=== PATIENT | male | born 1940 | race Caucasian/White ===

== ENCOUNTER 2022-05-24 16:47 | Inpatient (IN) | payer MEDICARE, SELFPAY ==
--- NOTE | ~2022-05-24 | CT_ITS ---
EXAMINATION: CT ABDOMEN AND PELVIS WITHOUT CONTRAST CLINICAL INFORMATION: Acute renal failure COMPARISON: None TECHNIQUE: Multidetector volumetric imaging was performed from the superior aspect of the liver through the pubic symphysis. Sagittal and coronal reformatted images were obtained on the technologist's workstation. This CT examination was performed using dose optimization techniques as appropriate, variously including the following: *Automated exposure control *Adjustment of mA and/or kV according to patient size (this includes techniques or standardized protocols for targeted exams where dose is matched to indication/reason for exam; i.e. extremities or head) *Use of iterative reconstruction technique DLP: 506 mGy-cm FINDINGS: LUNG BASES: Fibrotic changes are seen at the lung bases. No suspicious lung masses or pleural effusions are seen. Coronary artery calcifications are present. LIVER, GALLBLADDER, AND BILIARY TREE: The liver is normal in size, shape, and attenuation. No focal hepatic lesion or biliary ductal dilatation is present. The gallbladder is unremarkable with no evidence of radiopaque gallstones, gallbladder wall thickening, or obvious pericholecystic inflammatory changes. PANCREAS: Unremarkable. SPLEEN: Unremarkable. ADRENAL GLANDS: Unremarkable. KIDNEYS, URETERS, BLADDER AND PROSTATE: There is bilateral hydronephrosis with dilatation of the ureters seen down to the level of the bladder. No obstructing stones are seen. No renal masses and no nephrolithiasis. Lateral demonstrates a mildly symmetric thickened wall. The prostate is enlarged measuring 5.6 x 4.8 x 4.9 cm for a volume of about 70 mL. The urethra at the level of the prostate is dilated. This could be secondary to a TURP defect although I am told that there is no history of this. Please correlate with the surgical history. A single calcification is present in the prostate. No calcifications are seen in the bladder or urethra. GASTROINTESTINAL TRACT: The small and large bowel are unremarkable. The appendix is unremarkable. ABDOMINAL WALL: No significant hernia is appreciated. LYMPH NODES: Normal. VASCULAR: Calcifications are present in the aorta without aneurysm. PELVIC VISCERA: An abnormal pelvic mass or free pelvic fluid is not seen. 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 CT/CT abdomen pelvis wo IV con IMPRESSION: 1. There is bilateral hydronephrosis with dilatation of the ureters down to the level of the bladder. No obstructing stones are seen. The prostate is enlarged and the urethra at the level of the prostate is dilated. Findings most consistent with bladder outlet obstruction and urgency placement of a Esquivel catheter is recommended given the acute renal failure. 2. 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 Fleischner guidelines were followed.
--- NOTE | ~2022-05-24 | CT_ITS ---
EXAMINATION: CT HEAD WITHOUT CONTRAST CLINICAL INFORMATION: Head pain status post fall. COMPARISON: None TECHNIQUE: Contiguous axial imaging was performed from the skull base to vertex without intravenous administration of contrast. Coronal and sagittal reformatted images were obtained. This CT examination was performed using dose optimization techniques as appropriate, variously including the following: *Automated exposure control *Adjustment of mA and/or kV according to patient size (this includes techniques or standardized protocols for targeted exams where dose is matched to indication/reason for exam; i.e. extremities or head) *Use of iterative reconstruction technique DLP: 646 mGy-cm FINDINGS: There is mild widening of the cortical sulci and associated ventriculomegaly. Minimal Vascular changes are seen. The lateral ventricles are symmetrical. The third and fourth ventricles are in their normal midline position. The basilar and prepontine cisterns are unremarkable. There is no acute intra or extracerebral abnormality. There is no mass effect or midline shift. Sections through the bony calvarium are unremarkable. The orbits are intact. The paranasal sinuses show mild mucosal thickening in the ethmoid sinuses bilaterally as well as inferiorly in the visualized maxillary sinuses. Partial visualization of retention cyst versus inflammatory polyps as well. The mastoid air cells are clear. An anterior nasal septal deviation, apex the left is seen. CT/CT head/brain wo IV con IMPRESSION: No acute intracranial pathology.
--- NOTE | ~2022-05-24 | XR_ITS ---
EXAMINATION: XR CHEST CLINICAL INFORMATION: Bibasilar crackles COMPARISON: None TECHNIQUE: Frontal view of the chest was obtained. FINDINGS: No airspace consolidation, pleural effusion, or pneumothorax. There are scattered mildly increased reticular markings within both lungs suggesting mild interstitial fibrotic change. Minimal subsegmental atelectasis suspected at the lung bases as well. Cardiomediastinal silhouette and pulmonary vascularity are within normal limits. No evidence of bone edema. No acute osseous injury identified. XR/XR chest 1V IMPRESSION: 1. No acute pulmonary process. 2. Mild bibasilar subsegmental atelectasis and probable mild scattered interstitial fibrotic change.
[2022-05-24 17:10] VITALS: BP 131/89; PULSE 78; RESP 20; TEMP 36.1; O2SAT 96; BMI 21.7
[2022-05-24 18:03] LABS: MANUAL DIFF FLAG NO
[2022-05-24 18:10] LABS: Basophils Absolute Auto 0.1 X10*3/uL (0.0-0.2); Basophils Percent Auto 0.5 % (0-2); Eosinophils Absolute Auto 0.1 X10*3/uL (0.0-0.4); Eosinophils Percent Auto 0.4 % (0-4); Hematocrit 34.3 % (42.0-52.0); Hemoglobin 11.6 g/dl (14.0-18.0); Imm Gran Abs Auto 0.05 X10*3/uL (0.00-0.03); Imm Gran Pct Auto 0.4 % (0.0-0.4); Lymphocytes Absolute Auto 1.2 X10*3/uL (1.2-4.9); Lymphocytes Percent Auto 8.6 % (20-40); Mean Corpuscular HGB Conc 33.8 g/dl (31.0-36.0); Mean Corpuscular Hemoglobin 30.4 pg (27.0-33.0); Mean Platelet Volume 9.9 fL (9.4-12.4); Monocytes Absolute Auto 1.1 X10*3/uL (0.1-1.2); Monocytes Percent Auto 8.1 % (2-11); Neutrophils Absolute Auto 11.1 x10*3/uL (2.0-8.3); Platelet Count 248 X10*3/uL (160-400); Red Blood Count 3.81 X10*6/uL (4.60-5.80); Red Cell Distribution Width 13.6 % (11.0-16.0); White Blood Count 13.6 X10*3/uL (4.8-10.8)
[2022-05-24 18:37] LABS: Anion Gap 18 (12-20); Blood Urea Nitrogen 77 mg/dL (9-16); Calcium 8.3 mg/dL (8.4-10.2); Carbon Dioxide 12 mmol/L (22-29); Chloride 110 mmol/L (96-108); Creatinine Clr Calc Pharmacy 12.2; Estimated Glomerular Filt Rate 13; Glucose Random 153 mg/dL (60-115); Potassium 5.2 mmol/L (3.3-5.1); Sodium 135 mmol/L (135-145)
--- NOTE | 2022-05-24 19:00 | ED.RECABL ---
HPI - Recheck/Abnormal Lab/Rx General Chief Complaint: Recheck/Abnormal Lab/Rx Stated Complaint: Abnormal labs Time Seen by Provider: 05/24/22 19:00 Source: patient Mode of arrival: ambulatory Limitations: no limitations History of Present Illness HPI narrative: 81-year-old male presents emergency department with and new onset kidney failure. Patient had some outpatient labs done yesterday at another facility he was called by his primary care doctor and told to come to the hospital for kidney failure. Patient denies fevers chills cough nausea vomiting or diarrhea he states he has been eating and drinking normally. Patient denies any history of renal failure. complaint: abnormal lab Review of Systems Review of Systems: Review of systems: General: Patient denies any fever chills recent illness or falls Musculoskeletal: Denies back pain or body aches or other injuries HEENT: denies headache, runny nose, ear pain Respiratory: denies shortness of breath, cough Cardiovascular: no chest pain or palpitations : denies dysuria, frequency Abdomen: no nausea vomiting denies abdominal pain Extremities: no swelling, no pain Skin: no diaphoresis Yes all other systems are reviewed and are negative PMFSH Social History Social History Advance Directives: No Advance Directives Information Provided: No Physical Exam Vital Signs: Vital Signs: Last Vital Signs Temp 97.0 F 05/24/22 17:10 Pulse 78 05/24/22 17:10 Resp 20 05/24/22 17:10 BP 131/89 05/24/22 17:10 Pulse Ox 96 05/24/22 17:10 O2 Del Method 05/24/22 17:10 BMI result Body Mass Index 21.7 General: Well-appearing well-nourished in no signs of distress HEENT: Normocephalic atraumatic Neck: No signs of JVD, no masses no tenderness or lymphadenopathy Cardiovascular: Regular rate and rhythm Respiratory: Clear to auscultation bilaterally Abdomen: Soft nontender no masses Extremities: Normal pedal pulses no signs of edema Skin: Dry warm no rashes Back: No tenderness full ROM Medical Decision Making Medical Decision Making MDM Narrative: Alter the patient fluids patient has new onset renal failure creatinine is normal to give patient fluids admit to Medicine. Differential Diagnosis Differential Diagnoses: The differential diagnosis associated with the presentation includes Acute renal failure dehydration I will give the patient fluids I will have the patient evaluated and likely admitted. Admission/Observation Consideration of admission/observation: Escalation of care including admission/observation considered Consult Healthcare Provider Management of the patient was discussed with: Hospitalist Dr. Mustafa Lab Data MDM Lab Attestation statement: I reviewed the patient's lab results. 05/24/22 17:59 05/24/22 17:59 Labs: Lab Results 05/24/22 05/24/22 Range/Units 17:59 17:59 WBC 13.6 H (4.8-10.8) X10*3/uL RBC 3.81 L (4.60-5.80) X10*6/uL Hgb 11.6 L (14.0-18.0) g/dl Hct 34.3 L (42.0-52.0) % MCV 90.0 (80.0-98.0) fL MCH 30.4 (27.0-33.0) pg MCHC 33.8 (31.0-36.0) g/dl RDW 13.6 (11.0-16.0) % Plt Count 248 (160-400) X10*3/uL MPV 9.9 (9.4-12.4) fL Immature Gran % (Auto) 0.4 (0.0-0.4) % Neut % (Auto) 82.0 H (45-73) % Lymph % (Auto) 8.6 L (20-40) % [place] % (Auto) 8.1 (2-11) % Eos % (Auto) 0.4 (0-4) % Baso % (Auto) 0.5 (0-2) % Lymph # (Auto) 1.2 (1.2-4.9) X10*3/uL [place] # (Auto) 1.1 (0.1-1.2) X10*3/uL Eos # (Auto) 0.1 (0.0-0.4) X10*3/uL Baso # (Auto) 0.1 (0.0-0.2) X10*3/uL Abs Immat Gran (auto) 0.05 H (0.00-0.03) X10*3/uL Absolute Neuts (auto) 11.1 H (2.0-8.3) x10*3/uL Absolute Nucleated RBC 0.000 (0.0-0.012) X10*3/uL Nucleated RBC % (auto) 0.0 (0.0-0.2) /100WBC Sodium 135 (135-145) mmol/L Potassium 5.2 H (3.3-5.1) mmol/L Chloride 110 H (96-108) mmol/L Carbon Dioxide 12 L (22-29) mmol/L Anion Gap 18 (12-20) BUN 77 H (9-16) mg/dL Creatinine 4.29 H* (0.5-1.4) mg/dL Estim Creat Clear Calc 12.2 Estimated GFR 13 Random Glucose 153 H (60-115) mg/dL Calcium 8.3 L (8.4-10.2) mg/dL Independent Historian Clinical information obtained from an independent historian. History obtained from or confirmed by: Other External Record Review External record reviewed: Prior outpatient labs and Primary care record Social Determinants Patient?s care significantly limited by Social Determinants of Health including: Other Social Determinant of Health Discharge Plan Discharge Clinical Impression: Acute renal failure, Acute dehydration Patient Disposition: Admitted As Inpatient
[2022-05-24 19:22] VITALS: BP 132/80; PULSE 74; RESP 16; TEMP 36.8; O2SAT 97
[2022-05-24] MEDS: 0.9 % Sodium Chloride 1,000 ML 999 ML IV (19:37)
--- NOTE | 2022-05-24 19:47 | P.HPHOSP_ITS ---
History of Present Illness Date of Service: 05/24/22 Attending physician on admission: Adriana Sales Chief Complaint: danyelle 81-year-old male with history of hypertension and unspecified dementia presents to the ED with his daughter at the recommendation of PCP for evaluation of DANYELLE. Patient had a routine appointment with PCP yesterday and was called today with abnormal lab results advised to present to the ED for further evaluation. His daughter, with whom he lives, states he has no known history of chronic kidney disease. He has been feeling well overall, eating and drinking normally. He denies any fevers, chills, nausea, vomiting, abdominal pain, diarrhea, dysuria, hematuria, increased urinary frequency, decreased urinary output, palpitations, lightheadedness, shortness of breath, or chest pain. In the ED, vital signs stable. Leukocytosis of 13.6. Mild normocytic anemia with H/H 11.6/34.3%. Creatinine 4.29 (baseline unknown), BUN 77. Sodium 135, potassium 5.2, chloride 110, CO2 12, glucose 153. VBG unremarkble except bicarb 13. CXR with bibasilar atelectasis and interstial fibrotic changes. Ct abd/pelvis showing bladder outlet obstruction. Patient treated with 1 L IV fluid bolus in the ED. To be admitted for DANYELLE. Review of Systems Review of Systems: General: No fevers, malaise, unintentional weight loss HEENT: No blurred vision, diplopia. No sore throat, nasal congestion, rhinorrhea, sinus pain, ear pain Cardiovascular: No chest pain, palpitations, or leg edema Respiratory: No shortness of breath, wheezing, cough GI: No abdominal pain, nausea, vomiting, diarrhea, constipation, melena, hematochezia : No dysuria, hematuria, increased urinary frequency, decreased urinary output MSK: No myalgia, back pain Neuro: No headaches, weakness, paresthesias Skin: No rashes or lesions [facility] Medical History (Updated 05/24/22 @ 21:32 by RONAK Barlow) Hypertension Social History Alcohol intake: never Patient Tobacco Use Status: Never used Tobacco Smoked in Last 30 Days: No Use of substances other than those prescribed or required for medical reasons: No Advance Directives: No Advance Directives Information Provided: No Nutrition Risks: No Nutritional Risk Meds Allergies Allergy/AdvReac Type Severity Reaction Status Date / Time No Known Allergies Allergy Verified 05/24/22 19:23 Active Medications: Current Medications Sodium Chloride (Ns) 1,000 mls @ 999 mls/hr IV .Q1H1M LEXX Stop: 05/24/22 20:30 Last Admin: 05/24/22 19:37 Dose: 999 mls/hr Home Medications Medication Instructions Recorded Confirmed Last Taken Type multivitamin 1 tab PO DAILY 05/24/22 05/24/22 05/24/22 History ramipril 2.5 mg capsule 2.5 mg PO DAILY 05/24/22 05/24/22 05/23/22 History Physical Exam Vital Signs and Narrative: Vital Signs: Last Vital Signs Temp 98.3 F 05/24/22 19:22 Pulse 74 05/24/22 19:22 Resp 16 05/24/22 19:22 BP 132/80 05/24/22 19:22 Pulse Ox 97 05/24/22 19:22 O2 Del Method 05/24/22 19:22 BMI result Body Mass Index 21.7 Constitutional - Awake and Alert, No apparent distress Eyes - PERRLA, EOMI Cardiovascular - S1S2, RRR, No edema Respiratory - Normal lung expansion, Normal respiratory effort, No respiratory distress, bibasilar crackles Gastrointestinal - NT / ND; +BS; No rebound or guarding Extremities - no calf tenderness bilaterally, no swelling Skin - Warm/Dry Neurological - Alert & oriented x2 disoriented to time, 5/5 strength BUE and BLE Psychological - Appropriate affect Results Labs 05/24/22 17:59 05/24/22 17:59 Labs: Laboratory Results - last 24 hr 05/24/22 05/24/22 17:59 17:59 MCV 90.0 MCH 30.4 MCHC 33.8 RDW 13.6 Plt Count 248 MPV 9.9 Immature Gran % (Auto) 0.4 Neut % (Auto) 82.0 H Lymph % (Auto) 8.6 L [place] % (Auto) 8.1 Eos % (Auto) 0.4 Baso % (Auto) 0.5 Lymph # (Auto) 1.2 [place] # (Auto) 1.1 Eos # (Auto) 0.1 Baso # (Auto) 0.1 Abs Immat Gran (auto) 0.05 H Absolute Neuts (auto) 11.1 H Absolute Nucleated RBC 0.000 Nucleated RBC % (auto) 0.0 Anion Gap 18 Estim Creat Clear Calc 12.2 Estimated GFR 13 Random Glucose 153 H Calcium 8.3 L Total Creatine Kinase 47 Assessment and Plan (1) Bladder outlet obstruction: Status: Acute (2) Acute renal failure: Status: Acute (3) UTI (urinary tract infection): Status: Acute Plan 81-year-old male with history of hypertension and unspecified dementia admitted for DANYELLE of unclear etiology. #Acute kidney injury- due to bladder outlet obstruction -Creat 4.29, baseline unknown but daughter denies known history of CKD. BUN 77 -CT showing bilateral hydronephrosis and enlarged prostate with bladder outlet obstruction -Given 1L IVF in ED. Continue IVF -Esquivel placed -Urine creat and sodium pending -Avoid nephrotoxins -Urology consult placed -Follow BMP #Acute UTI -UA with 3+ leuks, 2+ blood, >50 WBC, 4+ bacteria, negative nitrites -IV ceftriaxone -Follow cultures # mild hyperkalemia-likely secondary to DANYELLE -potassium 5.2 -hold ramipril -Correct DANYELLE as above #Metabolic acidosis- compensating -Likely due to uremia -bicarb 13, co2 23 -Treat DANYELLE as above -Repeat VBG am #Leukocytosis -VSS- no sepsis -CXR and UA/UC pending -Follow CBC #Hypertension- reasonably controlled -Hold ramipril in the setting of DANYELLE -Monitor BP #Unspecified dementia without behavioral disturbance -baseline mentation -keep sleep-wake cycle #Normocytic anemia- chronicity unknown -H/H above transfusion threshold -No acute bleeding -Follow CBC DVT prophylaxis-heparin Full code Patient requires inpatient stay of at least 2 midnights for management of acute kidney injury related to bladder outlet obstuction with metabolic acidosis requiring IVF, close monitoring of fluids, renal function/lytes, and expert consultation Time Spent With Patient Time: Total time managing care of this patient today ____ minutes. Quality Stroke Does the patient have a stroke diagnosis?: No VTE Prior VTE?: No VTE Risk Level:: Medical - moderate - high VTE Device Contraindication: Treatment Not Indicated VTE Drug Contraindication: N/A - Med Ordered
[2022-05-24 19:54] LABS: COVID-19 Test Negative (Negative); IDNOW Serial# 16C4AD1C
--- NOTE | 2022-05-24 20:12 | PHA.MEDREC ---
med rec complete, no issues Pharmacy Consult ? Medication Reconciliation Pharmacy has completed the medication reconciliation.
[2022-05-24 20:13] LABS: Alanine Aminotransferase 9 U/L (0-40); Albumin Level 3.3 g/dL (3.5-5.0); Alkaline Phosphatase 91 U/L (39-117); Aspartate Amino Transferase 14 U/L (5-37); Bilirubin Direct < 0.2 mg/dL (0.0-0.5); Bilirubin Total 0.4 mg/dL (0.0-1.0)
--- NOTE | 2022-05-24 20:22 | PC.NURSE ---
18F galindo placed, draining cloudy white sediment urine. PT tolerated well.
--- NOTE | 2022-05-24 20:32 | PC.NURSE ---
Addendum entered by Magalis Mena 05/24/22 23:49: small pink clots noted. Original Note: PT A&O to self, on stretcher resting quietly. PT denies any pain. Denies any N/V/D. Denies any CP. Daughter at bedside. IV placed, lab work collected and sent to lab.
[2022-05-24] MEDS: 0.9 % Sodium Chloride 1,000 ML 100 ML IVCONT (20:44)
[2022-05-24] MEDS: Heparin Sodium,Porcine 5,000 UNIT/ML VIAL 5000 UNIT SUBCUT (20:44)
[2022-05-24 20:45] LABS: VBG Base Excess -9.9 mmol/L; VBG HCO3 13 mmol/L (22-26); VBG pCO2 23 mmHg; VBG pH 7.36 (7.32-7.43); VBG pO2 140 mmHg
[2022-05-24 20:48] LABS: Appearance Urine Turbid; Color Urine Yellow; Glucose Urine UA Negative (Negative); Leukocyte Esterase Urine Large (3+) (Negative); Nitrite Urine Negative (Negative); PH 5.5 (5.0-9.0); UMIC TRIGGER UACC YES; Urine Blood Moderate (2+) (Negative); Urine Ketones Negative (Negative); Urine Protein 30 (1+) mg/dL (Neg-Trace)
[2022-05-24 20:49] LABS: Lactic Acid 1.2 mmol/L (0.5-2.0); Salicylate < 5.0 mg/dL (15-30)
[2022-05-24 20:52] LABS: Venous Blood Gas Refer to POC result
[2022-05-24 20:58] LABS: B Type Natriuretic Peptide 56 pg/mL (<100)
[2022-05-24 20:59] LABS: Bacteria Urine 4+ (None Seen); Hyaline Casts Urine 0-2 /LPF (0-2); RBC Urine 0-2 /HPF (0-2); Squamous Epithelial Cell Urine 0-2 /HPF (0-2); UACC Culture Trigger YES; WBC Urine >50 /HPF (0-5)
[2022-05-24 21:01] LABS: Creatinine Urine 63.47 mg/dL
[2022-05-24 21:58] VITALS: BP 107/55; PULSE 76; RESP 16; TEMP 36.6; O2SAT 97
[2022-05-24 22:38] LABS: Anion Gap 16 (12-20); Blood Urea Nitrogen 77 mg/dL (9-16); Carbon Dioxide 13 mmol/L (22-29); Chloride 113 mmol/L (96-108); Creatinine Clr Calc Pharmacy 12.8; Estimated Glomerular Filt Rate 14; Glucose Random 99 mg/dL (60-115); Potassium 5.1 mmol/L (3.3-5.1); Sodium 137 mmol/L (135-145)
[2022-05-24] MEDS: cefTRIAXone sodium 1 GM in 0.9 % Sodium Chloride 50 ML IV (22:56)
[2022-05-25] MEDS: 0.9 % Sodium Chloride 1,000 ML 100 ML IVCONT (05:27)
[2022-05-25 05:28] VITALS: BP 156/77; PULSE 69; RESP 20; TEMP 36.6; O2SAT 98
--- NOTE | 2022-05-25 05:30 | PC.NURSE ---
report received from PRESTON Blancas pt is alert and oriented x2 resting in bed breathing equally unlabored josie c/d/i
[2022-05-25 06:33] LABS: VBG Base Excess -11.8 mmol/L; VBG HCO3 12 mmol/L (22-26); VBG pCO2 23 mmHg; VBG pH 7.32 (7.32-7.43); VBG pO2 76 mmHg
[2022-05-25 06:34] LABS: MANUAL DIFF FLAG NO; Venous Blood Gas Refer to POC result
[2022-05-25 06:46] LABS: Basophils Absolute Auto 0.1 X10*3/uL (0.0-0.2); Basophils Percent Auto 0.5 % (0-2); Eosinophils Absolute Auto 0.1 X10*3/uL (0.0-0.4); Eosinophils Percent Auto 0.4 % (0-4); Hematocrit 34.2 % (42.0-52.0); Hemoglobin 11.5 g/dl (14.0-18.0); Imm Gran Abs Auto 0.05 X10*3/uL (0.00-0.03); Imm Gran Pct Auto 0.4 % (0.0-0.4); Lymphocytes Absolute Auto 1.1 X10*3/uL (1.2-4.9); Lymphocytes Percent Auto 9.2 % (20-40); Mean Corpuscular HGB Conc 33.6 g/dl (31.0-36.0); Mean Corpuscular Hemoglobin 30.5 pg (27.0-33.0); Mean Corpuscular Volume 90.7 fL (80.0-98.0); Monocytes Absolute Auto 1.1 X10*3/uL (0.1-1.2); Monocytes Percent Auto 8.5 % (2-11); Platelet Count 227 X10*3/uL (160-400); Red Blood Count 3.77 X10*6/uL (4.60-5.80); Red Cell Distribution Width 13.3 % (11.0-16.0); White Blood Count 12.3 X10*3/uL (4.8-10.8)
--- NOTE | 2022-05-25 06:46 | PM.EVENT ---
Event Note Date of Service: 05/25/22 Event Note: patient seen and evaluated along with Ms Gar. do agree with the findings as below with the following addition. On exam patient seemed comfortable, he had no acute complaints. It appears the patient had routine labs done which showed DANYELLE. Patient was sent to the hospital for further evaluation. His labs showed acute kidney injury although no baseline for comparison. Patient appears comfortable, no abdominal pain, although he has dementia but answers questions appropriately. Given the acute kidney injury, requested CT of the abdomen which showed evidence of outlet obstruction, a Esquivel catheter was placed, and urology was consulted. Patient also has evidence of metabolic acidosis likely secondary to uremia with respiratory compensation. Normal pH. At this time will continue IV fluids, and follow BMP closely for full H&P please see below Time Spent With Patient Time: Total time managing care of this patient today ____ minutes.
[2022-05-25 07:07] LABS: Anion Gap 15 (12-20); Blood Urea Nitrogen 72 mg/dL (9-16); Calcium 8.1 mg/dL (8.4-10.2); Carbon Dioxide 11 mmol/L (22-29); Chloride 118 mmol/L (96-108); Estimated Glomerular Filt Rate 16; Glucose Random 112 mg/dL (60-115); Potassium 5.1 mmol/L (3.3-5.1); Sodium 139 mmol/L (135-145)
[2022-05-25] MEDS: Multivitamin TABLET 1 TAB PO (08:12)
[2022-05-25] MEDS: Heparin Sodium,Porcine 5,000 UNIT/ML VIAL 5000 UNIT SUBCUT ×2 (08:12→19:31)
--- NOTE | 2022-05-25 08:14 | PC.NURSE ---
Patient confused at baseline no agitation noted continues on IVF with no ill effect. Indwelling galindo draining blood tinged urine. No distress noted will CTM
--- NOTE | 2022-05-25 09:01 | PC.NURSE ---
1400 of blood tinged urine
[2022-05-25 10:02] VITALS: BP 156/80; PULSE 66; RESP 18; TEMP 36.9; O2SAT 98
--- NOTE | 2022-05-25 12:12 | PC.NURSE ---
Inpatient MD Jaret Prieto notified daughter at bedside
--- NOTE | 2022-05-25 12:29 | PM.UROCN ---
History of Present Illness Consult details Consult date: 05/25/22 Narrative: 81-year-old male with history of hypertension and unspecified dementia presented to the ED at the recommendation of PCP for evaluation of DANYELLE.? His daughter was at bedside and provided history, denies any fevers, chills, nausea, vomiting, abdominal pain, diarrhea, dysuria, hematuria, increased urinary frequency, lightheadedness, shortness of breath, or chest pain.? Labs:? Leukocytosis of 13.6.? Creatinine 4.29, Urine c/s gram negative rods. Ct abd/pelvis showing bladder outlet obstruction. galindo catheter has been inserted, 1400 mL return, blood tinged. Review of Systems Review of Systems: 10 point ROS negative other than stated in HPI [facility] Past Medical History Medical History Hypertension Social History Social History Alcohol intake: never Patient Tobacco Use Status: Never used Tobacco Smoked in Last 30 Days: No Use of substances other than those prescribed or required for medical reasons: No Advance Directives: No Advance Directives Information Provided: No Nutrition Risks: No Nutritional Risk Meds Allergies Allergy/AdvReac Type Severity Reaction Status Date / Time No Known Allergies Allergy Verified 05/24/22 19:23 Active Medications: Current Medications Acetaminophen (Acetaminophen 325 Mg Tablet) 650 mg PO Q6H PRN PRN Reason: Pain, Mild (Pain Scale 1-3) Heparin Sodium (Porcine) (Heparin Sodium,Porcine 5,000 Unit/Ml Vial) 5,000 unit SUBCUT Q12H [facility] Last Admin: 05/25/22 08:12 Dose: 5,000 unit Sodium Chloride (Ns) 1,000 mls @ 100 mls/hr IVCONT .Q10H [facility] Last Admin: 05/25/22 05:27 Dose: 100 mls/hr Ceftriaxone Sodium 1 gm/ (Sodium Chloride) 50 mls @ 100 mls/hr IV Q24H [facility] Last Infusion: 05/24/22 23:43 Dose: Infused Multivitamins/Vitamin C (Multivitamin Tablet) 1 tab PO DAILY [facility] Last Admin: 05/25/22 08:12 Dose: 1 tab Ondansetron HCl (Ondansetron Hcl 4 Mg/2 Ml Vial) 4 mg IVPUSH Q8H PRN PRN Reason: Nausea and Vomiting Pharmacy Consult (Consult Rx Perform Med Rec) 1 each MISCELLANE ONCE PRN PRN Reason: Consult order Senna (Sennosides 8.6 Mg Tablet) 17.2 mg PO BEDTIME PRN PRN Reason: Constipation Sodium Chloride (0.9 % Sodium Chloride Flush 3 Ml Syringe) 3 ml IVFLUSH QSHIFT [facility] Last Admin: 05/25/22 08:12 Dose: Not Given Home Medications Medication Instructions Recorded Confirmed Last Taken Type multivitamin 1 tab PO DAILY 05/24/22 05/24/22 05/24/22 History ramipril 2.5 mg capsule 2.5 mg PO DAILY 05/24/22 05/24/22 05/23/22 History Physical Exam Vital Signs: Vital Signs: Last Vital Signs Temp 98.4 F 05/25/22 10:02 Pulse 66 05/25/22 10:02 Resp 18 05/25/22 10:02 BP 156/80 H 05/25/22 10:02 Pulse Ox 98 05/25/22 10:02 O2 Del Method 05/25/22 10:02 BMI result Body Mass Index 21.7 Const: General: no acute distress HEENT: Head: Yes normocephalic and Yes atraumatic Eyes: Conjunctivae: conjunctivae normal Neck: Neck: Yes normal visual inspection Chest: Chest palpation & inspection: normal inspection of the chest Resp: Effort & Inspection: normal respiratory effort Cardio: Rate: regular rate GI: Inspection: Yes normal to inspection Palpation (GI): Soft to palpation : Other: galindo in place- urine tea colored Penis: normal penis Scrotum: scrotum normal Skin: General skin exam: no rashes or lesions noted Extrem: General: No pedal edema Psych: Appearance: grossly normal Affect: normal affect Results Labs 05/25/22 06:26 05/25/22 06:26 Labs: Abnormal lab results 05/24/22 05/24/22 05/24/22 Range/Units 17:59 17:59 20:25 WBC 13.6 H (4.8-10.8) X10*3/uL RBC 3.81 L (4.60-5.80) X10*6/uL Hgb 11.6 L (14.0-18.0) g/dl Hct 34.3 L (42.0-52.0) % Neut % (Auto) 82.0 H (45-73) % Lymph % (Auto) 8.6 L (20-40) % Lymph # (Auto) (1.2-4.9) X10*3/uL Abs Immat Gran (auto) 0.05 H (0.00-0.03) X10*3/uL Absolute Neuts (auto) 11.1 H (2.0-8.3) x10*3/uL VBG HCO3 (22-26) mmol/L Potassium 5.2 H (3.3-5.1) mmol/L Chloride 110 H (96-108) mmol/L Carbon Dioxide 12 L (22-29) mmol/L BUN 77 H (9-16) mg/dL Creatinine 4.29 H* (0.5-1.4) mg/dL Random Glucose 153 H (60-115) mg/dL Calcium 8.3 L (8.4-10.2) mg/dL Total Protein 6.0 L (6.5-8.0) g/dL Albumin 3.3 L (3.5-5.0) g/dL Urine Protein (Neg-Trace) mg/dL Urine Blood (Negative) Ur Leukocyte Esterase (Negative) Urine WBC (0-5) /HPF Salicylates < 5.0 L (15-30) mg/dL 05/24/22 05/24/22 05/24/22 Range/Units 20:32 20:36 21:41 WBC (4.8-10.8) X10*3/uL RBC (4.60-5.80) X10*6/uL Hgb (14.0-18.0) g/dl Hct (42.0-52.0) % Neut % (Auto) (45-73) % Lymph % (Auto) (20-40) % Lymph # (Auto) (1.2-4.9) X10*3/uL Abs Immat Gran (auto) (0.00-0.03) X10*3/uL Absolute Neuts (auto) (2.0-8.3) x10*3/uL VBG HCO3 13 L (22-26) mmol/L Potassium (3.3-5.1) mmol/L Chloride 113 H (96-108) mmol/L Carbon Dioxide 13 L (22-29) mmol/L BUN 77 H (9-16) mg/dL Creatinine 4.10 H* (0.5-1.4) mg/dL Random Glucose (60-115) mg/dL Calcium 8.0 L (8.4-10.2) mg/dL Total Protein (6.5-8.0) g/dL Albumin (3.5-5.0) g/dL Urine Protein 30 (1+) H (Neg-Trace) mg/dL Urine Blood Moderate (2+) H (Negative) Ur Leukocyte Esterase Large (3+) H (Negative) Urine WBC >50 H (0-5) /HPF Salicylates (15-30) mg/dL 05/25/22 05/25/22 05/25/22 Range/Units 06:26 06:26 06:27 WBC 12.3 H (4.8-10.8) X10*3/uL RBC 3.77 L (4.60-5.80) X10*6/uL Hgb 11.5 L (14.0-18.0) g/dl Hct 34.2 L (42.0-52.0) % Neut % (Auto) 81.0 H (45-73) % Lymph % (Auto) 9.2 L (20-40) % Lymph # (Auto) 1.1 L (1.2-4.9) X10*3/uL Abs Immat Gran (auto) 0.05 H (0.00-0.03) X10*3/uL Absolute Neuts (auto) 10.0 H (2.0-8.3) x10*3/uL VBG HCO3 12 L (22-26) mmol/L Potassium (3.3-5.1) mmol/L Chloride 118 H (96-108) mmol/L Carbon Dioxide 11 L (22-29) mmol/L BUN 72 H (9-16) mg/dL Creatinine 3.75 H (0.5-1.4) mg/dL Random Glucose (60-115) mg/dL Calcium 8.1 L (8.4-10.2) mg/dL Total Protein (6.5-8.0) g/dL Albumin (3.5-5.0) g/dL Urine Protein (Neg-Trace) mg/dL Urine Blood (Negative) Ur Leukocyte Esterase (Negative) Urine WBC (0-5) /HPF Salicylates (15-30) mg/dL Short CBC 05/24/22 05/25/22 Range/Units 17:59 06:26 WBC 13.6 H 12.3 H (4.8-10.8) X10*3/uL Hgb 11.6 L 11.5 L (14.0-18.0) g/dl Hct 34.3 L 34.2 L (42.0-52.0) % Plt Count 248 227 (160-400) X10*3/uL BMP 05/24/22 05/24/22 05/25/22 17:59 21:41 06:26 Sodium 135 137 139 Potassium 5.2 H 5.1 5.1 Chloride 110 H 113 H 118 H Carbon Dioxide 12 L 13 L 11 L BUN 77 H 77 H 72 H Creatinine 4.29 H* 4.10 H* 3.75 H Calcium 8.3 L 8.0 L 8.1 L Cardiac Enzymes 05/24/22 Range/Units 17:59 Total Creatine Kinase 47 (38-174) U/L Liver Function 05/24/22 Range/Units 17:59 Total Bilirubin 0.4 (0.0-1.0) mg/dL Direct Bilirubin < 0.2 (0.0-0.5) mg/dL AST 14 (5-37) U/L ALT 9 (0-40) U/L Alkaline Phosphatase 91 (39-117) U/L Albumin 3.3 L (3.5-5.0) g/dL Urine 05/24/22 Range/Units 20:36 Urine Color Yellow Urine Appearance Turbid Urine pH 5.5 (5.0-9.0) Ur Specific [place] 1.010 (1.005-1.025) Urine Protein 30 (1+) H (Neg-Trace) mg/dL Urine Glucose (UA) Negative (Negative) mg/dL All other labs normal. Imaging Abdomen CT scan report/results: report reviewed and image reviewed CT scan - pelvis: report reviewed and image reviewed Additional studies: Date of Service: 05/24/22 EXAMINATION: CT ABDOMEN AND PELVIS WITHOUT CONTRAST? CLINICAL INFORMATION: Acute renal failure? COMPARISON: None? FINDINGS: LUNG BASES: Fibrotic changes are seen at the lung bases. No suspicious lung masses or pleural effusions are seen. Coronary artery calcifications are present. LIVER, GALLBLADDER, AND BILIARY TREE: The liver is normal in size, shape, and attenuation. No focal hepatic lesion or biliary ductal dilatation is present. The gallbladder is unremarkable with no evidence of radiopaque gallstones, gallbladder wall thickening, or obvious pericholecystic inflammatory changes.? PANCREAS: Unremarkable.? SPLEEN: Unremarkable.? ADRENAL GLANDS: Unremarkable.? KIDNEYS, URETERS, BLADDER AND PROSTATE: There is bilateral hydronephrosis with dilatation of the ureters seen down to the level of the bladder. No obstructing stones are seen. No renal masses and no nephrolithiasis. Lateral demonstrates a mildly symmetric thickened wall. The prostate is enlarged measuring 5.6 x 4.8 x 4.9 cm for a volume of about 70 mL. The urethra at the level of the prostate is dilated. This could be secondary to a TURP defect although I am told that there is no history of this. Please correlate with the surgical history. A single calcification is present in the prostate. No calcifications are seen in the bladder or urethra. GASTROINTESTINAL TRACT: The small and large bowel are unremarkable. The appendix is unremarkable.? ABDOMINAL WALL: No significant hernia is appreciated.? LYMPH NODES: Normal. VASCULAR: Calcifications are present in the aorta without aneurysm. PELVIC VISCERA: An abnormal pelvic mass or free pelvic fluid is not seen.? 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 IMPRESSION: 1.? There is bilateral hydronephrosis with dilatation of the ureters down to the level of the bladder. No obstructing stones are seen. The prostate is enlarged and the urethra at the level of the prostate is dilated. Findings most consistent with bladder outlet obstruction and urgency placement of a Galindo catheter is recommended given the acute renal failure. 2.? 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 Assessment and Plan (1) Bladder outlet obstruction: Status: Acute (2) Acute renal failure: Status: Acute (3) Obstructive uropathy: Status: Acute (4) UTI (urinary tract infection): Status: Acute (5) Hematuria: Status: Acute (6) Urinary retention: Status: Acute Plan Urinary retention. Continue galindo for at least 5 days prior to voiding trial Hematuria likely secondary to distended bladder and cystitis. Recommend outpatient cysto BPH. proscar 5 mg daily When BP stable start flomax 0.4 mg daily Time Spent With Patient Time: Total time managing care of this patient today ____ minutes. Procedures Date of Service Date of Service: 05/25/22
--- NOTE | 2022-05-25 12:37 | PC.NURSE ---
Daughter at bedside waiting for MD will CTM
[2022-05-25] MEDS: Sodium Bicarbonate 8.4% 150 MEQ in Dextrose 5 % 850 ML 100 MEQ IV ×2 (14:07→23:27)
--- NOTE | 2022-05-25 14:14 | PC.NURSE ---
Normal saline discontinued patietn receiving and tolerating D 5 with bicarb with no ill effect.
--- NOTE | 2022-05-25 14:56 | HO.PM.IMPN ---
Subjective Subjective Date of Service: 05/25/22 Interval History: No acute issues overnight. Esquivel draining yellow clear urine Review of Systems Confused at baseline unable to obtain Physical Exam Vital Signs: Vital Signs: Last Vital Signs Temp 98.4 F 05/25/22 10:02 Pulse 66 05/25/22 10:02 Resp 18 05/25/22 10:02 BP 156/80 H 05/25/22 10:02 Pulse Ox 98 05/25/22 10:02 O2 Del Method 05/25/22 10:02 BMI result Body Mass Index 21.7 Const: Other: Awake alert no acute distress Resp: Other: Clear to auscultation bilaterally no rales rhonchi or wheezes Cardio: Other: No S4; positive S1-S2; no S3 murmurs rubs or gallops GI: Other: Soft nontender nondistended normoactive bowel sounds Extrem: Other: No edema bilaterally Objective Data Active Medications Acetaminophen (Acetaminophen 325 Mg Tablet) 650 mg PO Q6H PRN PRN Reason: Pain, Mild (Pain Scale 1-3) Heparin Sodium (Porcine) (Heparin Sodium,Porcine 5,000 Unit/Ml Vial) 5,000 unit SUBCUT Q12H [facility] Last Admin: 05/25/22 08:12 Dose: 5,000 unit Documented By: ZAKIYA Ceftriaxone Sodium 1 gm/ (Sodium Chloride) 50 mls @ 100 mls/hr IV Q24H [facility] Last Infusion: 05/24/22 23:43 Dose: 0 mls/hr Documented By: SERRANX Sodium Bicarbonate 150 meq/ (Dextrose) 1,000 mls @ 100 mls/hr IV .Q10H [facility] Last Admin: 05/25/22 14:07 Dose: 100 mls/hr Documented By: ZAKIYA Multivitamins/Vitamin C (Multivitamin Tablet) 1 tab PO DAILY [facility] Last Admin: 05/25/22 08:12 Dose: 1 tab Documented By: ZAKIYA Ondansetron HCl (Ondansetron Hcl 4 Mg/2 Ml Vial) 4 mg IVPUSH Q8H PRN PRN Reason: Nausea and Vomiting Pharmacy Consult (Consult Rx Perform Med Rec) 1 each MISCELLANE ONCE PRN PRN Reason: Consult order Senna (Sennosides 8.6 Mg Tablet) 17.2 mg PO BEDTIME PRN PRN Reason: Constipation Sodium Chloride (0.9 % Sodium Chloride Flush 3 Ml Syringe) 3 ml IVFLUSH QSHIFT [facility] Last Admin: 05/25/22 14:53 Dose: Not Given Documented By: ZAKIYA Non-Admin Reason: fluids running Labs 05/25/22 06:26 05/25/22 06:26 Labs: Laboratory Results - last 24 hr 05/24/22 05/24/22 05/24/22 17:59 17:59 19:36 MCV 90.0 MCH 30.4 MCHC 33.8 RDW 13.6 Plt Count 248 MPV 9.9 Immature Gran % (Auto) 0.4 Neut % (Auto) 82.0 H Lymph % (Auto) 8.6 L [place] % (Auto) 8.1 Eos % (Auto) 0.4 Baso % (Auto) 0.5 Lymph # (Auto) 1.2 [place] # (Auto) 1.1 Eos # (Auto) 0.1 Baso # (Auto) 0.1 Abs Immat Gran (auto) 0.05 H Absolute Neuts (auto) 11.1 H Absolute Nucleated RBC 0.000 Nucleated RBC % (auto) 0.0 VBG pH VBG pCO2 VBG pO2 VBG HCO3 VBG O2 Saturation VBG Base Excess Anion Gap 18 Estim Creat Clear Calc 12.2 Estimated GFR 13 Random Glucose 153 H Lactic Acid Calcium 8.3 L Total Bilirubin 0.4 Direct Bilirubin < 0.2 AST 14 ALT 9 Alkaline Phosphatase 91 Total Creatine Kinase 47 B-Natriuretic Peptide Total Protein 6.0 L Albumin 3.3 L Urine Color Urine Appearance Urine pH Ur Specific [place] Urine Protein Urine Glucose (UA) Urine Ketones Urine Blood Urine Nitrite Ur Leukocyte Esterase Urine RBC Urine WBC Ur Squamous Epith Cells Urine Bacteria Hyaline Casts Ur Random Sodium Urine Creatinine Salicylates COVID-19 (JULIO C) Negative COVID-19 Clin Com See Note 05/24/22 05/24/22 05/24/22 20:25 20:25 20:25 MCV MCH MCHC RDW Plt Count MPV Immature Gran % (Auto) Neut % (Auto) Lymph % (Auto) [place] % (Auto) Eos % (Auto) Baso % (Auto) Lymph # (Auto) [place] # (Auto) Eos # (Auto) Baso # (Auto) Abs Immat Gran (auto) Absolute Neuts (auto) Absolute Nucleated RBC Nucleated RBC % (auto) VBG pH VBG pCO2 VBG pO2 VBG HCO3 VBG O2 Saturation VBG Base Excess Anion Gap Estim Creat Clear Calc Estimated GFR Random Glucose Lactic Acid 1.2 Calcium Total Bilirubin Direct Bilirubin AST ALT Alkaline Phosphatase Total Creatine Kinase B-Natriuretic Peptide 56 Total Protein Albumin Urine Color Urine Appearance Urine pH Ur Specific [place] Urine Protein Urine Glucose (UA) Urine Ketones Urine Blood Urine Nitrite Ur Leukocyte Esterase Urine RBC Urine WBC Ur Squamous Epith Cells Urine Bacteria Hyaline Casts Ur Random Sodium Urine Creatinine Salicylates < 5.0 L COVID-19 (JULIO C) COVID-19 [employer] 05/24/22 05/24/22 05/24/22 20:32 20:36 20:36 MCV MCH MCHC RDW Plt Count MPV Immature Gran % (Auto) Neut % (Auto) Lymph % (Auto) [place] % (Auto) Eos % (Auto) Baso % (Auto) Lymph # (Auto) [place] # (Auto) Eos # (Auto) Baso # (Auto) Abs Immat Gran (auto) Absolute Neuts (auto) Absolute Nucleated RBC Nucleated RBC % (auto) VBG pH 7.36 VBG pCO2 23 VBG pO2 140 VBG HCO3 13 L VBG O2 Saturation 99.0 VBG Base Excess -9.9 Anion Gap Estim Creat Clear Calc Estimated GFR Random Glucose Lactic Acid Calcium Total Bilirubin Direct Bilirubin AST ALT Alkaline Phosphatase Total Creatine Kinase B-Natriuretic Peptide Total Protein Albumin Urine Color Yellow Urine Appearance Turbid Urine pH 5.5 Ur Specific [place] 1.010 Urine Protein 30 (1+) H Urine Glucose (UA) Negative Urine Ketones Negative Urine Blood Moderate (2+) H Urine Nitrite Negative Ur Leukocyte Esterase Large (3+) H Urine RBC 0-2 Urine WBC >50 H Ur Squamous Epith Cells 0-2 Urine Bacteria 4+ Hyaline Casts 0-2 Ur Random Sodium 57.0 Urine Creatinine 63.47 Salicylates COVID-19 (JULIO C) COVID-19 [employer] 05/24/22 05/25/22 05/25/22 21:41 06:26 06:26 MCV 90.7 MCH 30.5 MCHC 33.6 RDW 13.3 Plt Count 227 MPV 10.0 Immature Gran % (Auto) 0.4 Neut % (Auto) 81.0 H Lymph % (Auto) 9.2 L [place] % (Auto) 8.5 Eos % (Auto) 0.4 Baso % (Auto) 0.5 Lymph # (Auto) 1.1 L [place] # (Auto) 1.1 Eos # (Auto) 0.1 Baso # (Auto) 0.1 Abs Immat Gran (auto) 0.05 H Absolute Neuts (auto) 10.0 H Absolute Nucleated RBC 0.000 Nucleated RBC % (auto) 0.0 VBG pH VBG pCO2 VBG pO2 VBG HCO3 VBG O2 Saturation VBG Base Excess Anion Gap 16 15 Estim Creat Clear Calc 12.8 14.0 Estimated GFR 14 16 Random Glucose 99 112 Lactic Acid Calcium 8.0 L 8.1 L Total Bilirubin Direct Bilirubin AST ALT Alkaline Phosphatase Total Creatine Kinase B-Natriuretic Peptide Total Protein Albumin Urine Color Urine Appearance Urine pH Ur Specific [place] Urine Protein Urine Glucose (UA) Urine Ketones Urine Blood Urine Nitrite Ur Leukocyte Esterase Urine RBC Urine WBC Ur Squamous Epith Cells Urine Bacteria Hyaline Casts Ur Random Sodium Urine Creatinine Salicylates COVID-19 (JULIO C) COVID-19 [employer] 05/25/22 06:27 MCV MCH MCHC RDW Plt Count MPV Immature Gran % (Auto) Neut % (Auto) Lymph % (Auto) [place] % (Auto) Eos % (Auto) Baso % (Auto) Lymph # (Auto) [place] # (Auto) Eos # (Auto) Baso # (Auto) Abs Immat Gran (auto) Absolute Neuts (auto) Absolute Nucleated RBC Nucleated RBC % (auto) VBG pH 7.32 VBG pCO2 23 VBG pO2 76 VBG HCO3 12 L VBG O2 Saturation 95.0 VBG Base Excess -11.8 Anion Gap Estim Creat Clear Calc Estimated GFR Random Glucose Lactic Acid Calcium Total Bilirubin Direct Bilirubin AST ALT Alkaline Phosphatase Total Creatine Kinase B-Natriuretic Peptide Total Protein Albumin Urine Color Urine Appearance Urine pH Ur Specific [place] Urine Protein Urine Glucose (UA) Urine Ketones Urine Blood Urine Nitrite Ur Leukocyte Esterase Urine RBC Urine WBC Ur Squamous Epith Cells Urine Bacteria Hyaline Casts Ur Random Sodium Urine Creatinine Salicylates COVID-19 (JULIO C) COVID-19 [employer] Microbiology Microbiology Results: Microbiology 05/24/22 21:00 Urine Culture - Preliminary Urine clean catch - Urine naidu top Gram negative christiano Assessment and Plan (1) Bladder outlet obstruction: Status: Acute (2) Acute renal failure: Status: Acute (3) UTI (urinary tract infection): Status: Acute Plan 81-year-old male with history of hypertension and unspecified dementia admitted for DANYELLE secondary to obstructive uropathy 1.Acute kidney injury secondary to bladder outlet obstruction -creatinine improving since Esquivel insertion -appreciate urology input; voiding trial after 5 days 2.Acute UTI -preliminary culture Gram-negative rods -IV ceftriaxone(3) -Follow cultures 3.Metabolic acidosis -bicarb drip -will also aid in hyperkalemia -follow renals/divalents 3.Hypertension- reasonably controlled -Hold ramipril in the setting of DANYELLE -Monitor BP 4. Anemia; likely chronic -clinically irrelevant -follow CBCs periodically Heparin Full code Patient requires ongoing hospitalization for bicarbonate drip IV to correct acidosis and hyperkalemia into renal function normalizes Time Spent With Patient Time: Total time managing care of this patient today ____ minutes. Quality Stroke Does the patient have a stroke diagnosis?: No VTE Prior VTE?: No VTE Risk Level:: Medical - moderate - high VTE Device Contraindication: Treatment Not Indicated VTE Drug Contraindication: N/A - Med Ordered
--- NOTE | 2022-05-25 16:54 | PC.NURSE ---
Report to Joaquim JONHSTON
[2022-05-25 17:09] VITALS: BP 166/77; PULSE 71; RESP 18; TEMP 37; O2SAT 95
[2022-05-25 19:14] VITALS: BP 119/57; PULSE 83; RESP 18; TEMP 36.7; O2SAT 93
[2022-05-25 19:31] LABS: Glucose, Whole Blood 165 mg/dL (60-115)
[2022-05-25] MEDS: cefTRIAXone sodium 1 GM in 0.9 % Sodium Chloride 50 ML IV (22:15)
[2022-05-26 03:35] VITALS: BP 120/61; PULSE 65; RESP 17; TEMP 36.1; O2SAT 97
[2022-05-26 06:40] LABS: MANUAL DIFF FLAG NO
[2022-05-26 06:55] LABS: Basophils Absolute Auto 0.1 X10*3/uL (0.0-0.2); Basophils Percent Auto 0.5 % (0-2); Eosinophils Absolute Auto 0.2 X10*3/uL (0.0-0.4); Eosinophils Percent Auto 1.7 % (0-4); Hematocrit 32.4 % (42.0-52.0); Imm Gran Abs Auto 0.05 X10*3/uL (0.00-0.03); Imm Gran Pct Auto 0.5 % (0.0-0.4); Lymphocytes Absolute Auto 1.6 X10*3/uL (1.2-4.9); Lymphocytes Percent Auto 15.2 % (20-40); Mean Corpuscular Hemoglobin 30.2 pg (27.0-33.0); Mean Platelet Volume 10.5 fL (9.4-12.4); Neutrophils Absolute Auto 7.8 x10*3/uL (2.0-8.3); Neutrophils Percent Auto 73.1 % (45-73); Platelet Count 231 X10*3/uL (160-400); Red Blood Count 3.64 X10*6/uL (4.60-5.80); Red Cell Distribution Width 13.2 % (11.0-16.0); White Blood Count 10.7 X10*3/uL (4.8-10.8)
[2022-05-26 07:38] VITALS: BP 157/80; PULSE 68; RESP 18; TEMP 36.7; O2SAT 98
[2022-05-26] MEDS: Heparin Sodium,Porcine 5,000 UNIT/ML VIAL 5000 UNIT SUBCUT (08:49)
[2022-05-26] MEDS: Multivitamin TABLET 1 TAB PO (08:50)
[2022-05-26 08:53] LABS: Alanine Aminotransferase 8 U/L (0-40); Albumin Level 2.9 g/dL (3.5-5.0); Alkaline Phosphatase 72 U/L (39-117); Aspartate Amino Transferase 11 U/L (5-37); Bilirubin Total 0.3 mg/dL (0.0-1.0); Blood Urea Nitrogen 61 mg/dL (9-16); Calcium 7.8 mg/dL (8.4-10.2); Creatinine Clr Calc Pharmacy 15.7; Estimated Glomerular Filt Rate 18; Glucose Fasting 110 mg/dL (60-99); Total Protein 5.3 g/dL (6.5-8.0)
[2022-05-26 09:17] LABS: Anion Gap 17 (12-20); Carbon Dioxide 18 mmol/L (22-29); Chloride 106 mmol/L (96-108); Potassium 4.4 mmol/L (3.3-5.1); Sodium 137 mmol/L (135-145)
--- NOTE | 2022-05-26 09:57 | P.CDIC_ITS ---
CDI Concurrent Query Documentation Clarification: PHYSICIAN'S DOCUMENTATION REQUEST Date of Query: 05/26/22 0957 Patient Name: Jamir Velasquez Admit Date: 05/24/22 Dear Doctor, A review of the medical record indicates additional documentation may be needed. Please review below and update the documentation accordingly. Clinical Indicators: Specifics to documented diagnosis: Acute/Chronic etc. Risk Factors/Clinical Indicators/Treatments PN 05/25 - Assessment/plan - Metabolic acidosis bicarb drip, follow renal likely due to uremia Based on the above, could you clarify in the Progress Notes the appropriate diagnosis, if significant, that supports the above abnormalities and additional evaluation, monitoring, and/or treatment rendered: Acute metabolic acidosis * Other (please specify) * Unable to determine Use of terms such as suspected, likely, concern for, or probable (associated with a specific diagnosis that is being evaluated, monitored, or treated as if it exists) are acceptable and can be coded in the inpatient setting, when documented at the time of discharge. Thank you, Indy Myers [facility], [facility] Extension: [phone] Please use your independent medical judgment in providing your response. THIS QUERY IS PART OF THE PERMANENT MEDICAL RECORD Provider Response: Other Other Diagnosis: Acute metabolic acidosis secondary to acute kidney injury
--- NOTE | 2022-05-26 11:01 | P.CONNP_ITS ---
History of Present Illness Reason for Consult Consult date: 05/26/22 Reason for consult: DANYELLE Chief Complaint Chief complaint: DANYELLE History of Present Illness Narrative: 81-year-old male with history of hypertension and unspecified dementia presents to the ED with his daughter at the recommendation of PCP for evaluation of DANYELLE.? Patient had a routine appointment with PCP yesterday and was called today with abnormal lab results advised to present to the ED for further evaluation.? His daughter, with whom he lives, states he has no known history of chronic kidney disease.? He has been feeling well overall, eating and drinking normally.? He denies any fevers, chills, nausea, vomiting, abdominal pain, diarrhea, dysuria, hematuria, increased urinary frequency, decreased urinary output, palpitations, lightheadedness, shortness of breath, or chest pain.? In the ED, vital signs stable.? Leukocytosis of 13.6.? Mild normocytic anemia with H/H 11.6/34.3%.? Creatinine 4.29 (baseline unknown), BUN 77.? Sodium 135, potassium 5.2, chloride 110, CO2 12, glucose 153. VBG unremarkble except bicarb 13. CXR with bibasilar atelectasis and interstial fibrotic changes. Ct abd/pelvis showing bladder outlet obstruction. Patient treated with 1 L IV fluid bolus in the ED.? To be admitted for DANYELLE. Review of Systems Review of Systems General: No fevers, malaise, unintentional weight loss HEENT: No blurred vision, diplopia. No sore throat, nasal congestion, rhinorrhea, sinus pain, ear pain Cardiovascular: No chest pain, palpitations, or leg edema Respiratory: No shortness of breath, wheezing, cough GI: No abdominal pain, nausea, vomiting, diarrhea, constipation, melena, hematochezia : No dysuria, hematuria, increased urinary frequency, decreased urinary output MSK: No myalgia, back pain Neuro: No headaches, weakness, paresthesias Skin: No rashes or lesions PMFSH Past Medical History Medical History Hypertension Social History Social History Household Members: Family Housing: Apartment Do you presently have visiting nurse or other home services: No Alcohol intake: never Patient Tobacco Use Status: Never used Tobacco Meds Allergies Allergy/AdvReac Type Severity Reaction Status Date / Time No Known Allergies Allergy Verified 05/24/22 19:23 Active Medications: Current Medications Acetaminophen (Acetaminophen 325 Mg Tablet) 650 mg PO Q6H PRN PRN Reason: Pain, Mild (Pain Scale 1-3) Heparin Sodium (Porcine) (Heparin Sodium,Porcine 5,000 Unit/Ml Vial) 5,000 unit SUBCUT Q12H [facility] Last Admin: 05/26/22 08:49 Dose: 5,000 unit Ceftriaxone Sodium 1 gm/ (Sodium Chloride) 50 mls @ 100 mls/hr IV Q24H [facility] Last Infusion: 05/25/22 22:48 Dose: Infused Sodium Bicarbonate 150 meq/ (Dextrose) 1,000 mls @ 100 mls/hr IV .Q10H [facility] Multivitamins/Vitamin C (Multivitamin Tablet) 1 tab PO DAILY [facility] Last Admin: 05/26/22 08:50 Dose: 1 tab Ondansetron HCl (Ondansetron Hcl 4 Mg/2 Ml Vial) 4 mg IVPUSH Q8H PRN PRN Reason: Nausea and Vomiting Pharmacy Consult (Consult Rx Perform Med Rec) 1 each MISCELLANE ONCE PRN PRN Reason: Consult order Senna (Sennosides 8.6 Mg Tablet) 17.2 mg PO BEDTIME PRN PRN Reason: Constipation Sodium Chloride (0.9 % Sodium Chloride Flush 3 Ml Syringe) 3 ml IVFLUSH QSHIFT [facility] Last Admin: 05/26/22 08:51 Dose: Not Given Home Medications Medication Instructions Recorded Confirmed Last Taken Type multivitamin 1 tab PO DAILY 05/24/22 05/24/22 05/24/22 History ramipril 2.5 mg capsule 2.5 mg PO DAILY 05/24/22 05/24/22 05/23/22 History Physical Exam Vital Signs: Last Vital Signs Temp 98.0 F 05/26/22 07:38 Pulse 68 05/26/22 07:38 Resp 18 05/26/22 07:38 BP 157/80 H 05/26/22 07:38 Pulse Ox 98 05/26/22 07:38 O2 Del Method 05/26/22 07:38 BMI result Body Mass Index 21.7 Constitutional - Awake and Alert, No apparent distress Eyes - PERRLA, EOMI Cardiovascular - S1S2, RRR, No edema Respiratory - Normal lung expansion, Normal respiratory effort, No respiratory distress, bibasilar crackles Gastrointestinal - NT / ND; +BS; No rebound or guarding Extremities - no calf tenderness bilaterally, no swelling Skin - Warm/Dry Neurological - Alert & oriented x3,? 5/5 strength BUE and BLE Psychological - Appropriate affect Galindo with bloody urine Results Lab Results 05/26/22 05:16 05/26/22 05:16 Lab results: Chemistry 05/24/22 05/24/22 05/25/22 17:59 21:41 06:26 Sodium 135 137 139 Potassium 5.2 H 5.1 5.1 Carbon Dioxide 12 L 13 L 11 L BUN 77 H 77 H 72 H Creatinine 4.29 H* 4.10 H* 3.75 H Calcium 8.3 L 8.0 L 8.1 L 05/26/22 05:16 Sodium 137 Potassium 4.4 Carbon Dioxide 18 L BUN 61 H Creatinine 3.33 H Calcium 7.8 L Hematology 05/24/22 05/25/22 05/26/22 17:59 06:26 05:16 WBC 13.6 H 12.3 H 10.7 Hgb 11.6 L 11.5 L 11.0 L Plt Count 248 227 231 Urinalysis 05/24/22 20:36 Urine Color Yellow Urine Appearance Turbid Urine pH 5.5 Ur Specific [place] 1.010 Urine Protein 30 (1+) H Urine Glucose (UA) Negative Urine Ketones Negative Urine Blood Moderate (2+) H Urine Nitrite Negative Ur Leukocyte Esterase Large (3+) H Urine RBC 0-2 Urine WBC >50 H Ur Squamous Epith Cells 0-2 Hyaline Casts 0-2 Urine Studies 05/24/22 20:36 Urine Creatinine 63.47 Assessment and Plan (1) Acute renal failure: Status: Acute Plan DANYELLE due to obstructive uropathy CT shows lennox [place] s/p galindo Non oliguric Cr improving Metabolic acidosis due to DANYELLE Keep on Bicarb drip today Mild hyperkalemia due to DANYELLE Improving Watch for hypokalemia due to post obstructive diuresis Time Spent With Patient Time: Total time managing care of this patient today ____ minutes. Procedures Date of Service Date of Service: 05/26/22
[2022-05-26] MEDS: Sodium Bicarbonate 8.4% 150 MEQ in Dextrose 5 % 850 ML 100 MEQ IV (11:57)
--- NOTE | 2022-05-26 12:10 | HO.PM.IMPN ---
Subjective Subjective Date of Service: 05/26/22 Interval History: No acute issues overnight. Esquivel draining yellow clear urine Review of Systems Confused at baseline unable to obtain Physical Exam Vital Signs: Vital Signs: Last Vital Signs Temp 98.0 F 05/26/22 07:38 Pulse 68 05/26/22 07:38 Resp 18 05/26/22 07:38 BP 157/80 H 05/26/22 07:38 Pulse Ox 98 05/26/22 07:38 O2 Del Method 05/26/22 07:38 BMI result Body Mass Index 21.7 Const: Other: Awake alert no acute distress Resp: Other: Clear to auscultation bilaterally no rales rhonchi or wheezes Cardio: Other: No S4; positive S1-S2; no S3 murmurs rubs or gallops GI: Other: Soft nontender nondistended normoactive bowel sounds Extrem: Other: No edema bilaterally Objective Data Active Medications Acetaminophen (Acetaminophen 325 Mg Tablet) 650 mg PO Q6H PRN PRN Reason: Pain, Mild (Pain Scale 1-3) Heparin Sodium (Porcine) (Heparin Sodium,Porcine 5,000 Unit/Ml Vial) 5,000 unit SUBCUT Q12H [facility] Last Admin: 05/26/22 08:49 Dose: 5,000 unit Documented By: MAURIZIO Ceftriaxone Sodium 1 gm/ (Sodium Chloride) 50 mls @ 100 mls/hr IV Q24H [facility] Last Infusion: 05/25/22 22:48 Dose: 0 mls/hr Documented By: MARK Sodium Bicarbonate 150 meq/ (Dextrose) 1,000 mls @ 100 mls/hr IV .Q10H [facility] Last Admin: 05/26/22 11:57 Dose: 100 mls/hr Documented By: MAURIZIO Multivitamins/Vitamin C (Multivitamin Tablet) 1 tab PO DAILY [facility] Last Admin: 05/26/22 08:50 Dose: 1 tab Documented By: MAURIZIO Ondansetron HCl (Ondansetron Hcl 4 Mg/2 Ml Vial) 4 mg IVPUSH Q8H PRN PRN Reason: Nausea and Vomiting Pharmacy Consult (Consult Rx Perform Med Rec) 1 each MISCELLANE ONCE PRN PRN Reason: Consult order Senna (Sennosides 8.6 Mg Tablet) 17.2 mg PO BEDTIME PRN PRN Reason: Constipation Sodium Chloride (0.9 % Sodium Chloride Flush 3 Ml Syringe) 3 ml IVFLUSH QSHIFT [facility] Last Admin: 05/26/22 08:51 Dose: Not Given Documented By: MAURIZIO Non-Admin Reason: IV Running Labs 05/26/22 05:16 05/26/22 05:16 Labs: Laboratory Results - last 24 hr 05/25/22 05/26/22 05/26/22 19:16 05:16 05:16 MCV 89.0 MCH 30.2 MCHC 34.0 RDW 13.2 Plt Count 231 MPV 10.5 Immature Gran % (Auto) 0.5 H Neut % (Auto) 73.1 H Lymph % (Auto) 15.2 L [place] % (Auto) 9.0 Eos % (Auto) 1.7 Baso % (Auto) 0.5 Lymph # (Auto) 1.6 [place] # (Auto) 1.0 Eos # (Auto) 0.2 Baso # (Auto) 0.1 Abs Immat Gran (auto) 0.05 H Absolute Neuts (auto) 7.8 Absolute Nucleated RBC 0.000 Nucleated RBC % (auto) 0.0 Anion Gap 17 Estim Creat Clear Calc 15.7 Estimated GFR 18 POC Glucose 165 H Fasting Glucose 110 H Calcium 7.8 L Total Bilirubin 0.3 AST 11 ALT 8 Alkaline Phosphatase 72 Total Protein 5.3 L Albumin 2.9 L Microbiology Microbiology Results: Microbiology 05/24/22 21:00 Urine Culture - Preliminary Urine clean catch - Urine naidu top Gram negative christiano 05/24/22 21:40 Blood Culture - Preliminary Blood - Venous No growth after 24 hours. 05/24/22 21:41 Blood Culture - Preliminary Blood - Venous No growth after 24 hours. Assessment and Plan (1) Acute renal failure: Status: Acute (2) UTI (urinary tract infection): Status: Acute Plan 81-year-old male with history of hypertension and unspecified dementia admitted for DANYELLE secondary to obstructive uropathy 1.Acute kidney injury secondary to bladder outlet obstruction -creatinine improving since Esquivel insertion -appreciate urology input; voiding trial after 5 days -will arrange is outpatient 2.Acute UTI -preliminary culture Gram-negative rods -IV ceftriaxone(4) -Follow cultures 3.Metabolic acidosis -bicarb improving -follow renals/divalents 3.Hypertension- reasonably controlled -Hold ramipril in the setting of DANYELLE -Monitor BP 4. Anemia; likely chronic -clinically irrelevant -follow CBCs periodically Heparin Full code Patient requires ongoing hospitalization for bicarbonate drip IV to correct acidosis and hyperkalemia into renal function normalizes Time Spent With Patient Time: Total time managing care of this patient today ____ minutes. Quality Stroke Does the patient have a stroke diagnosis?: No VTE Prior VTE?: No VTE Risk Level:: Medical - moderate - high VTE Device Contraindication: Treatment Not Indicated VTE Drug Contraindication: N/A - Med Ordered
--- NOTE | 2022-05-26 14:57 | PM.EVENT ---
Event Note Date of Service: 05/26/22 Event Note: reported that patient had unwittnessed fall (noticed by video news production assistant). found sitting on the floor next to his bed. denies head injury or any pain. was assisted back to the bed. neurological exam no focal weakness. To check CT head. Time Spent With Patient Time: Total time managing care of this patient today ____ minutes.
[2022-05-26 16:00] VITALS: BP 133/76; PULSE 103; RESP 16; TEMP 36.8; O2SAT 95
--- NOTE | 2022-05-26 16:18 | MHC.CM.PN ---
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
[2022-05-26 19:24] VITALS: BP 119/62; PULSE 108; RESP 17; TEMP 36.5; O2SAT 91
[2022-05-26] MEDS: cefTRIAXone sodium 1 GM in 0.9 % Sodium Chloride 50 ML IV (21:33)
[2022-05-26] MEDS: 0.9 % Sodium Chloride Flush 3 ML SYRINGE IVFLUSH (21:38)
[2022-05-27] MEDS: Sodium Bicarbonate 8.4% 150 MEQ in Dextrose 5 % 850 ML 100 MEQ IV ×2 (00:58→11:04)
[2022-05-27 03:45] VITALS: BP 150/82; PULSE 74; RESP 18; TEMP 36.4; O2SAT 96
[2022-05-27 07:05] LABS: MANUAL DIFF FLAG NO
[2022-05-27 07:14] LABS: Basophils Absolute Auto 0.1 X10*3/uL (0.0-0.2); Basophils Percent Auto 0.5 % (0-2); Eosinophils Absolute Auto 0.3 X10*3/uL (0.0-0.4); Eosinophils Percent Auto 2.5 % (0-4); Hematocrit 33.2 % (42.0-52.0); Hemoglobin 11.2 g/dl (14.0-18.0); Imm Gran Abs Auto 0.05 X10*3/uL (0.00-0.03); Imm Gran Pct Auto 0.5 % (0.0-0.4); Lymphocytes Absolute Auto 1.7 X10*3/uL (1.2-4.9); Lymphocytes Percent Auto 15.7 % (20-40); Mean Corpuscular HGB Conc 33.7 g/dl (31.0-36.0); Mean Corpuscular Hemoglobin 29.8 pg (27.0-33.0); Mean Corpuscular Volume 88.3 fL (80.0-98.0); Mean Platelet Volume 10.5 fL (9.4-12.4); Monocytes Absolute Auto 1.1 X10*3/uL (0.1-1.2); Monocytes Percent Auto 9.9 % (2-11); Neutrophils Absolute Auto 7.9 x10*3/uL (2.0-8.3); Neutrophils Percent Auto 70.9 % (45-73); Platelet Count 250 X10*3/uL (160-400); Red Blood Count 3.76 X10*6/uL (4.60-5.80); Red Cell Distribution Width 13.1 % (11.0-16.0); White Blood Count 11.1 X10*3/uL (4.8-10.8)
[2022-05-27 08:00] VITALS: BP 149/78; PULSE 93; RESP 18; TEMP 37; O2SAT 96
[2022-05-27] MEDS: Multivitamin TABLET 1 TAB PO (08:03)
[2022-05-27 08:05] LABS: Alanine Aminotransferase 8 U/L (0-40); Albumin Level 2.8 g/dL (3.5-5.0); Alkaline Phosphatase 70 U/L (39-117); Anion Gap 17 (12-20); Aspartate Amino Transferase 14 U/L (5-37); Bilirubin Total 0.3 mg/dL (0.0-1.0); Blood Urea Nitrogen 50 mg/dL (9-16); Calcium 7.7 mg/dL (8.4-10.2); Carbon Dioxide 25 mmol/L (22-29); Chloride 100 mmol/L (96-108); Creatinine Clr Calc Pharmacy 16.1; Estimated Glomerular Filt Rate 18; Glucose Fasting 126 mg/dL (60-99); Potassium 3.8 mmol/L (3.3-5.1); Sodium 138 mmol/L (135-145); Total Protein 5.2 g/dL (6.5-8.0)
--- NOTE | 2022-05-27 11:17 | HO.PM.IMPN ---
Subjective Subjective Date of Service: 05/27/22 Interval History: Patient awake alert sitting comfortably in bed offers no acute complaints of nausea, no vomiting, no abdominal pain, no diarrhea Esquivel bag with punch color urine, hematocrit stable tolerating diet no chest pain no lightheadedness no dizziness no urinary symptoms. Review of Systems Review of Systems: Yes all other systems are reviewed and are negative Physical Exam Vital Signs: Vital Signs: Last Vital Signs Temp 98.6 F 05/27/22 08:00 Pulse 93 05/27/22 08:00 Resp 18 05/27/22 08:00 BP 149/78 H 05/27/22 08:00 Pulse Ox 96 05/27/22 08:00 O2 Del Method 05/27/22 08:00 BMI result Body Mass Index 21.7 Const: Other: General resting comfortably in no acute distress. Neck supple no JVD. CVS regular rate rhythm, Respiratory lungs clear to auscultation, no respiratory distress, Gastrointestinal abdomen soft, nontender, bowel sounds audible, no guarding , no rigidity. Extremities no edema. Neuro nonfocal , speech clear. Skin no rash Psych appropriate affect Objective Data Active Medications Acetaminophen (Acetaminophen 325 Mg Tablet) 650 mg PO Q6H PRN PRN Reason: Pain, Mild (Pain Scale 1-3) Heparin Sodium (Porcine) (Heparin Sodium,Porcine 5,000 Unit/Ml Vial) 5,000 unit SUBCUT Q12H [facility] Last Admin: 05/26/22 08:49 Dose: 5,000 unit Documented By: MAURIZIO Ceftriaxone Sodium 1 gm/ (Sodium Chloride) 50 mls @ 100 mls/hr IV Q24H [facility] Last Infusion: 05/26/22 22:05 Dose: 0 mls/hr Documented By: ZOEY Sodium Bicarbonate 150 meq/ (Dextrose) 1,000 mls @ 100 mls/hr IV .Q10H [facility] Last Admin: 05/27/22 11:04 Dose: 100 mls/hr Documented By: KARMEN Multivitamins/Vitamin C (Multivitamin Tablet) 1 tab PO DAILY [facility] Last Admin: 05/27/22 08:03 Dose: 1 tab Documented By: EVA Ondansetron HCl (Ondansetron Hcl 4 Mg/2 Ml Vial) 4 mg IVPUSH Q8H PRN PRN Reason: Nausea and Vomiting Pharmacy Consult (Consult Rx Perform Med Rec) 1 each MISCELLANE ONCE PRN PRN Reason: Consult order Senna (Sennosides 8.6 Mg Tablet) 17.2 mg PO BEDTIME PRN PRN Reason: Constipation Sodium Chloride (0.9 % Sodium Chloride Flush 3 Ml Syringe) 3 ml IVFLUSH QSHIFT [facility] Last Admin: 05/27/22 08:01 Dose: Not Given Documented By: EVA Non-Admin Reason: IV Running Labs 05/27/22 05:54 05/27/22 05:54 Labs: Laboratory Results - last 24 hr 05/27/22 05/27/22 05:54 05:54 MCV 88.3 MCH 29.8 MCHC 33.7 RDW 13.1 Plt Count 250 MPV 10.5 Immature Gran % (Auto) 0.5 H Neut % (Auto) 70.9 Lymph % (Auto) 15.7 L [place] % (Auto) 9.9 Eos % (Auto) 2.5 Baso % (Auto) 0.5 Lymph # (Auto) 1.7 [place] # (Auto) 1.1 Eos # (Auto) 0.3 Baso # (Auto) 0.1 Abs Immat Gran (auto) 0.05 H Absolute Neuts (auto) 7.9 Absolute Nucleated RBC 0.000 Nucleated RBC % (auto) 0.0 Anion Gap 17 Estim Creat Clear Calc 16.1 Estimated GFR 18 Fasting Glucose 126 H Calcium 7.7 L Total Bilirubin 0.3 AST 14 ALT 8 Alkaline Phosphatase 70 Total Protein 5.2 L Albumin 2.8 L Microbiology Microbiology Results: Microbiology 05/24/22 21:00 Urine Culture - Final Urine clean catch - Urine naidu top Escherichia coli 05/24/22 21:40 Blood Culture - Preliminary Blood - Venous No growth after 48 hours. 05/24/22 21:41 Blood Culture - Preliminary Blood - Venous No growth after 48 hours. Assessment and Plan (1) Acute renal failure: Status: Acute (2) UTI (urinary tract infection): Status: Acute Plan 81-year-old male with history of hypertension and unspecified dementia admitted for DANYELLE secondary to obstructive uropathy 1.Acute kidney injury secondary to bladder outlet obstruction -creatinine improving slowly since Esquivel insertion -appreciate urology input; voiding trial after 5 days and outpatient cystoscopy Being followed by NephDIANA albarran IV bicarb drip will place on IV Ringer lactate follow BMP and renal input. 2.Acute UTI Urine culture grew E coli sensitive to ceftriaxone continue IV ceftriaxone day 08/24 3.Metabolic acidosis -resolved on bicarb drip will discontinue IV bicarb drip -follow renals/divalents 3.Hypertension- reasonably controlled -Hold ramipril in the setting of DANYELLE -Monitor BP 4. Likely Chronic normocytic anemia hematocrit stable 5. Hematuria likely due to bladder distension continue CBI follow H&H 6. Unwitnessed fall no acute injury CT head unremarkable. DVT prophylaxis Heparin Full code Patient requires ongoing hospitalization for persistent acute renal failure requiring IV fluids , hematuria on CBI, needs close monitoring of renal function Time Spent With Patient Time: Total time managing care of this patient today ____ minutes. Quality Stroke Does the patient have a stroke diagnosis?: No VTE Prior VTE?: No VTE Risk Level:: Medical - moderate - high VTE Device Contraindication: Treatment Not Indicated VTE Drug Contraindication: N/A - Med Ordered
--- NOTE | 2022-05-27 11:19 | MHC.CM.PN ---
Addendum entered by Adina Calixto 05/27/22 11:31: PCP DR. GRIGSBY AT [facility], ACT[facility]. Original Note: PER MD ROUNDS, PT NOT MEDICALLY CLEARED FOR DC (HEMATURIA) CM WILL CONTINUE TO FOLLOW FOR PLAN.
--- NOTE | 2022-05-27 12:58 | P.PNNP_ITS ---
Subjective Subjective Date of Service: 05/27/22 Interval history: Patient awake alert sitting comfortably in bed offers no acute complaints of nausea, no vomiting, no abdominal pain, no diarrhea Galindo bag with punch color urine, hematocrit stable tolerating diet no chest pain no lightheadedness no dizziness no urinary symptoms. Physical Exam Vital Signs: Vital Signs: Last Vital Signs Temp 98.6 F 05/27/22 08:00 Pulse 93 05/27/22 08:00 Resp 18 05/27/22 08:00 BP 149/78 H 05/27/22 08:00 Pulse Ox 96 05/27/22 08:00 O2 Del Method 05/27/22 08:00 BMI result Body Mass Index 21.7 Const: Other: General resting comfortably in no acute distress. Neck supple no JVD. CVS regular rate rhythm, Respiratory lungs clear to auscultation, no respiratory distress, Gastrointestinal abdomen soft, nontender, bowel sounds audible, no guarding , no rigidity. Extremities no edema. Neuro nonfocal , speech clear. Skin no rash Psych appropriate affect Objective Data Labs 05/27/22 05:54 05/27/22 05:54 Labs: Laboratory Results - last 24 hr 05/27/22 05/27/22 05:54 05:54 WBC 11.1 H RBC 3.76 L Hgb 11.2 L Hct 33.2 L MCV 88.3 MCH 29.8 MCHC 33.7 RDW 13.1 Plt Count 250 MPV 10.5 Immature Gran % (Auto) 0.5 H Neut % (Auto) 70.9 Lymph % (Auto) 15.7 L [place] % (Auto) 9.9 Eos % (Auto) 2.5 Baso % (Auto) 0.5 Lymph # (Auto) 1.7 [place] # (Auto) 1.1 Eos # (Auto) 0.3 Baso # (Auto) 0.1 Abs Immat Gran (auto) 0.05 H Absolute Neuts (auto) 7.9 Absolute Nucleated RBC 0.000 Nucleated RBC % (auto) 0.0 Sodium 138 Potassium 3.8 Chloride 100 Carbon Dioxide 25 Anion Gap 17 BUN 50 H Creatinine 3.26 H Estim Creat Clear Calc 16.1 Estimated GFR 18 Fasting Glucose 126 H Calcium 7.7 L Total Bilirubin 0.3 AST 14 ALT 8 Alkaline Phosphatase 70 Total Protein 5.2 L Albumin 2.8 L Microbiology Microbiology Results: Microbiology 05/24/22 21:00 Urine clean catch - Urine naidu top Urine Culture - Final Escherichia coli 05/24/22 21:40 Blood - Venous Blood Culture - Preliminary No growth after 48 hours. 05/24/22 21:41 Blood - Venous Blood Culture - Preliminary No growth after 48 hours. Procedures Date of Service Date of Service: 05/27/22 Assessment & Plan Assessment and plan (1) Acute renal failure: Status: Acute Plan DANYELLE due to obstructive uropathy CT shows lennox [place] s/p galindo Non oliguric Cr improving Metabolic acidosis due to DANYELLE Keep on Bicarb drip today Mild hyperkalemia due to DANYELLE Improving Watch for hypokalemia due to post obstructive diuresis Time Spent With Patient Time: Total time managing care of this patient today ____ minutes. Progress Note: Quality Stroke Does the patient have a stroke diagnosis?: No
[2022-05-27] MEDS: Lactated Ringers 1,000 ML 80 ML IVCONT (13:02)
[2022-05-27 15:39] VITALS: BP 163/85; PULSE 100; RESP 19; TEMP 36.9; O2SAT 94
[2022-05-27 20:00] VITALS: BP 130/75; PULSE 106; RESP 19; TEMP 37.2; O2SAT 94
[2022-05-27] MEDS: cefTRIAXone sodium 1 GM in 0.9 % Sodium Chloride 50 ML IV (21:56)
[2022-05-27] MEDS: 0.9 % Sodium Chloride Flush 3 ML SYRINGE IVFLUSH (21:58)
[2022-05-28] MEDS: Lactated Ringers 1,000 ML 80 ML IVCONT ×2 (00:53→12:47)
[2022-05-28 04:00] VITALS: BP 138/60; PULSE 72; RESP 16; TEMP 37.1; O2SAT 96
[2022-05-28 06:32] LABS: MANUAL DIFF FLAG NO
[2022-05-28 06:36] LABS: Basophils Absolute Auto 0.1 X10*3/uL (0.0-0.2); Basophils Percent Auto 0.6 % (0-2); Eosinophils Absolute Auto 0.4 X10*3/uL (0.0-0.4); Eosinophils Percent Auto 3.7 % (0-4); Hematocrit 32.1 % (42.0-52.0); Hemoglobin 10.8 g/dl (14.0-18.0); Imm Gran Abs Auto 0.06 X10*3/uL (0.00-0.03); Imm Gran Pct Auto 0.5 % (0.0-0.4); Lymphocytes Absolute Auto 1.6 X10*3/uL (1.2-4.9); Lymphocytes Percent Auto 12.9 % (20-40); Mean Corpuscular HGB Conc 33.6 g/dl (31.0-36.0); Mean Corpuscular Hemoglobin 30.4 pg (27.0-33.0); Mean Corpuscular Volume 90.4 fL (80.0-98.0); Mean Platelet Volume 10.2 fL (9.4-12.4); Monocytes Absolute Auto 1.2 X10*3/uL (0.1-1.2); Monocytes Percent Auto 9.6 % (2-11); Neutrophils Absolute Auto 8.7 x10*3/uL (2.0-8.3); Neutrophils Percent Auto 72.7 % (45-73); Platelet Count 229 X10*3/uL (160-400); Red Blood Count 3.55 X10*6/uL (4.60-5.80); Red Cell Distribution Width 13.1 % (11.0-16.0)
[2022-05-28 07:09] LABS: Alanine Aminotransferase 8 U/L (0-40); Albumin Level 2.7 g/dL (3.5-5.0); Alkaline Phosphatase 63 U/L (39-117); Anion Gap 15 (12-20); Aspartate Amino Transferase 13 U/L (5-37); Bilirubin Total 0.3 mg/dL (0.0-1.0); Blood Urea Nitrogen 45 mg/dL (9-16); Calcium 7.6 mg/dL (8.4-10.2); Carbon Dioxide 25 mmol/L (22-29); Chloride 104 mmol/L (96-108); Creatinine Clr Calc Pharmacy 16.5; Estimated Glomerular Filt Rate 19; Glucose Fasting 104 mg/dL (60-99); Glucose Random 104 mg/dL (60-115); Potassium 4.4 mmol/L (3.3-5.1); Sodium 140 mmol/L (135-145); Total Protein 5.1 g/dL (6.5-8.0)
[2022-05-28] MEDS: Multivitamin TABLET 1 TAB PO (07:50)
[2022-05-28] MEDS: 0.9 % Sodium Chloride Flush 3 ML SYRINGE IVFLUSH ×2 (07:50→21:44)
[2022-05-28 08:00] VITALS: BP 177/86; PULSE 73; RESP 16; TEMP 36.4; O2SAT 96
--- NOTE | 2022-05-28 08:55 | P.PNIM_ITS ---
Subjective Subjective Date of Service: 05/28/22 Interval History: Being followed for DANYELLE patient offers no acute complaints denies nausea, vomiting ,no abdominal pain, tolerating diet no urinary symptoms, no headache, no dizziness, Esquivel catheter with light pink Review of Systems Review of Systems: Yes all other systems are reviewed and are negative Physical Exam Vital Signs: Vital Signs: Last Vital Signs Temp 97.6 F 05/28/22 08:00 Pulse 73 05/28/22 08:00 Resp 16 05/28/22 08:00 BP 177/86 H 05/28/22 08:00 Pulse Ox 96 05/28/22 08:00 O2 Del Method 05/28/22 08:00 BMI result Body Mass Index 21.7 Const: Other: General resting comfortably in no acute distress.? Neck? supple no JVD. CVS? regular rate rhythm, Respiratory lungs clear to auscultation, no respiratory distress, Gastrointestinal abdomen soft, nontender, bowel sounds audible, no guarding , no rigidity. Extremities no edema. Neuro nonfocal , speech clear. Skin no rash Psych appropriate affect Objective Data Active Medications Acetaminophen (Acetaminophen 325 Mg Tablet) 650 mg PO Q6H PRN PRN Reason: Pain, Mild (Pain Scale 1-3) Heparin Sodium (Porcine) (Heparin Sodium,Porcine 5,000 Unit/Ml Vial) 5,000 unit SUBCUT Q12H [facility] Last Admin: 05/26/22 08:49 Dose: 5,000 unit Documented By: MAURIZIO Ceftriaxone Sodium 1 gm/ (Sodium Chloride) 50 mls @ 100 mls/hr IV Q24H [facility] Last Infusion: 05/27/22 22:31 Dose: 0 mls/hr Documented By: MALLORY Lactated Ringer's (Lr) 1,000 mls @ 80 mls/hr IVCONT .[id number] [facility] Last Admin: 05/28/22 00:53 Dose: 80 mls/hr Documented By: MALLORY Multivitamins/Vitamin C (Multivitamin Tablet) 1 tab PO DAILY [facility] Last Admin: 05/28/22 07:50 Dose: 1 tab Documented By: CHRISTI Ondansetron HCl (Ondansetron Hcl 4 Mg/2 Ml Vial) 4 mg IVPUSH Q8H PRN PRN Reason: Nausea and Vomiting Pharmacy Consult (Consult Rx Perform Med Rec) 1 each MISCELLANE ONCE PRN PRN Reason: Consult order Senna (Sennosides 8.6 Mg Tablet) 17.2 mg PO BEDTIME PRN PRN Reason: Constipation Sodium Chloride (0.9 % Sodium Chloride Flush 3 Ml Syringe) 3 ml IVFLUSH QSHIFT [facility] Last Admin: 05/28/22 07:50 Dose: 3 ml Documented By: CHRISTI Labs 05/28/22 05:40 05/28/22 05:40 Labs: Laboratory Results - last 24 hr 05/28/22 05/28/22 05:40 05:40 MCV 90.4 MCH 30.4 MCHC 33.6 RDW 13.1 Plt Count 229 MPV 10.2 Immature Gran % (Auto) 0.5 H Neut % (Auto) 72.7 Lymph % (Auto) 12.9 L [place] % (Auto) 9.6 Eos % (Auto) 3.7 Baso % (Auto) 0.6 Lymph # (Auto) 1.6 [place] # (Auto) 1.2 Eos # (Auto) 0.4 Baso # (Auto) 0.1 Abs Immat Gran (auto) 0.06 H Absolute Neuts (auto) 8.7 H Absolute Nucleated RBC 0.000 Nucleated RBC % (auto) 0.0 Anion Gap 15 Estim Creat Clear Calc 16.5 Estimated GFR 19 Random Glucose 104 Fasting Glucose 104 H Calcium 7.6 L Total Bilirubin 0.3 AST 13 ALT 8 Alkaline Phosphatase 63 Total Protein 5.1 L Albumin 2.7 L Microbiology Microbiology Results: Microbiology 05/24/22 21:00 Urine Culture - Final Urine clean catch - Urine naidu top Escherichia coli Assessment and Plan (1) Acute renal failure: Status: Acute (2) UTI (urinary tract infection): Status: Acute Plan 81-year-old male with history of hypertension and unspecified dementia admitted for DANYELLE secondary to obstructive uropathy 1.Acute kidney injury secondary to bladder outlet obstruction -creatinine improving slowly since Esquivel insertion -appreciate urology input; voiding trial after 5 days and outpatient cystoscopy Being followed by Nephro, on IV Ringer lactate follow BMP and renal input. 2.Acute UTI Urine culture grew E coli sensitive to ceftriaxone continue IV ceftriaxone day 6/10, no fevers no chills 3.Metabolic acidosis -resolved on bicarb drip bicarb remains 25 -follow renals/divalents 3.Hypertension- reasonably controlled -Hold ramipril in the setting of DANYELLE -Monitor BP 4. Likely Chronic normocytic anemia hematocrit stable 5. Hematuria likely due to bladder distension urine light colored today, continue CBI once clear will clamp CBI , mild drop in hematocrit but remains stable follow H&H 6. Unwitnessed fall no acute injury CT head unremarkable. DVT prophylaxis Heparin Full code Patient requires ongoing hospitalization for persistent acute renal failure requiring IV fluids , hematuria on CBI, needs close monitoring of renal function Time Spent With Patient Time: Total time managing care of this patient today ____ minutes. Quality Stroke Does the patient have a stroke diagnosis?: No VTE Prior VTE?: No VTE Risk Level:: Medical - moderate - high VTE Device Contraindication: Treatment Not Indicated VTE Drug Contraindication: N/A - Med Ordered
[2022-05-28] MEDS: amLODIPine Besylate 2.5 MG TABLET PO (10:08)
--- NOTE | 2022-05-28 11:19 | P.PNNP_ITS ---
Subjective Subjective Date of Service: 06/06/22 Interval history: Events noted Delayed recovery Physical Exam Vital Signs: Vital Signs: Last Vital Signs Temp 97.6 F 05/28/22 08:00 Pulse 73 05/28/22 08:00 Resp 16 05/28/22 08:00 BP 177/86 H 05/28/22 08:00 Pulse Ox 96 05/28/22 08:00 O2 Del Method 05/28/22 08:00 BMI result Body Mass Index 21.7 Const: Other: General resting comfortably in no acute distress. Neck supple no JVD. CVS regular rate rhythm, Respiratory lungs clear to auscultation, no respiratory distress, Gastrointestinal abdomen soft, nontender, bowel sounds audible, no guarding , no rigidity. Extremities no edema. Neuro nonfocal , speech clear. Skin no rash Psych appropriate affect Objective Data Labs 05/28/22 05:40 05/28/22 05:40 Labs: Laboratory Results - last 24 hr 05/28/22 05/28/22 05:40 05:40 WBC 12.0 H RBC 3.55 L Hgb 10.8 L Hct 32.1 L MCV 90.4 MCH 30.4 MCHC 33.6 RDW 13.1 Plt Count 229 MPV 10.2 Immature Gran % (Auto) 0.5 H Neut % (Auto) 72.7 Lymph % (Auto) 12.9 L Curry % (Auto) 9.6 Eos % (Auto) 3.7 Baso % (Auto) 0.6 Lymph # (Auto) 1.6 Curry # (Auto) 1.2 Eos # (Auto) 0.4 Baso # (Auto) 0.1 Abs Immat Gran (auto) 0.06 H Absolute Neuts (auto) 8.7 H Absolute Nucleated RBC 0.000 Nucleated RBC % (auto) 0.0 Sodium 140 Potassium 4.4 Chloride 104 Carbon Dioxide 25 Anion Gap 15 BUN 45 H Creatinine 3.18 H Estim Creat Clear Calc 16.5 Estimated GFR 19 Random Glucose 104 Fasting Glucose 104 H Calcium 7.6 L Total Bilirubin 0.3 AST 13 ALT 8 Alkaline Phosphatase 63 Total Protein 5.1 L Albumin 2.7 L Microbiology Microbiology Results: Microbiology 05/24/22 21:00 Urine clean catch - Urine naidu top Urine Culture - Final Escherichia coli 05/24/22 21:40 Blood - Venous Blood Culture - Preliminary No growth after 48 hours. 05/24/22 21:41 Blood - Venous Blood Culture - Preliminary No growth after 48 hours. Procedures Date of Service Date of Service: 05/28/22 Assessment & Plan Assessment and plan (1) Acute renal failure: Status: Acute Plan DANYELLE due to obstructive uropathy CT shows lennox [place] s/p galindo Non oliguric Cr improving Metabolic acidosis due to DANYELLE -resolving Can DC Bicarb drip Mild hyperkalemia due to DANYELLE Improving Watch for hypokalemia due to post obstructive diuresis Time Spent With Patient Time: Total time managing care of this patient today ____ minutes. Progress Note: Quality Stroke Does the patient have a stroke diagnosis?: No
[2022-05-28 15:08] VITALS: BP 152/80; PULSE 101; RESP 20; TEMP 36.1; O2SAT 96
[2022-05-28 19:53] VITALS: BP 151/89; PULSE 102; RESP 20; TEMP 37.1; O2SAT 96
[2022-05-28] MEDS: cefTRIAXone sodium 1 GM in 0.9 % Sodium Chloride 50 ML IV (21:44)
[2022-05-29] MEDS: Lactated Ringers 1,000 ML 80 ML IVCONT (01:09)
[2022-05-29 04:00] VITALS: BP 167/94; PULSE 75; RESP 20; TEMP 36.6; O2SAT 96
[2022-05-29 06:21] LABS: Hematocrit 31.4 % (42.0-52.0); Hemoglobin 10.4 g/dl (14.0-18.0); Mean Corpuscular HGB Conc 33.1 g/dl (31.0-36.0); Mean Corpuscular Hemoglobin 30.5 pg (27.0-33.0); Mean Corpuscular Volume 92.1 fL (80.0-98.0); Platelet Count 233 X10*3/uL (160-400); Red Blood Count 3.41 X10*6/uL (4.60-5.80); White Blood Count 13.8 X10*3/uL (4.8-10.8)
[2022-05-29 07:22] LABS: Anion Gap 15 (12-20); Blood Urea Nitrogen 40 mg/dL (9-16); Calcium 7.6 mg/dL (8.4-10.2); Carbon Dioxide 23 mmol/L (22-29); Chloride 103 mmol/L (96-108); Creatinine Clr Calc Pharmacy 18.3; Estimated Glomerular Filt Rate 21; Glucose Random 145 mg/dL (60-115); Potassium 4.1 mmol/L (3.3-5.1); Sodium 137 mmol/L (135-145)
[2022-05-29] MEDS: amLODIPine Besylate 2.5 MG TABLET PO ×2 (07:29→09:28)
[2022-05-29] MEDS: Multivitamin TABLET 1 TAB PO (07:29)
[2022-05-29] MEDS: 0.9 % Sodium Chloride Flush 3 ML SYRINGE IVFLUSH ×3 (07:30→21:27)
[2022-05-29 08:00] VITALS: BP 130/77; PULSE 99; RESP 18; TEMP 36.2; O2SAT 94
--- NOTE | 2022-05-29 12:03 | P.PNIM_ITS ---
Subjective Subjective Date of Service: 05/29/22 Interval History: Resting comfortably in bed eating breakfast offers no acute complaints, CBI running urine light pink tinged, patient denies urinary symptoms, no acute overnight events, no fevers, no chills, no nausea, no vomiting, no abdominal pain or diarrhea. Review of Systems Review of Systems: Yes all other systems are reviewed and are negative Physical Exam Vital Signs: Vital Signs: Last Vital Signs Temp 97.2 F 05/29/22 08:00 Pulse 99 05/29/22 08:00 Resp 18 05/29/22 08:00 BP 130/77 05/29/22 08:00 Pulse Ox 94 05/29/22 08:00 O2 Del Method 05/29/22 08:00 BMI result Body Mass Index 21.7 Const: Other: General resting comfortably in no acute distress.? Neck? supple no JVD. CVS? regular rate rhythm, Respiratory lungs clear to auscultation, no respiratory distress, Gastrointestinal abdomen soft, nontender, bowel sounds audible, no guarding , no rigidity. Extremities no edema. Neuro nonfocal , speech clear. Skin no rash Psych appropriate affect Esquivel catheter with light pink urine Objective Data Active Medications Acetaminophen (Acetaminophen 325 Mg Tablet) 650 mg PO Q6H PRN PRN Reason: Pain, Mild (Pain Scale 1-3) Amlodipine Besylate (Amlodipine Besylate 5 Mg Tablet) 5 mg PO DAILY [facility]; Protocol Heparin Sodium (Porcine) (Heparin Sodium,Porcine 5,000 Unit/Ml Vial) 5,000 unit SUBCUT Q12H [facility] Last Admin: 05/26/22 08:49 Dose: 5,000 unit Documented By: MAURIZIO Ceftriaxone Sodium 1 gm/ (Sodium Chloride) 50 mls @ 100 mls/hr IV Q24H [facility] Last Infusion: 05/28/22 22:33 Dose: 0 mls/hr Documented By: MALLORY Multivitamins/Vitamin C (Multivitamin Tablet) 1 tab PO DAILY [facility] Last Admin: 05/29/22 07:29 Dose: 1 tab Documented By: CHRISTI Ondansetron HCl (Ondansetron Hcl 4 Mg/2 Ml Vial) 4 mg IVPUSH Q8H PRN PRN Reason: Nausea and Vomiting Pharmacy Consult (Consult Rx Perform Med Rec) 1 each MISCELLANE ONCE PRN PRN Reason: Consult order Senna (Sennosides 8.6 Mg Tablet) 17.2 mg PO BEDTIME PRN PRN Reason: Constipation Sodium Chloride (0.9 % Sodium Chloride Flush 3 Ml Syringe) 3 ml IVFLUSH QSHIFT [facility] Last Admin: 05/29/22 07:30 Dose: 3 ml Documented By: CHRISTI Labs 05/29/22 05:28 05/29/22 05:28 Labs: Laboratory Results - last 24 hr 05/29/22 05/29/22 05:28 05:28 MCV 92.1 MCH 30.5 MCHC 33.1 RDW 13.0 Plt Count 233 MPV 10.0 Absolute Nucleated RBC 0.000 Nucleated RBC % (auto) 0.0 Anion Gap 15 Estim Creat Clear Calc 18.3 Estimated GFR 21 Random Glucose 145 H Calcium 7.6 L Assessment and Plan (1) Acute renal failure: Status: Acute (2) UTI (urinary tract infection): Status: Acute Plan 81-year-old male with history of hypertension and unspecified dementia admitted for DANYELLE secondary to obstructive uropathy 1.Acute kidney injury secondary to bladder outlet obstruction -creatinine improving slowly since Esquivel insertion -appreciate urology input; voiding trial after 5 days and outpatient cystoscopy Will DC IV fluids encourage by mouth intake, follow BMP and renal input. 2.Acute UTI Urine culture grew E coli sensitive to ceftriaxone continue IV ceftriaxone day 10/24, no fevers no chills, WBC trending up,likely reactive 3.Metabolic acidosis -resolved s/p bicarb drip, bicarb remains stable greater than 20, follow labs 3.Hypertension-noted to have elevated blood pressures since ramipril on hold will place on Norvasc 5 mg daily follow BP closely 4. Likely Chronic normocytic anemia hematocrit stable 5. Hematuria likely due to bladder distension urine light pink colored today, will clamp CBI today, if no recurrent hematuria will DC CBI and continue Esquivel catheter 6. Unwitnessed fall no acute injury CT head unremarkable. DVT prophylaxis Heparin Full code Patient requires ongoing hospitalization for persistent acute renal failure , hematuria on CBI, needs close monitoring of renal function Time Spent With Patient Time: Total time managing care of this patient today ____ minutes. Quality Stroke Does the patient have a stroke diagnosis?: No VTE Prior VTE?: No VTE Risk Level:: Medical - moderate - high VTE Device Contraindication: Treatment Not Indicated VTE Drug Contraindication: N/A - Med Ordered
[2022-05-29 16:00] VITALS: BP 161/88; PULSE 108; RESP 18; TEMP 36.9; O2SAT 97
[2022-05-29 19:06] VITALS: BP 133/77; PULSE 103; RESP 18; TEMP 36.9; O2SAT 94
[2022-05-29] MEDS: cefTRIAXone sodium 1 GM in 0.9 % Sodium Chloride 50 ML IV (21:26)
[2022-05-30 03:36] VITALS: BP 143/74; PULSE 75; RESP 17; TEMP 36.2; O2SAT 95
[2022-05-30 05:59] LABS: Hematocrit 33.2 % (42.0-52.0); Hemoglobin 11.1 g/dl (14.0-18.0); Mean Corpuscular HGB Conc 33.4 g/dl (31.0-36.0); Mean Corpuscular Hemoglobin 30.7 pg (27.0-33.0); Mean Platelet Volume 9.5 fL (9.4-12.4); Platelet Count 264 X10*3/uL (160-400); Red Blood Count 3.61 X10*6/uL (4.60-5.80); Red Cell Distribution Width 12.9 % (11.0-16.0); White Blood Count 12.6 X10*3/uL (4.8-10.8)
[2022-05-30 06:12] LABS: Anion Gap 15 (12-20); Blood Urea Nitrogen 42 mg/dL (9-16); Calcium 7.8 mg/dL (8.4-10.2); Carbon Dioxide 21 mmol/L (22-29); Chloride 106 mmol/L (96-108); Creatinine Clr Calc Pharmacy 18.5; Estimated Glomerular Filt Rate 22; Glucose Random 112 mg/dL (60-115); Potassium 4.3 mmol/L (3.3-5.1); Sodium 138 mmol/L (135-145)
[2022-05-30 07:53] VITALS: BP 137/76; PULSE 73; RESP 18; TEMP 37.1; O2SAT 95
[2022-05-30] MEDS: amLODIPine Besylate 5 MG TABLET PO (09:10)
[2022-05-30] MEDS: 0.9 % Sodium Chloride Flush 3 ML SYRINGE IVFLUSH ×3 (09:11→20:50)
[2022-05-30] MEDS: Multivitamin TABLET 1 TAB PO (09:12)
--- NOTE | 2022-05-30 11:24 | PM.PNNEP ---
Subjective Subjective Date of Service: 05/30/22 Interval history: seen and examined no complaints Physical Exam Vital Signs: Vital Signs: Last Vital Signs Temp 98.7 F 05/30/22 07:53 Pulse 73 05/30/22 07:53 Resp 18 05/30/22 07:53 BP 137/76 05/30/22 07:53 Pulse Ox 95 05/30/22 07:53 O2 Del Method 05/30/22 07:53 BMI result Body Mass Index 21.7 Const: General: no acute distress HEENT: Head: Yes normocephalic and Yes atraumatic Neck: Neck: Yes supple Resp: Auscultation: clear to auscultation bilaterally Cardio: Heart sounds: S1 normal heart sound present and S2 normal heart sound present GI: Palpation (GI): Soft to palpation and nontender Extrem: General: Yes no pedal edema Objective Data Labs 05/30/22 05:45 05/30/22 05:45 Labs: Laboratory Results - last 24 hr 05/30/22 05/30/22 05:45 05:45 WBC 12.6 H RBC 3.61 L Hgb 11.1 L Hct 33.2 L MCV 92.0 MCH 30.7 MCHC 33.4 RDW 12.9 Plt Count 264 MPV 9.5 Absolute Nucleated RBC 0.000 Nucleated RBC % (auto) 0.0 Sodium 138 Potassium 4.3 Chloride 106 Carbon Dioxide 21 L Anion Gap 15 BUN 42 H Creatinine 2.84 H Estim Creat Clear Calc 18.5 Estimated GFR 22 Random Glucose 112 Calcium 7.8 L Microbiology Microbiology Results: Microbiology 05/24/22 21:41 Blood - Venous Blood Culture - Final No growth after 5 days. 05/24/22 21:40 Blood - Venous Blood Culture - Final No growth after 5 days. 05/24/22 21:00 Urine clean catch - Urine naidu top Urine Culture - Final Escherichia coli Procedures Date of Service Date of Service: 05/30/22 Assessment & Plan Assessment and plan (1) DANYELLE (acute kidney injury): Status: Acute (2) Metabolic acidosis: Status: Acute Plan Scr better DANYELLE due to obstructive uropathy bladder outlet obstruction CT scan showed b/l hydronephrosis REC Esquivel allow post obstructive diuresis follow kidney function and electrolytes Time Spent With Patient Time: Total time managing care of this patient today ____ minutes. Progress Note: Quality Stroke Does the patient have a stroke diagnosis?: No
--- NOTE | 2022-05-30 12:04 | P.PNIM_ITS ---
Subjective Subjective Date of Service: 05/30/22 Interval History: resting comfortably offers no acute complaints tolerating diet with no nausea no vomiting no abdominal pain denies diarrhea no urinary symptoms CBI clamped for last 24 hours , urine light pink color. Review of Systems Review of Systems: Yes all other systems are reviewed and are negative Physical Exam Vital Signs: Vital Signs: Last Vital Signs Temp 98.7 F 05/30/22 07:53 Pulse 73 05/30/22 07:53 Resp 18 05/30/22 07:53 BP 137/76 05/30/22 07:53 Pulse Ox 95 05/30/22 07:53 O2 Del Method 05/30/22 07:53 BMI result Body Mass Index 21.7 Const: Other: General resting comfortably in no acute distress.? Neck? supple no JVD. CVS? regular rate rhythm, Respiratory lungs clear to auscultation, no respiratory distress, Gastrointestinal abdomen soft, non tender, bowel sounds audible, no guarding , no rigidity. Extremities no edema. Neuro non focal , speech clear. Skin no rash Psych appropriate affect Esquivel catheter with light pink urine Objective Data Active Medications Acetaminophen (Acetaminophen 325 Mg Tablet) 650 mg PO Q6H PRN PRN Reason: Pain, Mild (Pain Scale 1-3) Amlodipine Besylate (Amlodipine Besylate 5 Mg Tablet) 5 mg PO DAILY [facility]; Protocol Last Admin: 05/30/22 09:10 Dose: 5 mg Documented By: CHRISTI Heparin Sodium (Porcine) (Heparin Sodium,Porcine 5,000 Unit/Ml Vial) 5,000 unit SUBCUT Q12H [facility] Last Admin: 05/26/22 08:49 Dose: 5,000 unit Documented By: MAURIZIO Ceftriaxone Sodium 1 gm/ (Sodium Chloride) 50 mls @ 100 mls/hr IV Q24H [facility] Last Infusion: 05/29/22 22:07 Dose: 0 mls/hr Documented By: MALLORY Multivitamins/Vitamin C (Multivitamin Tablet) 1 tab PO DAILY [facility] Last Admin: 05/30/22 09:12 Dose: 1 tab Documented By: CHRISTI Ondansetron HCl (Ondansetron Hcl 4 Mg/2 Ml Vial) 4 mg IVPUSH Q8H PRN PRN Reason: Nausea and Vomiting Pharmacy Consult (Consult Rx Perform Med Rec) 1 each MISCELLANE ONCE PRN PRN Reason: Consult order Senna (Sennosides 8.6 Mg Tablet) 17.2 mg PO BEDTIME PRN PRN Reason: Constipation Sodium Chloride (0.9 % Sodium Chloride Flush 3 Ml Syringe) 3 ml IVFLUSH QSHIFT [facility] Last Admin: 05/30/22 09:11 Dose: 3 ml Documented By: CHRISTI Labs 05/30/22 05:45 05/30/22 05:45 Labs: Laboratory Results - last 24 hr 05/30/22 05/30/22 05:45 05:45 MCV 92.0 MCH 30.7 MCHC 33.4 RDW 12.9 Plt Count 264 MPV 9.5 Absolute Nucleated RBC 0.000 Nucleated RBC % (auto) 0.0 Anion Gap 15 Estim Creat Clear Calc 18.5 Estimated GFR 22 Random Glucose 112 Calcium 7.8 L Microbiology Microbiology Results: Microbiology 05/24/22 21:41 Blood Culture - Final Blood - Venous No growth after 5 days. 05/24/22 21:40 Blood Culture - Final Blood - Venous No growth after 5 days. Assessment and Plan (1) Acute renal failure: Status: Acute (2) UTI (urinary tract infection): Status: Acute Plan 81-year-old male with history of hypertension and unspecified dementia admitted for DANYELLE secondary to obstructive uropathy 1.Acute kidney injury secondary to bladder outlet obstruction -creatinine improving slowly since Esquivel insertion -appreciate urology input; voiding trial and cystoscopy outpatient encourage by mouth intake, follow BMP , Nephrology recommend to follow labs 2.Acute UTI Urine culture grew E coli sensitive to ceftriaxone continue IV ceftriaxone day 11/24, no fevers no chills, WBC remains elevated likely reactive 3.Metabolic acidosis - s/p bicarb drip, bicarb remains stable greater than 20, follow labs 3.Hypertension-blood pressure improved with addition of Norvasc 5 mg daily, ramipril on hold due to DANYELLE 4. Likely Chronic normocytic anemia hematocrit stable 5. Hematuria likely due to bladder distension urine light pink colored today, CBI clamped since yesterday will DC CBI continue Esquivel catheter, monitor for recurrent hematuria 6. Unwitnessed fall no acute injury CT head unremarkable. DVT prophylaxis Heparin Full code Patient requires ongoing hospitalization for persistent acute renal failure , and follow-up on hematuria. Time Spent With Patient Time: Total time managing care of this patient today ____ minutes. Quality Stroke Does the patient have a stroke diagnosis?: No VTE Prior VTE?: No VTE Risk Level:: Medical - moderate - high VTE Device Contraindication: Treatment Not Indicated VTE Drug Contraindication: N/A - Med Ordered
--- NOTE | 2022-05-30 13:45 | MHC.CM.PN ---
EMR REVIEWED PER MD ROUNDS, PATIENT IS NOT MEDICALLY CLEARED FOR DC (PERSISTENT DANYELLE, CONTINUED HEMATURIA) CM WILL CONTINUE TO FOLLOW FOR DC NEEDS
[2022-05-30 16:00] VITALS: BP 143/83; PULSE 110; RESP 20; TEMP 36.9; O2SAT 95
[2022-05-30 19:56] VITALS: BP 123/77; PULSE 84; RESP 17; TEMP 36.2; O2SAT 95
[2022-05-30] MEDS: cefTRIAXone sodium 1 GM in 0.9 % Sodium Chloride 50 ML IV (20:50)
[2022-05-31 03:47] VITALS: BP 150/77; PULSE 80; RESP 18; TEMP 36.6; O2SAT 96
[2022-05-31 06:46] LABS: Hematocrit 33.3 % (42.0-52.0); Hemoglobin 11.1 g/dl (14.0-18.0); Mean Corpuscular HGB Conc 33.3 g/dl (31.0-36.0); Mean Corpuscular Hemoglobin 30.6 pg (27.0-33.0); Mean Corpuscular Volume 91.7 fL (80.0-98.0); Mean Platelet Volume 9.7 fL (9.4-12.4); Platelet Count 297 X10*3/uL (160-400); Red Blood Count 3.63 X10*6/uL (4.60-5.80); Red Cell Distribution Width 12.8 % (11.0-16.0); White Blood Count 11.6 X10*3/uL (4.8-10.8)
[2022-05-31 06:55] LABS: Anion Gap 16 (12-20); Blood Urea Nitrogen 50 mg/dL (9-16); Calcium 8.2 mg/dL (8.4-10.2); Carbon Dioxide 20 mmol/L (22-29); Chloride 106 mmol/L (96-108); Creatinine Clr Calc Pharmacy 16.4; Estimated Glomerular Filt Rate 19; Glucose Random 106 mg/dL (60-115); Potassium 4.9 mmol/L (3.3-5.1); Sodium 137 mmol/L (135-145)
--- NOTE | 2022-05-31 07:59 | PM.PNNEP ---
Subjective Subjective Date of Service: 05/31/22 Interval history: seen and examined no complaints Physical Exam Vital Signs: Vital Signs: Last Vital Signs Temp 98 F 05/31/22 03:47 Pulse 80 05/31/22 03:47 Resp 18 05/31/22 03:47 BP 150/77 H 05/31/22 03:47 Pulse Ox 96 05/31/22 03:47 O2 Del Method 05/31/22 03:47 BMI result Body Mass Index 21.7 Const: General: no acute distress HEENT: Head: Yes normocephalic and Yes atraumatic Neck: Neck: Yes supple Resp: Auscultation: clear to auscultation bilaterally Cardio: Heart sounds: S1 normal heart sound present and S2 normal heart sound present GI: Palpation (GI): Soft to palpation and nontender Extrem: General: Yes no pedal edema Objective Data Labs 05/31/22 05:42 05/31/22 05:42 Labs: Laboratory Results - last 24 hr 05/31/22 05/31/22 05:42 05:42 WBC 11.6 H RBC 3.63 L Hgb 11.1 L Hct 33.3 L MCV 91.7 MCH 30.6 MCHC 33.3 RDW 12.8 Plt Count 297 MPV 9.7 Absolute Nucleated RBC 0.000 Nucleated RBC % (auto) 0.0 Sodium 137 Potassium 4.9 Chloride 106 Carbon Dioxide 20 L Anion Gap 16 BUN 50 H Creatinine 3.19 H Estim Creat Clear Calc 16.4 Estimated GFR 19 Random Glucose 106 Calcium 8.2 L Microbiology Microbiology Results: Microbiology 05/24/22 21:41 Blood - Venous Blood Culture - Final No growth after 5 days. 05/24/22 21:40 Blood - Venous Blood Culture - Final No growth after 5 days. 05/24/22 21:00 Urine clean catch - Urine naidu top Urine Culture - Final Escherichia coli Procedures Date of Service Date of Service: 05/31/22 Assessment & Plan Assessment and plan (1) DANYELLE (acute kidney injury): Status: Acute (2) Metabolic acidosis: Status: Acute Plan Scr marginally up DANYELLE due to obstructive uropathy bladder outlet obstruction CT scan showed b/l hydronephrosis REC Esquivel follow kidney function and electrolytes Time Spent With Patient Time: Total time managing care of this patient today ____ minutes. Progress Note: Quality Stroke Does the patient have a stroke diagnosis?: No
[2022-05-31 08:00] VITALS: BP 137/78; PULSE 70; RESP 18; TEMP 37.1; O2SAT 97
[2022-05-31] MEDS: 0.9 % Sodium Chloride Flush 3 ML SYRINGE IVFLUSH ×3 (09:28→20:45)
[2022-05-31] MEDS: amLODIPine Besylate 5 MG TABLET PO (09:28)
[2022-05-31] MEDS: Multivitamin TABLET 1 TAB PO (09:28)
[2022-05-31 15:17] VITALS: BP 125/72; PULSE 97; RESP 18; TEMP 36.2; O2SAT 94
--- NOTE | 2022-05-31 16:53 | HO.PM.IMPN ---
Subjective Subjective Date of Service: 05/31/22 Interval History: Offers no acute complaints urine almost clear with couple blood clots, no abdominal pain no urinary symptoms no acute issues overnight. Review of Systems Review of Systems: Yes all other systems are reviewed and are negative Physical Exam Vital Signs: Vital Signs: Last Vital Signs Temp 97.2 F 05/31/22 15:17 Pulse 97 05/31/22 15:17 Resp 18 05/31/22 15:17 BP 125/72 05/31/22 15:17 Pulse Ox 94 05/31/22 15:17 O2 Del Method 05/31/22 15:17 BMI result Body Mass Index 21.7 Const: Other: General resting co mfortably in no ac marshall distress.? Nec k? supple no JVD. CVS? regular rate rhythm, Respirator y lungs clear to a uscultation, no re spiratory distress , Gastrointestinal abdomen soft, non tender, bowel gilles nds audible, no gu arding , no rigidi ty. Extremities no edema. Neuro non focal , speech annie ar. Skin no rash P sych appropriate a ffect Esquivel cathet er with pink-tinge d urine Objective Data Active Medications Acetaminophen (Acetaminophen 325 Mg Tablet) 650 mg PO Q6H PRN PRN Reason: Pain, Mild (Pain Scale 1-3) Amlodipine Besylate (Amlodipine Besylate 5 Mg Tablet) 5 mg PO DAILY [facility]; Protocol Last Admin: 05/31/22 09:28 Dose: 5 mg Documented By: REN Heparin Sodium (Porcine) (Heparin Sodium,Porcine 5,000 Unit/Ml Vial) 5,000 unit SUBCUT Q12H [facility] Last Admin: 05/26/22 08:49 Dose: 5,000 unit Documented By: MAURIZIO Ceftriaxone Sodium 1 gm/ (Sodium Chloride) 50 mls @ 100 mls/hr IV Q24H [facility] Last Infusion: 05/30/22 21:24 Dose: 0 mls/hr Documented By: SHARON Multivitamins/Vitamin C (Multivitamin Tablet) 1 tab PO DAILY [facility] Last Admin: 05/31/22 09:28 Dose: 1 tab Documented By: REN Ondansetron HCl (Ondansetron Hcl 4 Mg/2 Ml Vial) 4 mg IVPUSH Q8H PRN PRN Reason: Nausea and Vomiting Pharmacy Consult (Consult Rx Perform Med Rec) 1 each MISCELLANE ONCE PRN PRN Reason: Consult order Senna (Sennosides 8.6 Mg Tablet) 17.2 mg PO BEDTIME PRN PRN Reason: Constipation Sodium Chloride (0.9 % Sodium Chloride Flush 3 Ml Syringe) 3 ml IVFLUSH QSHIFT [facility] Last Admin: 05/31/22 15:12 Dose: 3 ml Documented By: REN Labs 05/31/22 05:42 05/31/22 05:42 Labs: Laboratory Results - last 24 hr 05/31/22 05/31/22 05:42 05:42 MCV 91.7 MCH 30.6 MCHC 33.3 RDW 12.8 Plt Count 297 MPV 9.7 Absolute Nucleated RBC 0.000 Nucleated RBC % (auto) 0.0 Anion Gap 16 Estim Creat Clear Calc 16.4 Estimated GFR 19 Random Glucose 106 Calcium 8.2 L Assessment and Plan (1) Acute renal failure: Status: Acute (2) UTI (urinary tract infection): Status: Acute Plan 81-year-old male with history of hypertension and unspecified dementia admitted for DANYELLE secondary to obstructive uropathy 1.Acute kidney injury secondary to bladder outlet obstruction -creatinine improving slowly since Esquivel insertion -appreciate urology input; voiding trial and cystoscopy outpatient encourage by mouth intake, follow BMP , outpatient follow-up with Nephrology ,follow labs 2.Acute UTI Urine culture grew E coli sensitive to ceftriaxone day 9 will transition to by mouth Ceftin, no fevers, no chills, WBC remains elevated likely reactive 3.Metabolic acidosis - s/p bicarb drip, bicarb remains stable greater than 20, follow labs 3.Hypertension-blood pressure improved with addition of Norvasc 5 mg daily, ramipril on hold due to DANYELLE 4. Likely Chronic normocytic anemia hematocrit stable. 5. Hematuria likely due to bladder distension urine light pink colored today, dc CBI , irrigate Esquivel and continue Esquivel catheter 6. Unwitnessed fall no acute injury CT head unremarkable. DVT prophylaxis Heparin Full code Patient requires ongoing hospitalization for persistent acute renal failure , and follow-up on hematuria. Time Spent With Patient Time: Total time managing care of this patient today ____ minutes. Quality Stroke Does the patient have a stroke diagnosis?: No VTE Prior VTE?: No VTE Risk Level:: Medical - moderate - high VTE Device Contraindication: Treatment Not Indicated VTE Drug Contraindication: N/A - Med Ordered
[2022-05-31 19:23] VITALS: BP 123/71; PULSE 96; RESP 18; TEMP 36.4; O2SAT 96
[2022-05-31] MEDS: cefTRIAXone sodium 1 GM in 0.9 % Sodium Chloride 50 ML IV (20:45)
[2022-06-01 03:39] VITALS: BP 154/65; PULSE 92; RESP 17; TEMP 36.2; O2SAT 97
[2022-06-01 08:00] VITALS: BP 138/72; PULSE 82; RESP 16; TEMP 37; O2SAT 98
[2022-06-01] MEDS: Finasteride 5 MG TABLET PO (09:29)
[2022-06-01] MEDS: amLODIPine Besylate 5 MG TABLET PO (09:29)
[2022-06-01] MEDS: Multivitamin TABLET 1 TAB PO (09:29)
[2022-06-01] MEDS: Tamsulosin HCL 0.4 MG CAPSULE PO (09:29)
--- NOTE | 2022-06-01 10:59 | PM.PNNEP ---
Subjective Subjective Date of Service: 06/01/22 Interval history: seen and examined d/w medical attending no complaints Physical Exam Vital Signs: Vital Signs: Last Vital Signs Temp 98.6 F 06/01/22 08:00 Pulse 82 06/01/22 08:00 Resp 16 06/01/22 08:00 BP 138/72 06/01/22 08:00 Pulse Ox 98 06/01/22 08:00 O2 Del Method 06/01/22 08:00 BMI result Body Mass Index 21.7 Const: General: no acute distress HEENT: Head: Yes normocephalic and Yes atraumatic Neck: Neck: Yes supple Resp: Auscultation: clear to auscultation bilaterally Cardio: Heart sounds: S1 normal heart sound present and S2 normal heart sound present GI: Palpation (GI): Soft to palpation and nontender Extrem: General: Yes no pedal edema Objective Data Labs 05/31/22 05:42 05/31/22 05:42 Microbiology Microbiology Results: Microbiology 05/24/22 21:41 Blood - Venous Blood Culture - Final No growth after 5 days. 05/24/22 21:40 Blood - Venous Blood Culture - Final No growth after 5 days. 05/24/22 21:00 Urine clean catch - Urine naidu top Urine Culture - Final Escherichia coli Procedures Date of Service Date of Service: 06/01/22 Assessment & Plan Assessment and plan (1) DANYELLE (acute kidney injury): Status: Acute (2) Metabolic acidosis: Status: Acute Plan kidney function overall stable ? baseline kidney function DANYELLE due to obstructive uropathy bladder outlet obstruction CT scan showed b/l hydronephrosis REC voiding trial follow kidney function and electrolytes Time Spent With Patient Time: Total time managing care of this patient today ____ minutes. Progress Note: Quality Stroke Does the patient have a stroke diagnosis?: No
[2022-06-01 15:19] VITALS: BP 135/72; PULSE 96; RESP 18; TEMP 36.3; O2SAT 94
--- NOTE | 2022-06-01 15:43 | HO.PM.IMPN ---
Subjective Subjective Date of Service: 06/01/22 Interval History: Patient awake alert offers no acute complaints , tolerating diet with no nausea, no vomiting, no abdominal pain or diarrhea. Esquivel catheter with clear urine no further bout of hematuria. Review of Systems Review of Systems: Yes Unobtainable due to mental status Physical Exam Vital Signs: Vital Signs: Last Vital Signs Temp 97.4 F 06/01/22 15:19 Pulse 96 06/01/22 15:19 Resp 18 06/01/22 15:19 BP 135/72 06/01/22 15:19 Pulse Ox 94 06/01/22 15:19 O2 Del Method 06/01/22 15:19 BMI result Body Mass Index 21.7 Const: Other: General resting co mfortably in no ac [place] distress.? Nec k? supple no JVD. CVS? regular rate rhythm, Respirator y lungs clear to a uscultation, no re spiratory distress , Gastrointestinal abdomen soft, non tender, bowel gilles nds audible, no gu arding , no rigidi ty. Extremities no edema. Neuro non focal , speech annie ar. Skin no rash P sych appropriate a ffect Esquivel cathet er with clear urin e Objective Data Active Medications Acetaminophen (Acetaminophen 325 Mg Tablet) 650 mg PO Q6H PRN PRN Reason: Pain, Mild (Pain Scale 1-3) Amlodipine Besylate (Amlodipine Besylate 5 Mg Tablet) 5 mg PO DAILY [facility]; Protocol Last Admin: 06/01/22 09:29 Dose: 5 mg Documented By: ALYSSA Cefuroxime Axetil (Cefuroxime Axetil 250 Mg Tablet) 250 mg PO BID [facility] Last Admin: 06/01/22 09:29 Dose: 250 mg Documented By: ALYSSA Finasteride (Finasteride 5 Mg Tablet) 5 mg PO DAILY [facility] Last Admin: 06/01/22 09:29 Dose: 5 mg Documented By: ALYSSA Heparin Sodium (Porcine) (Heparin Sodium,Porcine 5,000 Unit/Ml Vial) 5,000 unit SUBCUT Q12H [facility] Last Admin: 05/26/22 08:49 Dose: 5,000 unit Documented By: MAURIZIO Multivitamins/Vitamin C (Multivitamin Tablet) 1 tab PO DAILY [facility] Last Admin: 06/01/22 09:29 Dose: 1 tab Documented By: ALYSSA Ondansetron HCl (Ondansetron Hcl 4 Mg/2 Ml Vial) 4 mg IVPUSH Q8H PRN PRN Reason: Nausea and Vomiting Pharmacy Consult (Consult Rx Perform Med Rec) 1 each MISCELLANE ONCE PRN PRN Reason: Consult order Senna (Sennosides 8.6 Mg Tablet) 17.2 mg PO BEDTIME PRN PRN Reason: Constipation Sodium Chloride (0.9 % Sodium Chloride Flush 3 Ml Syringe) 3 ml IVFLUSH QSHIFT [facility] Last Admin: 06/01/22 14:20 Dose: Not Given Documented By: ALYSSA Non-Admin Reason: See Note Tamsulosin HCl (Tamsulosin Hcl 0.4 Mg Capsule) 0.4 mg PO DAILY [facility] Last Admin: 06/01/22 09:29 Dose: 0.4 mg Documented By: ALYSSA Labs 05/31/22 05:42 05/31/22 05:42 Assessment and Plan (1) Acute renal failure: Status: Acute (2) UTI (urinary tract infection): Status: Acute Plan 81-year-old male with history of hypertension and unspecified dementia admitted for DANYELLE secondary to obstructive uropathy 1.Acute kidney injury secondary to bladder outlet obstruction -creatinine unchanged likely at his baseline . Acute kidney failure due to obstructive uropathy -appreciate urology input cystoscopy outpatient Continue Flomax and Proscar Will DC Esquivel catheter give voiding trial today, if postvoid residual greater than [address] Esquivel catheter back, outpatient follow-up with Nephrology ,follow labs 2.Acute UTI Urine culture grew E coli sensitive status post ceftriaxone time 9 days now on by mouth Ceftin, WBC improving , no fevers no chills 3.Metabolic acidosis - s/p bicarb drip, bicarb remains stable greater than 20, follow labs 3.Hypertension-blood pressure improved with addition of Norvasc 5 mg daily, ramipril on hold due to DANYELLE 4. Likely Chronic normocytic anemia hematocrit stable. 5. Hematuria likely due to bladder distension status post CBI urine clear this morning 6. Unwitnessed fall no acute injury CT head unremarkable. DVT prophylaxis Heparin Full code Patient requires ongoing hospitalization for persistent acute renal failure , and follow-up on hematuria. Time Spent With Patient Time: Total time managing care of this patient today ____ minutes. Quality Stroke Does the patient have a stroke diagnosis?: No VTE Prior VTE?: No VTE Risk Level:: Medical - moderate - high VTE Device Contraindication: Treatment Not Indicated VTE Drug Contraindication: N/A - Med Ordered
--- NOTE | 2022-06-01 17:55 | PC.NURSE ---
Esquivel pulled per MD verbal order. MD informed of bladder scan this evening around 1800 of 353ml. Pt was bladder scanned late d/t staff being unable to locate bladder scanner. per md str cath now and obtain bladder scan in 6 hours.
[2022-06-01 19:19] VITALS: BP 138/68; PULSE 102; RESP 18; TEMP 36.1; O2SAT 93
[2022-06-02] MEDS: 0.9 % Sodium Chloride Flush 3 ML SYRINGE IVFLUSH (01:30)
[2022-06-02 03:58] VITALS: BP 95/52; PULSE 86; RESP 18; TEMP 36.6; O2SAT 93
[2022-06-02 06:22] LABS: Anion Gap 15 (12-20); Blood Urea Nitrogen 63 mg/dL (9-16); Calcium 8.3 mg/dL (8.4-10.2); Carbon Dioxide 18 mmol/L (22-29); Chloride 110 mmol/L (96-108); Creatinine Clr Calc Pharmacy 15.1; Estimated Glomerular Filt Rate 17; Glucose Random 121 mg/dL (60-115); Potassium 5.1 mmol/L (3.3-5.1); Sodium 138 mmol/L (135-145)
[2022-06-02 07:32] VITALS: BP 113/67; PULSE 81; RESP 18; TEMP 36.6; O2SAT 94
[2022-06-02] MEDS: Tamsulosin HCL 0.4 MG CAPSULE PO (09:17)
[2022-06-02] MEDS: amLODIPine Besylate 5 MG TABLET PO (09:17)
[2022-06-02] MEDS: Multivitamin TABLET 1 TAB PO (09:17)
[2022-06-02] MEDS: Finasteride 5 MG TABLET PO (09:17)
--- NOTE | 2022-06-02 11:01 | PM.PNNEP ---
Subjective Subjective Date of Service: 06/02/22 Interval history: seen and examined sitting out of bed no complaints d/w medical attending Physical Exam Vital Signs: Vital Signs: Last Vital Signs Temp 97.9 F 06/02/22 07:32 Pulse 81 06/02/22 07:32 Resp 18 06/02/22 07:32 BP 113/67 06/02/22 07:32 Pulse Ox 94 06/02/22 07:32 O2 Del Method 06/02/22 07:32 BMI result Body Mass Index 21.7 Const: General: no acute distress HEENT: Head: Yes normocephalic and Yes atraumatic Neck: Neck: Yes supple Resp: Auscultation: clear to auscultation bilaterally Cardio: Heart sounds: S1 normal heart sound present and S2 normal heart sound present GI: Palpation (GI): Soft to palpation and nontender Extrem: General: Yes no pedal edema Objective Data Labs 05/31/22 05:42 06/02/22 05:50 Labs: Laboratory Results - last 24 hr 06/02/22 05:50 Sodium 138 Potassium 5.1 Chloride 110 H Carbon Dioxide 18 L Anion Gap 15 BUN 63 H Creatinine 3.46 H Estim Creat Clear Calc 15.1 Estimated GFR 17 Random Glucose 121 H Calcium 8.3 L Microbiology Microbiology Results: Microbiology 05/24/22 21:41 Blood - Venous Blood Culture - Final No growth after 5 days. 05/24/22 21:40 Blood - Venous Blood Culture - Final No growth after 5 days. 05/24/22 21:00 Urine clean catch - Urine naidu top Urine Culture - Final Escherichia coli Procedures Date of Service Date of Service: 06/02/22 Assessment & Plan Assessment and plan (1) DANYELLE (acute kidney injury): Status: Acute (2) Metabolic acidosis: Status: Acute Plan kidney function probably at baseline DANYELLE due to obstructive uropathy bladder outlet obstruction CT scan showed b/l hydronephrosis REC follow kidney function and electrolytes o/p renal f/u Time Spent With Patient Time: Total time managing care of this patient today ____ minutes. Progress Note: Quality Stroke Does the patient have a stroke diagnosis?: No
--- NOTE | 2022-06-02 15:14 | PM.DS ---
DS: Providers Provider Date of Service: 06/02/22 Date of admission: 05/24/22 19:43 Primary care physician: Debra Kirk MD Consults: 05/24/22 21:11 Consult to Urology Routine Consulting Provider: Jason Owens Reason for consultation: outlet obstruction causing DANYELLE Has provider been notified: No 05/25/22 16:52 Consult to Nephrology Routine Consulting Provider: Ray Clayton Reason for consultation: DANYELLE Has provider been notified: Yes DS: Diagnosis Discharge Diagnosis (1) DANYELLE (acute kidney injury): Status: Acute (2) Metabolic acidosis: Status: Acute DS: Summary Hospital Course Hospital Course: Date of Service: 05/24/22 Attending physician on admission: Adriana Sales Chief Complaint: danyelle 81-year-old male with history of hypertension and unspecified dementia presents to the ED with his daughter at the recommendation of PCP for evaluation of DANYELLE.? Patient had a routine appointment with PCP yesterday and was called today with abnormal lab results advised to present to the ED for further evaluation.? His daughter, with whom he lives, states he has no known history of chronic kidney disease.? He has been feeling well overall, eating and drinking normally.? He denies any fevers, chills, nausea, vomiting, abdominal pain, diarrhea, dysuria, hematuria, increased urinary frequency, decreased urinary output, palpitations, lightheadedness, shortness of breath, or chest pain.? In the ED, vital signs stable.? Leukocytosis of 13.6.? Mild normocytic anemia with H/H 11.6/34.3%.? Creatinine 4.29 (baseline unknown), BUN 77.? Sodium 135, potassium 5.2, chloride 110, CO2 12, glucose 153. VBG unremarkble except bicarb 13. CXR with bibasilar atelectasis and interstial fibrotic changes. Ct abd/pelvis showing bladder outlet obstruction. Patient treated with 1 L IV fluid bolus in the ED.? To be admitted for DANYELLE. Hospital course 81-year-old male with history of hypertension and unspecified dementia admitted for DANYELLE secondary to obstructive uropathy. Patient admitted with Acute kidney injury secondary to bladder outlet obstruction, CT abdomen and pelvis showed enlarged prostate, dilated bilateral ureters up to renal pelvis, patient evaluated by urologist outpatient cystoscopy recommended, patient was placed on Flomax and Proscar and Esquivel catheter , patient was followed closely by Nephrology, treated with IV bicarb drip for metabolic acidosis, renal function improved and plateaued Likely has baseline chronic kidney disease, patient was given voiding trial patient was unable to completely empty the bladder, with postvoid bladder scans greater than 300 therefore Esquivel catheter reinserted and patient is being discharged home for outpatient voiding trial and cystoscopy by Urology, patient's daughters aware of plan of care and will call Urology for appointment will follow BMP in 1 week . Acute UTI,? Urine culture grew E coli, status post ceftriaxone times 10 days, will send home on 4 more days of by mouth Ceftin, no WBC improved patient had no recurrent fever chills or urinary symptoms. Metabolic acidosis - s/p bicarb drip, bicarb improved but trending down recommend outpatient follow-up Hypertension-blood pressure improved with addition of Norvasc 5 mg daily, ramipril discontinued due to DANYELLE. Chronic normocytic anemia hematocrit stable. Hematuria resolved was likely due to bladder distension status post CBI Time Spent with Patient Time attestation: Total time managing care of this patient today ____ minutes. Discharge coordination time: Greater than 30 minutes Quality: Safe Use of Opioids Does Pt have an Active Cancer Diagnosis on the Problem List?: No Quality: Stroke Does the patient have a stroke diagnosis?: No Physical Exam Vital Signs: Vital Signs: Last Vital Signs Temp 97.9 F 06/02/22 07:32 Pulse 81 06/02/22 07:32 Resp 18 06/02/22 07:32 BP 113/67 06/02/22 07:32 Pulse Ox 94 06/02/22 07:32 O2 Del Method 06/02/22 07:32 BMI result Body Mass Index 21.7 Const: Other: General resting comfortably in no acute distress.? Neck? supple no JVD. CVS? regular rate rhythm, Respiratory lungs clear to auscultation, no respiratory distress, Gastrointestinal abdomen soft, non tender, bowel sounds audible, no guarding , no rigidity. Extremities no edema. Neuro non focal , speech clear. Skin no rash Psych appropriate affect DS: Data Data Completed and Pending Labs on day of discharge: Laboratory Results - last 24 hr 06/02/22 05:50 Sodium 138 Potassium 5.1 Chloride 110 H Carbon Dioxide 18 L Anion Gap 15 BUN 63 H Creatinine 3.46 H Estim Creat Clear Calc 15.1 Estimated GFR 17 Random Glucose 121 H Calcium 8.3 L Discharge Plan Discharge Anticipated Discharge Date/Time: 06/02/22 15:11 Patient Disposition: Home Health Service Discharge Diagnosis: Acute kidney injury Obstructive uropathy Acute UTI Referrals: Debra Kirk MD [Primary Care Provider] - 1 Week Discharge Medications: New amlodipine 5 mg Tablet 5 mg PO DAILY Qty: 30 0RF Protocol: Hold for SBP< HOLD for SBP < : 90 tamsulosin 0.4 mg Capsule 0.4 mg PO DAILY Qty: 30 0RF finasteride 5 mg Tablet 5 mg PO DAILY Qty: 30 0RF cefuroxime axetil 250 mg Tablet 250 mg PO BID Qty: 8 0RF Continued multivitamin Tablet 1 tab PO DAILY Discontinued ramipril 2.5 mg Capsule 2.5 mg PO DAILY Discharge Orders: Discharge Order (Routine); Ordered 06/02/22 Ordered By: Sophia Campos Diet: Advance to usual diet Activity on Discharge: As tolerated Stand Alone Forms: Patient Portal Discharge page Other Ambulatory Orders: Basic Metabolic Panel (Routine) Timeframe: 1 Week Facility: [facility] - Location: Laboratory Ordered By: Sophia Campos Care Plan Goals: Continue Esquivel catheter, empty leg bag, take new medication Proscar and Flomax for urine retention Stop ramipril for blood pressure take Norvasc 5 mg by mouth daily Hematuria resolved Health Concerns: Take all medications as prescribed. Plan of Treatment: Outpatient follow-up with Dr. Joselin Castro call for appointment for voiding trial and cystoscopy Outpatient follow-up with process environmental technician Dr. Rakesh Norris call to make appointment in 1-2 weeks Check BMP in 1 week Assessment: As above
--- NOTE | 2022-06-02 15:20 | P.PNIM_ITS ---
Subjective Subjective Date of Service: 06/02/22 Interval History: Being followed for her obstructive uropathy patient resting comfortably offers no acute complaints, no acute events overnight patient tolerating diet with no nausea, no vomiting, no abdominal pain, no diarrhea Esquivel catheter removed yesterday patient is able to void small amount bladder scan remains greater than 300 Review of Systems Review of Systems: Yes all other systems are reviewed and are negative Physical Exam Vital Signs: Vital Signs: Last Vital Signs Temp 97.9 F 06/02/22 07:32 Pulse 81 06/02/22 07:32 Resp 18 06/02/22 07:32 BP 113/67 06/02/22 07:32 Pulse Ox 94 06/02/22 07:32 O2 Del Method 06/02/22 07:32 BMI result Body Mass Index 21.7 Const: Other: General resting comfortably in no acute distress.? Neck? supple no JVD. CVS? regular rate rhythm, Respiratory lungs clear to auscultation, no respiratory distress, Gastrointestinal abdomen soft, non tender, bowel sounds audible, no guarding , no rigidity. Extremities no edema. Neuro non focal , speech clear. Skin no rash Psych appropriate affect Objective Data Active Medications Acetaminophen (Acetaminophen 325 Mg Tablet) 650 mg PO Q6H PRN PRN Reason: Pain, Mild (Pain Scale 1-3) Amlodipine Besylate (Amlodipine Besylate 5 Mg Tablet) 5 mg PO DAILY [facility]; Protocol Last Admin: 06/02/22 09:17 Dose: 5 mg Documented By: ALYSSA Cefuroxime Axetil (Cefuroxime Axetil 250 Mg Tablet) 250 mg PO BID [facility] Last Admin: 06/02/22 09:17 Dose: 250 mg Documented By: ALYSSA Finasteride (Finasteride 5 Mg Tablet) 5 mg PO DAILY [facility] Last Admin: 06/02/22 09:17 Dose: 5 mg Documented By: ALYSSA Heparin Sodium (Porcine) (Heparin Sodium,Porcine 5,000 Unit/Ml Vial) 5,000 unit SUBCUT Q12H [facility] Last Admin: 05/26/22 08:49 Dose: 5,000 unit Documented By: MAURIZIO Multivitamins/Vitamin C (Multivitamin Tablet) 1 tab PO DAILY [facility] Last Admin: 06/02/22 09:17 Dose: 1 tab Documented By: ALYSSA Ondansetron HCl (Ondansetron Hcl 4 Mg/2 Ml Vial) 4 mg IVPUSH Q8H PRN PRN Reason: Nausea and Vomiting Pharmacy Consult (Consult Rx Perform Med Rec) 1 each MISCELLANE ONCE PRN PRN Reason: Consult order Senna (Sennosides 8.6 Mg Tablet) 17.2 mg PO BEDTIME PRN PRN Reason: Constipation Sodium Chloride (0.9 % Sodium Chloride Flush 3 Ml Syringe) 3 ml IVFLUSH QSHIFT [facility] Last Admin: 06/02/22 15:05 Dose: Not Given Documented By: ALYSSA Non-Admin Reason: See Note Tamsulosin HCl (Tamsulosin Hcl 0.4 Mg Capsule) 0.4 mg PO DAILY [facility] Last Admin: 06/02/22 09:17 Dose: 0.4 mg Documented By: ALYSSA Labs 05/31/22 05:42 06/02/22 05:50 Labs: Laboratory Results - last 24 hr 06/02/22 05:50 Anion Gap 15 Estim Creat Clear Calc 15.1 Estimated GFR 17 Random Glucose 121 H Calcium 8.3 L Assessment and Plan (1) Acute renal failure: Status: Acute (2) UTI (urinary tract infection): Status: Acute Plan 81-year-old male with history of hypertension and unspecified dementia admitted for DANYELLE secondary to obstructive uropathy 1.Acute kidney injury secondary to bladder outlet obstruction -creatinine improved gradually and now plateaued likely has chronic kidney disease, Acute kidney injury likely due to obstructive uropathy with enlarged prostate Continue Flomax and Proscar Seen by Nephrology they recommend outpatient follow-up Seen by Urology they recommend outpatient cystoscopy Patient given voiding trial he was unable to empty bladder with bladder scan greater than 300 therefore Esquivel catheter reinserted and patient will be discharged home for outpatient voiding trial by Urology 2.Acute UTI Urine culture grew E coli patient finished 10 day course of antibiotics afebrile WBC improved, will give additional 4 more days of antibiotics since required straight catheterization none drains a chatterjee of Esquivel 3.Metabolic acidosis - s/p bicarb drip, bicarb dropped but stable follow BMP 3.Hypertension-blood pressure improved with Norvasc 5 mg daily, ramipril discontinued due to DANYELLE 4. Likely Chronic normocytic anemia hematocrit stable. 5. Hematuria resolved was likely due to bladder distension status post CBI 6. Unwitnessed fall no acute injury CT head unremarkable. DVT prophylaxis Heparin Full code Patient requires ongoing hospitalization for acute renal failure , and safe disposition Time Spent With Patient Time: Total time managing care of this patient today ____ minutes. Quality Stroke Does the patient have a stroke diagnosis?: No VTE Prior VTE?: No VTE Risk Level:: Medical - moderate - high VTE Device Contraindication: Treatment Not Indicated VTE Drug Contraindication: N/A - Med Ordered
--- NOTE | 2022-06-02 15:45 | MHC.CM.PN ---
PT MEDICALLY CLEARED FOR D/C HOME W/NEW VNA HOWEVER DTR DONI AT BEDSIDE AND DOESN'T FEEL SHE WILL NEED A VNA, PT'S RN PROVIDING CATHETER EDUCATION NOW AND PT WILL D/C W/DTR ONCE COMPLETE.
== END 2022-06-02 16:00 | disposition home health service (06) | DRG 690 ==
LOC: HO.ED 19:05 → HO.EDOVER 20:12 → HO.S3 05-25 17:13
PROVIDERS: Hospitalist; Internal Medicine; Admitting Provider Physician Assistant; Emergency Provider Student in an Organized Health Care Education/Training Program; PCP Family Medicine; Visit Provider Hospitalist
DX: N13.6 Pyonephrosis (principal); N13.8 Other obstructive and reflux uropathy; E87.21 Acute metabolic acidosis; N40.1 Benign prostatic hyperplasia with lower urinary tract symptoms; N17.9 Acute kidney failure, unspecified; E87.5 Hyperkalemia; D72.829 Elevated white blood cell count, unspecified; R31.0 Gross hematuria; D64.9 Anemia, unspecified; B96.20 Unspecified Escherichia coli [E. coli] as the cause of diseases classified elsewhere; F03.90 Unspecified dementia, unspecified severity, without behavioral disturbance, psychotic disturbance, mood disturbance, and anxiety; I10 Essential (primary) hypertension; E86.0 Dehydration; Z20.822 Contact with and (suspected) exposure to COVID-19; Z79.899 Other long term (current) drug therapy
CPT/HCPCS: 36415; 70450; 71045; 74176; 80048; 80053; 80076; 80179; 81001; 82550; 82803; 82947; 83605; 83880; 84300; 85025; 85027; 87040; 87086; 87088; 87186; 87635; 99285; C1758; J0696; J1643

== ENCOUNTER → 2022-06-17 14:49 | Outpatient (BNVA) | payer MEDICARE, SELFPAY | PROVIDERS: PCP Family Medicine; Visit Provider Urology | DX: N40.1 Benign prostatic hyperplasia with lower urinary tract symptoms (principal); N13.8 Other obstructive and reflux uropathy; N32.0 Bladder-neck obstruction; I10 Essential (primary) hypertension; Z79.899 Other long term (current) drug therapy | CPT/HCPCS: 51702; 52000; 99212 ==

== ENCOUNTER 2022-09-24 | Outpatient (REF) | payer MEDICARE, SELFPAY ==
[2022-09-25 13:21] LABS: Appearance Urine Turbid; Color Urine Yellow; Glucose Urine UA Negative (Negative); Leukocyte Esterase Urine Large (3+) (Negative); Nitrite Urine Negative (Negative); PH 8.5 (5.0-9.0); UMIC TRIGGER UACC YES; Urine Blood Moderate (2+) (Negative); Urine Ketones Negative (Negative); Urine Protein 100 (2+) mg/dL (Neg-Trace)
[2022-09-25 13:33] LABS: Bacteria Urine 4+ (None Seen); Squamous Epithelial Cell Urine 0-2 /HPF (0-2); UACC Culture Trigger YES; WBC Urine >50 /HPF (0-5)
== END 2022-09-24 00:01 | disposition home or self-care (01) ==
LOC: HO.LNP
PROVIDERS: Visit Provider Urology
DX: R82.90 Unspecified abnormal findings in urine (principal)
CPT/HCPCS: 81001; 87086; 87088; 87186

== ENCOUNTER 2022-09-24 23:30 | Outpatient (REF) | payer SELFPAY | END 2022-09-24 23:31 | disposition home or self-care (01) | LOC: HO.HVNA 23:30 | PROVIDERS: Visit Provider Urology | DX: Z13.89 Encounter for screening for other disorder (principal) | CPT/HCPCS: 81001; 87086; 87088; 87186 ==

== ENCOUNTER 2022-10-12 17:32 | Emergency (ER) | payer MEDICARE, SELFPAY ==
[2022-10-12 17:36] VITALS: BP 136/87; PULSE 89; RESP 18; TEMP 36.2; O2SAT 92; BMI 26.6
--- NOTE | 2022-10-12 17:36 | ED_ITS ---
HPI - General Adult General Chief complaint: General Medical Stated complaint: Sent by Doc. Kidney Prob? Time Seen by Provider: 10/12/22 18:18 Source: patient, family ([id number]), RN notes reviewed and old records reviewed Mode of arrival: ambulatory Limitations: no limitations History of Present Illness HPI narrative: 81-year-old male past medical history significant for BPH, obstructive uropathy, chronic kidney disease presents for evaluation of ?abnormal labs. ? The patient is a poor historian and does not know why he is here. Per the [id number] he had blood work done yesterday it is PCP and was called today to go to the hospital for ?IV fluids. ? Patient has a Galindo catheter bag due to a bladder outlet obstruction a few months ago. Denies any abdominal pain, flank pain, fevers, chills Related Data Home Medications Medication Instructions Recorded Confirmed multivitamin 1 tab PO DAILY 05/24/22 05/24/22 Previous Rx's Medication Instructions Recorded amlodipine 5 mg tablet 5 mg PO DAILY #30 tabs 05/31/22 cefuroxime axetil 250 mg tablet 250 mg PO BID #8 tabs 06/02/22 finasteride 5 mg tablet 5 mg PO DAILY #30 tabs 06/02/22 tamsulosin 0.4 mg capsule 0.4 mg PO DAILY #30 caps 06/02/22 cephalexin 500 mg capsule 500 mg PO .COMPLEX #30 caps 07/05/22 levofloxacin 250 mg tablet 250 mg PO DAILY #10 tabs 09/27/22 Allergies Allergy/AdvReac Type Severity Reaction Status Date / Time No Known Allergies Allergy Verified 10/12/22 17:40 Review of Systems Constitutional: Constitutional: Reports as per HPI, Denies chills, Denies fatigue, Denies fever(s) and Denies headache(s) ENT: Denies headache(s) Cardiovascular: Cardiovascular: Denies chest pain and Denies dyspnea Respiratory: Respiratory: Denies cough and Denies dyspnea Gastrointestinal: Gastrointestinal: Denies abdominal pain, Denies constipation and Denies vomiting Genitourinary: Genitourinary: Denies difficulty urinating and Denies dysuria Neurologic: Denies headache(s) and Denies focal weakness Endocrine: Endocrine: Denies fatigue PMF Past Medical History Medical History Hypertension Social History Social History Household Members: Family Housing: Apartment Do you presently have visiting nurse or other home services: No Alcohol intake: never Patient Tobacco Use Status: Never used Tobacco Smoked in Last 30 Days: No Use of substances other than those prescribed or required for medical reasons: No Advance Directives: Yes Advance Directives on File: Yes Advance Directives Date on File: 05/24/22 Current occupational status: retired Physical Exam ED Vital Signs: Vital Signs - 24 hr 10/12/22 17:36 10/12/22 18:00 Temperature 97.2 F Pulse Rate 89 Respiratory Rate 18 16 Blood Pressure 136/87 Pulse Oximetry 92 Oxygen Delivery Method Room Air BMI result Body Mass Index 26.6 Const General: healthy appearing, comfortable, no acute distress, alert and awake Nutritional Appearance: well nourished Orientation/consciousness: patient oriented x3 HENMT Head: Yes normocephalic and Yes atraumatic Eyes Eyelids: Yes eyelids normal Conjunctivae: conjunctivae normal Sclerae: sclerae normal Corneas: corneas normal Pupils: Equal, round and reactive pupils present EOM: EOMs intact bilaterally Neck Neck: Yes full ROM Resp Effort & Inspection: normal respiratory effort, able to speak in complete sent ences and not labored Cardio Rate: regular rate Rhythm: regular rhythm GI Inspection: No distended Palpation (GI): Soft to palpation, not firm, nontender, no guarding and not rigid Skin General skin exam: no rashes or lesions noted and elasticity normal Neuro General: patient oriented x3 Cranial nerves: Yes Equal, round and reactive pupils present and Yes Bilaterally intact EOM present Cognition (Neuro): normal cognition Extrem Other: Moving all extremities well without any obvious deformities Course Course Course Narrative: RME: 81-year-old male with a past medical history CKD, HTN, anemia, bladder outlet obstruction w/indwelling galindo catheter, dementia, presenting to the ED sent in by PCP for worsening kidney function on outpatient labs yesterday. Denies abdominal pain, N/V, hematuria, dysuria Labs, UA ordered Full HPI, ROS and PE to be performed by primary ED provider. Medications Administered Discontinued Medications Generic Name Dose Route Start Last Admin Trade Name Freq PRN Reason Stop Dose Admin Sodium Chloride 1,000 mls @ 999 mls/hr 06/28/23 18:45 10/12/22 19:42 Ns IV 10/12/22 19:45 999 mls/hr .Q1H1M LEXX Administration Medical Decision Making Medical Decision Making [facility] Narrative: 81-year-old male presents for evaluation of ?dehydration. ? Repeat labs show chronic kidney disease consistent with baseline. He has no history of co ngestive heart failure that I can see will treat with 1 L IV fluids and he will follow-up with PCP. Differential Diagnosis Chronic kidney disease DANYELLE Dehydration Obstructive uropathy UTI Admission/Observation Consideration of admission/observation: Escalation of care including admission /observation considered Patient has significant kidney disease, however when compared to baseline is chronic in nature and there is no acute kidney injury Lab Data [facility] Lab Attestation statement: I reviewed the patient's lab results. (No leukocytosis, mild anemia actually improved from the last few months with a hemoglobin 12.3 and hematocrit was 36.4. No left shift. Chemistries significant for had an elevated BUN and creatinine to 46 and 3 0.09 improved when compared to June 02, 2022. Glucose of 180 but no evidence of DKA) 10/12/22 18:05 10/12/22 18:05 Labs: Lab Results 10/12/22 10/12/22 10/12/22 Range/Units 18:05 18:05 18:05 WBC 10.3 (4.8-10.8) X10*3/uL RBC 3.97 L (4.60-5.80) X10*6/uL Hgb 12.3 L (14.0-18.0) g/dl Hct 36.4 L (42.0-52.0) % MCV 91.7 (80.0-98.0) fL MCH 31.0 (27.0-33.0) pg MCHC 33.8 (31.0-36.0) g/dl RDW 12.9 (11.0-16.0) % Plt Count 200 D (160-400) X10*3/uL MPV 9.7 (9.4-12.4) fL Immature Gran % (Auto) 0.4 (0.0-0.4) % Neut % (Auto) 71.7 (45-73) % Lymph % (Auto) 19.2 L (20-40) % [place] % (Auto) 7.1 (2-11) % Eos % (Auto) 1.2 (0-4) % Baso % (Auto) 0.4 (0-2) % Lymph # (Auto) 2.0 (1.2-4.9) X10*3/uL [place] # (Auto) 0.7 (0.1-1.2) X10*3/uL Eos # (Auto) 0.1 (0.0-0.4) X10*3/uL Baso # (Auto) 0.0 (0.0-0.2) X10*3/uL Abs Immat Gran (auto) 0.04 H (0.00-0.03) X10*3/uL Absolute Neuts (auto) 7.4 (2.0-8.3) x10*3/uL Absolute Nucleated RBC 0.000 (0.0-0.012) X10*3/uL Nucleated RBC % (auto) 0.0 (0.0-0.2) /100WBC PT 11.7 (10.0-13.1) SEC INR 1.0 (0.9-1.1) Sodium 136 (135-145) mmol/L Potassium 4.2 (3.3-5.1) mmol/L Chloride 112 H (96-108) mmol/L Carbon Dioxide 17 L (22-29) mmol/L Anion Gap 11 L (12-20) BUN 46 H (9-16) mg/dL Creatinine 3.09 H (0.5-1.4) mg/dL Estim Creat Clear Calc 15.3 Estimated GFR 20 Random Glucose 180 H (60-115) mg/dL Calcium 8.9 D (8.4-10.2) mg/dL Magnesium 1.6 (1.6-2.6) mg/dL Total Bilirubin 0.7 (0.0-1.0) mg/dL Direct Bilirubin 0.2 (0.0-0.5) mg/dL AST 12 (5-37) U/L ALT 7 (0-40) U/L Alkaline Phosphatase 78 (39-117) U/L Total Protein 6.5 (6.5-8.0) g/dL Albumin 3.6 (3.5-5.0) g/dL Lipase 29 (8-78) U/L Discharge Plan Discharge Clinical Impression: Chronic kidney disease Patient Disposition: Home, Self-Care Instructions: Chronic Kidney Disease (ED) Additional Instructions: Your creatinine today was 3.09 which is slightly better than your recent levels at the hospital. Your treated with IV fluids Follow-up with your primary doctor Prescriptions: No Action cephalexin 500 mg capsule 500 mg PO .COMPLEX Qty: 30 1RF Rx Instructions: 500 mg orally- 1 tab on days of catheter change to prevent infection levofloxacin 250 mg tablet 250 mg PO DAILY Qty: 10 0RF multivitamin Tablet 1 tab PO DAILY amlodipine 5 mg Tablet 5 mg PO DAILY Qty: 30 0RF Protocol: Hold for SBP< HOLD for SBP < : 90 tamsulosin 0.4 mg Capsule 0.4 mg PO DAILY Qty: 30 0RF finasteride 5 mg Tablet 5 mg PO DAILY Qty: 30 0RF cefuroxime axetil 250 mg Tablet 250 mg PO BID Qty: 8 0RF
[2022-10-12 18:00] VITALS: RESP 16
--- NOTE | 2022-10-12 18:07 | MHC.EDTECH ---
PATIENT BLOOD DRAWN AND SENT TO LAB .
[2022-10-12 18:14] LABS: MANUAL DIFF FLAG NO
[2022-10-12 18:19] LABS: Basophils Percent Auto 0.4 % (0-2); Eosinophils Absolute Auto 0.1 X10*3/uL (0.0-0.4); Eosinophils Percent Auto 1.2 % (0-4); Hematocrit 36.4 % (42.0-52.0); Hemoglobin 12.3 g/dl (14.0-18.0); Imm Gran Abs Auto 0.04 X10*3/uL (0.00-0.03); Imm Gran Pct Auto 0.4 % (0.0-0.4); Lymphocytes Percent Auto 19.2 % (20-40); Mean Corpuscular HGB Conc 33.8 g/dl (31.0-36.0); Mean Corpuscular Volume 91.7 fL (80.0-98.0); Mean Platelet Volume 9.7 fL (9.4-12.4); Monocytes Absolute Auto 0.7 X10*3/uL (0.1-1.2); Monocytes Percent Auto 7.1 % (2-11); Neutrophils Absolute Auto 7.4 x10*3/uL (2.0-8.3); Neutrophils Percent Auto 71.7 % (45-73); Platelet Count 200 X10*3/uL (160-400); Red Blood Count 3.97 X10*6/uL (4.60-5.80); Red Cell Distribution Width 12.9 % (11.0-16.0); White Blood Count 10.3 X10*3/uL (4.8-10.8)
[2022-10-12 18:23] LABS: Prothrombin Time 11.7 SEC (10.0-13.1)
[2022-10-12 18:29] LABS: Alanine Aminotransferase 7 U/L (0-40); Albumin Level 3.6 g/dL (3.5-5.0); Alkaline Phosphatase 78 U/L (39-117); Anion Gap 11 (12-20); Aspartate Amino Transferase 12 U/L (5-37); Bilirubin Direct 0.2 mg/dL (0.0-0.5); Bilirubin Total 0.7 mg/dL (0.0-1.0); Blood Urea Nitrogen 46 mg/dL (9-16); Calcium 8.9 mg/dL (8.4-10.2); Carbon Dioxide 17 mmol/L (22-29); Chloride 112 mmol/L (96-108); Creatinine Clr Calc Pharmacy 15.3; Estimated Glomerular Filt Rate 20; Glucose Random 180 mg/dL (60-115); Lipase 29 U/L (8-78); Magnesium 1.6 mg/dL (1.6-2.6); Potassium 4.2 mmol/L (3.3-5.1); Sodium 136 mmol/L (135-145); Total Protein 6.5 g/dL (6.5-8.0)
[2022-10-12] MEDS: 0.9 % Sodium Chloride 1,000 ML 999 ML IV (19:42)
[2022-10-12 20:00] VITALS: BP 146/77; PULSE 77; RESP 16; TEMP 36.8; O2SAT 98
== END 2022-10-12 20:38 | disposition home or self-care (01) ==
PROVIDERS: Physician Assistant; Emergency Provider Student in an Organized Health Care Education/Training Program
DX: I12.9 Hypertensive chronic kidney disease with stage 1 through stage 4 chronic kidney disease, or unspecified chronic kidney disease (principal); N18.9 Chronic kidney disease, unspecified; R79.89 Other specified abnormal findings of blood chemistry; D63.1 Anemia in chronic kidney disease; Z79.899 Other long term (current) drug therapy
CPT/HCPCS: 36415; 80048; 80076; 83690; 83735; 85025; 85610; 99283; 99284

== ENCOUNTER 2022-10-27 10:00 | Outpatient (REF) | payer MEDICARE, SELFPAY ==
[2022-10-27 15:14] LABS: Appearance Urine Turbid; Color Urine Yellow; Glucose Urine UA Negative (Negative); Leukocyte Esterase Urine Large (3+) (Negative); Nitrite Urine Negative (Negative); PH 6.5 (5.0-9.0); UMIC TRIGGER UACC YES; Urine Blood Large (3+) (Negative); Urine Ketones Negative (Negative); Urine Protein 30 (1+) mg/dL (Neg-Trace)
[2022-10-27 15:17] LABS: Bacteria Urine 4+ (None Seen); Hyaline Casts Urine 0-2 /LPF (0-2); Squamous Epithelial Cell Urine 0-2 /HPF (0-2); UACC Culture Trigger YES; WBC Urine >50 /HPF (0-5)
== END 2022-10-27 10:01 | disposition home or self-care (01) ==
LOC: HO.HMGCLNP 10:00
PROVIDERS: Visit Provider Urology
DX: N39.0 Urinary tract infection, site not specified (principal); R10.9 Unspecified abdominal pain
CPT/HCPCS: 81001; 87086

== ENCOUNTER 2022-11-17 09:59 | Outpatient (REF) | payer MEDICARE, SELFPAY ==
--- NOTE | ~2022-11-17 | US_ITS ---
EXAMINATION: US RETROPERITONEAL LIMITED (RENAL ONLY) CLINICAL INFORMATION: Bladder neck obstruction. COMPARISON: No prior renal ultrasound. CT abdomen and pelvis 05/24/2022. TECHNIQUE: Real-time imaging of the kidneys. FINDINGS: RIGHT KIDNEY: 8.7 x 5.1 x 4.7 cm (SAG x AP x TRV). The kidney appears unremarkable in size, contour, and echogenicity. Renal cortical thickness is normal. No calculi or focal parenchymal lesion identified. No hydronephrosis appreciated. LEFT KIDNEY: 9.8 x 4.8 x 4.9 cm (SAG x AP x TRV). The kidney appears unremarkable in size, contour, and echogenicity. Renal cortical thickness is normal. No focal parenchymal lesion identified. Question borderline mild left hydronephrosis. US/US renal BI IMPRESSION: Question borderline mild left hydronephrosis.
== END 2022-11-17 10:00 | disposition home or self-care (01) ==
LOC: HO.HMGCX 09:59
PROVIDERS: Visit Provider Urology
DX: N32.0 Bladder-neck obstruction (principal)
CPT/HCPCS: 76775

== ENCOUNTER 2022-11-24 08:49 | Outpatient (AMB) | payer MEDICARE, SELFPAY ==
--- NOTE | 2022-11-24 07:19 | A.OFFVIS_ITS ---
Intake Intake Visit Reasons: follow up/US Intake Note: Patient presents today for a follow-up on US results: US completed on 11/17/2022 Meds- Tamsulosin, Levofloxacin, Finasteride & Cephalexin Allergies to Antibiotic- No Known Allergies Blood Thinner- None Firestopper Technician Required: No Accompanied by: Daughter Allergies No Known Allergies Allergy (Verified 11/24/22 09:04) HPI HPI Comments History of Present Illness Details Jamir is an 82-year-old male who presents today with his daughter to the office for a follow up. history of hypertension and unspecified dementia presented to the ED in May, 2022 at the recommendation of PCP for evaluation of DANYELLE.? Findings during hospitalization--Urine c/s gram negative rods.? Creatinine >4.0; Ct abd/pelvis showing bladder outlet obstruction. galindo catheter has been inserted, 1400 mL return, blood tinged. He was started on proscar and flomax Last seen in the office 06/17/22 for office cysto and voiding trial. 06/17/22--Office cysto - bilobar enlargement - erythematous changes c/w catheter use, no suspicious bladder lesionsHe has a Galindo catheter. Patient has had failed several voiding trials.? He rmains on Tamsulosin 0.4 mg and Proscar 5 mg. [facility]NA has been changing the galindo at home. The daughter wants the galindo removed today. I have discussed treatment options to include SP tube placement and TURP. Plan: Catheter was removed this morning. The daughter was instructed that if patient does not urinate by 2:30, to bring him back in to the office, so we can replace a Galindo catheter. The patient returned and 16 fr coude was inserted by the nurse. will continue the Flomax and proscar. The patient and daughter to consider SP tube vs TURP PFSH Medical History Hypertension Social History Household Members: Family Housing: Apartment Do you presently have visiting nurse or other home services: No Alcohol intake: never Patient Tobacco Use Status: Never used Tobacco Advance Directives Date on File: 05/24/22 Current occupational status: retired Review of Systems Const All systems reviewed & are unremarkable except as noted in HPI and below Reports no additional complaints Eyes Reports no additional complaints ENT Denies neck pain Resp Denies cough Musc Reports no additional complaints and Denies neck pain Skin/Breast Denies rash and Denies unusual bruising Neuro Reports no additional complaints Psych Reports no additional complaints Endo Reports no additional complaints Simone/Lymph Reports no additional complaints Aller/Immun Reports no additional complaints Physical Exam Const General: no acute distress HEENT Head: Yes normocephalic and Yes atraumatic Eyes Conjunctivae: conjunctivae normal Neck Neck: Yes normal visual inspection Chest Chest palpation & inspection: normal inspection of the chest Resp Effort & Inspection: normal respiratory effort Cardio Rate: regular rate GI Inspection: Yes normal to inspection Palpation (GI): Soft to palpation Penis: normal penis Scrotum: scrotum normal Skin General skin exam: no rashes or lesions noted Psych Appearance: grossly normal Affect: normal affect Office Procedures Bladder/Catheter Procedure Details: per Dr Keating 16 fr coude cath with leg bag placed, pt follow up in one month with Dr Keating to review sp tube placement. [id number] Temporary Bladder Catheter Procedure code (CPT) selection complete Assessment & Plan Assessment & Plan (1) Obstructive uropathy: Code(s): N13.9 - Obstructive and reflux uropathy, unspecified (2) BPH loc w urin obs/LUTS: Code(s): N40.1 - Benign prostatic hyperplasia with lower urinary tract symptoms (3) Urinary retention: Code(s): R33.9 - Retention of urine, unspecified Plan Catheter was removed this morning. The daughter was instructed that if patient does not urinate by 2:30, to bring him back in to the office, so we can replace a Galindo catheter. The patient returned and 16 fr coude was inserted by the nurse. will continue the Flomax and proscar. The patient and daughter to consider SP tube vs TURP Orders: Orders AMB Bladder/Catheter Procedure 11/24/22 N32.0 - Bladder-neck obstruction, N40.1 - Benign prostatic hyperplasia with lower urinary tract symptoms Patient Instructions: The patient had an opportunity to ask questions regarding treatment plan. All questions were answered. Imaging, Laboratory studies and physical exam results were discussed and reviewed in detail. No major barriers to understanding were identified. The patient expressed understanding and agreement with the above treatment plan.? ? ? The patient is aware they should contact our office by phone for worsening of their current condition or the appearance of new symptoms. Compliance is encouraged with any medications and followup testing that is ordered.? ? ? It is a privilege to be allowed the opportunity to participate in the urologic care of your patient. If you have any questions or concerns regarding treatment for the above conditions please do not hesitate to contact me. The office telephone contact is [phone].? ? ? This note is constructed in part using voice recognition software. While every effort has been made to ensure accuracy signing agent errors may have been included.? ? ? Yours sincerely,? ? ? Joselin Abbasi MD Coding Level of Care Code Est Pt Level 4 (23527) Diagnoses Obstructive uropathy N13.9 BPH loc w urin obs/LUTS N40.1 Urinary retention R33.9 CPT Codes Bladder/Catheter Procedure - CPT: 77653-[id number] Temporary Bladder Catheter ([id number])
== END 2022-11-24 09:35 | disposition home or self-care (01) ==
PROVIDERS: PCP Family Medicine; Visit Provider Urology
DX: N13.9 Obstructive and reflux uropathy, unspecified (principal); N40.1 Benign prostatic hyperplasia with lower urinary tract symptoms; R33.9 Retention of urine, unspecified
CPT/HCPCS: 51702; 99214

== ENCOUNTER → 2022-11-24 08:49 | Outpatient (BNVA) | payer MEDICARE, SELFPAY | PROVIDERS: PCP Family Medicine; Visit Provider Urology | DX: N40.1 Benign prostatic hyperplasia with lower urinary tract symptoms (principal); N13.8 Other obstructive and reflux uropathy; R33.8 Other retention of urine | CPT/HCPCS: 51702; 99212 ==

== ENCOUNTER 2023-01-16 14:40 | Outpatient (REF) | payer MEDICARE, SELFPAY ==
[2023-01-16 16:00] LABS: Appearance Urine Cloudy; Color Urine RED; Glucose Urine UA 100 mg/dL (Negative); Leukocyte Esterase Urine Large (3+) (Negative); Nitrite Urine Positive (Negative); PH 6.5 (5.0-9.0); Specific Gravity - Urine 1.015 (1.005-1.025); UMIC TRIGGER UACC YES; Urine Blood Large (3+) (Negative); Urine Ketones Trace mg/dL (Negative); Urine Protein 300 (3+) mg/dL (Neg-Trace)
[2023-01-16 16:13] LABS: Bacteria Urine 1+ (None Seen); RBC Urine >20 /HPF (0-2); Squamous Epithelial Cell Urine 0-2 /HPF (0-2); UACC Culture Trigger YES; WBC Urine >50 /HPF (0-5)
== END 2023-01-16 14:41 | disposition home or self-care (01) ==
LOC: HO.HVNA 14:40
PROVIDERS: PCP Family Medicine; Visit Provider Urology
DX: R68.89 Other general symptoms and signs (principal)
CPT/HCPCS: 81001; 81003; 87086

== ENCOUNTER 2023-03-03 14:07 | Outpatient (REF) | payer MEDICARE, SELFPAY ==
[2023-03-03 14:37] LABS: Appearance Urine Turbid; Color Urine Red; Glucose Urine UA Negative (Negative); Leukocyte Esterase Urine Large (3+) (Negative); Nitrite Urine Negative (Negative); UMIC TRIGGER UA YES; Urine Blood Large (3+) (Negative); Urine Ketones Negative (Negative); Urine Protein 100 (2+) mg/dL (Neg-Trace)
[2023-03-03 14:39] LABS: Bacteria Urine 1+ (None Seen); Hyaline Casts Urine 0-2 /LPF (0-2); RBC Urine >20 /HPF (0-2); Squamous Epithelial Cell Urine 0-2 /HPF (0-2); WBC Urine >50 /HPF (0-5)
== END 2023-03-03 14:08 | disposition home or self-care (01) ==
LOC: HO.HVNA 14:07
PROVIDERS: Visit Provider Urology
DX: N39.0 Urinary tract infection, site not specified (principal)
CPT/HCPCS: 81001; 87086

== ENCOUNTER 2023-03-06 13:58 | Outpatient (AMB) | payer MEDICARE, SELFPAY ==
--- NOTE | 2023-03-06 14:06 | MHC.OFFVIS ---
Intake Intake Visit Reasons: 3m/BPH Intake Note: Patient is Present for Follow Up Urology Medication: Finasteride, Tamsulosin Antibiotic Allergies: None Blood Thinners: None Patient currently has Foely Catheter. States that Script was filled for antibiotics due to Urinary infection VNA reported. Allergies No Known Allergies Allergy (Verified 03/06/23 14:11) HPI HPI Comments History of Present Illness Details 03/06/2023--Jamir is an 82-year-old male who presents today with his daughter to the office for a follow up. history of hypertension and unspecified dementia. Currently with chronic Galindo in place since May. The patient was noted to have elevation in creatinine and was seen by Nephrology as an outpatient. He is currently prescribed proscar and flomax, VNA has been changing the galindo at home. Patient has had failed several voiding trials.? In review of chart CT imaging 05/24/2022 noted bilateral hydronephrosis hydro ureter with distended bladder. Follow-up imaging with renal ultrasound 11/24/22--hydronephrosis resolved, galindo in bladder I have discussed treatment options to include SP tube placement and TURP. He will need medicine clearance. He complains of dysuria. Recent urine c/s - >100,000 mixed bacteria. Macrobid sent to pharm today. Review of chart: Jamir is an 82-year-old male was an inpatient for urinary retention in 05/2022. history of hypertension and unspecified dementia presented to the ED in May, 2022 at the recommendation of PCP for evaluation of DANYELLE.? Findings during hospitalization--Urine c/s gram negative rods.? Creatinine >4.0; Ct abd/pelvis showing bladder outlet obstruction. galindo catheter has been inserted, 1400 mL return, blood tinged. He was started on proscar and flomax 06/17/22--Office cysto - bilobar enlargement - erythematous changes c/w catheter use, no suspicious bladder lesions He has a Galindo catheter. 03/06/23--- Plan: cystoscopy, cystotomy, SP tube placement and TURP. consent obtained. Medicine clearance needed The daughter states that they have an upcoming appointment with PCP. I have put in an order to repeat basic metabolic panel to check BUN and creatinine prior to that visit. Discussed after completing abx, to start to clamp galindo in daytime and drain q 3-4 hr, and keep to gravity drainage overnight. [facility] Medical History Hypertension Social History Household Members: Family Housing: Apartment Do you presently have visiting nurse or other home services: No Alcohol intake: never Patient Tobacco Use Status: Never used Tobacco Advance Directives Date on File: 05/24/22 Current occupational status: retired Review of Systems Const All systems reviewed & are unremarkable except as noted in HPI and below Reports no additional complaints Eyes Reports no additional complaints ENT Denies neck pain Resp Denies cough Musc Reports no additional complaints and Denies neck pain Skin/Breast Denies rash and Denies unusual bruising Neuro Reports no additional complaints Psych Reports no additional complaints Endo Reports no additional complaints Simone/Lymph Reports no additional complaints Aller/Immun Reports no additional complaints Physical Exam Const General: healthy appearing, no acute distress and well developed Orientation/consciousness: patient oriented x3 HEENT Head: Yes normocephalic and Yes atraumatic Eyes Conjunctivae: conjunctivae normal Neck Neck: Yes normal visual inspection Chest Chest palpation & inspection: normal inspection of the chest Resp Effort & Inspection: normal respiratory effort Cardio Rate: regular rate GI Inspection: Yes normal to inspection Palpation (GI): Soft to palpation Other: Galindo catheter is in place, penile glans within normal limits no breakdown noted. Scrotal swelling. Penis: normal penis Scrotum: scrotum normal Skin General skin exam: no rashes or lesions noted Neuro General: patient oriented x3 Extrem General: No pedal edema Psych Appearance: grossly normal Affect: normal affect Results Reviewed Results Reviewed: Collected: 03/03/23 Status: COMP Req#: [id number] Received: 03/03/23 Source: Urine Cath Sp Desc: Str Cath Subm Dr: Jason Owens MD Ordered: Urine Culture Procedure Result Verified Site Urine Culture Final 03/04/23 Report Result > 100,000 cfu/ml Mixed bacterial almita characteristic of urogenital contamination. Consult Microbiology within 7 days if more definitive studies are clinically indicated. Date of Service: 11/17/22 EXAMINATION: US RETROPERITONEAL LIMITED (RENAL ONLY) CLINICAL INFORMATION: Bladder neck obstruction. COMPARISON: No prior renal ultrasound. CT abdomen and pelvis 05/24/2022. TECHNIQUE: Real-time imaging of the kidneys. FINDINGS: RIGHT KIDNEY: 8.7 x 5.1 x 4.7 cm (SAG x AP x TRV). The kidney appears unremarkable in size, contour, and echogenicity. Renal cortical thickness is normal. No calculi or focal parenchymal lesion identified. No hydronephrosis appreciated. LEFT KIDNEY: 9.8 x 4.8 x 4.9 cm (SAG x AP x TRV). The kidney appears unremarkable in size, contour, and echogenicity. Renal cortical thickness is normal. No focal parenchymal lesion identified. Question borderline mild left hydronephrosis. IMPRESSION: Question borderline mild left hydronephrosis. Date of Service: 05/24/22 EXAMINATION: CT ABDOMEN AND PELVIS WITHOUT CONTRAST CLINICAL INFORMATION: Acute renal failure COMPARISON: None TECHNIQUE: Multidetector volumetric imaging was performed from the superior aspect of the liver through the pubic symphysis. Sagittal and coronal reformatted images were obtained on the technologist's workstation. This CT examination was performed using dose optimization techniques as appropriate, variously including the following: *Automated exposure control *Adjustment of mA and/or kV according to patient size (this includes techniques or standardized protocols for targeted exams where dose is matched to indication/reason for exam; i.e. extremities or head) *Use of iterative reconstruction technique DLP: 506 mGy-cm FINDINGS: LUNG BASES: Fibrotic changes are seen at the lung bases. No suspicious lung masses or pleural effusions are seen. Coronary artery calcifications are present. LIVER, GALLBLADDER, AND BILIARY TREE: The liver is normal in size, shape, and attenuation. No focal hepatic lesion or biliary ductal dilatation is present. The gallbladder is unremarkable with no evidence of radiopaque gallstones, gallbladder wall thickening, or obvious pericholecystic inflammatory changes. PANCREAS: Unremarkable. SPLEEN: Unremarkable. ADRENAL GLANDS: Unremarkable. KIDNEYS, URETERS, BLADDER AND PROSTATE: There is bilateral hydronephrosis with dilatation of the ureters seen down to the level of the bladder. No obstructing stones are seen. No renal masses and no nephrolithiasis. Lateral demonstrates a mildly symmetric thickened wall. The prostate is enlarged measuring 5.6 x 4.8 x 4.9 cm for a volume of about 70 mL. The urethra at the level of the prostate is dilated. This could be secondary to a TURP defect although I am told that there is no history of this. Please correlate with the surgical history. A single calcification is present in the prostate. No calcifications are seen in the bladder or urethra. GASTROINTESTINAL TRACT: The small and large bowel are unremarkable. The appendix is unremarkable. ABDOMINAL WALL: No significant hernia is appreciated. LYMPH NODES: Normal. VASCULAR: Calcifications are present in the aorta without aneurysm. PELVIC VISCERA: An abnormal pelvic mass or free pelvic fluid is not seen. 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 IMPRESSION: 1. There is bilateral hydronephrosis with dilatation of the ureters down to the level of the bladder. No obstructing stones are seen. The prostate is enlarged and the urethra at the level of the prostate is dilated. Findings most consistent with bladder outlet obstruction and urgency placement of a Galindo catheter is recommended given the acute renal failure. 2. 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 Assessment & Plan Assessment & Plan (1) Obstructive uropathy: Code(s): N13.9 - Obstructive and reflux uropathy, unspecified (2) BPH loc w urin obs/LUTS: Code(s): N40.1 - Benign prostatic hyperplasia with lower urinary tract symptoms (3) Urinary retention: Code(s): R33.9 - Retention of urine, unspecified (4) Chronic kidney disease: Code(s): N18.9 - Chronic kidney disease, unspecified (5) UTI (urinary tract infection): Code(s): N39.0 - Urinary tract infection, site not specified Plan Plan: cystoscopy, cystotomy, SP tube placement and TURP. consent obtained. Medicine clearance needed The daughter states that they have an upcoming appointment with PCP. I have put in an order to repeat basic metabolic panel to check BUN and creatinine prior to that visit. Discussed after completing abx, to start to clamp galindo in daytime and drain q 3-4 hr, and keep to gravity drainage overnight. Orders: Orders Basic Metabolic Panel Today N18.9 - Chronic kidney disease, unspecified Medications: Discontinued amoxicillin-pot clavulanate 875-125 mg Discontinued Reason: Patient Completed Course 1 tab PO BID 7 days 14 tabs 0RF UTI Patient Instructions: The patient had an opportunity to ask questions regarding treatment plan. All questions were answered. Imaging, Laboratory studies and physical exam results were discussed and reviewed in detail. No major barriers to understanding were identified. The patient expressed understanding and agreement with the above treatment plan. The patient is aware they should contact our office by phone for worsening of their current condition or the appearance of new symptoms. Compliance is encouraged with any medications and followup testing that is ordered. It is a privilege to be allowed the opportunity to participate in the urologic care of your patient. If you have any questions or concerns regarding treatment for the above conditions please do not hesitate to contact me. The office telephone contact is [phone]. This note is constructed in part using voice recognition software. While every effort has been made to ensure accuracy molding manager errors may have been included. Yours sincerely, Joselin Abbasi MD Coding Level of Care Code Est Pt Level 4 (18543) Diagnoses Obstructive uropathy N13.9 BPH loc w urin obs/LUTS N40.1 Urinary retention R33.9 Chronic kidney disease N18.9 UTI (urinary tract infection) N39.0
== END 2023-03-06 14:51 | disposition home or self-care (01) ==
LOC: HO.HUSH 13:58
PROVIDERS: PCP Family Medicine; Visit Provider Urology
DX: N13.9 Obstructive and reflux uropathy, unspecified (principal); N40.1 Benign prostatic hyperplasia with lower urinary tract symptoms; R33.9 Retention of urine, unspecified; N18.9 Chronic kidney disease, unspecified; N39.0 Urinary tract infection, site not specified
CPT/HCPCS: 99214

== ENCOUNTER → 2023-03-06 13:58 | Outpatient (BNVA) | payer MEDICARE, SELFPAY | PROVIDERS: PCP Family Medicine; Visit Provider Urology | DX: N13.9 Obstructive and reflux uropathy, unspecified (principal); N40.1 Benign prostatic hyperplasia with lower urinary tract symptoms; R33.9 Retention of urine, unspecified; N39.0 Urinary tract infection, site not specified; N18.9 Chronic kidney disease, unspecified | CPT/HCPCS: 99212 ==

== ENCOUNTER 2023-05-01 11:00 | Outpatient (REF) | payer MEDICARE, SELFPAY ==
[2023-05-01 13:48] LABS: Appearance Urine Turbid; Color Urine Yellow; Glucose Urine UA Negative (Negative); Leukocyte Esterase Urine Large (3+) (Negative); Nitrite Urine Negative (Negative); PH 8.5 (5.0-9.0); Specific Gravity - Urine 1.015 (1.005-1.025); UMIC TRIGGER UACC YES; Urine Blood Large (3+) (Negative); Urine Ketones Negative (Negative); Urine Protein 100 (2+) mg/dL (Neg-Trace)
[2023-05-01 13:52] LABS: Bacteria Urine 4+ (None Seen); Hyaline Casts Urine 0-2 /LPF (0-2); RBC Urine >20 /HPF (0-2); Squamous Epithelial Cell Urine 0-2 /HPF (0-2); UACC Culture Trigger YES; WBC Urine >50 /HPF (0-5)
== END 2023-05-01 11:01 | disposition home or self-care (01) ==
LOC: HO.HVNA 11:00
PROVIDERS: Visit Provider Urology
DX: R10.9 Unspecified abdominal pain (principal); N39.0 Urinary tract infection, site not specified
CPT/HCPCS: 81001; 87086; 87088; 87186

== ENCOUNTER 2023-05-17 15:20 | Outpatient (AMB) | payer MEDICARE, SELFPAY ==
--- NOTE | 2023-05-17 15:22 | A.OFFVIS_ITS ---
Intake Intake Visit Reasons: Discuss surgery/SPT placement Intake Note: Patient presents today for a follow-up on: Discuss Surgery Meds- Tamsulosin,Finasteride Allergies to Antibiotic- No Known Allergies Blood Thinner- None Journalism Instructor Required: No Accompanied by: Self / Same As Patient Allergies No Known Allergies Allergy (Verified 05/17/23 15:23) HPI HPI Comments History of Present Illness Details 05/17/23-- Telehealth - daughter wants to hold on SP placement. We will continue Galindo catheter to drainage via needed change every 3-4 weeks. Continue Proscar. Review of chart: 03/06/2023--Jamir is an 82-year-old ma le who presents today with his daughter to the office for a follow up. history of hypertension and unspecified dementia. Currently with chronic Galnido in place since May. The patient was noted to have elevation in creatinine and was seen by Nephrology as an outpatient. He is currently prescribed proscar and flomax, VNA has been changing the galindo at home. Patient has had failed several voiding trials.? In review of chart CT imaging 05/24/2022 noted bilateral hydronephrosis hydro ureter with distended bladder. Follow-up imaging with renal ultrasound 11/24/22--hydronephrosis resolved, galindo in bladder I have discussed treatment options to include SP tube placement and TURP. He will need medicine clearance. He complains of dysuria. Recent urine c/s - >100,000 mixed bacteria. Macrobid sent to pharm today. Jamir was an inpatient for urinary retention in 05/2022. history of hypertension and unspecified dementia presented to the ED in May, 2022 at the recommendation of PCP for evaluation of DANYELLE.? Findings during hospitalization--Urine c/s gram negative rods.? Creatinine >4.0; Ct abd/pelvis showing bladder outlet obstruction. galindo catheter has been inserted, 1400 mL return, blood tinged. He was started on proscar and flomax 06/17/22--Office cysto - bilobar enlargeme nt - erythematous changes c/w catheter use, no suspicious bladder lesions He has a Galindo catheter. 05/17/2023--- Continue Proscar. Continue chronic Galindo to gravity drainage. [facility] Medical History Hypertension Social History Household Members: Family Housing: Apartment Do you presently have visiting nurse or other home services: No Alcohol intake: never Patient Tobacco Use Status: Never used Tobacco Advance Directives Date on File: 05/24/22 Current occupational status: retired Review of Systems Const All systems reviewed & are unremarkable except as noted in HPI and below Reports no additional complaints Eyes Reports no additional complaints ENT Reports no additional complaints Card Denies dyspnea Resp Denies cough and Denies dyspnea GI Reports no additional complaints Musc Reports no additional complaints Skin/Breast Denies rash and Denies unusual bruising Neuro Reports no additional complaints Psych Reports no additional complaints Endo Reports no additional complaints Simone/Lymph Reports no additional complaints Aller/Immun Reports no additional complaints Assessment & Plan Assessment & Plan (1) Obstructive uropathy: Code(s): N13.9 - Obstructive and reflux uropathy, unspecified (2) BPH loc w urin obs/LUTS: Code(s): N40.1 - Benign prostatic hyperplasia with lower urinary tract symptoms (3) Urinary retention: Code(s): R33.9 - Retention of urine, unspecified (4) Chronic kidney disease: Code(s): N18.9 - Chronic kidney disease, unspecified (5) UTI (urinary tract infection): Code(s): N39.0 - Urinary tract infection, site not specified Plan Continue chronic galindo VNA to change q 4 wks FU in office in 5-6 weeks Orders: Orders AMB Urinalysis Automated 05/17/23 R33.9 - Retention of urine, unspecified Patient Instructions: The patient had an opportunity to ask questions regarding treatment plan. All questions were answered. Laboratory results were discussed and reviewed in detail. No major barriers to understanding were identified. The patient expressed understanding and agreement with the above treatment plan. The patient is aware they should contact our office by phone for worsening of their current condition or the appearance of new symptoms. Compliance is encouraged with any medications and followup testing that is ordered. It is a privilege to be allowed the opportunity to participate in the urologic care of your patient. If you have any questions or concerns regarding treatment for the above conditions please do not hesitate to contact me. The office telephone contact is [phone]. This note is constructed in part using voice recognition software. While every effort has been made to ensure accuracy lubricator granulator errors may have been included. Yours sincerely, Joselin Abbasi MD Telehealth Telehealth Location of provider rendering services: practice address Location of patient: address on file Patient Identification confirmed using: Name, : Yes Telehealth method: voice only Patient verbally consented to treatment: Yes Patient verbally consented to billing insurance company: Yes Patient informed of any privacy concerns related to visit: Yes Minutes spent on Phone/Video with Pt.: 15 Coding Level of Care Code Tele Est Pt Level 3 (90301) Diagnoses Obstructive uropathy N13.9 BPH loc w urin obs/LUTS N40.1 Urinary retention R33.9 Chronic kidney disease N18.9 UTI (urinary tract infection) N39.0
== END 2023-05-17 16:27 | disposition home or self-care (01) ==
LOC: HO.HUSH 15:20
PROVIDERS: PCP Family Medicine; Visit Provider Urology
DX: N13.9 Obstructive and reflux uropathy, unspecified (principal); N40.1 Benign prostatic hyperplasia with lower urinary tract symptoms; R33.9 Retention of urine, unspecified; N18.9 Chronic kidney disease, unspecified; N39.0 Urinary tract infection, site not specified
CPT/HCPCS: 99442

== ENCOUNTER → 2023-05-17 15:20 | Outpatient (BNVA) | payer MEDICARE, SELFPAY | PROVIDERS: PCP Family Medicine; Visit Provider Urology ==

== ENCOUNTER 2023-07-12 15:58 | Emergency (ER) | payer MEDICARE, SELFPAY ==
--- NOTE | ~2023-07-12 | XR_ITS ---
EXAMINATION: XR CHEST CLINICAL INFORMATION: Shortness of breath COMPARISON: Chest x-ray on 05/24/2022 TECHNIQUE: 2 views of the chest were obtained. FINDINGS: vascularity. LUNGS: Lungs are markedly hypoinflated with diffuse interstitial prominence. There is asymmetric obliteration of right lateral costophrenic angle. No pneumothorax is seen. BONES: Bony skeleton is intact. XR/XR chest 2V IMPRESSION: 1. Interval further decrease in lung expansion. 2. Unchanged nonspecific diffuse reticular interstitial prominence, exaggerated by poor lung expansion. 3. Interval development of tiny right lateral lung base atelectasis or small right pleural effusion.
--- NOTE | ~2023-07-12 | CT_ITS ---
EXAMINATION: CT brain and CT cervical spine without contrast. CLINICAL INDICATIONS: Fall. COMPARISON: CT brain 05/26/2022. TECHNIQUE: 5 mm thin axial and reformatted 2 mm thin sagittal and coronal images of brain were obtained without contrast. Subsequently axial 3 mm thin and reformatted 2 mm thin sagittal and coronal images of cervical spine were obtained without contrast. There is slight patient motion on the cervical spine exam limiting evaluation. DLP 1042. This CT examination was performed using dose optimization technique as appropriate, variously including the following: Automated exposure control Adjustment of MA and/or KV according to patient size(this includes techniques or standardized protocols for targeted exams where dose is matched to indication/reason for exam; extremities or head. Use of iterative reconstruction techniques. FINDINGS: BRAIN: There is no acute intra-axial, extra-axial bleed, masses or midline shift. There is no acute infarction evolution. There is no edema. The naidu to white matter differentiation is maintained normal. The lateral ventricles are symmetrical in size and configuration and mildly enlarged. There is mild prominence of cortical sulci as well. No abnormality seen in the posterior fossa except for prominent CSF space likely from cerebellar atrophy. Bone windows reveal no calvarial abnormality. There is no scalp soft tissue abnormality. There is mild mucoperiosteal thickening and/or retention cyst bilateral maxillary sinuses. Rest the paranasal sinuses and mastoid air cells are aerated and clear. CERVICAL SPINE: There is mild straightening of cervical lordosis. There is loss of C3-C4, C5-C6 and C6-C7 disc heights. The craniovertebral junction and the C1-C2 alignment is normal. No visible acute fracture, dislocation or subluxation seen. The prevertebral and paravertebral soft tissues are normal. Visualized airway appears patent. The lung apices are clear except for minimal left apical pleural thickening. CT/CT cervical spine wo IV con IMPRESSION: No acute intracranial process seen. Small retention cyst and/or inflammatory process bilateral maxillary sinuses. Limited imaging of cervical spine due to patient motion. There is degenerative disc changes and spondylosis. No visible acute fracture or dislocation seen..
[2023-07-12 16:18] VITALS: BP 104/60; PULSE 89; RESP 18; TEMP 36.5; O2SAT 94; BMI 50.1
--- NOTE | 2023-07-12 16:19 | ED_ITS ---
HPI - General Adult General Chief complaint: Fall Stated complaint: fall Time Seen by Provider: 07/12/23 18:47 Source: patient Mode of arrival: ambulatory Limitations: no limitations History of Present Illness HPI narrative: 82-year-old male past history BPH urinary retention hypertension presents emergency department after an unwitnessed fall. Patient was trying to going to bed go to the bathroom when he fell this was unwitnessed he has noticed some shortness of breath as well today patient denies loss of consciousness patient fell to the right side he was seen in triage CT and labs were sent. Related Data Home Medications Medication Instructions Recorded Confirmed multivitamin 1 tab PO DAILY 05/24/22 05/24/22 Previous Rx's Medication Instructions Recorded amlodipine 5 mg tablet 5 mg PO DAILY #30 tabs 05/31/22 finasteride 5 mg tablet 5 mg PO DAILY #30 tabs 06/02/22 tamsulosin 0.4 mg capsule 0.4 mg PO DAILY #30 caps 06/02/22 cephalexin 500 mg capsule 500 mg PO .COMPLEX #30 caps 10/27/22 Allergies Allergy/AdvReac Type Severity Reaction Status Date / Time No Known Allergies Allergy Verified 05/17/23 15:23 Review of Systems 2 Review of Systems: Review of systems: General: Patient denies any fever chills recent illness or falls Musculoskeletal: Denies back pain or body aches or other injuries HEENT: denies headache, runny nose, ear pain Respiratory: denies shortness of breath, cough Cardiovascular: no chest pain or palpitations : denies dysuria, frequency Abdomen: no nausea vomiting denies abdominal pain Extremities: no swelling, no pain Skin: no diaphoresis Yes all other systems are reviewed and are negative [facility] Past Medical History Medical History Hypertension Social History Social History Household Members: Family Housing: Apartment Do you presently have visiting nurse or other home services: No Alcohol intake: never Patient Tobacco Use Status: Never used Tobacco Advance Directives Date on File: 05/24/22 Current occupational status: retired Physical Exam ED Vital Signs: Vital Signs - 24 hr 07/12/23 16:18 Temperature 97.7 F Pulse Rate 89 Respiratory Rate 18 Blood Pressure 104/60 Pulse Oximetry 94 Oxygen Delivery Method Room Air BMI result Body Mass Index 50.1 Neurological exam: CN II- XII tested. Patient is alert and oriented to person place and time. Patient has no dysphagia or dysarthia, denies good vision in all four vision wood no nystagmus on exam, good strength to upper and lower extremities with normal reflexes to brachioradialis, wrist, patella and achilles. Negative romberg, good finger to nose and heel to chatterjee. General: Well-appearing well-nourished in no signs of distress HEENT: Normocephalic no hemotympanum throat is clear patient does have a small abrasion to the right side of his eye. Neck: No signs of JVD, no masses no tenderness or lymphadenopathy Cardiovascular: Regular rate and rhythm Respiratory: Clear to auscultation bilaterally Abdomen: Soft nontender no masses Extremities: Normal pedal pulses no signs of edema Skin: Dry warm no rashes Back: No tenderness full ROM Course Course Course Narrative: This is an RME: Additional HPI, ROS, PE not included below will be deferred to primary provider. This is a 81-year-old male past medical history significant for BPH, obstructive uropathy, chronic kidney disease, presenting to the emergency department, accompanied by [id number], with complaints of fall which occurred today. Fall was not witnessed. Slight ecchymosis noted to the right orbit, no tenderness bony step-off or deformity. Patient is not on blood thinners. No vomiting. Plan: CT head, CT neck, EKG, labs, Medical Decision Making Medical Decision Making [facility] Narrative: Patient had a normal CT and labs patient is able to ambulate here without any difficulty Differential Diagnosis Differential Diagnoses: The differential diagnosis associated with the presentation includes Fall head injury electrolyte abnormality anemia depression anxiety Admission/Observation Consideration of admission/observation: Escalation of care including admission/observation considered Lab Data [facility] Lab Attestation statement: I reviewed the patient's lab results. 07/12/23 16:54 07/12/23 16:54 Labs: Lab Results 07/12/23 Range/Units 16:54 WBC 9.0 (4.8-10.8) X10*3/uL RBC 3.79 L (4.60-5.80) X10*6/uL Hgb 11.5 L (14.0-18.0) g/dl Hct 35.8 L (42.0-52.0) % MCV 94.5 (80.0-98.0) fL MCH 30.3 (27.0-33.0) pg MCHC 32.1 (31.0-36.0) g/dl RDW 14.7 (11.0-16.0) % Plt Count 236 (160-400) X10*3/uL MPV 9.8 (9.4-12.4) fL Immature Gran % (Auto) 0.2 (0.0-0.4) % Neut % (Auto) 80.7 H (45-73) % Lymph % (Auto) 9.8 L (20-40) % Teller % (Auto) 7.6 (2-11) % Eos % (Auto) 1.4 (0-4) % Baso % (Auto) 0.3 (0-2) % Lymph # (Auto) 0.9 L (1.2-4.9) X10*3/uL Teller # (Auto) 0.7 (0.1-1.2) X10*3/uL Eos # (Auto) 0.1 (0.0-0.4) X10*3/uL Baso # (Auto) 0.0 (0.0-0.2) X10*3/uL Abs Immat Gran (auto) 0.02 (0.00-0.03) X10*3/uL Absolute Neuts (auto) 7.2 (2.0-8.3) x10*3/uL Absolute Nucleated RBC 0.000 (0.0-0.012) X10*3/uL Nucleated RBC % (auto) 0.0 (0.0-0.2) /100WBC Sodium 138 (135-145) mmol/L Potassium 4.8 (3.3-5.1) mmol/L Chloride 113 H (96-108) mmol/L Carbon Dioxide 15 L (22-29) mmol/L Anion Gap 15 (12-20) BUN 66 H (9-16) mg/dL Creatinine 2.81 H (0.5-1.4) mg/dL Estim Creat Clear Calc 28.4 Estimated GFR 22 Random Glucose 129 H (60-115) mg/dL Calcium 8.8 (8.4-10.2) mg/dL Magnesium 1.6 (1.6-2.6) mg/dL Total Bilirubin 0.3 (0.0-1.0) mg/dL Direct Bilirubin 0.1 (0.0-0.5) mg/dL AST 19 (5-37) U/L ALT 12 (0-40) U/L Alkaline Phosphatase 98 (39-117) U/L Total Creatine Kinase 162 (38-174) U/L Troponin I High Sens 5.4 (<3.5-35.0) ng/L B-Natriuretic Peptide 31 (<100) pg/mL Total Protein 7.0 (6.5-8.0) g/dL Albumin 3.6 (3.5-5.0) g/dL Lipase 44 (8-78) U/L Independent Interpretation I performed an independent interpretation of an: CT Scan Radiology Impression Discussion of test interpretation with radiology: I have reviewed the radiologist's reading. External Record Review External record reviewed: Inpatient record, Office record, Outpatient record and Prior outpatient labs Chronic Conditions Patient?s care impacted by: Hypertension Discharge Plan Discharge Clinical Impression: Fall, Head injury Patient Disposition: Home, Self-Care Instructions: Fall Prevention (ED), Head Injury (ED) Additional Instructions: You were seen today after a fall hitting her head you had labs and CT head and neck which were all normal if you have worsening pain or any other concerns please do not hesitate to come back to emergency department Prescriptions: No Action cephalexin 500 mg capsule 500 mg PO .COMPLEX Qty: 30 1RF Rx Instructions: 500 mg orally- 1 tab on days of catheter change to prevent infection multivitamin Tablet 1 tab PO DAILY amlodipine 5 mg Tablet 5 mg PO DAILY Qty: 30 0RF Protocol: Hold for SBP< HOLD for SBP < : 90 tamsulosin 0.4 mg Capsule 0.4 mg PO DAILY Qty: 30 0RF finasteride 5 mg Tablet 5 mg PO DAILY Qty: 30 0RF
--- NOTE | 2023-07-12 16:20 | ECG_ITS ---
Test Reason : fall Blood Pressure : / mmHG Vent. Rate : 093 BPM Atrial Rate : 093 BPM P-R Int : 142 ms QRS Dur : 120 ms QT Int : 364 ms P-R-T Axes : 018 -05 -12 degrees QTc Int : 452 ms Normal sinus rhythm RSR' or QR pattern in V1 suggests right ventricular conduction delay Inferior infarct , age undetermined Abnormal ECG No previous ECGs available Referred By: Leilani Bowen Electronically Signed By:Jerry Bartholomew
[2023-07-12 16:59] LABS: MANUAL DIFF FLAG NO
[2023-07-12 17:00] LABS: Basophils Percent Auto 0.3 % (0-2); Eosinophils Absolute Auto 0.1 X10*3/uL (0.0-0.4); Eosinophils Percent Auto 1.4 % (0-4); Hematocrit 35.8 % (42.0-52.0); Hemoglobin 11.5 g/dl (14.0-18.0); Imm Gran Abs Auto 0.02 X10*3/uL (0.00-0.03); Imm Gran Pct Auto 0.2 % (0.0-0.4); Lymphocytes Absolute Auto 0.9 X10*3/uL (1.2-4.9); Lymphocytes Percent Auto 9.8 % (20-40); Mean Corpuscular HGB Conc 32.1 g/dl (31.0-36.0); Mean Corpuscular Hemoglobin 30.3 pg (27.0-33.0); Mean Corpuscular Volume 94.5 fL (80.0-98.0); Mean Platelet Volume 9.8 fL (9.4-12.4); Monocytes Absolute Auto 0.7 X10*3/uL (0.1-1.2); Monocytes Percent Auto 7.6 % (2-11); Neutrophils Absolute Auto 7.2 x10*3/uL (2.0-8.3); Neutrophils Percent Auto 80.7 % (45-73); Platelet Count 236 X10*3/uL (160-400); Red Blood Count 3.79 X10*6/uL (4.60-5.80); Red Cell Distribution Width 14.7 % (11.0-16.0)
[2023-07-12 17:19] LABS: Alanine Aminotransferase 12 U/L (0-40); Albumin Level 3.6 g/dL (3.5-5.0); Alkaline Phosphatase 98 U/L (39-117); Anion Gap 15 (12-20); Aspartate Amino Transferase 19 U/L (5-37); Bilirubin Direct 0.1 mg/dL (0.0-0.5); Bilirubin Total 0.3 mg/dL (0.0-1.0); Blood Urea Nitrogen 66 mg/dL (9-16); Calcium 8.8 mg/dL (8.4-10.2); Carbon Dioxide 15 mmol/L (22-29); Chloride 113 mmol/L (96-108); Creatinine Clr Calc Pharmacy 28.4; Estimated Glomerular Filt Rate 22; Glucose Random 129 mg/dL (60-115); Lipase 44 U/L (8-78); Magnesium 1.6 mg/dL (1.6-2.6); Potassium 4.8 mmol/L (3.3-5.1); Sodium 138 mmol/L (135-145)
[2023-07-12 17:25] LABS: B Type Natriuretic Peptide 31 pg/mL (<100); Troponin-I High Sensitivity 5.4 ng/L (<3.5-35.0)
[2023-07-12] MEDS: Diphth,Pertus(ACell),Tet Adult 0.5 ML SYRINGE IM (19:08)
== END 2023-07-12 19:21 | disposition home or self-care (01) ==
PROVIDERS: Physician Assistant Medical; Emergency Provider Student in an Organized Health Care Education/Training Program; PCP Family Medicine
DX: R06.02 Shortness of breath (principal); S09.90XA Unspecified injury of head, initial encounter; W18.30XA Fall on same level, unspecified, initial encounter; Y93.89 Activity, other specified; Y92.041 Bathroom in boarding-house as the place of occurrence of the external cause; Y99.9 Unspecified external cause status; I12.9 Hypertensive chronic kidney disease with stage 1 through stage 4 chronic kidney disease, or unspecified chronic kidney disease; N18.9 Chronic kidney disease, unspecified; Z23 Encounter for immunization
CPT/HCPCS: 36415; 70450; 71046; 72125; 80048; 80076; 82550; 83690; 83735; 83880; 84484; 85025; 90471; 90715; 93005; 99283; 99284

== ENCOUNTER → 2023-07-12 16:20 | Outpatient (BNV) | payer MEDICARE, SELFPAY | PROVIDERS: Emergency Provider Student in an Organized Health Care Education/Training Program; PCP Family Medicine; Visit Provider Internal Medicine Cardiovascular Disease | DX: R94.31 Abnormal electrocardiogram [ECG] [EKG] (principal) | CPT/HCPCS: 93010 ==

== ENCOUNTER 2023-09-07 08:19 | Outpatient (AMB) | payer MEDICARE, SELFPAY ==
--- NOTE | 2023-09-07 08:33 | A.OFFVIS_ITS ---
Intake Visit Reasons: follow up Intake Note: Patient presents today for a follow-up Meds- Tamsulosin,Finasteride Allergies to Antibiotic- No Known Allergies Blood Thinner- None Price Changer Required: No Accompanied by: Daughter Allergies No Known Allergies Allergy (Verified 09/07/23 08:39) HPI Comments Details: 09/07/23--Flower is an 82-year-old male who is followed by Urology due to BPH and urinary retention and chronic Galindo. SP tube was discussed with the family they declined. The patient has unspecified dementia. VNA has been set up to as sist with catheter changes at home every 3-4 weeks. He is prescribed Proscar and Flomax. His daughter is here today and states that things have been stable no blood in the urine or UTI symptoms. She states that the VNA is setting up a day program which may include some physician provider changes. Review of chart: 05/17/23-- Telehealth - daughter wants to hold on SP placement. We will continue Galindo catheter to drainage via needed change every 3-4 weeks. Continue Proscar. 03/06/2023--Jamir is an 82-year-old male who presents today with his daughter to the office for a follow up. history of hypertension and unspecified dementia. Currently with chronic Galindo in place since May. The patient was noted to have elevation in creatinine and was seen by Nephrology as an outpatient. He is currently prescribed proscar and flomax, VNA has been changing the galindo at home. Patient has had failed several voiding trials.? In review of chart CT imaging 05/24/2022 noted bilateral hydronephrosis hydro ureter with distended bladder. Follow-up imaging with renal ultrasound 11/24/22--hydronephrosis resolved, galindo in bladder I have discussed treatment options to include SP tube placement and TURP. He will need medicine clearance. He complains of dysuria. Recent urine c/s - >100,000 mixed bacteria. Macrobid sent to pharm today. Jamir was an inpatient for urinary retention in 05/2022. history of hypertension and unspecified dementia presented to the ED in May, 2022 at the recommendation of PCP for evaluation of DANYELLE.? Findings during hospitalization--Urine c/s gram negative rods.? Creatinine >4.0; Ct abd/pelvis showing bladder outlet obstruction. galindo catheter has been inserted, 1400 mL return, blood tinged. He was started on proscar and flomax 06/17/22--Office cysto - bilobar enlargement - erythematous changes c/w catheter use, no suspicious bladder lesions He has a Galindo catheter. PFSH Medical History Hypertension Social History Household Members: Family Housing: Apartment Do you presently have visiting nurse or other home services: No Alcohol intake: never Patient Tobacco Use Status: Never used Tobacco Advance Directives Date on File: 05/24/22 Current occupational status: retired Review of Systems Const All systems reviewed & are unremarkable except as noted in HPI and below Reports no additional complaints Eyes Reports no additional complaints ENT Reports no additional complaints Card Reports no additional complaints Resp Reports no additional complaints GI Reports no additional complaints Reports as per HPI Musc Reports no additional complaints Skin/Breast Reports system reviewed and no additional complaints, except as documented Neuro Reports no additional complaints Psych Reports no additional complaints Endo Reports no additional complaints Simone/Lymph Reports no additional complaints Aller/Immun Reports no additional complaints Assessment & Plan Assessment & Plan (1) Obstructive uropathy: Code(s): N13.9 - Obstructive and reflux uropathy, unspecified Category: Medical (2) BPH loc w urin obs/LUTS: Code(s): N40.1 - Benign prostatic hyperplasia with lower urinary tract symptoms Category: Medical (3) Urinary retention: Code(s): R33.9 - Retention of urine, unspecified Category: Medical (4) Chronic kidney disease: Code(s): N18.9 - Chronic kidney disease, unspecified Category: Medical Plan Continue chronic galindo VNA to change q 4 wks FU in office in 6 months Patient Instructions: The patient had an opportunity to ask questions regarding treatment plan. The patient expressed understanding and agreement with the above treatment plan. The patient is aware they should contact our office by phone for worsening of their current condition or the appearance of new symptoms. Compliance is encouraged with any medications and followup testing that is ordered. It is a privilege to be allowed the opportunity to participate in the urologic care of your patient. If you have any questions or concerns regarding treatment for the above conditions please do not hesitate to contact me. The office telephone contact is [phone]. This note is constructed in part using voice recognition software. While every effort has been made to ensure accuracy lead pressman roto gravure printing errors may have been included. Yours sincerely, Joselin Abbasi MD Coding Level of Care Code Est Pt Level 3 (83885) Complex EM visit Add On G2211 Diagnoses Obstructive uropathy N13.9 BPH loc w urin obs/LUTS N40.1 Urinary retention R33.9 Chronic kidney disease N18.9
== END 2023-09-07 09:10 | disposition home or self-care (01) ==
PROVIDERS: PCP Family Medicine; Visit Provider Urology
DX: N13.9 Obstructive and reflux uropathy, unspecified (principal); N40.1 Benign prostatic hyperplasia with lower urinary tract symptoms; R33.9 Retention of urine, unspecified; N18.9 Chronic kidney disease, unspecified
CPT/HCPCS: 99213; G2211

== ENCOUNTER → 2023-09-07 08:19 | Outpatient (BNVA) | payer MEDICARE, SELFPAY | PROVIDERS: PCP Family Medicine; Visit Provider Urology | DX: N40.1 Benign prostatic hyperplasia with lower urinary tract symptoms (principal); N13.8 Other obstructive and reflux uropathy; N13.9 Obstructive and reflux uropathy, unspecified; R33.9 Retention of urine, unspecified; N18.9 Chronic kidney disease, unspecified | CPT/HCPCS: 99212 ==

== ENCOUNTER 2024-01-27 14:35 | Outpatient (REF) | payer MEDICARE, SELFPAY ==
[2024-01-27 14:48] LABS: Appearance Urine Turbid; Color Urine Yellow; Glucose Urine UA Negative (Negative); Leukocyte Esterase Urine Large (3+) (Negative); Nitrite Urine Negative (Negative); PH 5.5 (5.0-9.0); UMIC TRIGGER UACC YES; Urine Blood Large (3+) (Negative); Urine Ketones Negative (Negative); Urine Protein 100 (2+) mg/dL (Neg-Trace)
[2024-01-27 15:12] LABS: Bacteria Urine 4+ (None Seen); Hyaline Casts Urine 0-2 /LPF (0-2); UACC Culture Trigger YES; WBC Urine >50 /HPF (0-5)
== END 2024-01-27 14:36 | disposition home or self-care (01) ==
LOC: HO.HVNA 14:35
PROVIDERS: Visit Provider Urology
DX: N40.1 Benign prostatic hyperplasia with lower urinary tract symptoms (principal); N13.8 Other obstructive and reflux uropathy
CPT/HCPCS: 81001; 87086

== ENCOUNTER 2024-02-14 17:47 | Inpatient (IN) | payer MEDICARE, SELFPAY ==
--- NOTE | ~2024-02-14 | XR_ITS ---
EXAMINATION: XR CHEST CLINICAL INFORMATION: Audible crackles on exam. COMPARISON: 07/12/2023, 05/24/2022. TECHNIQUE: AP view of the chest was obtained. FINDINGS: Projection is apical lordotic. Low lung volumes remain with diffuse interstitial prominence throughout both lungs, quite similar to the prior radiograph where lungs are slightly better aerated and technique was far improved. Peribronchial thickening and increased bronchovascular markings in the left upper lobe, more prominent than previously. Cannot exclude a superimposed pneumonia. Cannot exclude a small left effusion, versus technique and basilar interstitial changes. No definite right effusion. Elevated right hemidiaphragm remains. No pneumothorax. No suspicious osseous or soft tissue abnormality. XR/XR chest 1V IMPRESSION: 1. 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 2. Superimposed left upper lobe bronchopneumonia is a consideration given the appearance. Electronically signed by: Juan David Bermeo MD 02/16/2024 03:48 PM EDT
--- NOTE | ~2024-02-14 | CT_ITS ---
Examination: CT brain, cervical spine and facial bones. CLINICAL INDICATION: Fall. COMPARISON: CT brain and CT cervical spine 07/12/2023. TECHNIQUE: 2 mm thin axial and reformatted 2 mm thin sagittal and coronal images of brain were obtained. Axial 3 mm thin and reformatted 1.5 and thin sagittal and coronal images of facial bones were obtained. Lastly axial 3 minutes thin and reformatted 2 mm thin sagittal and coronal images of cervical spine were obtained. This CT examination was performed using dose optimization techniques as appropriate, variously including the following: *Automated exposure control *Adjustment of mA and/or kV according to patient size (this includes techniques or standardized protocols for targeted exams where dose is matched to indication/reason for exam; i.e. extremities or head) *Use of iterative reconstruction technique. DLP 1500. FINDINGS: Brain: There is no acute intra-axial, extra-axial bleed, masses or midline shift. There is no acute infarction in evolution. The barger to white matter differentiation is maintained normal. The lateral ventricles are symmetrical but moderately enlarged. There is moderate prominence of cerebral and cerebellar cortical sulci. Bone windows reveal no calvarial abnormality. There is no scalp soft tissue abnormality. Bilateral paranasal sinuses and mastoid air cells are well-aerated with mild mucoperiosteal thickening left sphenoid sinus. Cervical spine: There is is mild straightening of cervical lordosis. There is loss of C3-4, C5-6 and C6 -C7 disc heights with ventral spondylosis. The craniovertebral junction and C1-C2 alignment is normal. No visible acute fracture, dislocation or subluxation seen. There is moderate right C2-3, C3-4 and C4-5 facet joint arthropathy. Visualized prevertebral and paravertebral soft tissues are normal. The tracheal airway is widely patent. The lung apices bases are clear Facial bones: There is mild mucoperiosteal thickening involving bilateral maxillary, frontal, posterior ethmoid and left sphenoid sinuses. The bony sinus bonner are intact. The bony orbits, lamina papyracea and the cribriform plate is intact. The maxillofacial and nasal bones are intact without any visible fracture. No maxillofacial soft tissue swelling seen. CT/CT cervical spine wo IV con IMPRESSION: No acute intracranial process seen. There is no Max of facial, nasal or mandibular fracture. There is straightening of cervical spine with degenerative disc changes and right facet joint arthropathy as described above. No visible acute fracture or dislocation seen. No major change in the CT cervical spine and brain from previous exam 07/12/23.. Electronically signed by: Esau Arndt MD 02/14/2024 09:42 PM EDT RP
[2024-02-14 18:14] VITALS: BP 133/70; PULSE 76; RESP 16; TEMP 36.9; O2SAT 96; BMI 24.0
--- NOTE | 2024-02-14 18:19 | ECG_ITS ---
Test Reason : FALL Blood Pressure : / mmHG Vent. Rate : 072 BPM Atrial Rate : 072 BPM P-R Int : 160 ms QRS Dur : 120 ms QT Int : 388 ms P-R-T Axes : -02 -14 003 degrees QTc Int : 424 ms Normal sinus rhythm Right bundle branch block Abnormal ECG When compared with ECG of 12-JUL-2023 16:48, No significant change was found Referred By: Edmundo Murdock Electronically Signed By:SHABBIR CHAVIS
--- NOTE | 2024-02-14 18:20 | ED.GENADULT ---
HPI - General Adult General Chief complaint: Fall Stated complaint: Fall Time Seen by Provider: 02/14/24 22:17 Source: family Mode of arrival: ambulatory Limitations: altered mental status History of Present Illness ED Provider: Dr. Simons HPI narrative: This is an 83yo male with weakness and dementia with renal insufficiency, urinary catheter who fell in the bathroom this morning. According to family no LOC Onset (ago): hour(s) Related Data Previous Rx's ?Medication ?Instructions ?Recorded amlodipine 5 mg tablet 5 mg PO DAILY #30 tabs 05/31/22 finasteride 5 mg tablet 5 mg PO DAILY #30 tabs 06/02/22 tamsulosin 0.4 mg capsule 0.4 mg PO DAILY #30 caps 06/02/22 Allergies Allergy/AdvReac Type Severity Reaction Status Date / Time No Known Allergies Allergy Verified 02/14/24 18:16 Review of Systems Review of Systems: Yes Unobtainable due to mental status Neurologic: Denies Sensory deficit (Neuro) [facility] Past Medical History Medical History Hypertension Social History Social History Household Members: Other Household Members Other:: sister Housing: House Do you presently have visiting nurse or other home services: No Alcohol intake: never Patient Tobacco Use Status: Never used Tobacco Advance Directives Date on File: 05/24/22 Current occupational status: retired Physical Exam ED Vital Signs: Vital Signs - 24 hr 02/14/24 18:14 02/14/24 21:58 02/15/24 00:24 Temperature 98.5 F 98.5 F 98.0 F Pulse Rate 76 77 73 Respiratory Rate 16 20 18 Blood Pressure 133/70 144/69 H 144/94 H Pulse Oximetry 96 97 97 Oxygen Delivery Method Room Air Room Air Room Air BMI result Body Mass Index 24.0 Const Other: elderly male confused at baseline with facial and head ecchymosis General: healthy appearing Nutritional Appearance: average body habitus Orientation/consciousness: oriented to person Limitations: no limitations HENMT Head: Yes normal to inspection Ears: external ears normal General nose exam: Normal external nose present Mouth: Normal oral and palatal mucosa present and oropharynx normal Throat: Yes posterior oropharynx normal Eyes General: appearance normal, both eyes and all related structures Neck Neck: Yes normal visual inspection Chest Chest palpation & inspection: normal inspection of the chest Resp Auscultation: clear to auscultation bilaterally Cardio Jugular venous distension: no JVD Rate: regular rate Rhythm: regular rhythm Heart sounds: S1 normal heart sound present and S2 normal heart sound present GI Inspection: Yes normal to inspection Palpation (GI): Soft to palpation, nontender and No hepatosplenomegaly present Auscultation: normal bowel sounds General: Yes no CVA tenderness Back/Spine/Pelvis Back: no CVA tenderness Skin Other: ecchymosis to face and head. Neuro General: oriented to person Cranial nerves: Yes CN's II-XII intact bilaterally Motor exam (neuro): 5/5 motor strength present throughout Sensory Exam: No Sensory deficit (Neuro) Extrem General: Yes normal to inspection Psych Appearance: grossly normal Course Course Course Narrative: RME: done by RONAK Rivera. Patient is sent from clinic for evaluation for unwitnessed fall that occurred this morning. Patient is at baseline by family member by has facial abrasions. Will do EKG lab work and imaging. Patient has facial abrasions. Reevaluation(s) Reevaluation #1: patient with negative CT of face, head and neck. Patient with worsening renal failure and hyperkalemia will admit Time: 23:13 Medications Administered Generic Name Dose Route Start Last Admin Trade Name Freq PRN Reason Stop Dose Admin Amlodipine Besylate 5 mg 02/15/24 09:00 02/15/24 07:51 Amlodipine Besylate 5 Mg Tablet PO 5 mg DAILY LEXX Administration Protocol Ceftriaxone Sodium 1 gm 02/15/24 09:00 02/15/24 07:51 Ceftriaxone Sodium 1 Gm Vial IVPUSH 1 gm Q24H LEXX Administration Finasteride 5 mg 02/15/24 09:00 02/15/24 07:51 Finasteride 5 Mg Tablet PO 5 mg DAILY LEXX Administration Sodium Chloride 1,000 mls @ 80 mls/hr 02/14/24 23:15 02/15/24 09:20 Ns IVCONT 80 mls/hr .[id number] LEXX Administration Sodium Chloride 3 ml 02/15/24 08:00 02/15/24 07:51 0.9 % Sodium Chloride Flush 3 Ml Syringe IVFLUSH Not Given QSHIFT LEXX Discontinued Medications Generic Name Dose Route Start Last Admin Trade Name Freq PRN Reason Stop Dose Admin Sodium Chloride 500 mls @ 500 mls/hr 02/15/24 01:12 02/15/24 04:01 Ns IV 02/15/24 02:11 Infused .Q1H STA Infusion Sodium Zirconium Cyclosilicate 10 gm 02/14/24 23:08 02/14/24 23:58 Sodium Zirconium Cyclosilicate 10 Gm Powd.Pack PO 02/14/24 23:09 10 gm ONCE ONE Administration Medical Decision Making Differential Diagnosis Differential Diagnoses: The differential diagnosis associated with the presentation includes (subdural hematoma, epidural hematoma, neck fracture, facial fractures, renal insufficiency, dehydration, UTI) Admission/Observation Consideration of admission/observation: Escalation of care including admission/observation considered (upon arrival patient considered for admission) Consult Healthcare Provider Management of the patient was discussed with: Hospitalist Lab Data 02/15/24 05:49 02/15/24 05:49 Labs: Lab Results 02/14/24 02/14/24 02/15/24 Range/Units 19:08 23:38 00:35 WBC 11.0 H (4.8-10.8) X10*3/uL RBC 3.13 L (4.60-5.80) X10*6/uL Hgb 9.7 L (14.0-18.0) g/dl Hct 29.2 L (42.0-52.0) % MCV 93.3 (80.0-98.0) fL MCH 31.0 (27.0-33.0) pg MCHC 33.2 (31.0-36.0) g/dl RDW 14.0 (11.0-16.0) % Plt Count 243 (160-400) X10*3/uL MPV 9.5 (9.4-12.4) fL Immature Gran % (Auto) 0.5 H (0.0-0.4) % Neut % (Auto) 77.4 H (45-73) % Lymph % (Auto) 12.9 L (20-40) % [place] % (Auto) 7.2 (2-11) % Eos % (Auto) 1.4 (0-4) % Baso % (Auto) 0.6 (0-2) % Lymph # (Auto) 1.4 (1.2-4.9) X10*3/uL [place] # (Auto) 0.8 (0.1-1.2) X10*3/uL Eos # (Auto) 0.2 (0.0-0.4) X10*3/uL Baso # (Auto) 0.1 (0.0-0.2) X10*3/uL Abs Immat Gran (auto) 0.05 H (0.00-0.03) X10*3/uL Absolute Neuts (auto) 8.5 H (2.0-8.3) x10*3/uL Absolute Nucleated RBC 0.000 (0.0-0.012) X10*3/uL Nucleated RBC % (auto) 0.0 (0.0-0.2) /100WBC PT 11.8 (10.9-12.4) SEC INR 1.0 (0.9-1.1) APTT 35.6 (26.0-36.8) SEC VBG pH 7.50 H (7.32-7.43) VBG pCO2 14 mmHg VBG pO2 118 mmHg VBG HCO3 11 L (22-26) mmol/L VBG O2 Saturation 100.0 % VBG Base Excess -9.2 mmol/L Sodium 137 (135-145) mmol/L Potassium 5.7 H (3.3-5.1) mmol/L Chloride 113 H (96-108) mmol/L Carbon Dioxide 15 L (22-29) mmol/L Anion Gap 15 (12-20) BUN 64 H (9-16) mg/dL Creatinine 4.73 H* (0.5-1.4) mg/dL Estim Creat Clear Calc 10.4 Estimated GFR 12 Random Glucose 99 (60-115) mg/dL Calcium 8.0 L D (8.4-10.2) mg/dL Total Bilirubin 0.2 (0.0-1.0) mg/dL AST 26 (5-37) U/L ALT 16 (0-40) U/L Alkaline Phosphatase 76 (39-117) U/L Troponin I High Sens 6.7 (<3.5-35.0) ng/L Total Protein 6.8 (6.5-8.0) g/dL Albumin 3.4 L (3.5-5.0) g/dL Urine Color Yellow Urine Appearance Cloudy Urine pH 6.0 (5.0-9.0) Ur Specific Broadbent 1.010 (1.005-1.025) Urine Protein 30 (1+) H (Neg-Trace) mg/dL Urine Glucose (UA) Negative (Negative) mg/dL Urine Ketones Negative (Negative) mg/dL Urine Blood Moderate (2+) H (Negative) Urine Nitrite Positive H (Negative) Ur Leukocyte Esterase Large (3+) H (Negative) Urine RBC 0-2 (0-2) /HPF Urine WBC >50 H (0-5) /HPF Ur Squamous Epith Cells 0-2 (0-2) /HPF Other Crystals Present Urine Bacteria 4+ (None Seen) Hyaline Casts 0-2 (0-2) /LPF Granular Casts Present Independent Interpretation I performed an independent interpretation of an: EKG (sinus 72, RBBB no st or twave changes) and CT Scan (Head: no bleed or mass effect, cervical spine: djd, ) Radiology Impression Discussion of test interpretation with radiology: I have reviewed the radiologist's reading. (and agree) Independent Historian Clinical information obtained from an independent historian. History obtained from or confirmed by: Other (family) Prescription Management I considered prescription management with: Antibiotic (no evidence of infection) Discharge Plan Discharge Clinical Impression: Acute renal failure, Acute dehydration, Acute head trauma, Acute hyperkalemia Patient Disposition: Admitted As Inpatient Interventions: Admission Worksheet (ED) Last Done: 02/15/24 08:51 Discharge Date/Time: 02/15/24 08:52
[2024-02-14 19:14] LABS: MANUAL DIFF FLAG NO
[2024-02-14 19:25] LABS: Prothrombin Time 11.8 SEC (10.9-12.4)
[2024-02-14 19:27] LABS: Partial Thromboplastin Time 35.6 SEC (26.0-36.8)
[2024-02-14 19:39] LABS: Basophils Absolute Auto 0.1 X10*3/uL (0.0-0.2); Basophils Percent Auto 0.6 % (0-2); Eosinophils Absolute Auto 0.2 X10*3/uL (0.0-0.4); Eosinophils Percent Auto 1.4 % (0-4); Hematocrit 29.2 % (42.0-52.0); Hemoglobin 9.7 g/dl (14.0-18.0); Imm Gran Abs Auto 0.05 X10*3/uL (0.00-0.03); Imm Gran Pct Auto 0.5 % (0.0-0.4); Lymphocytes Absolute Auto 1.4 X10*3/uL (1.2-4.9); Lymphocytes Percent Auto 12.9 % (20-40); Mean Corpuscular HGB Conc 33.2 g/dl (31.0-36.0); Mean Corpuscular Volume 93.3 fL (80.0-98.0); Mean Platelet Volume 9.5 fL (9.4-12.4); Monocytes Absolute Auto 0.8 X10*3/uL (0.1-1.2); Monocytes Percent Auto 7.2 % (2-11); Neutrophils Absolute Auto 8.5 x10*3/uL (2.0-8.3); Neutrophils Percent Auto 77.4 % (45-73); Platelet Count 243 X10*3/uL (160-400); Red Blood Count 3.13 X10*6/uL (4.60-5.80)
[2024-02-14 19:42] LABS: Alanine Aminotransferase 16 U/L (0-40); Albumin Level 3.4 g/dL (3.5-5.0); Alkaline Phosphatase 76 U/L (39-117); Anion Gap 15 (12-20); Aspartate Amino Transferase 26 U/L (5-37); Bilirubin Total 0.2 mg/dL (0.0-1.0); Blood Urea Nitrogen 64 mg/dL (9-16); Carbon Dioxide 15 mmol/L (22-29); Chloride 113 mmol/L (96-108); Creatinine Clr Calc Pharmacy 10.4; Estimated Glomerular Filt Rate 12; Glucose Random 99 mg/dL (60-115); Potassium 5.7 mmol/L (3.3-5.1); Sodium 137 mmol/L (135-145); Total Protein 6.8 g/dL (6.5-8.0)
[2024-02-14 19:44] LABS: Troponin-I High Sensitivity 6.7 ng/L (<3.5-35.0)
[2024-02-14 21:58] VITALS: BP 144/69; PULSE 77; RESP 20; TEMP 36.9; O2SAT 97
[2024-02-14 23:37] LABS: Venous Blood Gas Refer to POC result
[2024-02-14 23:42] LABS: VBG Base Excess -9.2 mmol/L; VBG HCO3 11 mmol/L (22-26); VBG pCO2 14 mmHg; VBG pO2 118 mmHg
[2024-02-14] MEDS: 0.9 % Sodium Chloride 1,000 ML 125 ML IVCONT (23:47)
[2024-02-14] MEDS: Sodium Zirconium Cyclosilicate 10 GM POWD.PACK PO (23:58)
[2024-02-15] VITALS (7 sets, daily range): BP systolic 134–170; BP diastolic 64–95; PULSE 70–82; RESP 16–20; TEMP 36.2–37.4; O2SAT 94–97; BMI 24.0
[2024-02-15 00:43] LABS: Appearance Urine Cloudy; Color Urine Yellow; Glucose Urine UA Negative (Negative); Leukocyte Esterase Urine Large (3+) (Negative); Nitrite Urine Positive (Negative); UMIC TRIGGER UACC YES; Urine Blood Moderate (2+) (Negative); Urine Ketones Negative (Negative); Urine Protein 30 (1+) mg/dL (Neg-Trace)
--- NOTE | 2024-02-15 00:46 | PC.NURSE ---
skin tear to R forearm from fall. arm cleaned and dressed with nonstick and gauze wrap. 20g IV to LAC, site wrapped. pt confused at baseline, family reports pt pulls and any cords/wires, including galindo cath. camera needed for when family not at bedside,
--- NOTE | 2024-02-15 00:52 | PC.NURSE ---
med rec completed, family had list of meds at bedside
[2024-02-15 00:55] LABS: Bacteria Urine 4+ (None Seen); Granular Casts Urine Present; Hyaline Casts Urine 0-2 /LPF (0-2); Other Crystals Urine Present; RBC Urine 0-2 /HPF (0-2); Squamous Epithelial Cell Urine 0-2 /HPF (0-2); UACC Culture Trigger YES; WBC Urine >50 /HPF (0-5)
--- NOTE | 2024-02-15 01:13 | P.HPHOSP_ITS ---
History of Present Illness Date of Service: 02/15/24 Attending physician on admission: Chayo Thompson Chief Complaint: fall Jamir Velasquez is a delightful 83 years old man with past medical history significant for BPH with chronic indwelling urinary catheter on Proscar and Flomax and essential hypertension was brought to the emergency department after he sustained a fall today. The fall was unwitnessed. Daughter in-law her a thump and found him facing down. He hit his face and was found to be conscious at all times. Family feels patient has dementia but never been diagnosed. The patient does not take any blood thinner. According to family the patient has been drinking and eating well. They have not observed any event of vomiting or diarrhea. The patient does not take any water pills and has not been taking any new medications. His indwelling urinary catheter was recently replaced after he pulled it out. In the ED, he was found to have normal vital signs. Blood workup was remarkable for leukocytosis of 11.0, hemoglobin is 9.7 (it was 11.5 on June 2023) and platelets are normal. Potassium is 5.7 and CO2 is 15. Venous pH is 7.50. BUN 64 and creatinine 4.73 (before 66 and 2.81, respectively). LFTs are normal. Albumin is 3.4. Urinalysis consistent with urinary tract infection. Head, face and cervical spine CT scan showed no acute findings except for straightening of cervical spine. ECG showed normal sinus rhythm with a heart rate of 72 beats per minute, right bundle branch block and no ischemic changes. ED tx: Lokelma 10 g PO, NS @ 125 ml/hr. Review of Systems 2 Review of Systems: Yes Unobtainable due to mental status [facility] Medical History Hypertension Social History Household Members: Family Housing: Apartment Do you presently have visiting nurse or other home services: No Alcohol intake: never Patient Tobacco Use Status: Never used Tobacco Smoked in Last 30 Days: No Use of substances other than those prescribed or required for medical reasons: No Advance Directives: Yes Advance Directives on File: Yes Advance Directives Date on File: 05/24/22 Current occupational status: retired Meds Allergies Allergy/AdvReac Type Severity Reaction Status Date / Time No Known Allergies Allergy Verified 02/14/24 18:16 Active Medications: Current Medications Acetaminophen (Acetaminophen 325 Mg Tablet) 975 mg PO Q6H PRN PRN Reason: Pain, Mild (Pain Scale 1-3), fever or headache Calcium Carbonate (Calcium Carbonate 750 Mg Tab.Chew) 750 mg PO Q4H PRN PRN Reason: Heartburn Ceftriaxone Sodium (Ceftriaxone Sodium 1 Gm Vial) 1 gm IVPUSH Q24H [facility] Sodium Chloride (Ns) 1,000 mls @ 80 mls/hr IVCONT .[id number] [facility] Last Admin: 02/14/24 23:47 Dose: 125 mls/hr Sodium Chloride (Ns) 500 mls @ 500 mls/hr IV .Q1H STA Stop: 02/15/24 02:11 Melatonin (Melatonin 3 Mg Tablet) 6 mg PO BEDTIME PRN PRN Reason: Insomnia Sodium Chloride (0.9 % Sodium Chloride Flush 3 Ml Syringe) 3 ml IVFLUSH QSHIFT [facility] Physical Exam 2 Vital Signs and Narrative: Vital Signs: Last Vital Signs Temp 98.0 F 02/15/24 00:24 Pulse 73 02/15/24 00:24 Resp 18 02/15/24 00:24 BP 144/94 H 02/15/24 00:24 Pulse Ox 97 02/15/24 00:24 O2 Del Method Room Air 02/15/24 00:24 BMI result Body Mass Index 24.0 Constitutional - Awake and Alert, No apparent distress. Pleasant. Confused. HEENT - PER, EOMI. Normal sclerae. Facial bruises involving the forehead and nose Heart - S1S2, RRR, No murmurs Lungs - Normal lung expansion, Normal respiratory effort, No respiratory distress, CTA bilaterally Abdomen - NT / ND; +BS; No rebound or guarding - Indwelling urinary catheter. Cloudy yellowish urine in bag. Extremities - no calf tenderness bilaterally, no swelling Skin - Warm/Dry. No pallor. No jaundice. Neurological - Alert & oriented x2. No focal weakness grossly noted. Follows simple commands. Psychological - Confused. Results Labs 02/14/24 19:08 02/14/24 19:08 Labs: Laboratory Results - last 24 hr 02/14/24 02/14/24 02/15/24 19:08 23:38 00:35 MCV 93.3 MCH 31.0 MCHC 33.2 RDW 14.0 Plt Count 243 MPV 9.5 Immature Gran % (Auto) 0.5 H Neut % (Auto) 77.4 H Lymph % (Auto) 12.9 L [place] % (Auto) 7.2 Eos % (Auto) 1.4 Baso % (Auto) 0.6 Lymph # (Auto) 1.4 [place] # (Auto) 0.8 Eos # (Auto) 0.2 Baso # (Auto) 0.1 Abs Immat Gran (auto) 0.05 H Absolute Neuts (auto) 8.5 H Absolute Nucleated RBC 0.000 Nucleated RBC % (auto) 0.0 PT 11.8 INR 1.0 APTT 35.6 VBG pH 7.50 H VBG pCO2 14 VBG pO2 118 VBG HCO3 11 L VBG O2 Saturation 100.0 VBG Base Excess -9.2 Anion Gap 15 Estim Creat Clear Calc 10.4 Estimated GFR 12 Random Glucose 99 Calcium 8.0 L D Total Bilirubin 0.2 AST 26 ALT 16 Alkaline Phosphatase 76 Troponin I High Sens 6.7 Total Protein 6.8 Albumin 3.4 L Urine Color Yellow Urine Appearance Cloudy Urine pH 6.0 Ur Specific [place] 1.010 Urine Protein 30 (1+) H Urine Glucose (UA) Negative Urine Ketones Negative Urine Blood Moderate (2+) H Urine Nitrite Positive H Ur Leukocyte Esterase Large (3+) H Urine RBC 0-2 Urine WBC >50 H Ur Squamous Epith Cells 0-2 Other Crystals Present Urine Bacteria 4+ Hyaline Casts 0-2 Granular Casts Present Imaging Radiologist's Impressions: Impressions Cervical Spine CT 02/14/24 18:28 IMPRESSION: No acute intracranial process seen. There is no Max of facial, nasal or mandibular fracture. There is straightening of cervical spine with degenerative disc changes and right facet joint arthropathy as described above. No visible acute fracture or dislocation seen. No major change in the CT cervical spine and brain from previous exam 07/12/23.. Electronically signed by: Esau Arndt MD 02/14/2024 09:42 PM EDT RP Face CT 02/14/24 18:28 IMPRESSION: No acute intracranial process seen. There is no Max of facial, nasal or mandibular fracture. There is straightening of cervical spine with degenerative disc changes and right facet joint arthropathy as described above. No visible acute fracture or dislocation seen. No major change in the CT cervical spine and brain from previous exam 07/12/23.. Electronically signed by: Esau Arndt MD 02/14/2024 09:42 PM EDT RP Head CT 02/14/24 18:28 IMPRESSION: No acute intracranial process seen. There is no Max of facial, nasal or mandibular fracture. There is straightening of cervical spine with degenerative disc changes and right facet joint arthropathy as described above. No visible acute fracture or dislocation seen. No major change in the CT cervical spine and brain from previous exam 07/12/23.. Electronically signed by: Esau Arndt MD 02/14/2024 09:42 PM EDT RP Assessment and Plan (1) Acute on chronic kidney failure: Qualifiers: Acute renal failure type: unspecified Chronic kidney disease stage: u nspecified stage Qualified Code(s): N17.9 - Acute kidney failure, unspecified; N18.9 - Chronic kidney disease, unspecified Status: Acute (2) Acute hyperkalemia: Status: Acute Plan Jamir Velasquez is a 83 y/o man admitted with: * Acute on chronic renal failure; cause unclear. Admit to hospitalist service. Gentle IV fluids. Avoid nephrotoxic agents. Continue to monitor renal function. Check bladder scan. Nephrology consult. * Hyperkalemia, mild, secondary to above. Received Lokelma IV fluids in the ED. Recheck K+ level now. * Catheter-associated urinary tract infection. Start empiric IV antibiotic therapy with ceftriaxone. Exchange indwelling urinary catheter. Urine culture obtained -will follow results. * Essential hypertension. Continue amlodipine, tamsulosin and finasteride. * BPH + chronic indwelling urinary catheter. Exchange indwelling urinary catheter due to UTI. Continue tamsulosin and finasteride. * Anemia, worsening. 11.5 --> 9.7. No evidence of acute bleeding. Continue to monitor for now. DVT prophylaxis: SCDs, avoiding pharmacological agents due to recent significant head/face trauma. Code status: Full Patient will need hospitalization for at least 2 midnights for acute on chronic renal failure and hyperkalemia treatment with IV fluids, continuous monitoring of K level/renal function and evaluation by subspecialty. Quality Stroke Does the patient have a stroke diagnosis?: No VTE Prior VTE?: No VTE Risk Level:: Medical - moderate - high VTE Device Contraindication: N/A - Device Ordered VTE Drug Contraindication: Treatment Not Indicated
--- NOTE | 2024-02-15 02:14 | PC.NURSE ---
per family, pt will need help with all ADL'S including eating, pt will choke on dry food like toast or dry chicken, does better with soft and moist foods, needs to sat upright and paced while eating and drinking. pt likes to drink but will drink the whole pitcher at once, family gives it and takes it away or gives small cups at a time.
[2024-02-15] MEDS: 0.9 % Sodium Chloride 500 ML IV (02:33)
--- NOTE | 2024-02-15 02:34 | PC.NURSE ---
IVF rate to 80mls/hr per MD order
[2024-02-15 02:37] LABS: Anion Gap 14 (12-20); Blood Urea Nitrogen 66 mg/dL (9-16); Calcium 7.7 mg/dL (8.4-10.2); Carbon Dioxide 14 mmol/L (22-29); Chloride 113 mmol/L (96-108); Creatinine Clr Calc Pharmacy 11.2; Estimated Glomerular Filt Rate 13; Glucose Random 146 mg/dL (60-115); Magnesium 1.5 mg/dL (1.6-2.6); Potassium 4.7 mmol/L (3.3-5.1); Sodium 136 mmol/L (135-145)
[2024-02-15 02:40] LABS: Troponin-I High Sensitivity 5.8 ng/L (<3.5-35.0)
--- NOTE | 2024-02-15 02:50 | PC.NURSE ---
Pt brought over to overflow by ED Techs x2. Pt transferred from stretcher to hospital bed. Esquivel drained of 300ml urine. Pt positioned for comfort. Video monitoring jaspreet on pt.
[2024-02-15 05:55] LABS: Basophils Absolute Auto 0.1 X10*3/uL (0.0-0.2); Basophils Percent Auto 0.7 % (0-2); Eosinophils Absolute Auto 0.2 X10*3/uL (0.0-0.4); Eosinophils Percent Auto 2.8 % (0-4); Hematocrit 25.2 % (42.0-52.0); Hemoglobin 8.6 g/dl (14.0-18.0); Imm Gran Abs Auto 0.02 X10*3/uL (0.00-0.03); Imm Gran Pct Auto 0.2 % (0.0-0.4); Lymphocytes Absolute Auto 1.8 X10*3/uL (1.2-4.9); Lymphocytes Percent Auto 21.6 % (20-40); MANUAL DIFF FLAG NO; Mean Corpuscular HGB Conc 34.1 g/dl (31.0-36.0); Mean Corpuscular Hemoglobin 31.2 pg (27.0-33.0); Mean Corpuscular Volume 91.3 fL (80.0-98.0); Mean Platelet Volume 8.8 fL (9.4-12.4); Monocytes Absolute Auto 0.9 X10*3/uL (0.1-1.2); Monocytes Percent Auto 11.1 % (2-11); Neutrophils Absolute Auto 5.2 x10*3/uL (2.0-8.3); Neutrophils Percent Auto 63.6 % (45-73); Platelet Count 185 X10*3/uL (160-400); Red Blood Count 2.76 X10*6/uL (4.60-5.80); Red Cell Distribution Width 13.7 % (11.0-16.0); White Blood Count 8.1 X10*3/uL (4.8-10.8)
[2024-02-15 06:16] LABS: Anion Gap 15 (12-20); Blood Urea Nitrogen 64 mg/dL (9-16); Calcium 7.5 mg/dL (8.4-10.2); Carbon Dioxide 14 mmol/L (22-29); Chloride 115 mmol/L (96-108); Creatinine Clr Calc Pharmacy 11.3; Estimated Glomerular Filt Rate 13; Glucose Random 87 mg/dL (60-115); Magnesium 1.5 mg/dL (1.6-2.6); Potassium 4.7 mmol/L (3.3-5.1); Sodium 139 mmol/L (135-145)
[2024-02-15] MEDS: cefTRIAXone sodium 1 GM VIAL IVPUSH (07:51)
[2024-02-15] MEDS: amLODIPine Besylate 5 MG TABLET PO (07:51)
[2024-02-15] MEDS: Finasteride 5 MG TABLET PO (07:51)
--- NOTE | 2024-02-15 08:00 | PC.NURSE ---
pt took meds whole in applesauce. Report given to PRESTON Poole on s3
[2024-02-15] MEDS: 0.9 % Sodium Chloride 1,000 ML 80 ML IVCONT ×2 (09:20→21:26)
--- NOTE | 2024-02-15 09:27 | PHA.MEDREC ---
Addendum entered by Glenna Walter RPh 02/15/24 09:47: [facility] reviewed Original Note: Pharmacy Consult ? Medication Reconciliation Pharmacy reviewed med rec done by nursing. Spoke with patient daughter over the phone to confirm when her dad takes his Tamsulosin 0.4mg tab every morning 1/2 hour after breakfast and she also informed me that her dad takes a Multivitamin tab once daily. She also confirmed her dad too his medications yesterday morning. I updated the med rec.
--- NOTE | 2024-02-15 13:43 | PM.EVENT ---
Event Note Date of Service: 02/15/24 Event Note: Chart reviewed patient examined. Agree with history and physical as documented. Discussion with patient reveals he is not competent to make decisions regarding his health and well-being. At this point would not evoke his healthcare proxy. Daughter at bedside who is proxy and is in agreement Time Spent With Patient Time: Total time managing care of this patient today ____ minutes.
--- NOTE | 2024-02-15 15:07 | P.CONNP_ITS ---
History of Present Illness Reason for Consult Consult date: 02/15/24 Chief Complaint Chief complaint: Acute on Chronic Renal Failure History of Present Illness Narrative: RTANE consulted for DANYELLE on CKD in setting of UTI and chronic galindo Sleepy this am and so info obtained from EHR 83 y/o M with h/o adv CKD BSL SCr 2.5-3.0 and now adm Scr 4.0-4.5 whiuch may be his new BSL H/O chronic galindo--changed eery 30 days PMH as noted Review of Systems Review of Systems Yes Unobtainable due to mental status Denies Sensory deficit (Neuro) [facility] Past Medical History Medical History Hypertension Social History Social History Household Members: Other Household Members Other:: sister Housing: House Do you presently have visiting nurse or other home services: No Alcohol intake: never Patient Tobacco Use Status: Never used Tobacco Advance Directives Date on File: 05/24/22 Current occupational status: retired [employer] Allergies Allergy/AdvReac Type Severity Reaction Status Date / Time No Known Allergies Allergy Verified 02/14/24 18:16 Active Medications: Current Medications Acetaminophen (Acetaminophen 325 Mg Tablet) 975 mg PO Q6H PRN PRN Reason: Pain, Mild (Pain Scale 1-3), fever or headache Amlodipine Besylate (Amlodipine Besylate 5 Mg Tablet) 5 mg PO DAILY [facility]; Protocol Last Admin: 02/15/24 07:51 Dose: 5 mg Calcium Carbonate (Calcium Carbonate 750 Mg Tab.Chew) 750 mg PO Q4H PRN PRN Reason: Heartburn Ceftriaxone Sodium (Ceftriaxone Sodium 1 Gm Vial) 1 gm IVPUSH Q24H [facility] Last Admin: 02/15/24 07:51 Dose: 1 gm Finasteride (Finasteride 5 Mg Tablet) 5 mg PO DAILY [facility] Last Admin: 02/15/24 07:51 Dose: 5 mg Sodium Chloride (Ns) 1,000 mls @ 80 mls/hr IVCONT .[id number] [facility] Last Admin: 02/15/24 09:20 Dose: 80 mls/hr Melatonin (Melatonin 3 Mg Tablet) 6 mg PO BEDTIME PRN PRN Reason: Insomnia Multivitamins/Vitamin C (Multivitamin Tablet) 1 tab PO DAILY [facility] Sodium Chloride (0.9 % Sodium Chloride Flush 3 Ml Syringe) 3 ml IVFLUSH QSHIFT [facility] Last Admin: 02/15/24 07:51 Dose: Not Given Tamsulosin HCl (Tamsulosin Hcl 0.4 Mg Capsule) 0.4 mg PO DAILY@1730 [facility] Tamsulosin HCl (Tamsulosin Hcl 0.4 Mg Capsule) 0.4 mg PO DAILY@0730 [facility] Home Medications ?Medication ?Instructions ?Recorded ?Confirmed ?Last Taken ?Type multivitamin 1 tab PO DAILY 02/15/24 02/15/24 02/14/24 History tamsulosin 0.4 mg capsule 0.4 mg PO DAILY@0730 02/15/24 02/15/24 02/14/24 History Physical Exam Vital Signs: Last Vital Signs Temp 98.0 F 02/15/24 09:14 Pulse 78 02/15/24 09:14 Resp 18 02/15/24 09:14 BP 152/65 H 02/15/24 09:14 Pulse Ox 94 02/15/24 09:14 O2 Del Method Room Air 02/15/24 09:14 BMI result Body Mass Index 24.0 Const Other: elderly male confused at baseline with facial and head ecchymosis General: healthy appearing Nutritional Appearance: average body habitus Orientation/consciousness: oriented to person Limitations: no limitations HEENT Head: Yes normal to inspection Ears: external ears normal General nose exam: Normal external nose present Mouth: Normal oral and palatal mucosa present and oropharynx normal Throat: Yes posterior oropharynx normal Eyes General: appearance normal, both eyes and all related structures Neck Neck: Yes normal visual inspection Chest Chest palpation & inspection: normal inspection of the chest Resp Auscultation: clear to auscultation bilaterally Cardio Jugular venous distension: no JVD Rate: regular rate Rhythm: regular rhythm Heart sounds: S1 normal heart sound present and S2 normal heart sound present GI Inspection: Yes normal to inspection Palpation (GI): Soft to palpation, nontender and No hepatosplenomegaly present Auscultation: normal bowel sounds General: Yes no CVA tenderness Back/Spine/Pelvis Back: no CVA tenderness Skin Other: ecchymosis to face and head. Neuro General: oriented to person Cranial nerves: Yes CN's II-XII intact bilaterally Motor exam (neuro): 5/5 motor strength present throughout Sensory Exam: No Sensory deficit (Neuro) Extrem General: Yes normal to inspection Psych Appearance: grossly normal Results Lab Results 02/15/24 05:49 02/15/24 05:49 Lab results: Chemistry 02/14/24 02/15/24 02/15/24 19:08 02:15 05:49 Sodium 137 136 139 Potassium 5.7 H 4.7 4.7 Carbon Dioxide 15 L 14 L 14 L BUN 64 H 66 H 64 H Creatinine 4.73 H* 4.39 H* 4.36 H* Calcium 8.0 L D 7.7 L 7.5 L Hematology 02/14/24 02/15/24 19:08 05:49 WBC 11.0 H 8.1 Hgb 9.7 L 8.6 L Plt Count 243 185 Urinalysis 02/15/24 00:35 Urine Color Yellow Urine Appearance Cloudy Urine pH 6.0 Ur Specific [place] 1.010 Urine Protein 30 (1+) H Urine Glucose (UA) Negative Urine Ketones Negative Urine Blood Moderate (2+) H Urine Nitrite Positive H Ur Leukocyte Esterase Large (3+) H Urine RBC 0-2 Urine WBC >50 H Ur Squamous Epith Cells 0-2 Hyaline Casts 0-2 Assessment and Plan (1) Acute on chronic kidney failure: Qualifiers: Acute renal failure type: unspecified Chronic kidney disease stage: u nspecified stage Qualified Code(s): N17.9 - Acute kidney failure, unspecified; N18.9 - Chronic kidney disease, unspecified Status: Acute (2) Acute hyperkalemia: Status: Acute Plan 1. DANYELLE: multifact including UTI w assoc cytokine tubular injury and dehydration/alesha hypoperfusion 2. Adv CKD: BSL Scr 2.5-3.0 3. HyperK resolved with IVF 4. NAGMA: d/t adv CKDl; goal is > 20 and this will hlep Tx hyperK as well 5. Anemia: decr Hb, Fe/EPo def and with re-hydration 6. NAGMA REC: cont IVF and track renal func; protect non-dominat arm for future AVF; check Fe levels; start NaHCO3 which will help K as well Procedures Date of Service Date of Service: 02/15/24
--- NOTE | 2024-02-15 15:50 | MHC.CM.PN ---
Addendum entered by Joyce Rosales RN 02/15/24 15:53: DAUGHTER REPORTS SHE IS WORKING ON [employer]. Original Note: CM ASSESSMENT COMPLETED W/ DAUGHTER/HCP VIA TELEPHONE. IMM DELIVERED. PATIENT LIVES W/ DAUGHTER/SON IN LAW. FAMILY ASSISTS W/ ALL ADL'S. AMBULATES W/ [facility]. CHRONIC [facility] - ACTIVE W/ [facility] FOR SN AND SUPPLIES. PCP HUMBERTO GRIGSBY MD HCP ON FILE AND VERIFIED. HCP INVOKED. DP: DAUGHTER'S GOAL IS STR. WILL AWAIT PT EVAL. IF NOT ABLE TO PARTICIPATE IN PT WILL RETURN HOME W/ FAMILY VIA PRIVATE TRANSPORT. [facility] REFERRAL TO ASSESS FOR ADDITIONAL SERVICES PER DAUGHTER REQUEST. CM WILL CONTINUE TO FOLLOW.
[2024-02-15] MEDS: Tamsulosin HCL 0.4 MG CAPSULE PO (16:34)
[2024-02-16 04:00] VITALS: BP 150/70; PULSE 73; RESP 16; TEMP 37.2; O2SAT 96
[2024-02-16 07:56] VITALS: BP 151/70; PULSE 70; RESP 18; TEMP 36.9; O2SAT 97
[2024-02-16] MEDS: cefTRIAXone sodium 1 GM VIAL IVPUSH (09:16)
[2024-02-16 09:39] VITALS: BP 154/71
[2024-02-16] MEDS: Multivitamin TABLET 1 TAB PO (09:39)
[2024-02-16] MEDS: amLODIPine Besylate 5 MG TABLET PO (09:39)
[2024-02-16] MEDS: 0.9 % Sodium Chloride 1,000 ML 80 ML IVCONT (09:43)
[2024-02-16] MEDS: Finasteride 5 MG TABLET PO (09:45)
[2024-02-16] MEDS: Tamsulosin HCL 0.4 MG CAPSULE PO ×2 (09:49→16:36)
--- NOTE | 2024-02-16 12:12 | MHC.CM.PN ---
Addendum entered by Joyce Rosales RN 02/16/24 14:36: Per [facility] liaison, daughter declining all services at this time. CM followed up w/ daughter who reports all services being offered are currently being performed by family and that is preferred. Daughter agreeable to financial services referral for assistance with [facility]in. She is interested in eventual LTC, but understands that this will not happen from the hospital. Plan for PT eval when appropriate. If not appropriate for STR, will return home w/ family. Original Note: Per MD patient not medically cleared for dc, PT eval to be ordered. CM will continue to follow.
--- NOTE | 2024-02-16 15:07 | P.PNIM_ITS ---
Subjective Subjective Date of Service: 02/16/24 Interval History: Mild shortness of breath this afternoon. IV fluids DC. Chest x-ray pending Review of Systems Unable to obtain secondary to dementia Physical Exam 2 Vital Signs: Vital Signs: Last Vital Signs Temp 98.4 F 02/16/24 07:56 Pulse 70 02/16/24 07:56 Resp 18 02/16/24 07:56 BP 154/71 H 02/16/24 09:39 Pulse Ox 97 02/16/24 07:56 O2 Del Method Room Air 02/16/24 07:56 BMI result Body Mass Index 24.0 Const: Other: Awake alert no acute distress Resp: Other: Diminished with scant bibasilar crackles Cardio: Other: No S4; positive S1-S2; no S3 murmurs rubs or gallops GI: Other: Soft nontender nondistended normoactive bowel sounds Extrem: Other: No edema bilaterally Objective Data Active Medications Acetaminophen (Acetaminophen 325 Mg Tablet) 975 mg PO Q6H PRN PRN Reason: Pain, Mild (Pain Scale 1-3), fever or headache Amlodipine Besylate (Amlodipine Besylate 5 Mg Tablet) 5 mg PO DAILY [facility]; Protocol Last Admin: 02/16/24 09:39 Dose: 5 mg Documented By: BRUNO Calcium Carbonate (Calcium Carbonate 750 Mg Tab.Chew) 750 mg PO Q4H PRN PRN Reason: Heartburn Ceftriaxone Sodium (Ceftriaxone Sodium 1 Gm Vial) 1 gm IVPUSH Q24H [facility] Last Admin: 02/16/24 09:16 Dose: 1 gm Documented By: MONICA Finasteride (Finasteride 5 Mg Tablet) 5 mg PO DAILY [facility] Last Admin: 02/16/24 09:45 Dose: 5 mg Documented By: BRUNO Melatonin (Melatonin 3 Mg Tablet) 6 mg PO BEDTIME PRN PRN Reason: Insomnia Multivitamins/Vitamin C (Multivitamin Tablet) 1 tab PO DAILY [facility] Last Admin: 02/16/24 09:39 Dose: 1 tab Documented By: BRUNO Sodium Chloride (0.9 % Sodium Chloride Flush 3 Ml Syringe) 3 ml IVFLUSH QSHIFT [facility] Last Admin: 02/16/24 09:19 Dose: Not Given Documented By: MONICA Non-Admin Reason: IV Running Tamsulosin HCl (Tamsulosin Hcl 0.4 Mg Capsule) 0.4 mg PO DAILY@1730 [facility] Last Admin: 02/15/24 16:34 Dose: 0.4 mg Documented By: MONICA Tamsulosin HCl (Tamsulosin Hcl 0.4 Mg Capsule) 0.4 mg PO DAILY@0730 [facility] Last Admin: 02/16/24 09:49 Dose: 0.4 mg Documented By: CHRISTOPHER-OYGAK Labs 02/15/24 05:49 02/15/24 05:49 Microbiology Microbiology Results: Microbiology 02/15/24 01:03 Urine Culture - Preliminary Urine Catheterized - Esquivel Catheter Culture in progress. Assessment and Plan (1) Acute on chronic kidney failure: Status: Acute (2) Acute hyperkalemia: Status: Acute Plan Jamir Velasquez is a 83 y/o man admitted with acute on chronic renal failure secondary to UTI. Minimal improvement since admission 1. DANYELLE on CKD -renal input appreciated -IV fluids DC as patient mildly short of breath -await chest x-ray -follow renals/divalents 2. Hyperkalemia -resolved -follow renals/divalents 3. Catheter associated UTI -empiric ceftriaxone pending culture 4. Hypertension -acceptable control on current therapies -adjust as indicated * SCDs, avoiding pharmacological agents due to recent significant head/face trauma. Code status: Full We will need ongoing hospitalization for IV antibiotics pending results of urine culture Quality Stroke Does the patient have a stroke diagnosis?: No VTE Prior VTE?: No VTE Risk Level:: Medical - moderate - high VTE Device Contraindication: N/A - Device Ordered VTE Drug Contraindication: Treatment Not Indicated
[2024-02-16] MEDS: 0.9 % Sodium Chloride Flush 3 ML SYRINGE IVFLUSH ×2 (15:21→21:08)
[2024-02-16 15:33] VITALS: BP 140/68; PULSE 72; RESP 18; TEMP 36.2; O2SAT 96
[2024-02-16 19:41] VITALS: BP 142/68; PULSE 82; RESP 20; TEMP 36.6; O2SAT 97
[2024-02-17 03:29] VITALS: BP 175/78; PULSE 81; RESP 18; TEMP 36.2; O2SAT 96
[2024-02-17 06:45] LABS: MANUAL DIFF FLAG NO
[2024-02-17 07:05] LABS: Basophils Absolute Auto 0.1 X10*3/uL (0.0-0.2); Basophils Percent Auto 0.9 % (0-2); Eosinophils Absolute Auto 0.2 X10*3/uL (0.0-0.4); Eosinophils Percent Auto 2.5 % (0-4); Hematocrit 25.9 % (42.0-52.0); Hemoglobin 8.6 g/dl (14.0-18.0); Imm Gran Abs Auto 0.04 X10*3/uL (0.00-0.03); Imm Gran Pct Auto 0.4 % (0.0-0.4); Lymphocytes Absolute Auto 1.4 X10*3/uL (1.2-4.9); Lymphocytes Percent Auto 14.6 % (20-40); Mean Corpuscular HGB Conc 33.2 g/dl (31.0-36.0); Mean Corpuscular Hemoglobin 30.4 pg (27.0-33.0); Mean Corpuscular Volume 91.5 fL (80.0-98.0); Mean Platelet Volume 9.9 fL (9.4-12.4); Monocytes Percent Auto 10.8 % (2-11); Neutrophils Absolute Auto 6.6 x10*3/uL (2.0-8.3); Neutrophils Percent Auto 70.8 % (45-73); Platelet Count 189 X10*3/uL (160-400); Red Blood Count 2.83 X10*6/uL (4.60-5.80); Red Cell Distribution Width 13.9 % (11.0-16.0); White Blood Count 9.3 X10*3/uL (4.8-10.8)
[2024-02-17 07:23] VITALS: BP 141/77; PULSE 77; RESP 18; TEMP 36.7; O2SAT 95
[2024-02-17 07:28] LABS: Alanine Aminotransferase 13 U/L (0-40); Albumin Level 2.9 g/dL (3.5-5.0); Alkaline Phosphatase 58 U/L (39-117); Anion Gap 15 (12-20); Aspartate Amino Transferase 16 U/L (5-37); Bilirubin Total 0.3 mg/dL (0.0-1.0); Blood Urea Nitrogen 64 mg/dL (9-16); Calcium 7.8 mg/dL (8.4-10.2); Carbon Dioxide 13 mmol/L (22-29); Chloride 116 mmol/L (96-108); Creatinine Clr Calc Pharmacy 11.7; Estimated Glomerular Filt Rate 14; Glucose Fasting 83 mg/dL (60-99); Potassium 4.9 mmol/L (3.3-5.1); Sodium 139 mmol/L (135-145); Total Protein 5.8 g/dL (6.5-8.0)
[2024-02-17] MEDS: Finasteride 5 MG TABLET PO (08:10)
[2024-02-17] MEDS: Multivitamin TABLET 1 TAB PO (08:10)
[2024-02-17] MEDS: amLODIPine Besylate 5 MG TABLET PO (08:11)
[2024-02-17] MEDS: Tamsulosin HCL 0.4 MG CAPSULE PO (08:11)
[2024-02-17] MEDS: cefTRIAXone sodium 1 GM VIAL IVPUSH (08:13)
[2024-02-17] MEDS: 0.9 % Sodium Chloride Flush 3 ML SYRINGE IVFLUSH ×2 (08:17→14:37)
[2024-02-17 08:57] VITALS: BP 141/77; PULSE 77; O2SAT 95
[2024-02-17] MEDS: Sodium Bicarbonate 650 MG TABLET PO ×3 (09:56→21:26)
--- NOTE | 2024-02-17 14:01 | P.PNIM_ITS ---
Subjective Subjective Date of Service: 02/17/24 Interval History: Being followed for acute on chronic renal failure Patient offers no acute complaints denies pain, no nausea, no vomiting, no abdominal pain, no fevers, no chills, no acute events overnight, denies urinary symptoms of urgency or frequency. Review of Systems Unable to obtain detailed review of system due to dementia Physical Exam 2 Vital Signs: Vital Signs: Last Vital Signs Temp 98.1 F 02/17/24 07:23 Pulse 77 02/17/24 08:57 Resp 18 02/17/24 07:23 BP 141/77 H 02/17/24 08:57 Pulse Ox 95 02/17/24 08:57 O2 Del Method Room Air 02/17/24 07:23 BMI result Body Mass Index 24.0 Const: Other: General resting comfortably in no acute distress.? Neck? supple no JVD. CVS? regular rate rhythm, Respiratory lungs clear to auscultation, no respiratory distress, Gastrointestinal abdomen soft, non tender, bowel sounds audible, no guarding , no rigidity. Extremities no edema. Neuro non focal , speech clear. Skin no rash Objective Data Active Medications Acetaminophen (Acetaminophen 325 Mg Tablet) 975 mg PO Q6H PRN PRN Reason: Pain, Mild (Pain Scale 1-3), fever or headache Amlodipine Besylate (Amlodipine Besylate 5 Mg Tablet) 5 mg PO DAILY [facility]; Protocol Last Admin: 02/17/24 08:11 Dose: 5 mg Documented By: BLANCO Calcium Carbonate (Calcium Carbonate 750 Mg Tab.Chew) 750 mg PO Q4H PRN PRN Reason: Heartburn Ceftriaxone Sodium (Ceftriaxone Sodium 1 Gm Vial) 1 gm IVPUSH Q24H [facility] Last Admin: 02/17/24 08:13 Dose: 1 gm Documented By: BLANCO Finasteride (Finasteride 5 Mg Tablet) 5 mg PO DAILY [facility] Last Admin: 02/17/24 08:10 Dose: 5 mg Documented By: BLANCO Melatonin (Melatonin 3 Mg Tablet) 6 mg PO BEDTIME PRN PRN Reason: Insomnia Multivitamins/Vitamin C (Multivitamin Tablet) 1 tab PO DAILY [facility] Last Admin: 02/17/24 08:10 Dose: 1 tab Documented By: BLANCO Sodium Bicarbonate (Sodium Bicarbonate 650 Mg Tablet) 650 mg PO TID [facility] Last Admin: 02/17/24 09:56 Dose: 650 mg Documented By: BLANCO Sodium Chloride (0.9 % Sodium Chloride Flush 3 Ml Syringe) 3 ml IVFLUSH QSHIFT [facility] Last Admin: 02/17/24 08:17 Dose: 3 ml Documented By: BLANCO Tamsulosin HCl (Tamsulosin Hcl 0.4 Mg Capsule) 0.4 mg PO DAILY@1730 [facility] Last Admin: 02/16/24 16:36 Dose: 0.4 mg Documented By: MONICA Tamsulosin HCl (Tamsulosin Hcl 0.4 Mg Capsule) 0.4 mg PO DAILY@0730 [facility] Last Admin: 02/17/24 08:11 Dose: 0.4 mg Documented By: BLANCO Labs 02/17/24 05:31 02/17/24 05:31 Labs: Laboratory Results - last 24 hr 02/17/24 05:31 MCV 91.5 MCH 30.4 MCHC 33.2 RDW 13.9 Plt Count 189 MPV 9.9 Immature Gran % (Auto) 0.4 Neut % (Auto) 70.8 Lymph % (Auto) 14.6 L Clay % (Auto) 10.8 Eos % (Auto) 2.5 Baso % (Auto) 0.9 Lymph # (Auto) 1.4 Clay # (Auto) 1.0 Eos # (Auto) 0.2 Baso # (Auto) 0.1 Abs Immat Gran (auto) 0.04 H Absolute Neuts (auto) 6.6 Absolute Nucleated RBC 0.000 Nucleated RBC % (auto) 0.0 Anion Gap 15 Estim Creat Clear Calc 11.7 Estimated GFR 14 Fasting Glucose 83 Calcium 7.8 L Total Bilirubin 0.3 AST 16 ALT 13 Alkaline Phosphatase 58 Total Protein 5.8 L Albumin 2.9 L Microbiology Microbiology Results: Microbiology 02/15/24 01:03 Urine Culture - Preliminary Urine Catheterized - Esquivel Catheter Gram negative christiano Assessment and Plan (1) Acute on chronic kidney failure: Status: Acute (2) Urinary retention: Status: Acute (3) Metabolic acidosis: Status: Acute Plan Jamir Velasquez is a 83 y/o man admitted with acute on chronic renal failure secondary to UTI. Minimal improvement since admission 1. 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 Hyperkalemia -resolved -follow labs. 3. Catheter associated UTI -empiric IV ceftriaxone , urine culture growing Gram-negative rods 4. Hypertension -acceptable control on current therapies -adjust as indicated 5. Acute on Chronic normocytic anemia Will check iron studies, Procrit 6. Urinary retention continue Flomax and Proscar DVT prophylaxis with compression boots, avoiding pharmacological agents due to recent significant head/face trauma. Code status: Full We will need ongoing hospitalization for IV antibiotics pending results of urine culture Quality Stroke Does the patient have a stroke diagnosis?: No VTE Prior VTE?: No VTE Risk Level:: Medical - moderate - high VTE Device Contraindication: N/A - Device Ordered VTE Drug Contraindication: Treatment Not Indicated
[2024-02-17] MEDS: Acetaminophen 325 MG TABLET 975 MG PO (14:36)
[2024-02-17 15:49] VITALS: BP 131/80; PULSE 73; TEMP 36.7; O2SAT 96
[2024-02-17 19:19] VITALS: BP 153/74; PULSE 78; RESP 15; TEMP 36.3; O2SAT 97
[2024-02-17] MEDS: Melatonin 3 MG TABLET 6 MG PO (21:26)
[2024-02-18 03:13] VITALS: BP 146/71; PULSE 69; RESP 18; TEMP 36.4; O2SAT 97
[2024-02-18 07:06] VITALS: BP 163/73; PULSE 76; RESP 18; TEMP 36.8; O2SAT 98
[2024-02-18] MEDS: Tamsulosin HCL 0.4 MG CAPSULE PO (07:31)
[2024-02-18] MEDS: Finasteride 5 MG TABLET PO (07:32)
[2024-02-18] MEDS: amLODIPine Besylate 5 MG TABLET PO (07:32)
[2024-02-18] MEDS: Multivitamin TABLET 1 TAB PO (07:32)
[2024-02-18] MEDS: Sodium Bicarbonate 650 MG TABLET PO ×3 (07:32→19:53)
[2024-02-18] MEDS: 0.9 % Sodium Chloride Flush 3 ML SYRINGE IVFLUSH (07:34)
[2024-02-18 08:21] LABS: Hematocrit 26.1 % (42.0-52.0); Hemoglobin 8.7 g/dl (14.0-18.0)
[2024-02-18 08:38] LABS: Anion Gap 18 (12-20); Blood Urea Nitrogen 64 mg/dL (9-16); Carbon Dioxide 13 mmol/L (22-29); Chloride 113 mmol/L (96-108); Creatinine Clr Calc Pharmacy 10.9; Estimated Glomerular Filt Rate 13; Glucose Random 76 mg/dL (60-115); Iron 38 mcg/dL (45-160); Percent Iron Saturation 20 % (15-50); Potassium 4.7 mmol/L (3.3-5.1); Sodium 139 mmol/L (135-145); Total Iron Binding Capacity 193 mcg/dL (228-428); Unsaturated Iron Binding 155 ug/dL
[2024-02-18] MEDS: cefTRIAXone sodium 1 GM VIAL IVPUSH (09:24)
[2024-02-18] MEDS: Acetaminophen 325 MG TABLET 975 MG PO (09:24)
--- NOTE | 2024-02-18 13:33 | P.PNIM_ITS ---
Subjective Subjective Date of Service: 02/18/24 Interval History: Being followed for acute on chronic renal failure. Finished 100% breakfast, unable to obtain meaningful history but patient noted to have no acute events overnight. Review of Systems Unable to obtain due to dementia. Physical Exam 2 Vital Signs: Vital Signs: Last Vital Signs Temp 98.2 F 02/18/24 07:06 Pulse 76 02/18/24 07:06 Resp 18 02/18/24 07:06 BP 163/73 H 02/18/24 07:06 Pulse Ox 98 02/18/24 07:06 O2 Del Method Room Air 02/18/24 07:06 BMI result Body Mass Index 24.0 Const: Other: General resting comfortably in no acute distress.? Neck? supple no JVD. CVS? regular rate rhythm, Respiratory lungs clear to auscultation, no respiratory distress, Gastrointestinal abdomen soft, non tender, bowel sounds audible, no guarding , no rigidity. Extremities no edema. Neuro non focal , speech clear. Skin no rash Objective Data Active Medications Acetaminophen (Acetaminophen 325 Mg Tablet) 975 mg PO Q6H PRN PRN Reason: Pain, Mild (Pain Scale 1-3), fever or headache Last Admin: 02/18/24 09:24 Dose: 975 mg Documented By: BLANCO Amlodipine Besylate (Amlodipine Besylate 5 Mg Tablet) 5 mg PO DAILY [facility]; Protocol Last Admin: 02/18/24 07:32 Dose: 5 mg Documented By: BLANCO Calcium Carbonate (Calcium Carbonate 750 Mg Tab.Chew) 750 mg PO Q4H PRN PRN Reason: Heartburn Ceftriaxone Sodium (Ceftriaxone Sodium 1 Gm Vial) 1 gm IVPUSH Q24H [facility] Last Admin: 02/18/24 09:24 Dose: 1 gm Documented By: BLANCO Finasteride (Finasteride 5 Mg Tablet) 5 mg PO DAILY [facility] Last Admin: 02/18/24 07:32 Dose: 5 mg Documented By: BLANCO Melatonin (Melatonin 3 Mg Tablet) 6 mg PO BEDTIME PRN PRN Reason: Insomnia Last Admin: 02/17/24 21:26 Dose: 6 mg Documented By: FELICIA Multivitamins/Vitamin C (Multivitamin Tablet) 1 tab PO DAILY [facility] Last Admin: 02/18/24 07:32 Dose: 1 tab Documented By: BLANCO Sodium Bicarbonate (Sodium Bicarbonate 650 Mg Tablet) 650 mg PO TID [facility] Last Admin: 02/18/24 07:32 Dose: 650 mg Documented By: BLANCO Sodium Chloride (0.9 % Sodium Chloride Flush 3 Ml Syringe) 3 ml IVFLUSH QSHIFT [facility] Last Admin: 02/18/24 07:34 Dose: 3 ml Documented By: BLANCO Tamsulosin HCl (Tamsulosin Hcl 0.4 Mg Capsule) 0.4 mg PO DAILY@0730 [facility] Last Admin: 02/18/24 07:31 Dose: 0.4 mg Documented By: BLANCO Labs 02/18/24 05:50 02/18/24 05:50 Labs: Laboratory Results - last 24 hr 02/18/24 05:50 Anion Gap 18 Estim Creat Clear Calc 10.9 Estimated GFR 13 Random Glucose 76 Calcium 8.0 L Iron 38 L TIBC 193 L % Saturation 20 Unsat Iron Binding 155 Microbiology Microbiology Results: Microbiology 02/15/24 01:03 Urine Culture - Preliminary Urine Catheterized - Esquivel Catheter Proteus hauseri Assessment and Plan (1) Hypertension: Status: Acute (2) Acute on chronic kidney failure: Status: Acute Plan Jamir Velasquez is a 83 y/o man admitted with acute on chronic renal failure secondary to UTI. Minimal improvement since admission 1. DANYELLE on CKD stage 4 with non-anion gap metabolic acidosis -renal input appreciated, creatinine fluctuating bumped up to 4.51 today was 4.23 yesterday,cont. 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 Hyperkalemia -resolved -follow labs. 3. Catheter associated UTI -on IV ceftriaxone , urine culture grew Proteus hauseri sensitive to ceftriaxone 4. Hypertension -continue amlodipine few high blood pressure readings will follow 5. Acute on Chronic normocytic anemia Hematocrit stable 26.1 ,iron studies, showed low iron 38, TIBC 193, iron saturation 20, will discuss Procrit with Nephrology 6. Urinary retention continue Flomax and Proscar DVT prophylaxis with compression boots, avoiding pharmacological agents due to recent significant head/face trauma. Code status: Full We will need ongoing hospitalization for close monitoring of renal function, and IV antibiotics Quality Stroke Does the patient have a stroke diagnosis?: No VTE Prior VTE?: No VTE Risk Level:: Medical - moderate - high VTE Device Contraindication: N/A - Device Ordered VTE Drug Contraindication: Treatment Not Indicated
[2024-02-18] MEDS: 0.9 % Sodium Chloride 1,000 ML 80 ML IVCONT (13:56)
[2024-02-18 15:27] VITALS: BP 154/72; PULSE 77; RESP 20; TEMP 36.4; O2SAT 98
[2024-02-18 20:00] VITALS: BP 144/79; PULSE 87; RESP 18; TEMP 36.4; O2SAT 94
[2024-02-19] MEDS: 0.9 % Sodium Chloride 1,000 ML 80 ML IVCONT (01:19)
[2024-02-19 04:00] VITALS: BP 140/61; PULSE 69; RESP 16; TEMP 36.2; O2SAT 95
[2024-02-19 06:13] LABS: Anion Gap 14 (12-20); Blood Urea Nitrogen 62 mg/dL (9-16); Calcium 7.5 mg/dL (8.4-10.2); Carbon Dioxide 15 mmol/L (22-29); Chloride 114 mmol/L (96-108); Creatinine Clr Calc Pharmacy 10.5; Estimated Glomerular Filt Rate 12; Glucose Random 79 mg/dL (60-115); Sodium 138 mmol/L (135-145)
[2024-02-19 07:07] VITALS: BP 127/80; PULSE 78; RESP 18; TEMP 36.9; O2SAT 97
--- NOTE | 2024-02-19 07:28 | P.PNNP_ITS ---
Subjective Subjective Date of Service: 02/19/24 Interval history: Being followed for acute on chronic renal failure. Physical Exam 2 Vital Signs: Vital Signs: Last Vital Signs Temp 98.5 F 02/19/24 07:07 Pulse 78 02/19/24 07:07 Resp 18 02/19/24 07:07 BP 127/80 02/19/24 07:07 Pulse Ox 97 02/19/24 07:07 O2 Del Method Room Air 02/19/24 07:07 BMI result Body Mass Index 24.0 cvs: s1s2 RS; cta ABdl soft core drier : AO x 1-2 Objective Data Labs 02/18/24 05:50 02/19/24 05:25 Labs: Laboratory Results - last 24 hr 02/18/24 02/19/24 05:50 05:25 Hgb 8.7 L Hct 26.1 L Hold Purple Top SEE NOTE Sodium 139 138 Potassium 4.7 5.0 Chloride 113 H 114 H Carbon Dioxide 13 L 15 L Anion Gap 18 14 BUN 64 H 62 H Creatinine 4.51 H* 4.71 H* Estim Creat Clear Calc 10.9 10.5 Estimated GFR 13 12 Random Glucose 76 79 Calcium 8.0 L 7.5 L D Iron 38 L TIBC 193 L % Saturation 20 Unsat Iron Binding 155 Microbiology Microbiology Results: Microbiology 02/15/24 01:03 Urine Catheterized - Esquivel Catheter Urine Culture - Preliminary Proteus hauseri Procedures Date of Service Date of Service: 02/19/24 Assessment & Plan Assessment and plan (1) Acute hyperkalemia: Status: Acute (2) Acute on chronic kidney failure: Status: Acute Plan Plan 1. DANYELLE: multifact including UTI w assoc cytokine tubular injury and dehydration/renal hypoperfusion 2. Adv CKD: BSL Scr 2.5-3.0 3. HyperK resolved with IVF 4. NAGMA: d/t adv CKDl; goal is > 20 and this will hlep Tx hyperK as well 5. Anemia: decr Hb, Fe/EPo deficiency 6. NAGMA REC: IVF- bicarb gtt @ 75ml / hr for 1 liter monitor track renal function protect non-dominat arm for future AVF; po NaHCO3 650mg tid . iv iron once abx completed - discussed with hospitalist Time Spent With Patient Time: Total time managing care of this patient today ____ minutes. Progress Note: Quality Stroke Does the patient have a stroke diagnosis?: No
[2024-02-19] MEDS: Finasteride 5 MG TABLET PO (08:02)
[2024-02-19] MEDS: Tamsulosin HCL 0.4 MG CAPSULE PO (08:02)
[2024-02-19] MEDS: Multivitamin TABLET 1 TAB PO (08:02)
[2024-02-19] MEDS: amLODIPine Besylate 5 MG TABLET PO (08:02)
[2024-02-19] MEDS: 0.9 % Sodium Chloride Flush 3 ML SYRINGE IVFLUSH ×2 (08:03→14:58)
[2024-02-19] MEDS: Sodium Bicarbonate 650 MG TABLET PO ×2 (08:03→14:58)
[2024-02-19] MEDS: cefTRIAXone sodium 1 GM VIAL IVPUSH (08:03)
--- NOTE | 2024-02-19 10:21 | MHC.CM.PN ---
Per MD rounds patient not medically cleared for dc. PT recommended STR. CM reviewed w/ daughter Kimberly, who has accepted a bed at [facility]. [place] will go for auth. CM will continue to follow.
[2024-02-19 11:15] VITALS: BP 127/80; PULSE 78; O2SAT 97
--- NOTE | 2024-02-19 12:02 | HO.WOUND ---
Wound Consult: Initial 83yr old? male admitted to [facility] on - See progress notes and H&P for detailed history.? Wound consult placed for Right Forearm Skin tear.? Chart review and discussion with direct care nurse - no concerns noted - reported straightforward skin tear no concern for infection or bleeding. Verbal care provided and reported already in place will place topical wound care orders for staff to carry out. Recommendations: 1. Right Forearm skin tear - Cleanse with normal saline, pat dry. ?Apply Xeroform secure with Abd pads, gauze wrap and tape. Change Daily. ?Do not apply tape to patient?s skin.? Avoid Adhesive application to skin - when necessary, apply skin prep prior.? Re-consult wound care Nurse for wound deterioration or wound changes.
[2024-02-19 14:57] VITALS: BP 131/63; PULSE 82; RESP 18; TEMP 36.7; O2SAT 97
--- NOTE | 2024-02-19 16:44 | HO.PM.IMPN ---
Subjective Subjective Date of Service: 02/19/24 Interval History: Patient unable to offer any acute complaints, no events noted overnight, Esquivel with clear urine, patient denies pain, tolerating diet. Review of Systems Unable to obtain review of system due to dementia. Physical Exam Vital Signs: Vital Signs: Last Vital Signs Temp 98.1 F 02/19/24 14:57 Pulse 82 02/19/24 14:57 Resp 18 02/19/24 14:57 BP 131/63 02/19/24 14:57 Pulse Ox 97 02/19/24 14:57 O2 Del Method Room Air 02/19/24 14:57 BMI result Body Mass Index 24.0 Const: Other: General resting comfortably in no acute distress.? Neck? supple no JVD. CVS? regular rate rhythm, Respiratory lungs clear to auscultation, no respiratory distress, Gastrointestinal abdomen soft, non tender, bowel sounds audible, no guarding , no rigidity. Extremities no edema. Neuro non focal , speech clear. Skin no rash Objective Data Active Medications Acetaminophen (Acetaminophen 325 Mg Tablet) 975 mg PO Q6H PRN PRN Reason: Pain, Mild (Pain Scale 1-3), fever or headache Last Admin: 02/18/24 09:24 Dose: 975 mg Documented By: BLANCO Amlodipine Besylate (Amlodipine Besylate 5 Mg Tablet) 5 mg PO DAILY [facility]; Protocol Last Admin: 02/19/24 08:02 Dose: 5 mg Documented By: BERNABE Calcium Carbonate (Calcium Carbonate 750 Mg Tab.Chew) 750 mg PO Q4H PRN PRN Reason: Heartburn Ceftriaxone Sodium (Ceftriaxone Sodium 1 Gm Vial) 1 gm IVPUSH Q24H [facility] Last Admin: 02/19/24 08:03 Dose: 1 gm Documented By: BERNABE Finasteride (Finasteride 5 Mg Tablet) 5 mg PO DAILY [facility] Last Admin: 02/19/24 08:02 Dose: 5 mg Documented By: BERNABE Melatonin (Melatonin 3 Mg Tablet) 6 mg PO BEDTIME PRN PRN Reason: Insomnia Last Admin: 02/17/24 21:26 Dose: 6 mg Documented By: FELICIA Multivitamins/Vitamin C (Multivitamin Tablet) 1 tab PO DAILY [facility] Last Admin: 02/19/24 08:02 Dose: 1 tab Documented By: BERNABE Sodium Bicarbonate (Sodium Bicarbonate 650 Mg Tablet) 650 mg PO TID [facility] Last Admin: 02/19/24 14:58 Dose: 650 mg Documented By: EVA Sodium Chloride (0.9 % Sodium Chloride Flush 3 Ml Syringe) 3 ml IVFLUSH QSHIFT [facility] Last Admin: 02/19/24 14:58 Dose: 3 ml Documented By: EVA Tamsulosin HCl (Tamsulosin Hcl 0.4 Mg Capsule) 0.4 mg PO DAILY@0730 [facility] Last Admin: 02/19/24 08:02 Dose: 0.4 mg Documented By: BERNABE Labs 02/18/24 05:50 02/19/24 05:25 Labs: Laboratory Results - last 24 hr 02/19/24 05:25 Hold Purple Top SEE NOTE Anion Gap 14 Estim Creat Clear Calc 10.5 Estimated GFR 12 Random Glucose 79 Calcium 7.5 L D Microbiology Microbiology Results: Microbiology 02/15/24 01:03 Urine Culture - Preliminary Urine Catheterized - Esquivel Catheter Proteus hauseri Gram negative christiano Assessment and Plan (1) Hypertension: Status: Acute (2) Acute on chronic kidney failure: Status: Acute (3) Acute hyperkalemia: Status: Acute Plan Jamir Velasquez is a 83 y/o man admitted with acute on chronic renal failure secondary to UTI. Minimal improvement since admission 1. 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 -no indication for hemodialysis 2. Hyperkalemia -resolved -follow labs. 3. Catheter associated UTI -on IV ceftriaxone day 5, urine culture grew Proteus hauseri sensitive to ceftriaxone 4. Hypertension -continue amlodipine good blood pressure control 5. Acute on Chronic normocytic anemia Hematocrit stable 26.1 ,iron studies, showed low iron 38, TIBC 193, iron saturation 20, will discuss Procrit with Nephrology 6. Urinary retention continue Flomax and Proscar DVT prophylaxis with compression boots, avoiding pharmacological agents due to recent significant head/face trauma. Code status: Full We will need ongoing hospitalization for close monitoring of renal function, and IV antibiotics Quality Stroke Does the patient have a stroke diagnosis?: No VTE Prior VTE?: No VTE Risk Level:: Medical - moderate - high VTE Device Contraindication: N/A - Device Ordered VTE Drug Contraindication: Treatment Not Indicated
[2024-02-19] MEDS: Sodium Bicarbonate 8.4% 150 MEQ in Dextrose 5 % 850 ML 75 MEQ IV (18:15)
[2024-02-19 19:35] VITALS: BP 141/67; PULSE 85; RESP 18; TEMP 36.6; O2SAT 96
[2024-02-20 03:46] VITALS: BP 149/79; PULSE 89; RESP 18; TEMP 37.1; O2SAT 94
[2024-02-20 07:01] LABS: Anion Gap 14 (12-20); Blood Urea Nitrogen 65 mg/dL (9-16); Calcium 7.6 mg/dL (8.4-10.2); Carbon Dioxide 19 mmol/L (22-29); Chloride 109 mmol/L (96-108); Creatinine Clr Calc Pharmacy 10.5; Estimated Glomerular Filt Rate 12; Glucose Random 88 mg/dL (60-115); Sodium 137 mmol/L (135-145)
[2024-02-20 07:26] VITALS: BP 139/66; PULSE 77; RESP 18; TEMP 37; O2SAT 94
--- NOTE | 2024-02-20 07:37 | P.PNNP_ITS ---
Subjective Subjective Date of Service: 02/20/24 Interval history: Being followed for acute on chronic renal failure. Physical Exam 2 Vital Signs: Vital Signs: Last Vital Signs Temp 98.6 F 02/20/24 07:26 Pulse 77 02/20/24 07:26 Resp 18 02/20/24 07:26 BP 139/66 02/20/24 07:26 Pulse Ox 94 02/20/24 07:26 O2 Del Method Room Air 02/20/24 07:26 BMI result Body Mass Index 24.0 cvs: s1s2 RS; cTA Abd; soft Objective Data Labs 02/18/24 05:50 02/20/24 06:07 Labs: Laboratory Results - last 24 hr 02/20/24 06:07 Hold Purple Top SEE NOTE Sodium 137 Potassium 5.0 Chloride 109 H Carbon Dioxide 19 L Anion Gap 14 BUN 65 H Creatinine 4.69 H* Estim Creat Clear Calc 10.5 Estimated GFR 12 Random Glucose 88 Calcium 7.6 L Microbiology Microbiology Results: Microbiology 02/15/24 01:03 Urine Catheterized - Esquivel Catheter Urine Culture - Preliminary Proteus hauseri Gram negative christiano Procedures Date of Service Date of Service: 02/20/24 Assessment & Plan Assessment and plan (1) Acute on chronic kidney failure: Status: Acute Plan 1. DANYELLE: multifact including UTI w assoc cytokine tubular injury and dehydration/renal hypoperfusion cr appears to have peaked at ~ 4.7 uop 900ml last 24 hr 2. Adv CKD: BSL Scr 2.5-3.0 3. HyperK resolved with IVF 4. NAGMA: d/t adv CKDl; goal is > 20 and this will hlep Tx hyperK as well 5. Anemia: decr Hb, Fe/EPo deficiency 6. NAGMA REC: expect slow recovery no indication for HD presently monitor track renal function protect non-dominat arm for future AVF; po NaHCO3 650mg tid . iv iron once abx completed Time Spent With Patient Time: Total time managing care of this patient today ____ minutes. Progress Note: Quality Stroke Does the patient have a stroke diagnosis?: No
[2024-02-20] MEDS: Sodium Bicarbonate 8.4% 150 MEQ in Dextrose 5 % 850 ML 75 MEQ IV (08:03)
[2024-02-20] MEDS: Tamsulosin HCL 0.4 MG CAPSULE PO (08:36)
[2024-02-20] MEDS: Multivitamin TABLET 1 TAB PO (08:36)
[2024-02-20] MEDS: amLODIPine Besylate 5 MG TABLET PO (08:36)
[2024-02-20] MEDS: Finasteride 5 MG TABLET PO (08:36)
[2024-02-20] MEDS: cefTRIAXone sodium 1 GM VIAL IVPUSH (08:37)
--- NOTE | 2024-02-20 09:35 | MHC.CM.PN ---
Per MD patient medically cleared for dc to [facility]. S transport scheduled for 1pm to [facility]. CM spoke w/ daughter/HCP Kimberly, who is agreeable to dc plan. IMM delivered. RN/MD aware.
--- NOTE | 2024-02-20 11:32 | PM.DS ---
DS: Providers Provider Date of Service: 02/20/24 Date of admission: 02/15/24 01:08 Date of discharge: 02/20/24 Primary care physician: Debra Kirk MD Consults: 02/15/24 10:50 Consult to Nephrology Routine Consulting Provider: Saad Scott Reason for consultation: ESRD Has provider been notified: Yes 02/17/24 17:55 Consult to Wound Care Routine Reason for consultation: skin tear right forearm DS: Diagnosis Discharge Diagnosis (1) Acute on chronic kidney failure: Status: Acute DS: Summary Hospital Course Hospital Course: Date of Service: 02/15/24 Attending physician on admission: Chayo Thompson Chief Complaint: fall Jamir Velasquez is a delightful 83 years old man with past medical history significant for BPH with chronic indwelling urinary catheter on Proscar and Flomax and essential hypertension was brought to the emergency department after he sustained a fall today. The fall was unwitnessed. Daughter in-law her a thump and found him facing down. He hit his face and was found to be conscious at all times. Family feels patient has dementia but never been diagnosed. The patient does not take any blood thinner. According to family the patient has been drinking and eating well. They have not observed any event of vomiting or diarrhea. The patient does not take any water pills and has not been taking any new medications. His indwelling urinary catheter was recently replaced after he pulled it out. In the ED, he was found to have normal vital signs. Blood workup was remarkable for leukocytosis of 11.0, hemoglobin is 9.7 (it was 11.5 on June 2023) and platelets are normal. Potassium is 5.7 and CO2 is 15. Venous pH is 7.50. BUN 64 and creatinine 4.73 (before 66 and 2.81, respectively). LFTs are normal. Albumin is 3.4. Urinalysis consistent with urinary tract infection. Head, face and cervical spine CT scan showed no acute findings except for straightening of cervical spine. ECG showed normal sinus rhythm with a heart rate of 72 beats per minute, right bundle branch block and no ischemic changes. ED tx: Lokelma 10 g PO, NS @ 125 ml/hr. Hospital course: Jamir Velasquez is a 83 y/o man admitted with acute on chronic renal failure and UTI with a background of chronic indwelling Mcdermott catheter 1. In regard to DANYELLE on CKD stage 4 with non-anion gap metabolic acidosis, patient was admitted to medical floor, chest x-ray showed findings consistent with interstitial restrictive lung disease, no pneumonia patient was followed closely by Nephrology initially treated with IV fluids with no improvement in symptoms, subsequent to treated with IV soda bicarb drip, kidney function remains unchanged, patient remained hemodynamically stable with no uremic symptoms, since clinically patient is stable he is being discharged home on soda bicarb t.i.d. and low potassium diet due to hyperkalemia, recommend to protect non dominant arm for future AVF, recommend to follow BMP in 1 week and outpatient follow-up with Nephrology in 2 weeks' time. 2. Catheter associated UTI initially treated with IV ceftriaxone since urine culture grew Proteus hauseri sensitive to ceftriaxone, final sensitivities also grew Pseudomonas therefore patient is being discharged on Cipro 500 mg 1 tablet daily renally dose for 10 more days 4. Hypertension -continue amlodipine good blood pressure control 5. Acute on Chronic normocytic anemia Hematocrit stable 26.1 ,iron studies, showed low iron 38, TIBC 193, iron saturation 20, outpatient follow-up with Nephrology for IV iron infusion and Procrit. 6. Urinary retention continue Flomax and Proscar. Time Attestation Discharge Coordination Time (in mins): 40 Quality: Safe Use of Opioids Does Pt have an Active Cancer Diagnosis on the Problem List?: No Quality: Stroke Does the patient have a stroke diagnosis?: No Physical Exam Vital Signs: Vital Signs: Last Vital Signs Temp 98.6 F 02/20/24 07:26 Pulse 77 02/20/24 07:26 Resp 18 02/20/24 07:26 BP 139/66 02/20/24 07:26 Pulse Ox 94 02/20/24 07:26 O2 Del Method Room Air 02/20/24 07:26 BMI result Body Mass Index 24.0 Const: Other: General awake alert, in no acute distress.? Neck? supple no JVD. CVS? regular rate rhythm, Respiratory lungs clear to auscultation, no respiratory distress, Gastrointestinal abdomen soft, non tender, bowel sounds audible, no guarding , no rigidity. Extremities no edema. Neuro non focal , speech clear. Skin no rash Mcdermott with clear urine Poor insight DS: Data Data Completed and Pending Labs on day of discharge: Laboratory Results - last 24 hr 02/20/24 06:07 Hold Purple Top SEE NOTE Sodium 137 Potassium 5.0 Chloride 109 H Carbon Dioxide 19 L Anion Gap 14 BUN 65 H Creatinine 4.69 H* Estim Creat Clear Calc 10.5 Estimated GFR 12 Random Glucose 88 Calcium 7.6 L Discharge Plan Discharge Anticipated Discharge Date/Time: 02/20/24 10:44 Patient Disposition: Xfer SNF Discharge Diagnosis: DANYELLE on chronic kidney disease stage 4 Non anion gap metabolic acidosis Hyperkalemia Catheter associated UTI Referrals: [facility] [Outside] - 1 Day (short term rehab) Physician,Unknown J [Physician] - 1 Week Discharge Medications: New sodium bicarbonate 650 mg Tablet 650 mg PO TID Qty: 90 0RF ciprofloxacin HCl [Cipro] 500 mg tablet 500 mg PO DAILY Qty: 10 0RF Continued amlodipine 5 mg Tablet 5 mg PO DAILY Qty: 30 0RF Protocol: Hold for SBP< HOLD for SBP < : 90 finasteride 5 mg Tablet 5 mg PO DAILY Qty: 30 0RF tamsulosin 0.4 mg capsule 0.4 mg PO DAILY@0730 multivitamin Tablet 1 tab PO DAILY Discharge Orders: Discharge Order (Routine); Ordered 02/20/24 Ordered By: Sophia Campos Diet: Low potassium diet Activity on Discharge: As tolerated Stand Alone Forms: Patient Portal Discharge page Print Language: Croatian Other Ambulatory Orders: Basic Metabolic Panel (Routine) Timeframe: 1 Week Facility: [facility] - Location: Laboratory Ordered By: Sophia Campos Care Plan Goals: UTI due to indwelling Mcdermott catheter, take Cipro 500 mg 1 tablet daily renally dose for 10 more days Acute on chronic kidney disease take soda bicarb 3 times a day, follow low potassium diet/CHECK BMP IN 1 WEEK Avoid nephrotoxins Take soda bicarb 1 tablet 3 times a day Health Concerns: CHRONIC INDWELLING MCDERMOTT CATHETER CHANGE Q 30 DAYS CONTINUE HOME MEDICATIONS BEFORE Plan of Treatment: OUTPATIENT FOLLOW-UP WITH DR. SCOTT IN 2 WEEKS OUTPATIENT FOLLOW-UP WITH PRIMARY CARE PHYSICIAN Assessment: ABOVE
[2024-02-20] MEDS: cefuroxime axetiL 250 MG TABLET PO (11:46)
== END 2024-02-20 13:22 | disposition skilled nursing facility (03) | DRG 699 ==
LOC: HO.ED 23:22 → HO.EDOVER 02-15 01:27 → HO.S3 02-15 07:29
PROVIDERS: Hospitalist; Physician Assistant; Admitting Provider Internal Medicine; Emergency Provider Emergency Medicine; PCP Family Medicine; Visit Provider Hospitalist
DX: T83.511A Infection and inflammatory reaction due to indwelling urethral catheter, initial encounter (principal); E87.20 Acidosis, unspecified; N17.9 Acute kidney failure, unspecified; N18.4 Chronic kidney disease, stage 4 (severe); N40.1 Benign prostatic hyperplasia with lower urinary tract symptoms; R33.8 Other retention of urine; N39.0 Urinary tract infection, site not specified; B96.4 Proteus (mirabilis) (morganii) as the cause of diseases classified elsewhere; B96.5 Pseudomonas (aeruginosa) (mallei) (pseudomallei) as the cause of diseases classified elsewhere; I12.9 Hypertensive chronic kidney disease with stage 1 through stage 4 chronic kidney disease, or unspecified chronic kidney disease; D63.1 Anemia in chronic kidney disease; F03.90 Unspecified dementia, unspecified severity, without behavioral disturbance, psychotic disturbance, mood disturbance, and anxiety; E86.0 Dehydration; E87.5 Hyperkalemia; Y73.8 Miscellaneous gastroenterology and urology devices associated with adverse incidents, not elsewhere classified; W19.XXXA Unspecified fall, initial encounter; Z79.899 Other long term (current) drug therapy
CPT/HCPCS: 36415; 70450; 70486; 71045; 72125; 80048; 80053; 81001; 82803; 83540; 83735; 84484; 85014; 85018; 85025; 85610; 85730; 87086; 87088; 87186; 93005; 97161; 97530; 99285; J0696

== ENCOUNTER → 2024-02-14 18:19 | Outpatient (BNV) | payer MEDICARE, SELFPAY | PROVIDERS: Admitting Provider Internal Medicine; Emergency Provider Emergency Medicine; Visit Provider Internal Medicine | DX: I45.10 Unspecified right bundle-branch block (principal); R94.31 Abnormal electrocardiogram [ECG] [EKG] | CPT/HCPCS: 93010 ==

== ENCOUNTER 2024-02-15 01:08 | Outpatient (BNV) | payer MEDICARE, SELFPAY | END 2024-02-16 14:11 | PROVIDERS: Admitting Provider Internal Medicine; Emergency Provider Emergency Medicine; Visit Provider Radiology Diagnostic Radiology | DX: R09.89 Other specified symptoms and signs involving the circulatory and respiratory systems (principal) | CPT/HCPCS: 71045 ==

== ENCOUNTER → 2024-02-15 01:08 | Outpatient (BNV) | payer MEDICARE, SELFPAY | PROVIDERS: Admitting Provider Internal Medicine; Emergency Provider Emergency Medicine; Visit Provider Internal Medicine | DX: I12.9 Hypertensive chronic kidney disease with stage 1 through stage 4 chronic kidney disease, or unspecified chronic kidney disease (principal); N17.9 Acute kidney failure, unspecified; N18.4 Chronic kidney disease, stage 4 (severe); E87.5 Hyperkalemia | CPT/HCPCS: 99223; 99232; 99239; 99499 ==

== ENCOUNTER → 2024-03-25 09:16 | Outpatient (BNVA) | payer MEDICARE, SELFPAY | PROVIDERS: PCP Family Medicine; Visit Provider Urology | DX: N32.0 Bladder-neck obstruction (principal); N40.1 Benign prostatic hyperplasia with lower urinary tract symptoms; R33.9 Retention of urine, unspecified | CPT/HCPCS: 51702 ==

== ENCOUNTER 2024-04-04 13:58 | Outpatient (AMB) | payer MEDICARE, SELFPAY ==
--- NOTE | 2024-04-03 18:59 | MHC.OFFVIS ---
Intake Visit Reasons: 6 Month Catheter care(VNA Services) Intake Note: Patient is present for 6 month follow Catheter care. Urology Med: Tamsolusin, Finasteride Antibiotic Allergy: None Blood Thinner: None Patient Symptoms: None Tumbler Plater Required: No Allergies No Known Allergies Allergy (Verified 04/04/24 14:12) Medication List - Last Reconciled 04/04/24 by Joselin Abbasi MD amlodipine 5 mg See Protocol PO DAILY ascorbic acid (vitamin C) ER 500 mg PO DAILY ciprofloxacin HCl (Cipro) 500 mg PO DAILY cranberry extract 425 mg PO BID finasteride 5 mg PO DAILY multivitamin 1 tab PO DAILY sodium bicarbonate 650 mg PO TID tamsulosin 0.4 mg PO DAILY@0730 30 days HPI Comments Details: 04/04/24--Here for 6 month FU. Flower is an 83-year-old male who is followed by Urology due to BPH and urinary retention and chronic Galindo. SP tube was discussed with the family they declined. The patient has unspecified dementia. VNA has been set up to assist with catheter changes at home every 3-4 weeks. He is prescribed Proscar and Flomax. He is here with his daughter who states he was hospitalized after a fall and treated for UTI. He went to short-term rehab. She states the VNA Services need to be restarted the catheter changes. Flower is followed by Nephrology due to chronic kidney disease. We will continue tamsulosin and Proscar. Discussed supplements cranberry and vitamin-C daily. UTI 02/15/24 in IR-- pseudomonas and proteus. Review of chart: 09/07/23--Flower is an 82-year-old male who is followed by Urology due to BPH and urinary retention and chronic Galindo. SP tube was discussed with the family they declined. The patient has unspecified dementia. VNA has been set up to assist with catheter changes at home every 3-4 weeks. He is prescribed Proscar and Flomax. His daughter is here today and states that things have been stable no blood in the urine or UTI symptoms. She states that the VNA is setting up a day program which may include some physician provider changes. 05/17/23-- Telehealth - daughter wants to hold on SP placement. We will continue Galindo catheter to drainage via needed change every 3-4 weeks. Continue Proscar. 03/06/2023--Jamir is an 82-year-old male who presents today with his daughter to the office for a follow up. history of hypertension and unspecified dementia. Currently with chronic Galindo in place since May. The patient was noted to have elevation in creatinine and was seen by Nephrology as an outpatient. He is currently prescribed proscar and flomax, VNA has been changing the galindo at home. Patient has had failed several voiding trials.? In review of chart CT imaging 05/24/2022 noted bilateral hydronephrosis hydro ureter with distended bladder. Follow-up imaging with renal ultrasound 11/24/22--hydronephrosis resolved, galindo in bladder I have discussed treatment options to include SP tube placement and TURP. He will need medicine clearance. He complains of dysuria. Recent urine c/s - >100,000 mixed bacteria. Macrobid sent to pharm today. Jamir was an inpatient for urinary retention in 05/2022. history of hypertension and unspecified dementia presented to the ED in May, 2022 at the recommendation of PCP for evaluation of DANYELLE.? Findings during hospitalization--Urine c/s gram negative rods.? Creatinine >4.0; Ct abd/pelvis showing bladder outlet obstruction. galindo catheter has been inserted, 1400 mL return, blood tinged. He was started on proscar and flomax 06/17/22--Office cysto - bilobar enlargement - erythematous changes c/w catheter use, no suspicious bladder lesions He has a Galindo catheter. [facility] Medical History Hypertension Social History Household Members: Other Household Members Other:: sister Housing: House Do you presently have visiting nurse or other home services: No Alcohol intake: never Patient Tobacco Use Status: Never used Tobacco Advance Directives Date on File: 05/24/22 service: No Current occupational status: retired Review of Systems Const All systems reviewed & are unremarkable except as noted in HPI and below Reports no additional complaints Eyes Reports no additional complaints ENT Reports no additional complaints Card Reports no additional complaints Resp Reports no additional complaints GI Reports no additional complaints Reports as per HPI Musc Reports no additional complaints Skin/Breast Reports system reviewed and no additional complaints, except as documented Neuro Reports no additional complaints Psych Reports no additional complaints Endo Reports no additional complaints Simone/Lymph Reports no additional complaints Aller/Immun Reports no additional complaints Results Reviewed Results Reviewed: Collected: 02/15/24 Status: COMP Req#: [id number] Received: 02/15/24 Source: Urine Cath Sp Desc: Galindo Cath Subm Dr: Ramon Simons MD Ordered: Urine Culture Procedure Result Verified Urine Culture Final 02/20/24 Organism 1 Proteus hauseri Quant > 100,000 cfu/mL Organism 2 Pseudomonas aeruginosa Quant > 100,000 cfu/mL P. hauseri P aerugino M.I.C. RX M.I.C. RX --------- --- --------- --- Ampicillin >=32 R Cefazolin >=32 R Cefepime <=0.12 S 2 S Ceftriaxone <=0.25 S Ciprofloxacin <=0.06 S 0.12 S Gentamicin <=1 S 2 S Meropenem 0.5 S Nitrofurantoin 128 R Trimethoprim/Sulfamethoxazole <=20 S Piperacillin/Tazobactam 8 S Date of Service: 11/17/22 EXAMINATION: US RETROPERITONEAL LIMITED (RENAL ONLY) CLINICAL INFORMATION: Bladder neck obstruction. COMPARISON: No prior renal ultrasound. CT abdomen and pelvis 05/24/2022. TECHNIQUE: Real-time imaging of the kidneys. FINDINGS: RIGHT KIDNEY: 8.7 x 5.1 x 4.7 cm (SAG x AP x TRV). The kidney appears unremarkable in size, contour, and echogenicity. Renal cortical thickness is normal. No calculi or focal parenchymal lesion identified. No hydronephrosis appreciated. LEFT KIDNEY: 9.8 x 4.8 x 4.9 cm (SAG x AP x TRV). The kidney appears unremarkable in size, contour, and echogenicity. Renal cortical thickness is normal. No focal parenchymal lesion identified. Question borderline mild left hydronephrosis. IMPRESSION: Question borderline mild left hydronephrosis. Date of Service: 05/24/22 EXAMINATION: CT ABDOMEN AND PELVIS WITHOUT CONTRAST CLINICAL INFORMATION: Acute renal failure COMPARISON: None TECHNIQUE: Multidetector volumetric imaging was performed from the superior aspect of the liver through the pubic symphysis. Sagittal and coronal reformatted images were obtained on the technologist's workstation. This CT examination was performed using dose optimization techniques as appropriate, variously including the following: *Automated exposure control *Adjustment of mA and/or kV according to patient size (this includes techniques or standardized protocols for targeted exams where dose is matched to indication/reason for exam; i.e. extremities or head) *Use of iterative reconstruction technique DLP: 506 mGy-cm FINDINGS: LUNG BASES: Fibrotic changes are seen at the lung bases. No suspicious lung masses or pleural effusions are seen. Coronary artery calcifications are present. LIVER, GALLBLADDER, AND BILIARY TREE: The liver is normal in size, shape, and attenuation. No focal hepatic lesion or biliary ductal dilatation is present. The gallbladder is unremarkable with no evidence of radiopaque gallstones, gallbladder wall thickening, or obvious pericholecystic inflammatory changes. PANCREAS: Unremarkable. SPLEEN: Unremarkable. ADRENAL GLANDS: Unremarkable. KIDNEYS, URETERS, BLADDER AND PROSTATE: There is bilateral hydronephrosis with dilatation of the ureters seen down to the level of the bladder. No obstructing stones are seen. No renal masses and no nephrolithiasis. Lateral demonstrates a mildly symmetric thickened wall. The prostate is enlarged measuring 5.6 x 4.8 x 4.9 cm for a volume of about 70 mL. The urethra at the level of the prostate is dilated. This could be secondary to a TURP defect although I am told that there is no history of this. Please correlate with the surgical history. A single calcification is present in the prostate. No calcifications are seen in the bladder or urethra. GASTROINTESTINAL TRACT: The small and large bowel are unremarkable. The appendix is unremarkable. ABDOMINAL WALL: No significant hernia is appreciated. LYMPH NODES: Normal. VASCULAR: Calcifications are present in the aorta without aneurysm. PELVIC VISCERA: An abnormal pelvic mass or free pelvic fluid is not seen. 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 IMPRESSION: 1. There is bilateral hydronephrosis with dilatation of the ureters down to the level of the bladder. No obstructing stones are seen. The prostate is enlarged and the urethra at the level of the prostate is dilated. Findings most consistent with bladder outlet obstruction and urgency placement of a Galindo catheter is recommended given the acute renal failure. 2. 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 Assessment & Plan Assessment & Plan (1) BPH loc w urin obs/LUTS: Code(s): N40.1 - Benign prostatic hyperplasia with lower urinary tract symptoms Category: Medical (2) Urinary retention: Code(s): R33.9 - Retention of urine, unspecified Category: Medical (3) Chronic kidney disease: Code(s): N18.9 - Chronic kidney disease, unspecified Category: Medical Plan She states the VNA Services need to be restarted the catheter changes. Flower is followed by Nephrology due to chronic kidney disease. We will continue tamsulosin and Proscar. Discussed supplements cranberry and vitamin-C daily. Medications: New ascorbic acid (vitamin C) ER 500 mg PO DAILY 90 caps 3RF cranberry extract administer with meals 425 mg PO BID 60 caps 5RF Patient Instructions: The patient had an opportunity to ask questions regarding treatment plan. The patient expressed understanding and agreement with the above treatment plan. The patient is aware they should contact our office by phone for worsening of their current condition or the appearance of new symptoms. Compliance is encouraged with any medications and followup testing that is ordered. It is a privilege to be allowed the opportunity to participate in the urologic care of your patient. If you have any questions or concerns regarding treatment for the above conditions please do not hesitate to contact me. The office telephone contact is [phone]. This note is constructed in part using voice recognition software. While every effort has been made to ensure accuracy cmm technician errors may have been included. Yours sincerely, Joslein Abbasi MD Coding Level of Care Code Est Pt Level 4 (23708) Diagnoses BPH loc w urin obs/LUTS N40.1 Urinary retention R33.9 Chronic kidney disease N18.9
--- OUTSIDE RECORDS SUMMARY | 2024-04-04 14:00 | XMS_ITS | Continuity of Care Document ---
Author Organization [facility] Address [address] [address] Phone Care Team Providers Care Glove Turner Name Role Phone Elena Hopson MD Unavailable Unavailable Advance Directives Directive Yes / No Effective Date File Name No Information Encounters Encounter Description Practice Location Reason(s) For Visit Diagnoses Date Provider Providers Copied on Encounter [facility], [address] [place] [address], [id number], [place] tel:[phone] [facility] No Information [facility]. [address] [place] [address], [id number], [place]. tel:[phone] Family History Family Member Type Diagnosis Age At Onset No Information Payers Payer name Insurance type Covered republican ID Authoriza tion(s) No Information Social History Type Description Quantity Date Captured Comments Sex Male Smoking Status No Information Chief Complaint And Reason For Visit No Information Reason For Referral Reason For Referral No Information History Of Present Illness Encounter Date Complaint History Of Prese nt Illness No Information Functional Status Date Functional Assessmen t No Information Instructions Date Instruction Additional Infor mation No Information Assessments Type Assessment Date No Information Patient Care Teams Name Effective Dates (start - stop) Status Members No Information
--- OUTSIDE RECORDS SUMMARY | 2024-04-04 14:00 | XMS_ITS | Continuity of Care Document ---
Author Organization [facility], [facility] Address [address] [place] [address] Care Team Providers Care Chicken Vaccinator Name Role Phone HELADIO LYON - 2ND FLOOR OTHER LIAM GRIGSBYTysonLOS OTHER Assessment No assessment recorded. Plan of Treatment Reminders Order Date Submit Date Provider Last Modified By Organization Details Last Modified Time Details Appointments None record ed. Lab None record ed. Referral None record ed. Procedures None record ed. Surgeries None record ed. Imaging None record ed. Medication Orders None record ed. Patient TargetsNo targets recorded. Patient InstructionsNo instructions recorded. Reason for Referral None Reported. Problems Name Problem SNOMED Code Status Onset Date Resolution Date Notes Provider Name and Address Organization Details Recorded Time Hypertensive disorder 78940167 Active 2023 Talya Caceres NP [address] , [address], [place], [address], [facility] 4 09:40:29 Urinary tract infectious disease 86500329 Active 2023 Talya Caceres NP [address] , [address], [place], [address], [facility] 4 09:40:37 Benign prostatic hyperplasia with outflow obstruction 552605432 Active 2023 Talya Caceres NP [address] , [address], [place], [address], [facility] 4 09:40:49 Impaired cognition 722430423 Active 2023 Talya Caceres NP [address] , [address], [place], [address], [facility] 4 09:41:11 Hyperkalemia 39664146 Active 2023 Talya Caceres NP [address] , [address], [place], [address], [facility] 4 09:41:32 Znhzi-ey-oofse ic renal failure 275804102 Active 2023 Talya Caceres NP [address], [address], [place], [address], [facility] 4 09:41:50 Anemia 997284726 Active 2023 Talya Caceres NP [address], [address], [place], [address], [facility] 4 09:41:58 Asthenia 81251689 Active 2023 Talya Caceres NP [address] [facility], [address], [place], [address], [facility] 4 09:42:35 Recurrent falls 701392777 Active 2023 Talya Caceres NP [address] [facility], [address], [place], [address], [facility] 4 09:43:03 Abdominal distension symptom 146850532 Active 2023 Barbara Rivas MD [address] [facility], [address], [place], [address], [facility] 4 13:22:53 Problem Notes None recorded. Medical Equipment None Reported. Allergies No known drug allergies Vitals Date Recorded Body height Heart rate Respiratory rate Body temperature Oxygen saturation Oxygen saturation in Arterial blood by Pulse oximetry Systolic blood pressure Diastolic blood pressure Provider Name and Address Organization Details Last Updated DateTime 4 165.1 cm 76 /min 18 /min 97.9 [degF] 97 % 97 % 126 mm[Hg] 78 mm[Hg] OMAIRA DICKSON NP [address] [facility], [address], [place], [address], [facility] 4 12:35:44 Social History Question Answer Notes LastModified by Organizat ion Details LastModified Time Tobacco Smoking Status Never Smoker Talya Caceres NP [address] [facility], [address], [place], [address], [facility] 02/21/2024 08:42:11 Do You Have An Advance Directive? Yes Information not available 02/27/2024 What Is Your Level Of Alcohol Consumption? None 8 Oz Of Scotch With Water Daily Per Pt, However Daughter States Not At All And He Is Confused Information not available 02/27/2024 What Is Your Code Status? Full Code Full Code, Use Dialysis, Undecided Art Nutrition, And Use Art Hydration Information not available 02/21/2024 Where Do You Live? Apartment With Lynne ruiz And Her . Information not available 02/27/2024 Legal Guardian? No Informati on not available 02/27/2024 Do You Have A Medical Power Of Gravity Meter Observer? Yes Invoked Information not available 02/27/2024 What Was The Date Of Your Most Recent Tobacco Screening? 02/21/2024 Information not available 02/21/2024 Do You Have An Out Of Hospital DNR? No Information not available 02/21/2024 Have You Ever Been Counseled For Unhealthy Alcohol Use? No Na Information not available 02/27/2024 What Is Your Relationship Status? Information not available 02/27/2024 Do You Use Any Illicit Or Recreational Drugs? No Information not available 02/21/2024 Has Tobacco Cessation Counseling Been Provided? No N/A As Pt Is A Non-smoker Information not available 02/27/2024 Do You Or Have You Ever Used Any Other Forms Of Tobacco Or Nicotine? No Information not available 02/21/2024 Sex: Male Functional Status None recorded. Mental Status None recorded. Family History Nothing Reported Notes:n/c Medical History No medical history recorded. Immunizations Vaccine Type Date Status Note Provider Nam e and Address Organization Details Recorded Time Tdap 3 completed Kina borges [facility] 02/21/2024 17:03:50 Tdap 4 completed Kina borges [facility] 02/21/2024 17:04:00 pneumococcal polysaccharide P[facility]23 [facility] 17:04:17 influenza, unspecified formulation [facility] 17:04:34 Past Encounters Encounter ID Performer Location Encounter Start Date Encounter Closed Date Diagnosis/Indication Diagnosis SNOMED-CT Code Diagnosis ICD10 Code [id number] Talya Caceres NP [address] [address] 02/21/2024 08:34:33 02/23/2024 10:28:07 Urinary tract infectious disease 78945728 N39.0 Acute-on-c hronic renal failure 029528323 N17.9 Benign pro static hyperplasia with outflow obstruction 280297139 N40.1 Impaired cognition 03967 6002 R41.89 Hyperkalemia 58044443 E8 7.5 Anemia 188481432 D64.9 Hypertensive disorder 38 507116 I10 Asthenia 67775833 R53.1 Recurrent falls 38537062 2 R29.6 [id number] Barbara Rivas MD [address] [address] 02/27/2024 11:38:55 02/28/2024 10:08:35 Urinary tract infectious disease 08695719 N30.00 Acute-on-c hronic renal failure 202904107 N18.4 N17.8 Benign pro static hyperplasia with outflow obstruction 061185412 N40.1 Impaired cognition 47479 6002 R41.89 Hyperkalemia 54322019 E8 7.5 Anemia 466516116 D64.89 Hypertensive disorder 38 674391 I10 Asthenia 72088931 R53.1 Recurrent falls 24630592 2 R29.6 Abdominal distension symptom 165295889 R14.0 [id number] OMAIRA DICKSON NP [address] [address] 02/29/2024 12:35:00 03/01/2024 11:08:09 Urinary tract infectious disease 47414320 N30.00 Acute-on-c hronic renal failure 779906100 N18.4 N17.8 Hyperkalemia 19454417 E8 7.5 Asthenia 63738665 R53.1 Recurrent falls 18300134 2 R29.6 Hypertensive disorder 38 089597 I10 Impaired cognition 49510 6002 R41.89 Anemia 822248455 D64.89 Benign pro static hyperplasia with outflow obstruction 942681574 N40.1 Abdominal distension symptom 578626504 R14.0 Health Concerns Section Related Observation LastModified by Organization Detai ls LastModified Time None Recorded Concern Status LastModified by Organization Details LastModified Time None Recorded Payers Encounter Date Sequence Insurance Name Policy Number Policy Fraser Covered Member ID Fraser Member ID Guarantor Name 02/29/2024 1 [employer] (MEDICARE REPLACEMENT PPO) [id number] Lluvia Bowie Ron [id number] Jamir Velasquez Notes Date Note Type Note Provider Name and Address Organization Details Recorded Time 02/29/2024 text/html Jamir is seen today for an acute visit. He is an 83 yo man with chronic indwelling galindo who is here for rehab after an acute hospitalization for DANYELLE on CKD and UTI, after a (presumed) mechanical fall at home.He was seen by hisPCP on 02/13for a routine 3 month f/u and daughter told PCP he had fallen that AM. She recommended ED eval as fall was unwitnessed and pt hadhead/face abrasions.Family had heard him fall and found him face down in the bathroom, no LOC. [place] [facility] [place] found he was inAKI with BUN/Cr of 64/4.73compared to 66/2.81 in 06/2023, K+ of 5.7, and his urine showed >50 WBCs with 0-2 epis.Labs were also notable for a venous pH of 7.5 andhgb of 9.7, down from 11.5in 06/2023.Imaging included head, neck, and face CTs which were non-acute and CXR which showed interstitial lung disease and ? of SVETLANA infiltrate.EKG was non-acute.Family felt his MS was baseline, but he had memory issues that had been progressing.His VS were WNL. He wasgiven Lokelma and IV fluids and started on ceftriaxone.Renal was consultedand recommendedIV bicarb, then transitioning to po. To protect non-dominant arm for future fistula. And IV iron once abx was completed. Anemia w/u showed low iron, no ferritin done. Urine grew proteus and pseudomonas and he was transitioned to cipro (renally dosed) for d/c. He was to f/u with renal as outpt for IV iron and possibly procrit. He was transferred here on 02/19. Since admission he has been working with rehab.VSS.No labs done yet except a ferritin of 255 on 02/27.He traumatically removed his galindo Monday night resulting in nubia bleeding. Galindo able to be replaced and is now passing yellow urine.He remains confused, at baseline per family. He scored 5/15 on BIMs. Staff seems to think he is acting differently today, restless, acting anxious. Upon exam, Jamir is up in his w/c, alert, NAD. Eyes wide open, good eye contact, minimally conversant, but does respond yes/no to questions asked. Denies any complaints or problems this am.Family in visiting, they feel he is more confused, not doing as good.VSS.Appetite great. His PMH includes HTN, CAD, HLD, CKD stage 4, impaired cognition, hyperkalemia, anemia, BPH with chronic galindo, and frequent falls. OMAIRA DICKSON, JIMBO [address] [facility], [address], [place], [address], [facility] 02/29/2024 13:03:38
--- OUTSIDE RECORDS SUMMARY | 2024-04-04 14:00 | XMS_ITS | Continuity of Care Document ---
Author Organization [facility], [facility] Address [address] [place] [address] Care Team Providers Care Land Surveying Survey Worker Name Role Phone HELADIO LYON - 2ND [...] Address Organization Details Recorded Time Hypertensive disorder 23973391 Active 2023 Talya Caceres NP [address] , [address], [place], [address], [facility] 4 09:40:29 Urinary tract infectious disease 20018270 Active 2023 Talya Caceres NP [address] , [address], [place], [address], [facility] 4 09:40:37 Benign prostatic hyperplasia with outflow obstruction 758224653 Active 2023 Talya Caceres NP [address] , [address], [place], [address], [facility] 4 09:40:49 Impaired cognition 170632590 Active 2023 Talya Caceres NP [address] , [address], [place], [address], [facility] 4 09:41:11 Hyperkalemia 04597488 Active 2023 Talya Caceres NP [address], [address], [place], [address], [facility] 4 09:41:32 Ltzua-fu-llwsl ic renal failure 444454283 Active 2023 Talya Caceres NP [address], [address], [place], [address], [facility] 4 09:41:50 Anemia 720356718 Active 2023 Talya Caceres NP [address], [address], [place], [address], [facility] 4 09:41:58 Asthenia 08032480 Active 2023 Talya Caceres NP [address], [place], [address], [facility] 4 09:42:35 Recurrent falls 629738211 Active 2023 Talya Caceres NP [address], [place], [address], [facility] 4 09:43:03 Abdominal distension symptom 450052129 Active 2023 Barbara Rivas MD [address] , [address], [place], [address], [facility] 4 13:22:53 Problem Notes None recorded. Medical Equipment None Reported. Allergies No known drug allergies Vitals Date Recorded Body height Body mass index (BMI) Body weight Heart rate Respiratory rate Body temperature Oxygen saturation Oxygen saturation in Arterial blood by Pulse oximetry Systolic blood pressure Diastolic blood pressure Provider Name and Address Organization Details Last Updated DateTime 4 165.1 cm 23.8 kg/m2 41748.7 1 g 78 /min 18 /min 97 [degF] 97 % 97 % 132 mm[Hg] 70 mm[Hg] Talya Caceres NP [address], [address], [place], [address], [facility] 4 13:20:25 Social History Question Answer Notes LastModified by Organizat ion Details LastModified Time Tobacco Smoking Status Never Smoker Talya Caceres, CONTINUOUS CHURN BUTTERMAKER [address] [facility], [address], [place], [address], [facility] 02/21/2024 08:42:11 Do You Have An [...] Do You Have A Medical Power Of Test Engineering Intern? Yes Invoked Information not available 02/27/2024 What [...] Recorded Time Tdap 3 completed Kina borges [facility] 02/21/2024 17:03:50 Tdap 4 [facility]/2024 17:04:00 pneumococcal polysaccharide PPV23 3 completed Kina Christianson [facility] 02/21/2024 17:04:17 influenza, unspecified formulation 3 [facility]/21/2024 17:04:34 Past Encounters Encounter ID Performer Location Encounter Start Date Encounter Closed Date Diagnosis/Indication Diagnosis SNOMED-CT Code Diagnosis ICD10 Code [id number] Talya Caceres NP [address] [address] 02/21/2024 08:34:33 02/23/2024 10:28:07 Urinary tract infectious disease 49713908 N39.0 Acute-on-c hronic renal failure 369445519 N17.9 Benign pro static hyperplasia with outflow obstruction 059750154 N40.1 Impaired cognition 38572 6002 R41.89 Hyperkalemia 67229877 E8 7.5 Anemia 952409462 D64.9 Hypertensive disorder 38 096908 I10 Asthenia 17409118 R53.1 Recurrent falls 83099394 2 R29.6 [id number] Barbara Rivas MD [address] [address] 02/27/2024 11:38:55 02/28/2024 10:08:35 Urinary tract infectious disease 42687600 N30.00 Acute-on-c hronic renal failure 868354945 N18.4 N17.8 Benign pro static hyperplasia with outflow obstruction 792479195 N40.1 Impaired cognition 12364 6002 R41.89 Hyperkalemia 44869911 E8 7.5 Anemia 831191642 D64.89 Hypertensive disorder 38 601589 I10 Asthenia 06804437 R53.1 Recurrent falls 29975741 2 R29.6 Abdominal distension symptom 157154976 R14.0 [id number] OMAIRA DICKSON NP [address] [address] 02/29/2024 12:35:00 03/01/2024 11:08:09 Urinary tract infectious disease 95332505 N30.00 Acute-on-c hronic renal failure 793336732 N18.4 N17.8 Hyperkalemia 63938662 E8 7.5 Asthenia 10350967 R53.1 Recurrent falls 06299053 2 R29.6 Hypertensive disorder 38 120924 I10 Impaired cognition 01992 6002 R41.89 Anemia 706260897 D64.89 Benign pro static hyperplasia with outflow obstruction 474196954 N40.1 Abdominal distension symptom 863348015 R14.0 [id number] Talya Caceres NP [address] [address] 03/08/2024 13:37:19 03/11/2024 10:23:40 Urinary tract infectious disease 70797454 N30.00 Acute-on-c hronic renal failure 620437287 N18.4 N17.8 Hyperkalemia 39015830 E8 7.5 Asthenia 57000637 R53.1 Recurrent falls 37790997 2 R29.6 Hypertensive disorder 38 207536 I10 Impaired cognition 09275 6002 R41.89 Anemia 125024808 D64.89 Benign pro static hyperplasia with outflow obstruction 614540829 N40.1 [id number] Talya Caceres NP [address] [address] 03/18/2024 13:19:37 03/19/2024 09:36:17 Vrycg-vn-lqotfpf renal failure 668910148 N18.4 N17.8 Urinary tr act infectious disease 99760959 N30.00 Hyperkalemia 38158509 E8 7.5 Asthenia 64032330 R53.1 Recurrent falls 59592073 2 R29.6 Hypertensive disorder 38 606140 I10 Impaired cognition 28690 6002 R41.89 Anemia 344216795 D64.89 Benign pro static hyperplasia with outflow obstruction 985043814 N40.1 Abdominal distension symptom 595505898 R14.0 Health Concerns Section Related Observation LastModified by Organization Detai ls LastModified Time None Recorded Concern Status LastModified by Organization Details LastModified Time None Recorded Payers Encounter Date Sequence Insurance Name Policy Number Policy Fraser Covered Member ID Fraser Member ID Guarantor Name 03/18/2024 1 [employer] (MEDICARE REPLACEMENT PPO) [id number] Lluvia Velasquez [id number] Jamir Velasquez Notes Date Note Type Note Provider Name and Address Organization Details Recorded Time 03/18/2024 text/html Jamir is seen today for a discharge summary visit. Jamir is an 83 yo man with chronic indwelling galindo who is here on 02/19 for rehab after an acute hospitalization for DANYELLE on CKD and UTI, after a (presumed) mechanical fall at home. Per long term care social worker daughter is requesting to take Jamir home tomorrow and plans to provide 24 hour care for him. Per nursing pt self removed his galindo this am and then galindo was replaced. He has On exam, Jamir is doing a little better this week and reports he is good today lying in bed in NAD. No issues noted from nursing except agitation with pulling out the galindo last week. and psych recommended trazodone 25 mg po q 12 hours prn. Per prior note had renal appt with Dr Fritz on 02/23. Unclear if he went or if this was a true appt and no progress notes provided. Nursing reached out to office for appt notes or to make an appt with renal in near future as renal failure remains an issue. of note from summaryHarrison was seen by hisPCP on 02/13for a routine 3 month f/u and daughter told PCP he had fallen that AM. She recommended ED eval as fall was unwitnessed and pt hadhead/face abrasions.Family had heard him fall and found him face down in the bathroom, no LOC.At the [facility] they found he was inAKI with [...] issues that had been progressing.His VS were WNL.He wasgiven Lokelma and IV fluids and started on ceftriaxone.Renal was consultedand recommendedIV bicarb, then transitioning to po. To protect non-dominant arm for future fistula. And IV iron once abx was completed.Anemiaw/u showed low iron, no ferritin done.Urine grew proteus and pseudomonas and he was transitioned to cipro (renally dosed) for d/c.He was to f/u with renal as outpt for IV iron and possibly procrit. Jamir is seen today for a discharge summary visit. Jamir is an 83 yo man with chronic indwelling galindo who is here on 02/19 for rehab after an acute hospitalization for DANYELLE on CKD and UTI, after a (presumed) mechanical fall at home. Per long term care social worker daughter is requesting to take Jamir home tomorrow and plans to provide 24 hour care for him. Per nursing pt self removed his galindo this am and then galindo was replaced, no obvious trauma or continued bleeding. While [facility] at [facility] since 02/20 he has continued to work with therapy and get stronger. He has finished cipro for a UTI. On exam, Jamir is lying in bed and states he is good . He denies any concerns and states he is looking forward to going home. Per prior note had renal appt with Dr Fritz on 02/23. Unclear if he went or if this was a true appt and no progress notes provided. Nursing reached out to office for appt notes or to make an appt with renal in near future as renal failure remains an issue. of note from summaryHarrison was seen by hisPCP on 02/13for a routine 3 month f/u and daughter told PCP he had fallen that AM. She recommended ED eval as fall was unwitnessed and pt hadhead/face abrasions.Family had heard him fall and found him face down in the bathroom, no LOC.At the [facility] [place] they found he was inAKI with [...] issues that had been progressing.His VS were WNL.He wasgiven Lokelma and IV fluids and started on ceftriaxone.Renal was consultedand recommendedIV bicarb, then transitioning to po. To protect non-dominant arm for future fistula. And IV iron once abx was completed.Anemiaw/u showed low iron, no ferritin done.Urine grew proteus and pseudomonas and he was transitioned to cipro (renally dosed) for d/c.He was to f/u with renal as outpt for IV iron and possibly procrit. Talya Caceres, JIMBO [address] [facility], [address], [place], [address], [facility] 03/18/2024 14:26:14
== END 2024-04-04 14:29 | disposition home or self-care (01) ==
PROVIDERS: PCP Family Medicine; Visit Provider Urology
DX: N40.1 Benign prostatic hyperplasia with lower urinary tract symptoms (principal); R33.9 Retention of urine, unspecified; N18.9 Chronic kidney disease, unspecified
CPT/HCPCS: 99214

== ENCOUNTER → 2024-04-04 13:58 | Outpatient (BNVA) | payer MEDICARE, SELFPAY | PROVIDERS: PCP Family Medicine; Visit Provider Urology | DX: N40.1 Benign prostatic hyperplasia with lower urinary tract symptoms (principal); N13.8 Other obstructive and reflux uropathy; R33.9 Retention of urine, unspecified; N18.9 Chronic kidney disease, unspecified | CPT/HCPCS: 99212 ==

== ENCOUNTER 2024-05-14 07:32 | Inpatient (IN) | payer MEDICARE, SELFPAY ==
[2024-05-14] VITALS (14 sets, daily range): BP systolic 101–143; BP diastolic 56–65; PULSE 74–96; RESP 19–35; TEMP 36.3–36.4; O2SAT 57–96; BMI 24.8
--- NOTE | ~2024-05-14 | XR_ITS ---
EXAMINATION: XR CHEST CLINICAL INFORMATION: dyspnea COMPARISON: 02/16/2024, 07/12/2023. TECHNIQUE: AP portable view of the chest was obtained. FINDINGS: Cardiac, hilar, mediastinal contours appear normal allowing for AP technique. Aorta is calcified and mildly tortuous. There are low lung volumes, with patchy parenchymal opacities throughout both lungs most prominent in the left greater than right lower lobes suggestive of multifocal pneumonia. There are no effusions or pneumothoraces. There is chronic left upper lobe scarring. There are spinal degenerative changes, and degenerative changes in both shoulder joints. No acute bony or soft tissue abnormalities. XR/XR chest 1V IMPRESSION: Low lung volumes with patchy parenchymal opacities throughout both lungs most confluent in the left lower lobe. Findings suggest multifocal pneumonia. No effusions. Electronically signed by: Juan David Bermeo MD 05/14/2024 09:12 AM [facility]
--- NOTE | ~2024-05-14 | CT_ITS ---
EXAMINATION: CT CHEST WITHOUT CONTRAST CLINICAL INFORMATION: Multifocal pneumonia. COMPARISON: Correlated to x-ray dated May 14, 2024. TECHNIQUE: Multidetector volumetric CT imaging of the chest was done. Axial MIP volume rendering provided. Sagittal and coronal reformatted images were obtained. This CT examination was performed using dose optimization techniques as appropriate, variously including the following: *Automated exposure control *Adjustment of mA and/or kV according to patient size (this includes techniques or standardized protocols for targeted exams where dose is matched to indication/reason for exam; i.e. extremities or head) *Use of iterative reconstruction technique DLP: 249 mGy centimeter. FINDINGS: Limited by patient's breathing motion artifact. Bilateral multifocal confluent pulmonary groundglass with the air bronchograms. No hyperinflation. No pleural effusion. No pneumothorax. No gross bronchiectasis or honeycombing. Lymphadenopathy, mediastinum. Calcified plaques in the thoracic aorta wall and its main branches and the coronary arteries. No gross aneurysm in the thoracic aorta. No gross pericardial effusion. Prominent bilateral breast tissues. Calcified plaques in the abdominal aorta wall and the origin of the mesenteric arteries and the splenic artery. Multilevel spondylosis without acute fracture or listhesis in the axial skeleton. Osteopenia versus osteoporosis. CT/CT chest wo IV con IMPRESSION: Pulmonary edema versus multifocal pneumonia versus pneumonitis versus pulmonary hemorrhage versus drug toxicity among other etiologies. Coronary artery disease and atherosclerosis disease Fleischner guidelines were followed. Electronically signed by: Misael Lyons MD 05/15/2024 03:[address] [facility]
--- NOTE | ~2024-05-14 | XR_ITS ---
CLINICAL HISTORY: SOB 1 view chest x-ray Comparison: CT/UT/SR - CT CHEST WO IV CON - 05/15/24 15:06 EST CR/SR - XR CHEST 1V - 05/14/24 08:16 EST Findings: There are diffuse bilateral reticular and airspace opacities relatively unchanged from the prior exam. Heart size is normal. No acute fracture. IMPRESSION: There are diffuse bilateral reticular and airspace opacities relatively unchanged from the prior exam. This document has been electronically signed by: Jaime Sibley MD on 05/19/2024 12:13:32
--- NOTE | ~2024-05-14 | NM_ITS ---
EXAMINATION: Nuclear medicine perfusion scan. CLINICAL INDICATION: Shortness of breath. Rule out PE. COMPARISON: Chest x-ray 05/14/2024. TECHNIQUE: Following intravenous administration of 3.16 mCi of technetium 99m MAA, imaging of both lungs were obtained multiple projections. Ventilation study was not performed. FINDINGS: There is good perfusion seen to both lungs without any segmental or subsegmental defects. Normal cardiac defect is seen in the lingular segment. Ventilation study was not performed. NM/OK pul perfusion IMPRESSION: Normal perfusion scan. Electronically signed by: Esau Arndt MD 05/14/2024 03:46 PM EST
--- NOTE | 2024-05-14 07:44 | PC.NURSE ---
pulled pt into traige and found pt to be 57% on room air, started pt on NRB at 15L and called charge for need for room. pt brought back to room 8.. respiratory at bedside.
--- NOTE | 2024-05-14 07:52 | ECG_ITS ---
Test Reason : sob Blood Pressure : */* mmHG Vent. Rate : 92 BPM Atrial Rate : 92 BPM P-R Int : 142 ms QRS Dur : 118 ms QT Int : 390 ms P-R-T Axes : 3 -13 -16 degrees QTcB Int : 482 ms Normal sinus rhythm Incomplete right bundle branch block Minimal voltage criteria for LVH, may be normal variant ( R in aVL ) ST & T wave abnormality, consider anterior ischemia Abnormal ECG When compared with ECG of 14-Feb-2024 18:56, No significant changes seen Referred By: Marilou Arshad Electronically Signed By: SHABBIR CHAVIS
[2024-05-14 08:02] LABS: MANUAL DIFF FLAG NO
[2024-05-14 08:03] LABS: Basophils Absolute Auto 0.1 X10*3/uL (0.0-0.2); Basophils Percent Auto 0.5 % (0-2); Eosinophils Absolute Auto 0.5 X10*3/uL (0.0-0.4); Eosinophils Percent Auto 3.2 % (0-4); Hematocrit 33.8 % (42.0-52.0); Hemoglobin 11.5 g/dl (14.0-18.0); Imm Gran Abs Auto 0.09 X10*3/uL (0.00-0.03); Imm Gran Pct Auto 0.6 % (0.0-0.4); Lymphocytes Absolute Auto 1.3 X10*3/uL (1.2-4.9); Lymphocytes Percent Auto 8.6 % (20-40); Mean Corpuscular Hemoglobin 30.9 pg (27.0-33.0); Mean Corpuscular Volume 90.9 fL (80.0-98.0); Mean Platelet Volume 9.7 fL (9.4-12.4); Monocytes Absolute Auto 1.4 X10*3/uL (0.1-1.2); Monocytes Percent Auto 9.2 % (2-11); Neutrophils Percent Auto 77.9 % (45-73); Platelet Count 277 X10*3/uL (160-400); Red Blood Count 3.72 X10*6/uL (4.60-5.80); Red Cell Distribution Width 13.9 % (11.0-16.0); White Blood Count 15.4 X10*3/uL (4.8-10.8)
[2024-05-14] MEDS: Albuterol Sulfate 5 MG, Albuterol Sulfate (0.083%) 2.5 MG 7.5 MG INHALE (08:06)
[2024-05-14 08:13] LABS: Venous Blood Gas Refer to POC result
--- OUTSIDE RECORDS SUMMARY | 2024-05-14 08:13 | XMS_ITS | Continuity of Care Document ---
Author Organization [facility] Address [address] [address] Phone Care Team Providers Care Sales Store Checker Name Role Phone Elena Hopson MD Unavailable Unavailable Advance Directives Directive Yes / No Effective Date File Name No Information Encounters Encounter Description Practice Location Reason(s) For Visit Diagnoses Date Provider Providers Copied on Encounter [facility], [address] [place] [address], [id number], [place] tel:[phone] [facility] No Information Mark Anthony Parker. [address] [place] [address], [id number], [place]. tel:[phone] Family History Family Member Type Diagnosis Age At Onset No Information Payers Payer name Insurance type Covered democrat ID Authoriza tion(s) No Information Social History [...]
--- OUTSIDE RECORDS SUMMARY | 2024-05-14 08:13 | XMS_ITS | Encounter Summary ---
Author Organization [facility] Address [address] [place] [address] Care Team Providers Care Side Laster Name Role Phone Debra Kirk MD Primary Care Pr ovider Reason for Visit * Reason Onset Date Comments Fitting for DME 04/26/2024 Encounter Details Date Type Department Care Team (Late st Contact Info) Description 04/26/2024 Telephone Adult Medicine [address] [phone] Kalyani Arboleda LPN Fitting for DME Social History Tobacco Use Types Packs/Day Years Used Date Smoking Tobacco: Former Cigarettes Q uit: 04/17/1969 Smokeless Tobacco: Never Alcohol Use Standard Drinks/Week Comments Yes 0 (1 standard drink = 0.6 oz pur e alcohol) Sex and Gender Information Value Date Recorded Sex Assigned at Not on file Gender Identity Not on file Sexual Orientation Not on file Job Start Date Occupation Industry Not on file Not on file Not on file documented as of this encounter Progress Notes * Kalyani Arboleda LPN - 04/26/2024 8:47 AM EST Pt sent my chart message inquiring about wheelchair I did not receive request from provider for wheelchair There was one ordered by provider but I did not get the request Looked back in visit note and there is documentation on request for wheel chair In note Rx faxed to [facility] [place] Cannot get from [facility] they do not take his insurance documented in this encounter Plan of Treatment Upcoming Encounters Date Type Department Care Team (Late st Contact Info) Description 05/22/2024 3:30 PM EST Consult Pulmonolgy - [place] 175 [facility] [address] [place] [phone] Emeli Claudio MD [address] [address] 07/31/2024 9:45 AM EDT Office Visit Adult Medicine South - [address] [phone] Debra Kirk MD [address] [place] [address] 08/07/2024 4:45 PM EDT Office Visit Nephrology [address] [phone] Tylor Barr MD [address] [phone] documented as of this encounter Visit Diagnoses Not on filedocumented in this encounter Care Teams Side Laster Relationship Specialty Start Date End Date Debra Kikr MD 2040 [facility], [place] PCP - General Internal Medicine 11/01/21 documented as of this encounter
--- OUTSIDE RECORDS SUMMARY | 2024-05-14 08:13 | XMS_ITS | Encounter Summary ---
Author Organization [facility] Address [address] [place] [address] Care Team Providers Care Sizing End Bander Name Role Phone Debra Kirk MD Primary Care Pr ovider Reason for Visit * Reason Onset Date Comments VNA 03/19/2024 Encounter Details Date Type Department Care Team (Late st Contact Info) Description 03/19/2024 Telephone Adult Medicine [address] [phone] Debra Kirk MD [address] [place] [phone] VNA Social History Tobacco Use Types Packs/Day Years [...] as of this encounter Progress Notes * Yomi Dickerson LPN - 03/19/2024 12:46 PM EST Vo given to Nicky * RONAK Chavez - 03/19/2024 12:19 PM EST Please give verbal order for nursing PT and OT Please schedule hospital follow-up with PCP, thanks * Lis Dillon - 03/19/2024 11:48 AM EST Hospital/ER follow up appointment needed Hospital patient was treated at: [facility] Was this only an ER visit or was the patient admitted to the hospital? [facility] Date of visit if ER visit only: [place] If patient was admitted what was the date of discharge? 03/19/2024 Reason/diagnosis for visit or stay: UNKNOWN When was the patient told to follow up? [facility] CALLED STATING PATIENT IS DISCHARGING TODAY. WILL NEED TO SCHEDULE HOPITAL FOLLOW UP. Was visit or stay related to an injury? If yes, what was the date of injury (DOI)? Yes. UNKNOWN If yes, was the injury due to: Not 3rd constitution party related * Yomi Dickerson LPN - 03/19/2024 11:48 AM EST TC from [facility] Requesting Vo for nursing PT and OT Please review and advise . Thank you Please send response to [facility] Last OV 02/14/24 Patient is coming out of [facility] Please book a hospital rehab follow up documented in this encounter Plan of Treatment Upcoming Encounters Date Type Department Care Team (Late st Contact Info) Description 05/22/2024 3:30 PM EST Consult Pulmonol - [place] 175 [facility] [address] [place] [phone] Emeli Claudio MD [address] [address] 07/31/2024 9:45 AM EDT Office Visit Adult Medicine [address] [phone] Debra Kirk MD [address] [place] [address] 08/07/2024 4:45 PM EDT Office Visit Nephrology [address] [phone] Tylor Barr MD [address] [place] [phone] documented as of this encounter Visit Diagnoses Not on filedocumented in this encounter Care Teams Sizing End Bander Relationship Specialty Start Date End Date Debra Kirk MD [address]40 [facility], [place] PCP - General Internal Medicine 11/01/21 documented as of this encounter
--- OUTSIDE RECORDS SUMMARY | 2024-05-14 08:13 | XMS_ITS | Clinical Summary ---
Author Organization [facility] Address [address] [phone] Phone Care Team Providers Care Truck Driver Heavy Name Role Phone Debra Kirk Primary Care Provider Allergies No known active allergies Medications Multiple Vitamin (multivitamin) tablet Take 1 tablet by mouth 1 (one) time each day Active amLODIPine (NORVASC) 5 MG tablet Take 1 tablet by mouth 1 (one) time each day 07/18/2022 Active finasteride (PROSCAR) 5 MG tablet Take 1 tablet by mouth 1 (one) time each day 07/18/2022 Active tamsulosin (FLOMAX) 0.4 MG 24 hr capsule Take 0.4 mg by mouth 07/18/2022 Active sodium bicarbonate 650 MG tablet Take 650 mg by mouth in the morning and 650 mg in the evening and 650 mg before bedtime. Active traZODone (DESYREL) 50 MG tablet Take 50 mg by mouth every night 03/09/2024 Active Active Problems Problem Noted Date Diagnosed Date Anemia in chronic kidney disease 04/18/2024 Hypocalcemia 04/18/2024 Chronic kidney disease, stage 4 (severe) 024 Essential (primary) hypertension 06/23/2022 Unspecified dementia, unspecified severity, with agitation 06/23/2022 Acute nontraumatic kidney injury, not otherwise specified 06/23/2022 Encounters Date Type Department Care Team Description 04/18/2024 Office Communication [facility] [address] [phone] Lilly Villalpando ARNP 03/26/2024 4:00 PM EST Office Visit [facility] [address] [phone] Lilly Villalpando ARNP Acute nontraumatic kidney injury, not otherwise specified (HCC) (Primary Dx); Chronic kidney disease, stage 4 (severe) (HCC); Essential (primary) hypertension; Anemia in chronic kidney disease; Hypocalcemia from Last 3 Months Family History Relation Status Comments Father Mother Social History Tobacco Use Types Packs/Day Years Used Date Smoking Tobacco: Never Smokeless Tobacco: Never Tobacco Cessation:Counseling Given: Not Answered Alcohol Use Standard Drinks/Week Comments Never 0 (1 standard drink = 0.6 oz pur e alcohol) Sex and Gender Information Value Date Recorded Sex Assigned at Not on file Legal Sex Male 8:45 AM EST Gender Identity Not on file Sexual Orientation Not on file Last Filed Vital Signs Vital Sign Reading Time Taken Comments Blood Pressure 120/70 03/26/2024 4:39 PM EST Pulse 96 03/26/2024 4:15 PM EST Temperature - - Respiratory Rate - - Oxygen Saturation - - Inhaled Oxygen Concentration - - Weight 68 kg (150 lb) 03/26/2024 4:15 PM EST Height - - Body Mass Index - - Plan of Treatment Upcoming Encounters Date Type Department Care Team (Late st Contact Info) Description 06/03/2024 3:15 PM EST Office Visit [facility] [address] [phone] Tylor Barr MD [address] [phone] Health Maintenance Due Date Last Done Comments Pneumococcal Vaccine: 65+ Years (2 of 2 - PCV) 11/22/2013 10/11/2022, 11/22/2012 Diabetes: Ophthalmology Exam 10/26/2022 Diabetes: Pedal Pulse Checked 10/26/2022 Diabetes: Sensory Foot Exam 10/26/2022 Diabetes: Visual Foot Exam 10/26/2022 Diabetes: Hemoglobin A1C 06/30/2024 024, 08/09/2023, 10/11/2022 Influenza Vaccine Completed 04/01/2024, 03/16/2023 Hepatitis B Vaccine Aged Out No longe r eligible based on patient's age to complete this topic Procedures Procedure Name Priority Date/Time Associated Diagnosis Comments EXT RESULT ENTRY Routine 02/20/2024 EXT RESULT ENTRY Routine 02/14/2024 from Last 3 Months Results * (ABNORMAL) EXT RESULT ENTRY (02/20/2024) Only the most recent of2 resultswithin the time period is included. Sodium 137 137 - 147 Potassium 5.0 3.4 - 5.5 Carbon Dioxide 19 mmol/L Anion Gap 14 <=30 MMOL/L Glucose 88 60 - 200 BUN 65(A) 4 - 21 mg/dL Creatinine 4.69(A) 0.60 - 1.30 mg/dL Calcium 7.6(A) 8.7 - 10.7 mg/dL eGFR Non-Afr [place]an 12 02/20/2024 us Historical Provider LAB BLOOD ORDERABLES [place] l Result from Last 3 Months Insurance [employer] MCR ADV PPO ([id number]) [employer] MCR ADV PPO ([id number]) Care Teams Truck Driver Heavy Relationship Specialty Start Date End Date Debra Kirk [address] [place] [phone] PCP - General 05/31/22
--- OUTSIDE RECORDS SUMMARY | 2024-05-14 08:13 | XMS_ITS | Clinical Summary ---
Author Organization [facility] [address] [place] [address] [place] [phone] Phone Care Team Providers Care Poultry Hatchery Manager Name Role Phone Debra Kirk MD Primary Care Pr ovider Allergies No known active allergies Medications Medication Sig Dispensed Refills Start Date End Date Status finasteride (PROSCAR) 5 mg tablet TAKE 1 TABLET BY MOUTH EVERY DAY 01/12/2024 Active FREESTYLE LANCETS MISC Use to check blood sugar daily 03/16/2023 Active blood sugar diagnostic (FreeStyle Lite Strips) test strip Use to check blood sugar daily 03/16/2023 Active sodium bicarbonate 650 mg tablet Take 1 tablet (650 mg total) by mouth 3 (three) times a day. 03/19/2024 Active ferrous sulfate 325 mg (65 mg iron) EC tabletIndications :Anemia of renal disease Take 1 tablet (325 mg total) by mouth 1 (one) time each day with breakfast. Do not crush, chew, or split. 90 each 1 04/01/2024 09/28/2024 Active traZODone (DESYREL) 50 mg tabletIndications :Primary insomnia Take 1 tablet (50 mg total) by mouth at bedtime. 90 each 1 04/01/2024 09/28/2024 Active amLODIPine (NORVASC) 5 mg tablet Take 1 tablet (5 mg total) by mouth 1 (one) time each day. 90 each 1 04/01/2024 09/28/2024 Active docusate sodium (Colace) 100 mg capsuleIndication s:Anemia of renal disease Take 1 capsule (100 mg total) by mouth 1 (one) time each day. 90 each 1 04/01/2024 09/28/2024 Active tamsulosin (FLOMAX) 0.4 mg 24 hr capsule TAKE 1 CAPSULE BY MOUTH 30 MINUTES AFTER THE SAME MEAL EVERY DAY. 90 capsule 1 05/06/2024 Active tamsulosin (FLOMAX) 0.4 mg 24 hr capsule Take 1 Capsule by mouth daily. Take 30 mins after same meal every day. 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 Orders: Ambulatory referral to Pulmonology; Future Primary insomnia 04/01/2024 Assessment & Plan (04/01/2024 1:52 PM EST): Orders: traZODone (DESYREL) 50 mg tablet; Take 1 tablet (50 mg total) by mouth at bedtime. Impaired gait and mobility 04/01/2024 Assessment & Plan (04/01/2024 1:52 PM EST): On 04/01/24, I evaluated Mr. Velasquez for their mobility limitation due to impaired gait and mobility. This issue significantly impairs the patients ability to participate in one or more mobility-related activities of daily living (MRADL s) such as toileting, feeding, dressing, grooming, and bathing in customary locations in the home. The mobility limitation cannot be sufficiently resolved by the use of an appropriately fitted cane or walker since the patient is not able to ambulate long distances. The home provides adequate access between rooms, maneuvering space and surfaces for the use of the standard, manual wheelchair and has the ability to self-propel the wheelchair while engaging in activities within the home. that is provided. Use of a standard, manual wheelchair and has the ability to self- propel the wheelchair while engaging in activities within the home. will significantly improve the patients ability to participate in their MARDL's. The patient will use it on a regular basis in the home. The patient has not expressed an unwillingness to utilize this standard, manual wheelchair and has the ability to self-propel the wheelchair while engaging in activities within the home and has the ability to self-propel the wheelchair while engaging in activities within the home. Handicarp placard documentation signed today per daughter's request Orders: Wheelchair Cognitive dysfunction 04/14/2023 Assessment & Plan (04/01/2024 1:52 PM EST): He does not drive Has 24 hr care with family Referred to neurology in the past, did not follow up Continue trazodone 50mg nightly High anion gap metabolic acidosis 04/14/2023 Vitamin D deficiency 10/12/2022 Assessment & Plan (04/01/2024 1:52 PM EST): Continue daily MV Orders: Vitamin D 25 hydroxy; Future Anemia of renal disease 07/19/2022 Assessment & Plan (04/01/2024 1:52 PM EST): Orders: Iron and TIBC; Future Ferritin; Future ferrous sulfate 325 mg (65 mg iron) EC tablet; Take 1 tablet (325 mg total) by mouth 1 (one) time each day with breakfast. Do not crush, chew, or split. CBC and differential; Future Vitamin B12; Future Folate; Future docusate sodium (Colace) 100 mg capsule; Take 1 capsule (100 mg total) by mouth 1 (one) time each day. Anterolisthesis of lumbar spine 07/18/2022 Benign prostatic hyperplasia 07/18/2022 Coronary artery calcification 07/18/2022 Obstructive uropathy 07/18/2022 Assessment & Plan (04/01/2024 1:52 PM EST): He will continue with indwelling urinary catheter F/u with urology as scheduled this month(Dr. Gely Castro at [facility] urology) Continue finasteride 5 mg daily, tamsulosin 0.4 mg daily Spondylosis of lumbar region without myelopathy or radiculopathy 07/18/2022 Chronic kidney disease, stage 4 (severe) 014 Assessment & Plan (04/01/2024 1:52 PM EST): Continue nephrology follow up He will complete pending labs ordered by nephrology. 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 Will update A1c Orders: Hemoglobin A1c; Future HTN (hypertension) 11/01/2012 Assessment & Plan (04/01/2024 1:52 PM EST): BP is 118/74. Well controlled. Continue amlodipine 5mg daily Hyperlipidemia LDL goal <70 11/01/2012 Overview (02/28/2024): IMO update Benign neoplasm of colon 12/14/2006 Overview (02/28/2024): flat tubular adenoma ascending colon, Dr. Ni recommends follow-up colonoscopy 11/2007 Encounters Date Type Department Care Team Description 04/26/2024 Telephone Adult Medicine [address] [phone] Kalyani Arboleda LPN Fitting for DME 04/01/2024 10:30 AM EST Office Visit Adult Medicine [address] [phone] Debra Kirk MD Hospital discharge follow-up (Primary Dx); Anemia of renal disease; History of UTI; Primary hypertension; Urinary retention; Obstructive uropathy; Type 2 diabetes mellitus with stage 4 chronic kidney disease, without long-term current use of insulin ([facility]); Chronic kidney disease, stage 4 (severe) ([facility]); Vitamin D deficiency; Restrictive lung disease; Primary insomnia; Impaired gait and mobility; Cognitive dysfunction; Need for influenza vaccination 03/22/2024 Telephone Adult [address] [phone] Debra Kirk MD Hospital Follow-up 03/19/2024 Telephone Adult [address] [phone] Debra Kirk MD [facility] 02/23/2024 Telephone Adult [address] [phone] Elizabeth Newton [place] Hospital Follow-up ([place] 02/13-02/19) from Last 3 Months Immunizations Name Administration Dates Next Due Influenza trivalent, 0.5mL (Fluad) 65yo and olde r 04/01/2024,03/16/2023 Influenza trivalent, 0.5mL ( Fluzone High-dose) 65yo and older 03/16/2023 Pneumococcal conjugate 20 va lent (Prevnar 20, PCV 20) 2mo and older 10/11/2022 Pneumococcal polysaccharide 23 valent (Pneumovax 23) 2yo and older 11/22/2012 Tdap Tetanus diptheria acell ular pertussis (Boostrix; Adacel) 7yo and older 07/12/2023,10/11/2022 Surgical History Surgery Date Site/Laterality Comments TONSILLECTOMY PROCEDURE: HISTORICAL TONSILLECTOMY CIRCUMCISION, PRIMARY PROCEDURE: HISTORICAL CIRCUMCISION Medical History Medical History Date Comments Mixed hyperlipidemia 04/20/2005 DX:Mixed hy perlipidemia Historical Medical DX 09/20/2012 DX:Hyperte nsive urgency Diabetes mellitus with renal complications (CMS/HCC) 11/01/2012 DX:Diabetes mellitus with re nal complications (HCC) HTN (hypertension) 11/01/2012 DX:HTN (hyper tension) Historical Medical DX 11/01/2012 DX:Hyperli pidemia LDL goal < 100 Family History Medical History Relation Name Comments Diabetes Daughter 1 Other: Other Father bone cancer Other: cirrhosis of liver Mother Relation Name Status Comments Daughter 1 Daughter 2 Father Mother Social History Tobacco Use Types Packs/Day Years Used Date Smoking Tobacco: Former Cigarettes Q uit: 04/17/1969 Smokeless Tobacco: Never Tobacco Cessation:Counseling Given: Not Answered Alcohol Use Standard Drinks/Week Comments Yes 0 (1 standard drink = 0.6 oz pur e alcohol) Sex and Gender Information Value Date Recorded Sex Assigned at Not on file Gender Identity Not on file Sexual Orientation Not on file Job Start Date Occupation Industry Not on file Not on file Not on file Obstetrics History Last Filed Vital Signs Vital Sign Reading Time Taken Comments Blood Pressure 118/74 04/01/2024 10:32 AM EST Pulse 72 04/01/2024 10:32 AM EST Temperature 36.4 ??C (97.6 ??F) 04/01/2024 10:[address] Respiratory Rate 16 04/01/2024 10:32 AM EST Oxygen Saturation - - Inhaled Oxygen Concentration - - Weight 66.2 kg (146 lb) 04/01/2024 10:32 AM EST Height 165.1 cm (5' 5 ) 04/01/2024 10:32 AM EST Body Mass Index 24.3 04/01/2024 10:32 AM EST Plan of Treatment Upcoming Encounters Date Type Department Care Team (Late st Contact Info) Description 05/22/2024 3:30 PM EST Consult Pulmonolgy - [place] [address] [phone] Emeli Claudio MD [address] [place] [phone] 07/31/2024 9:45 AM EDT Office Visit Adult Medicine [address] [phone] Debra Kirk MD [address] [place] [phone] 08/07/2024 4:45 PM EDT Office Visit Nephrology - [address] [phone] Tylor Barr MD [address] [place] [phone] Health Maintenance Due Date Last Done Comments Diabetes: Annual Foot Exam 10/25/1950 Diabetes: Annual Retina Eye Exam 10/25/1950 Zoster Vaccines (1 of 2) 10/25/1991 RSV Immunization Patients 60 + Years Old (1 - 1-dose 75+ series) 2016 Social Influencers of Health Screening 03/27/2022 Depression Screening 08/03/2024 08/04/2023 Falls Risk Assessment 08/03/2024 08/04/2023 Medicare Annual Wellness Visit 08/03/2024 08/04/2023 Diabetes: Annual Urine Albumin-Creatinine Ratio (uACR) 08/08/2024 08/09/2023 Diabetes: Blood Sugar Contro l Test (HGBA1C) 09/30/2024 04/01/2024, 08/09/2023, 08/09/2023 Diabetes: Annual GFR (Glomerular Filtration Rate) 04/01/2025 04/01/2024, 04/14/2023 Hypertension/CHF/CAD Annual BMP Blood Test 04/01/2025 04/01/2024, 04/14/2023 Cholesterol Screening (Lipid Panel) 08/08/2028 08/09/2023, 08/09/2023 DTaP,Tdap,and Td Vaccines (3 - Td or Tdap) 07/11/2033 07/12/2023, 10/11/2022 Pneumococcal Vaccine: 65+ Years Completed 10/11/2022, 11/22/2012 Influenza Vaccine Completed 04/01/2024, 03/16/2023, 03/16/2023 COVID-19 Vaccine Discontinued HIB Vaccines Aged Out No longer eligi ble based on patient's age to complete this topic HPV Vaccines Aged Out No longer eligi ble based on patient's age to complete this topic Hepatitis A Vaccines Aged Out No long er eligible based on patient's age to complete this topic Hepatitis B Vaccines Aged Out No long er eligible based on patient's age to complete this topic IPV Vaccines Aged Out No longer eligi ble based on patient's age to complete this topic MMR Vaccines Aged Out No longer eligi ble based on patient's age to complete this topic Meningococcal ACWY Vaccine Aged Out N o longer eligible based on patient's age to complete this topic RSV Immunization Patients Under 20 months Aged Out No longer eligible based on patient's age to complete this topic Varicella Vaccines Aged Out No longer eligible based on patient's age to complete this topic Procedures Procedure Name Priority Date/Time Associated Diagnosis Comments CBC WITH AUTO DIFFERENTIAL Routine 04/01/2024 11:55 AM EST Anemia of renal disease IRON AND TIBC Routine 04/01/2024 11:55 AM EST Anemia of renal disease FERRITIN Routine 04/01/2024 11:55 AM EST Anemia of renal disease HEMOGLOBIN A1C Routine 04/01/2024 11:55 AM EST Type 2 diabetes mellitus with stage 4 chronic kidney disease, without long-term current use of insulin ([facility]) VITAMIN D 25 HYDROXY Routine 04/01/2024 11:55 AM EST Vitamin D deficiency CBC AND DIFFERENTIAL Routine 04/01/2024 11:55 AM EST Anemia of renal disease BASIC METABOLIC PANEL Routine 04/01/2024 11:55 AM EST Chronic kidney disease, stage 4 (severe) ([facility]) VITAMIN B12 Routine 04/01/2024 11:55 AM EST Anemia of renal disease FOLATE Routine 04/01/2024 11:55 AM EST Anemia of renal disease HM URINE ALBUMIN CREATININE RATIO Routine 08/09/2023 LIPID PANEL Routine 08/09/2023 HM DEPRESSION SCREENING Routine 08/04/2023 FALLS RISK ASSESSMENT Routine 08/04/2023 from Last 3 Months or Most Recently Relevant to Health Maintenance Results * (ABNORMAL) CBC auto differential (04/01/2024 11:55 AM EST) [facility] WBC 10.5 4.8 - 10.8 K/mcL LAB HEMETOLOGY METHOD 04/01/2024 2:08 PM [facility] RBC 3.60(L) 4.50 - 5.50 M/mcL LAB HEMETOLOGY METHOD 04/01/2024 2:08 PM [facility] Hemoglobin 11.2(L) 13.5 - 17.5 g/dL LAB HEMETOLOGY METHOD 04/01/2024 2:08 PM [facility] Hematocrit 34.2(L) 42.0 - 54.0 % LAB HEMETOLOGY METHOD 04/01/2024 2:08 PM [facility] MCV 94.5 79.0 - 98.0 FL LAB HEMETOLOGY METHOD 04/01/2024 2:08 PM [facility] MCH 30.9 27.0 - 32.0 pcg LAB HEMETOLOGY METHOD 04/01/2024 2:08 PM [facility] MCHC 32.7 32.0 - 37.0 g/dL LAB HEMETOLOGY METHOD 04/01/2024 2:08 PM [facility] RDW 14.9 11.0 - 15.0 % LAB HEMETOLOGY METHOD 04/01/2024 2:08 PM [facility] Platelets 220 130 - 400 K/mcL LAB HEMETOLOGY METHOD 04/01/2024 2:08 PM [facility] MPV 10.1 7.0 - 11.0 FL LAB HEMETOLOGY METHOD 04/01/2024 2:08 PM [facility] NRBC 0.0 <1.0 % LAB HEMETOLOGY METHOD 04/01/2024 2:08 PM [facility] NRBC Absolute 0.00 <0.10 K/mcL LAB HEMETOLOGY METHOD 04/01/2024 2:08 PM [facility] Neutrophils Relative 80.4 % LAB HEMETOLOGY METHOD 04/01/2024 2:08 PM [facility] Lymphocytes Relative 12.4 % LAB HEMETOLOGY METHOD 04/01/2024 2:08 PM [facility] Monocytes Relative 5.6 % LAB HEMETOLOGY METHOD 04/01/2024 2:08 PM [facility] Eosinophils Relative 0.9 % LAB HEMETOLOGY METHOD 04/01/2024 2:08 PM [facility] Basophils Relative 0.5 % LAB HEMETOLOGY METHOD 04/01/2024 2:08 PM [facility] Immature Granulocytes Relative 0.2 % LAB HEMETOLOGY METHOD 04/01/2024 2:08 PM [facility] Neutrophils Absolute 8.41(H) 1.50 - 7.00 K/mcL LAB HEMETOLOGY METHOD 04/01/2024 2:08 PM [facility] Lymphocytes Absolute 1.30 1.00 - 5.00 K/mcL LAB HEMETOLOGY METHOD 04/01/2024 2:08 PM [facility] Monocytes Absolute 0.58 0.20 - 1.00 K/mcL LAB HEMETOLOGY METHOD 04/01/2024 2:08 PM [facility] Eosinophils Absolute 0.09 0.00 - 0.50 K/mcL LAB HEMETOLOGY METHOD 04/01/2024 2:08 PM [facility] Basophils Absolute 0.05 0.00 - 0.20 K/mcL LAB HEMETOLOGY METHOD 04/01/2024 2:08 PM [facility] Immature Granulocytes Absolute 0.02 0.00 - 0.03 K/mcL LAB HEMETOLOGY METHOD 04/01/2024 2:08 PM [facility] Blood Venous blood specimen / Unknown Venipuncture / Unknown 04/01/2024 11:55 AM EST 04/01/2024 11:55 AM EST Debra Kirk MD LAB BLOO D ORDERABLES [facility] [address] [place] [address], * Iron and TIBC (04/01/2024 11:55 AM EST) Iron 80 50 - 160 mcg/dL LAB CHEMISTRY METHOD 04/01/2024 7:56 PM EST [facility] TIBC 262 250 - 450 mcg/dL LAB CHEMISTRY METHOD 04/01/2024 7:56 PM EST [facility] Iron Saturation 31 20 - 50 % LAB CHEMISTRY METHOD 04/01/2024 7:56 PM EST [facility] Blood Venous blood specimen / Unknown Venipuncture / Unknown 04/01/2024 11:55 AM EST 04/01/2024 11:55 AM EST Debra Kirk MD LAB BLOO D ORDERABLES [facility] [address] [place] [address], * (ABNORMAL) Vitamin D 25 hydroxy (04/01/2024 11:55 AM EST) Vit D, 25-Hydroxy 29.5(L) 30.0 - 80.0 ng/mL LAB CHEMISTRY METHOD 04/01/2024 7:24 PM EST [facility] Blood Venous blood specimen / Unknown Venipuncture / Unknown 04/01/2024 11:55 AM EST 04/01/2024 11:55 AM EST Debra Kirk MD LAB BLOO D ORDERABLES Performing Organization Address City/[facility]/ZIP Co de Phone Number [facility] [address] [place] [address], [place] [phone] * Hemoglobin A1c (04/01/2024 11:55 AM EST) Pathologist [facility] Hemoglobin A1C 5.2 <6.5 % LAB CHEMISTRY METHOD 04/01/2024 10:18 PM EST [facility] Mean Bld Glu Estim. 103 mg/dL LAB CHEMISTRY METHOD 04/01/2024 10:18 PM EST [facility] Blood Venous blood specimen / Unknown Venipuncture / Unknown 04/01/2024 11:55 AM EST 04/01/2024 11:55 AM EST Debra Kirk MD LAB BLOO D ORDERABLES Performing Organization Address City/[facility]/ZIP Co de Phone Number [facility] [address] [place] [address], [place] [phone] * Folate (04/01/2024 11:55 AM EST) Pathologist [facility] Folate 9.4 2.8 - 17.0 ng/ml LAB CHEMISTRY METHOD 04/01/2024 7:56 PM EST [facility] Blood Venous blood specimen / Unknown Venipuncture / Unknown 04/01/2024 11:55 AM EST 04/01/2024 11:55 AM EST Debra Kirk MD LAB BLOO D ORDERABLES Performing Organization Address City/[facility]/ZIP Co de Phone Number [facility] [address] [place] [address], [place] [phone] * Ferritin (04/01/2024 11:55 AM EST) Pathologist [facility] Ferritin 164 26 - 388 ng/mL LAB CHEMISTRY METHOD 04/01/2024 7:56 PM EST [facility] Blood Venous blood specimen / Unknown Venipuncture / Unknown 04/01/2024 11:55 AM EST 04/01/2024 11:55 AM EST Debra Kirk MD LAB BLOO D ORDERABLES [facility] [address] [place] [address], [place] [phone] * Vitamin B12 (04/01/2024 11:55 AM EST) [facility] Vitamin B-12 625 250 - 900 pcg/mL LAB CHEMISTRY METHOD 04/01/2024 7:56 PM [facility] Blood Venous blood specimen / Unknown Venipuncture / Unknown 04/01/2024 11:55 AM EST 04/01/2024 11:55 AM EST Debra Kirk MD LAB BLOO D ORDERABLES Performing Organization Address City/[facility]/ZIP Co de Phone Number [facility] [address] [place] [address], [place] [phone] * (ABNORMAL) Basic metabolic panel (04/01/2024 11:55 AM EST) [facility] Sodium 140 133 - 145 mmol/L LAB CHEMISTRY METHOD 04/01/2024 7:58 PM [facility] Potassium 4.6 3.5 - 5.5 mmol/L LAB CHEMISTRY METHOD 04/01/2024 7:58 PM [facility] Chloride 112(H) 96 - 110 mmol/L LAB CHEMISTRY METHOD 04/01/2024 7:58 PM [facility] CO2 17(L) 21 - 32 mmol/L LAB CHEMISTRY METHOD 04/01/2024 7:58 PM [facility] Anion Gap 11 3 - 11 LAB CHEMISTRY METHOD 04/01/2024 7:58 PM [facility] Glucose 106(H) 70 - 100 mg/dL LAB CHEMISTRY METHOD 04/01/2024 7:58 PM [facility] BUN 56(H) 5 - 25 mg/dL LAB CHEMISTRY METHOD 04/01/2024 7:58 PM [facility] Creatinine 3.54(H) 0.70 - 1.30 mg/dL LAB CHEMISTRY METHOD 04/01/2024 7:58 PM [facility] eGFR 16(L) >=60 mL/min/1. 73m2 LAB CHEMISTRY METHOD 04/01/2024 7:58 PM [facility] Comment:Calculation based on the??Chronic Kidney Disease Epidemiology Collaboration (CKD-EPI) equation refit??without adjustment for race. BUN/Creatinine Ratio 15.8 LAB CHEMISTRY METHOD 04/01/2024 7:58 PM [facility] Calcium 9.1 8.5 - 10.5 mg/dL LAB CHEMISTRY METHOD 04/01/2024 7:58 PM [facility] Blood Venous blood specimen / Unknown Venipuncture / Unknown 04/01/2024 11:55 AM EST 04/01/2024 11:55 AM EST Debra Kirk MD LAB BLOO D ORDERABLES [facility] [address] [place] [address], * Urine Albumin Creatinine Ratio (08/09/2023) Urine Albumin Creatinine Ratio Abstracted Historical Provider MD AGUSTIN CALDERON E * Lipid panel (08/09/2023) LDL/HDL Ratio 3 0 - 4 Triglycerides 89 0 - 150 mg/dL Cholesterol 147 0 - 200 mg/dL HDL 47 40 mg/dL LDL Cholesterol 83 0 - 100 mg/dL Blood Venous blood specimen / Unknown Historical Provider LAB BLOOD ORDERAB LES * Falls Risk Assessment (08/04/2023) Falls Risk Assessment Abstracted Historical Provider HEALTH MAINTENANC E * Depression Screening (08/04/2023) Depression Screening Abstracted Historical Provider HEALTH MAINTENANC E from Last 3 Months or Most Recently Relevant to Health Maintenance Care Teams Poultry Hatchery Manager Relationship Specialty Start Date End Date Debra Kirk MD [address] [place], [place] PCP - General Internal Medicine 11/01/21
--- OUTSIDE RECORDS SUMMARY | 2024-05-14 08:13 | XMS_ITS | Encounter Summary ---
Author Organization [facility] Address [address] [phone] Phone Care Team Providers Care Machine Pecan Picker Name Role Phone Debra Kirk Primary Care Provider Encounter Details Date Type Department Care Team (Late st Contact Info) Description 04/18/2024 Office Communication [facility] [address] [phone] Lilly Villalpando ARNP [address] [phone] Social History Tobacco Use Types Packs/Day Years Used Date Smoking Tobacco: Never Smokeless Tobacco: Never Alcohol Use Standard Drinks/Week Comments Never 0 (1 standard drink = 0.6 oz pur e alcohol) Sex and Gender Information Value Date Recorded Sex Assigned at Not on file Legal Sex Male 8:45 AM EST Gender Identity Not on file Sexual Orientation Not on file documented as of this encounter Plan of Treatment Upcoming Encounters Date Type Department Care Team (Late st Contact Info) Description 06/03/2024 3:15 PM EST Office Visit [facility] [address] [phone] Tylor Barr MD [address] [phone] documented as of this encounter Visit Diagnoses Not on filedocumented in this encounter Care Teams Machine Pecan Picker Relationship Specialty Start Date End Date Reagan Debra [address] [place] [address] PCP - General 05/31/22 documented as of this encounter
[2024-05-14 08:14] LABS: VBG Base Excess -12.2 mmol/L; VBG HCO3 12 mmol/L (22-26); VBG pCO2 25 mmHg; VBG pH 7.29 (7.32-7.43); VBG pO2 67 mmHg
[2024-05-14 08:20] LABS: INTERNATIONAL NORM RATIO 1.1 (0.9-1.1); Prothrombin Time 12.5 SEC (10.9-12.4)
--- NOTE | 2024-05-14 08:26 | PC.NURSE ---
daughter reports that she found the pt at 0700 struggling to breath, and the pt states that he needed to go to the hospital, in triage pt was sating 57% on room air, pt rushed into the ED and into bed 8, pt is extremely labored breathing in the low 30's on the re-breather sating in the high 70's pt put on high flow at 50l and 45% and doing well sating at 91-93%. 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 daughter also reports that pt is on soft diet do to difficulty swallowing at baseline
[2024-05-14 08:27] LABS: B Type Natriuretic Peptide 27 pg/mL (<100); Troponin-I High Sensitivity 8.1 ng/L (<3.5-35.0)
[2024-05-14 08:40] LABS: Influenza A PCR NEGATIVE (Negative); Influenza B PCR NEGATIVE (Negative); Resp Syncy Virus RNA Qual PCR NEGATIVE (Negative); SARS COV2 PCR INHOUSE NEGATIVE (Negative)
--- NOTE | 2024-05-14 08:40 | ED_ITS ---
HPI - SOB/Dyspnea General Chief Complaint: Dyspnea Stated Complaint: SOB Time Seen by Provider: 05/14/24 07:52 History of Present Illness HPI Narrative: Patient is an 83-year-old male no history of congestive heart failure in the past. History of hypertension. History of renal insufficiency urinary retention in the past. Presents today with having sudden onset of shortness of breath. Patient from home. Noticed to have a decreased oxygenation was placed on high-flow O2 patient denies any chest pain. No diaphoresis. From home. No history of leg swelling. Denies any chest pain. No diaphoresis. Related Data Home Medications ?Medication ?Instructions ?Recorded ?Confirmed multivitamin 1 tab PO DAILY 02/15/24 05/14/24 cholecalciferol (vitamin D3) 50 50 mcg PO DAILY 05/14/24 05/14/24 mcg (2,000 unit) tablet (Vitamin D3) trazodone 50 mg tablet 50 mg PO BEDTIME 05/14/24 05/14/24 Previous Rx's ?Medication ?Instructions ?Recorded amlodipine 5 mg tablet 5 mg PO DAILY #30 tabs 05/31/22 sodium bicarbonate 650 mg tablet 650 mg PO TID #90 tabs 02/20/24 finasteride 5 mg tablet 5 mg PO DAILY #30 tabs 03/25/24 tamsulosin 0.4 mg capsule 0.4 mg PO DAILY@0730 30 days #30 03/25/24 caps cranberry fruit 450 mg tablet 450 mg PO DAILY 90 days #90 tabs 04/24/24 Allergies Allergy/AdvReac Type Severity Reaction Status Date / Time No Known Allergies Allergy Verified 05/14/24 08:00 Review of Systems 2 Review of Systems: Positive shortness of breath Unable to provide detailed review of systems secondary to shortness of breath PMFSH Past Medical History Attestation statement: The following information was validated with the patient. Medical History Hypertension Social History Social History Household Members: Other Household Members Other:: sister Housing: House Do you presently have visiting nurse or other home services: No Alcohol intake: never Patient Tobacco Use Status: Never used Tobacco Smoked in Last 30 Days: No Use of substances other than those prescribed or required for medical reasons: No Advance Directives: Yes Advance Directives on File: Yes Advance Directives Date on File: 05/24/22 Do you have a plan to hurt others: No Plan service: No Current occupational status: retired Physical Exam 2 Vital Signs: Vital Signs: Last Vital Signs Temp 97.6 F 05/14/24 12:18 Pulse 81 05/14/24 12:18 Resp 28 H 05/14/24 12:18 BP 121/62 05/14/24 12:18 Pulse Ox 95 05/14/24 12:18 O2 Del Method High Flow Nasal C annula 05/14/24 12:18 O2 Flow Rate 50 05/14/24 12:18 FiO2 45 05/14/24 12:18 BMI result Body Mass Index 24.8 Appearance: Alert. Oriented X3. No acute distress. Eyes: Pupils equal, round and reactive to light. ENT: Pharynx normal. Neck: Normal inspection. Neck supple. No lymph nodes noted. No crepitus CVS: Normal heart rate and rhythm. Pulses normal. Normal S1 and S2 Respiratory: Positive diminished breath sounds bilaterally Abdomen: Soft and nontender. No rigidity. No distention. good BS x4 Skin: Skin warm and dry. Normal skin color. Normal skin turgor. Extremities: No lower extremity edema. Neurovascular intact to all extremities. No Lacerations. No Rash Neuro: Oriented X 3. No motor deficit. No sensory deficit. Moving all extermities. No slurred speech Medications Administered Discontinued Medications Generic Name Dose Route Start Last Admin Trade Name Freq PRN Reason Stop Dose Admin Albuterol Sulfate 5 mg/ 7.5 mg 05/14/24 08:03 05/14/24 08:06 Albuterol Sulfate 2.5 mg INHALE 05/14/24 08:04 7.5 mg ONCE ONE Administration Ceftriaxone Sodium 1 gm 05/14/24 08:34 05/14/24 08:48 Ceftriaxone Sodium 1 Gm Vial IVPUSH 05/14/24 08:35 1 gm ONCE ONE Administration Azithromycin 500 mg/ Sodium 250 mls @ 125 mls/hr 05/14/24 08:34 05/14/24 11:02 Chloride IV 05/14/24 10:33 Infused ONCE ONE Infusion Sodium Chloride 2,025 mls @ 2,025 mls/hr 05/14/24 08:47 05/14/24 12:18 Ns 30 ml/kg infuse over 1 hr (5 ml) 05/14/24 09:46 Infused IV Infusion .Q1H STA Medical Decision Making Medical Decision Making [facility] Narrative: Positive onset of shortness of breath fairly sudden. Patient from home. ?for congestive heart failure versus pneumonia versus COPD. No history of COPD in the past. Patient has diminished breath sounds bilaterally. An x-ray was done my interpretation of the chest x-ray was for bilateral infiltrate. Radiology concurred thought that it is most concerning for pneumonia. Patient lactate was slightly elevated at 2.4. IV fluid was started after BNP came back normal more consistent with pneumonia. Cultures were obtained. Patient on high-flow O2 satting in the 90s. Repeat focal exam for sepsis was done after IV fluids patient is approximately the same. My interpretation of his EKG showed a sinus rhythm heart rate is 90 there is a right bundle branch block [place] is normal QTC is normal no acute ST segment elevation. Differential Diagnosis Differential Diagnoses: The differential diagnosis associated with the presentation includes Pneumonia CHF COPD flu COVID RSV Admission/Observation Consideration of admission/observation: Escalation of care including admission/observation considered Consult Healthcare Provider Management of the patient was discussed with: Hospitalist Lab Data [facility] Lab Attestation statement: I reviewed the patient's lab results. 05/14/24 07:56 05/14/24 08:29 Labs: Lab Results 05/14/24 05/14/24 05/14/24 Range/Units 07:56 08:07 08:09 WBC 15.4 H (4.8-10.8) X10*3/uL RBC 3.72 L D (4.60-5.80) X10*6/uL Hgb 11.5 L D (14.0-18.0) g/dl Hct 33.8 L D (42.0-52.0) % MCV 90.9 (80.0-98.0) fL MCH 30.9 (27.0-33.0) pg MCHC 34.0 (31.0-36.0) g/dl RDW 13.9 (11.0-16.0) % Plt Count 277 D (160-400) X10*3/uL MPV 9.7 (9.4-12.4) fL Immature Gran % (Auto) 0.6 H (0.0-0.4) % Neut % (Auto) 77.9 H (45-73) % Lymph % (Auto) 8.6 L (20-40) % [place] % (Auto) 9.2 (2-11) % Eos % (Auto) 3.2 (0-4) % Baso % (Auto) 0.5 (0-2) % Lymph # (Auto) 1.3 (1.2-4.9) X10*3/uL [place] # (Auto) 1.4 H (0.1-1.2) X10*3/uL Eos # (Auto) 0.5 H (0.0-0.4) X10*3/uL Baso # (Auto) 0.1 (0.0-0.2) X10*3/uL Abs Immat Gran (auto) 0.09 H (0.00-0.03) X10*3/uL Absolute Neuts (auto) 12.0 H (2.0-8.3) x10*3/uL Absolute Nucleated RBC 0.000 (0.0-0.012) X10*3/uL Nucleated RBC % (auto) 0.0 (0.0-0.2) /100WBC PT 12.5 H (10.9-12.4) SEC INR 1.1 (0.9-1.1) VBG pH 7.29 L (7.32-7.43) VBG pCO2 25 mmHg VBG pO2 67 mmHg VBG HCO3 12 L (22-26) mmol/L VBG O2 Saturation 90.0 % VBG Base Excess -12.2 mmol/L Sodium (135-145) mmol/L Potassium (3.3-5.1) mmol/L Chloride (96-108) mmol/L Carbon Dioxide (22-29) mmol/L Anion Gap (12-20) BUN (9-16) mg/dL Creatinine (0.5-1.4) mg/dL Estim Creat Clear Calc Estimated GFR Random Glucose (60-115) mg/dL Lactic Acid (0.5-2.0) mmol/L Lactic Acid F/U @ 2Hr (0.5-2.0) mmol/L Calcium (8.4-10.2) mg/dL Total Bilirubin (0.0-1.0) mg/dL Direct Bilirubin (0.0-0.5) mg/dL AST (5-37) U/L ALT (0-40) U/L Alkaline Phosphatase (39-117) U/L Troponin I High Sens 8.1 (<3.5-35.0) ng/L B-Natriuretic Peptide 27 (<100) pg/mL Total Protein (6.5-8.0) g/dL Albumin (3.5-5.0) g/dL Lipase (8-78) U/L Influenza Type A (PCR) NEGATIVE (Negative) Influenza Type B (PCR) NEGATIVE (Negative) RSV RNA Qual (PCR) NEGATIVE (Negative) SARS-CoV-2 RNA (RT-PCR) NEGATIVE (Negative) 05/14/24 05/14/24 05/14/24 Range/Units 08:14 08:29 10:41 WBC (4.8-10.8) X10*3/uL RBC (4.60-5.80) X10*6/uL Hgb (14.0-18.0) g/dl Hct (42.0-52.0) % MCV (80.0-98.0) fL MCH (27.0-33.0) pg MCHC (31.0-36.0) g/dl RDW (11.0-16.0) % Plt Count (160-400) X10*3/uL MPV (9.4-12.4) fL Immature Gran % (Auto) (0.0-0.4) % Neut % (Auto) (45-73) % Lymph % (Auto) (20-40) % [place] % (Auto) (2-11) % Eos % (Auto) (0-4) % Baso % (Auto) (0-2) % Lymph # (Auto) (1.2-4.9) X10*3/uL [place] # (Auto) (0.1-1.2) X10*3/uL Eos # (Auto) (0.0-0.4) X10*3/uL Baso # (Auto) (0.0-0.2) X10*3/uL Abs Immat Gran (auto) (0.00-0.03) X10*3/uL Absolute Neuts (auto) (2.0-8.3) x10*3/uL Absolute Nucleated RBC (0.0-0.012) X10*3/uL Nucleated RBC % (auto) (0.0-0.2) /100WBC PT (10.9-12.4) SEC INR (0.9-1.1) VBG pH (7.32-7.43) VBG pCO2 mmHg VBG pO2 mmHg VBG HCO3 (22-26) mmol/L VBG O2 Saturation % VBG Base Excess mmol/L Sodium 137 (135-145) mmol/L Potassium 4.9 (3.3-5.1) mmol/L Chloride 113 H (96-108) mmol/L Carbon Dioxide 15 L (22-29) mmol/L Anion Gap 14 (12-20) BUN 74 H (9-16) mg/dL Creatinine 3.77 H (0.5-1.4) mg/dL Estim Creat Clear Calc 13.1 Estimated GFR 15 Random Glucose 154 H (60-115) mg/dL Lactic Acid 2.4 H* (0.5-2.0) mmol/L Lactic Acid F/U @ 2Hr 1.1 (0.5-2.0) mmol/L Calcium 8.7 D (8.4-10.2) mg/dL Total Bilirubin 0.3 (0.0-1.0) mg/dL Direct Bilirubin 0.1 (0.0-0.5) mg/dL AST 27 (5-37) U/L ALT 11 (0-40) U/L Alkaline Phosphatase 88 (39-117) U/L Troponin I High Sens (<3.5-35.0) ng/L B-Natriuretic Peptide (<100) pg/mL Total Protein 7.0 (6.5-8.0) g/dL Albumin 3.3 L (3.5-5.0) g/dL Lipase 28 (8-78) U/L Influenza Type A (PCR) (Negative) Influenza Type B (PCR) (Negative) RSV RNA Qual (PCR) (Negative) SARS-CoV-2 RNA (RT-PCR) (Negative) ABG Data Attestation ABG: I personally reviewed and interpreted this ABG as follows: Interpretation: Patient's VBG showed a pH of 7.29 with a pCO2 of 29. Consistent with mild respiratory acidosis. Independent Interpretation I performed an independent interpretation of an: EKG (Sinus heart rate is 100 there is a right bundle-branch block there is no acute ST segment elevation [place] QTC is normal) and Plain X-Ray (Bilateral infiltrate) Radiology Impression Discussion of test interpretation with radiology: I have reviewed the radiologist's reading. Independent Historian Clinical information obtained from an independent historian. History obtained from or confirmed by: Other (Discussed with patient's daughter. Additional history obtained) External Record Review External record reviewed: Inpatient record Chronic Conditions Patient?s care impacted by: Hypertension Critical Care Time Critical Care Time Critical Care Time: Yes Total Critical Care Time: 40 Attestation: I have personally provided 40 minutes of critical care time exclusive of time spent on separately billable procedures. ?Time includes review of lab data, radiology results, discussion with consultants, and monitoring for potential decompensation. ?Interventions were performed as documented above Discharge Plan Discharge Clinical Impression: Pneumonia Patient Disposition: Admitted As Inpatient
[2024-05-14 08:47] LABS: Lactic Acid 2.4 mmol/L (0.5-2.0)
[2024-05-14] MEDS: SODIUM CHLORIDE 2025 ML IV (08:48)
[2024-05-14] MEDS: cefTRIAXone sodium 1 GM VIAL IVPUSH (08:48)
[2024-05-14] MEDS: Azithromycin 500 MG in 0.9 % Sodium Chloride 250 ML 125 MG IV (08:50)
[2024-05-14 09:01] LABS: Alanine Aminotransferase 11 U/L (0-40); Albumin Level 3.3 g/dL (3.5-5.0); Alkaline Phosphatase 88 U/L (39-117); Anion Gap 14 (12-20); Aspartate Amino Transferase 27 U/L (5-37); Bilirubin Direct 0.1 mg/dL (0.0-0.5); Bilirubin Total 0.3 mg/dL (0.0-1.0); Blood Urea Nitrogen 74 mg/dL (9-16); Calcium 8.7 mg/dL (8.4-10.2); Carbon Dioxide 15 mmol/L (22-29); Chloride 113 mmol/L (96-108); Creatinine Clr Calc Pharmacy 13.1; Estimated Glomerular Filt Rate 15; Glucose Random 154 mg/dL (60-115); Lipase 28 U/L (8-78); Potassium 4.9 mmol/L (3.3-5.1); Sodium 137 mmol/L (135-145)
[2024-05-14 10:18] LABS: Reflex Lactate? Lactic Acid Added
[2024-05-14 11:01] LABS: ~Lactic Acid-LAB USE ONLY 1.1 mmol/L (0.5-2.0)
--- NOTE | 2024-05-14 12:03 | PHA.MEDREC ---
Addendum entered by Gin Casarez RPh 05/14/24 12:06: reviewed by [facility]. Original Note: Pharmacy Consult ? Medication Reconciliation Pharmacy has completed the medication reconciliation. Spoke with patients daughter at bedside who was able to confirm her dads medications. The daughter confirmed her dad last took his medications yesterday.
[2024-05-14 12:29] LABS: D Dimer High Sensitivity 738 NG/ML
[2024-05-14 13:00] LABS: Procalcitonin 0.34 ng/mL
[2024-05-14] MEDS: Piperacillin Sodium/Tazobactam 2.25 GM in 0.9 % Sodium Chloride 50 ML IV ×2 (13:04→19:24)
[2024-05-14] MEDS: Heparin Sodium,Porcine 5,000 UNIT/ML VIAL 5000 UNIT SUBCUT (13:04)
--- NOTE | 2024-05-14 14:07 | P.HPHOSP_ITS ---
History of Present Illness Date of Service: 05/14/24 Attending physician on admission: Shawna Barnett Chief Complaint: SOB, difficulty breathing Pt is an 83-year-old male with a PMH significant for?HTN, BPH, and unspecified dementia who presents to the ED from home for evaluation of SOB and difficulty breathing since this morning. Pt is alert and oriented to self only, and on able to provide accurate HPI, which is instead supplemented by family at bedside. Pt lives with his stepdaughter who reports she found pt this morning with ?heavy breathing? and significant SOB. When she asked pt how he was feeling he only replied ?hospital?, which she notes is very unlike him. Reports pt was in his normal state of health last night without complains of SOB/difficulty breathing or cough. Pt without pulmonary diagnosis, lifelong nonsmoker, not on home O2 home inhalers. Family denies pt has had any recent sicknesses or illnesses. Pt has significantly declined recently and is no longer ambulatory. Family also note pt has hx of dysarthria and often struggles with eating. No known hx of aspiration, but family report they puree his food and give him thin liquids. ? In the ED pt was tachypneic up to 32, elevated HR of 91, and hypoxic as low as 57% on RA, which improved to 91% on high-flow. Labs were significant for leukocytosis 15.4, respiratory acidosis of VBG pH 7.29 with bicarb chronically low at 12, and initial lactic acid 2.4 repeat 1.1. Chronic normocytic anemia around baseline. No significant electrolyte abnormalities. Creatinine 3.77, improved from prior. CXR showed patchy parenchymal opacities throughout both lungs most confluent in left lower lobe suggestive of multifocal pneumonia. EKG demonstrated normal sinus rhythm with ST and T-wave abnormalities though similar to previous 07/12/2023. Pt was treated with DuoNebs, IVF, ceftriaxone, and azithromycin. Pt will be admitted to the hospital for treatment and further evaluation of acute hypoxic respiratory failure in the setting of multifocal pneumonia with sepsis. Review of Systems 2 Review of Systems: Yes Unobtainable due to mental status [facility] Medical History (Updated 05/14/24 @ 14:32 by RONAK Small) Dementia Hypertension Social History Household Members: Other Household Members Other:: sister Housing: House Do you presently have visiting nurse or other home services: No Alcohol intake: never Patient Tobacco Use Status: Never used Tobacco Smoked in Last 30 Days: No Use of substances other than those prescribed or required for medical reasons: No Advance Directives: Yes Advance Directives on File: Yes Advance Directives Date on File: 05/24/22 Do you have a plan to hurt others: No Plan service: No Current occupational status: retired Meds Allergies Allergy/AdvReac Type Severity Reaction Status Date / Time No Known Allergies Allergy Verified 05/14/24 08:00 Active Medications: Current Medications Acetaminophen (Acetaminophen 325 Mg Tablet) 650 mg PO Q6H PRN PRN Reason: Pain, Mild 1-3,fever,headache Calcium Carbonate (Calcium Carbonate 750 Mg Tab.Chew) 750 mg PO Q4H PRN PRN Reason: Heartburn Heparin Sodium (Porcine) (Heparin Sodium,Porcine 5,000 Unit/Ml Vial) 5,000 unit SUBCUT Q12H [facility] Last Admin: 05/14/24 13:04 Dose: 5,000 unit Piperacillin Sod/Tazobactam (Sod 2.25 gm/ Sodium Chloride) 50 mls @ 100 mls/hr IV Q6H [facility] Last Infusion: 05/14/24 13:57 Dose: Infused Magnesium Hydroxide (Milk Of Magnesia 30 Ml Oral.Susp) 30 ml PO DAILY PRN PRN Reason: Constipation Melatonin (Melatonin 3 Mg Tablet) 6 mg PO BEDTIME PRN PRN Reason: Insomnia Ondansetron HCl (Ondansetron Hcl 4 Mg/2 Ml Vial) 4 mg IVPUSH Q8H PRN PRN Reason: Nausea and Vomiting Sodium Chloride (0.9 % Sodium Chloride Flush 3 Ml Syringe) 3 ml IVFLUSH QSHIFT [facility] Home Medications ?Medication ?Instructions ?Recorded ?Confirmed ?Last Taken ?Type multivitamin 1 tab PO DAILY 02/15/24 05/14/24 05/13/24 History cholecalciferol (vitamin D3) 50 50 mcg PO DAILY 05/14/24 05/14/24 05/13/24 History mcg (2,000 unit) tablet (Vitamin D3) trazodone 50 mg tablet 50 mg PO BEDTIME 05/14/24 05/14/24 05/13/24 History Physical Exam 2 Vital Signs and Narrative: Vital Signs: Last Vital Signs Temp 97.5 F 05/14/24 13:10 Pulse 84 05/14/24 13:10 Resp 24 H 05/14/24 13:10 BP 112/62 05/14/24 13:10 Pulse Ox 93 05/14/24 13:10 O2 Del Method High Flow Nasal C annula 05/14/24 13:10 O2 Flow Rate 50 05/14/24 13:10 FiO2 45 05/14/24 13:10 BMI result Body Mass Index 24.8 General: AOx1, in mild respiratory distress Resp: CTA bilaterally. Increased work of breathing. On high-flow CVS: S1, S2, RRR GI: +BS, NT, no distention Skin: Warm, dry Neuro: Cranial nerves II-XII grossly intact bilaterally. Motor grossly intact bilaterally Extremities: No edema Psych: Pleasantly confused Results Labs 05/15/24 04:32 05/15/24 04:32 Labs: Laboratory Results - last 24 hr 05/14/24 05/14/24 05/14/24 07:56 08:07 08:09 MCV 90.9 MCH 30.9 MCHC 34.0 RDW 13.9 Plt Count 277 D MPV 9.7 Immature Gran % (Auto) 0.6 H Neut % (Auto) 77.9 H Lymph % (Auto) 8.6 L [place] % (Auto) 9.2 Eos % (Auto) 3.2 Baso % (Auto) 0.5 Lymph # (Auto) 1.3 [place] # (Auto) 1.4 H Eos # (Auto) 0.5 H Baso # (Auto) 0.1 Abs Immat Gran (auto) 0.09 H Absolute Neuts (auto) 12.0 H Absolute Nucleated RBC 0.000 Nucleated RBC % (auto) 0.0 PT 12.5 H INR 1.1 D-Dimer High Sensitivty 738 VBG pH 7.29 L VBG pCO2 25 VBG pO2 67 VBG HCO3 12 L VBG O2 Saturation 90.0 VBG Base Excess -12.2 Anion Gap Estim Creat Clear Calc Estimated GFR Random Glucose Lactic Acid Lactic Acid F/U @ 2Hr Calcium Total Bilirubin Direct Bilirubin AST ALT Alkaline Phosphatase Troponin I High Sens 8.1 B-Natriuretic Peptide 27 Total Protein Albumin Lipase Procalcitonin Influenza Type A (PCR) NEGATIVE Influenza Type B (PCR) NEGATIVE RSV RNA Qual (PCR) NEGATIVE SARS-CoV-2 RNA (RT-PCR) NEGATIVE 05/14/24 05/14/24 05/14/24 08:14 08:29 10:41 MCV MCH MCHC RDW Plt Count MPV Immature Gran % (Auto) Neut % (Auto) Lymph % (Auto) [place] % (Auto) Eos % (Auto) Baso % (Auto) Lymph # (Auto) [place] # (Auto) Eos # (Auto) Baso # (Auto) Abs Immat Gran (auto) Absolute Neuts (auto) Absolute Nucleated RBC Nucleated RBC % (auto) PT INR D-Dimer High Sensitivty VBG pH VBG pCO2 VBG pO2 VBG HCO3 VBG O2 Saturation VBG Base Excess Anion Gap 14 Estim Creat Clear Calc 13.1 Estimated GFR 15 Random Glucose 154 H Lactic Acid 2.4 H* Lactic Acid F/U @ 2Hr 1.1 Calcium 8.7 D Total Bilirubin 0.3 Direct Bilirubin 0.1 AST 27 ALT 11 Alkaline Phosphatase 88 Troponin I High Sens B-Natriuretic Peptide Total Protein 7.0 Albumin 3.3 L Lipase 28 Procalcitonin 0.34 Influenza Type A (PCR) Influenza Type B (PCR) RSV RNA Qual (PCR) SARS-CoV-2 RNA (RT-PCR) Imaging Radiologist's Impressions: Impressions Chest X-Ray 05/14/24 07:54 IMPRESSION: Low lung volumes with patchy parenchymal opacities throughout both lungs most confluent in the left lower lobe. Findings suggest multifocal pneumonia. No effusions. Electronically signed by: Juan David Bermeo MD 05/14/2024 09:12 AM [facility] Assessment and Plan (1) Pneumonia: Status: Acute (2) Hypoxia: Status: Acute Plan Pt is an 83-year-old male with a PMH significant for?HTN, BPH, and unspecified dementia who presents to the ED from home for evaluation of SOB and difficulty breathing since this morning. Pt will be admitted to the hospital for treatment and further evaluation of acute hypoxic respiratory failure in the setting of multifocal pneumonia with sepsis. Acute hypoxic respiratory failure in the setting of multifocal pneumonia with sepsis Pt with SOB, [place], CXR showing likely multifocal pneumonia, desatting to 57% on RA Meets sepsis criteria: Tachypnea, tachycardia, leukocytosis; initial lactic acid 2.4 Pt given IVF and started on broad-spectrum antibiotics in the ED Concern for aspiration: sudden-onset this morning, pt with significant dysphagia Will cover with Zosyn, started on 05/14/2024 Will check procalcitonin, Legionella and strep pneumonia ag urine NPO pending formal speech and swallow evaluation Continue high-flow, wean as tolerated to O2>92 Monitor respiratory status Concern for pulmonary embolism Patient's hypoxia significant and sudden onset, elevated HR, no significant pulmonary hx Will rule out PE Check D-dimer, lower extremity ultrasound, and V/Q scan CKD 5 Appears stable, at baseline Pt follows with Dr. Barr from [facility] Per family no plans for starting dialysis HTN Continue amlodipine BPH Continue tamsulosin, finasteride Full Code Attending:?Dr. Barnett DVT Prophylaxis: Lovenox Pt will require a hospitalization of at least two nights for treatment of?acute hypoxic respiratory failure in the setting of multifocal pneumonia with sepsis. Pt will require hospital level care for administration of IV antibiotics, supplemental oxygen, and close monitoring of respiratory status. Quality Stroke Does the patient have a stroke diagnosis?: No VTE Prior VTE?: No VTE Risk Level:: Medical - moderate - high VTE Device Contraindication: Treatment Not Indicated VTE Drug Contraindication: N/A - Med Ordered
--- NOTE | 2024-05-14 14:23 | PC.NURSE ---
pt off unite to nuc.med along with Zully coyne and Juan David rt
--- NOTE | 2024-05-14 16:00 | PC.NURSE ---
speech is recommending puree and nectar thicket fluids
[2024-05-14] MEDS: Sodium Bicarbonate 650 MG TABLET PO ×2 (16:20→21:13)
--- NOTE | 2024-05-14 16:20 | MHC.SL.SWA ---
Speech Pathologist Impression: Risk of Aspiration, Oropharyngeal Dysphagia Risk of Aspiration Due to: Neurological Condition History of Pneumonia Reduced Cognition Dysphasia Diet Status: Start on NDD1/NTL Liquid Consistency and Strategies for Safe Swallow: Liquid Intake Recommendation: [place] Thick Liquid Intake Strategies: Small Sips No Straws Double Swallow Solid Food Consistency: Dietary Recommendations: Pureed (NDD1) Additional Modifications to Solid Foods: Patient attempts to feed self, will need cues and guidance for safe feeding strategies: take one bite/sip at a time, allow time to swallow and clear oral cavity before taking next bite/sip, avoid the use of straws, ensure upright 90 degree position during and 30 min after PO intake, maintain frequent oral care routine (before first meal and after each subsequent meal). Oral Medication Intake: Crushed with Puree Please contact the pharmacy regarding appropriate crushable or liquid drug formulations that are available whenever modified delivery is recommended. Compensatory Strategies and Precautions to be Taken for Safe Swallow: Sitting Upright (90 deg) Double Swallow No Straw Liquids from Cup Liquids from Spoon Small Bites and Sips Alternate Liquids/Solids Rate of Ingestion Change Oral Check Supervision While Eating and Drinking for Safe Swallow: Total Assistance (1:1) Swallowing Recommended Treatments: Compens. Strategy Educat. Recommendation for Speech: Inpatient Speech Therapy Modified Barium Swallow Study - Inpatient Modified Barium Swallow Study - Outpatient Housekeeper Child Care Clinican/Clinical Fellow: No Supervisory Statement: I have reviewed and agree with the student/clinical fellow's documentation: N/A Speech Language Pathologist: Rahcell You M.A., CCC-HOPPER FEEDER
[2024-05-14] MEDS: 0.9 % Sodium Chloride Flush 3 ML SYRINGE IVFLUSH (16:21)
--- NOTE | 2024-05-14 18:48 | MHC.EDTECH ---
PT is a 1:1 feed.
--- NOTE | 2024-05-14 20:32 | MHC.EDTECH ---
PT changed cleaned this tech was assisted by AMALIA Workman and CYNDIE Cheung changed. Pt moved onto a hospital bed
[2024-05-14] MEDS: Melatonin 3 MG TABLET 6 MG PO (21:13)
[2024-05-14] MEDS: traZODone HCL 50 MG TABLET PO (21:13)
--- NOTE | 2024-05-14 23:49 | PC.NURSE ---
Report given, plan to admit to room 377. Family (daughter Nancy) contacted via phone per request with updated room assignment. Nancy very thankful for the update. High flow continues at 50L/45%, tolerating well. Patient is awake, calm, redirectable. Camera in place for safety. IV access is patent/intact to left wrist.
--- NOTE | 2024-05-14 23:57 | PC.NURSE ---
Patient unable to go to Med/Surg room 377 due to being on High Flow Oxygen. New bed assignment pending.
[2024-05-15] VITALS (22 sets, daily range): BP systolic 111–140; BP diastolic 55–86; PULSE 7–99; RESP 17–37; TEMP 36.3–37; O2SAT 87–96; BMI 24.8
[2024-05-15] MEDS: Heparin Sodium,Porcine 5,000 UNIT/ML VIAL 5000 UNIT SUBCUT ×2 (01:12→12:47)
[2024-05-15] MEDS: Piperacillin Sodium/Tazobactam 2.25 GM in 0.9 % Sodium Chloride 50 ML IV ×4 (01:13→19:51)
[2024-05-15] MEDS: 0.9 % Sodium Chloride Flush 3 ML SYRINGE IVFLUSH ×3 (01:13→20:37)
--- NOTE | 2024-05-15 02:25 | PC.NURSE ---
Patient accidentally self-removed high flow from himself. Reapplied by this RN. Pulse oximeter dropped to 70% on room air when the high flow was removed, then improved to 89% once high flow was reapplied. RT (Osiris) to bedside. Adjusted high flow to 55L/45% with improvement to 92% on pulse oximeter. Patient is confused but redirectable. Care ongoing by this RN.
[2024-05-15 04:44] LABS: Hematocrit 29.9 % (42.0-52.0); Hemoglobin 9.9 g/dl (14.0-18.0); Mean Corpuscular HGB Conc 33.1 g/dl (31.0-36.0); Mean Corpuscular Hemoglobin 30.1 pg (27.0-33.0); Mean Corpuscular Volume 90.9 fL (80.0-98.0); Mean Platelet Volume 10.1 fL (9.4-12.4); Platelet Count 216 X10*3/uL (160-400); Red Blood Count 3.29 X10*6/uL (4.60-5.80); Red Cell Distribution Width 13.5 % (11.0-16.0)
[2024-05-15 05:00] LABS: Anion Gap 15 (12-20); Blood Urea Nitrogen 63 mg/dL (9-16); Carbon Dioxide 14 mmol/L (22-29); Chloride 116 mmol/L (96-108); Creatinine Clr Calc Pharmacy 14.7; Estimated Glomerular Filt Rate 18; Glucose Random 101 mg/dL (60-115); Potassium 5.1 mmol/L (3.3-5.1); Sodium 140 mmol/L (135-145)
--- NOTE | 2024-05-15 07:45 | PC.NURSE ---
assumed care of patient at 0700, patient is awake and alert, oriented to self. patient noted to be incontinent of a large amount of liquid stool. patient washed up, new linens,pads and gown. patient has camera sitter for safety. patient medicated per JUN, takes meds whole with pudding. patient ate and drank 100% of his breakfast. patient VSS, remains on high flow nasal cannula. patient has yellow sock that he plays with and puts on different hands for stimulation. bed alarm on for safety in lowest position.
[2024-05-15] MEDS: amLODIPine Besylate 5 MG TABLET PO (07:51)
[2024-05-15] MEDS: Sodium Bicarbonate 650 MG TABLET PO ×3 (07:51→20:29)
[2024-05-15] MEDS: Tamsulosin HCL 0.4 MG CAPSULE PO (07:51)
[2024-05-15] MEDS: Multivitamin TABLET 1 TAB PO (07:51)
[2024-05-15] MEDS: Cholecalciferol (Vitamin D3) 25 MCG TABLET 50 MCG PO (07:51)
[2024-05-15] MEDS: Finasteride 5 MG TABLET PO (07:59)
[2024-05-15] MEDS: Linezolid/D5W 600 MG/300 ML PIGGYBACK 300 MG IV ×2 (09:22→20:28)
--- NOTE | 2024-05-15 09:53 | PC.NURSE ---
patient noted to have more liquid stool, GI panel and cdiff panel sent.
[2024-05-15 10:59] LABS: CDiff Gene PCR POSITIVE (Negative)
[2024-05-15 11:00] LABS: CDIFF Internal ctrl Dots and bkg OK (V); CDiff Toxin Negative (Negative)
--- NOTE | 2024-05-15 11:13 | MHC.CM.PN ---
[facility] 05/15/24 reviewed with HCP Kimberly on phone. Pt was soundly sleeping and reports indicate that he is not able to provide assessment info due to Dementia. Kimberly, is dtr and HCP, pt. lives with her and she takes care of him. She is in the process of applying for LTC [facility] because pt. has been increasingly weak and frail and cannot be alone at all. She feels he needs SNF care at this time. Pt. was at [facility] in Feb for STR. HCP said that is not her choice for LTC. For DME, pt. has walker, akhil, but has recently been too weak to use either. PCP confirmed: Dr. Kirk. DCP: SNF, either STR or LTC. CM to follow for DC planning needs.
--- NOTE | 2024-05-15 11:23 | MHC.SLORD ---
Speech Language Pathology Order Status: Pt seen in ED, remains lethargic, on high flow O2. Pt will be transferred to floor. STRETCH PRESS OPERATOR continues to follow.
[2024-05-15 12:03] LABS: Adenovirus F 40/41 Not Detected (Not Detect.); Astrovirus Not Detected (Not Detect.); Campylobacter Not Detected (Not Detect.); Cryptosporidium Not Detected (Not Detect.); Cyclospora cayetanensis Not Detected (Not Detect.); E. coli EAEC Not Detected (Not Detect.); E. coli EPEC Not Detected (Not Detect.); E. coli ETEC Not Detected (Not Detect.); E. coli STEC Not Detected (Not Detect.); Entamoeba histolytica Not Detected (Not Detect.); Giardia lamblia Not Detected (Not Detect.); Plesiomonas shigelloides Not Detected (Not Detect.); Rotavirus A Not Detected (Not Detect.); Salmonella Not Detected (Not Detect.); Sapovirus Not Detected (Not Detect.); Shigella sp./EIEC Not Detected (Not Detect.); Vibrio Not Detected (Not Detect.); Vibrio Cholerae Not Detected (Not Detect.); Yersinia enterocolitica Not Detected (Not Detect.)
--- NOTE | 2024-05-15 12:30 | PC.NURSE ---
patient continued to have watery- copious amounts of diarrhea, inpatient attending made aware. rectal tube placed
[2024-05-15] MEDS: vancomycin HCL 125 MG CAPSULE PO ×2 (12:47→17:46)
--- NOTE | 2024-05-15 13:49 | HO.PM.IMPN ---
Subjective Subjective Date of Service: 05/15/24 Interval History: having copious watery diarrhea; positive for norovirus; also colonized with Cdiff still on HFNC 45 Lpm + 45% fiO2, c/o dyspnea + cough Review of Systems Review of Systems: Yes all other systems are reviewed and are negative Physical Exam Vital Signs: Vital Signs: Last Vital Signs Temp 97.7 F 05/15/24 12:51 Pulse 89 05/15/24 12:51 Resp 26 H 05/15/24 13:36 BP 122/66 05/15/24 12:51 Pulse Ox 95 05/15/24 10:39 O2 Del Method High Flow Nasal C annula 05/15/24 12:51 O2 Flow Rate 55 05/15/24 12:51 FiO2 56 05/15/24 12:51 BMI result Body Mass Index 24.8 Gen: in moderate respiratory distress HEENT: sclera anicteric, moist mucus membranes Neck: supple Lungs: coarse bilateral inspiratory crackles Heart: regular rate and rhythm, no murmurs Abd: soft, non-tender, non-distended Ext: no edema Skin: warm/well-perfused Neuro: alert and oriented to self and place, moving all extremities Psych: appropriate affect Objective Data Active Medications Acetaminophen (Acetaminophen 325 Mg Tablet) 650 mg PO Q6H PRN PRN Reason: Pain, Mild 1-3,fever,headache Amlodipine Besylate (Amlodipine Besylate 5 Mg Tablet) 5 mg PO DAILY [facility]; Protocol Last Admin: 05/15/24 07:51 Dose: 5 mg Documented By: GABRIEL Calcium Carbonate (Calcium Carbonate 750 Mg Tab.Chew) 750 mg PO Q4H PRN PRN Reason: Heartburn Finasteride (Finasteride 5 Mg Tablet) 5 mg PO DAILY [facility] Last Admin: 05/15/24 07:59 Dose: 5 mg Documented By: GABRIEL Heparin Sodium (Porcine) (Heparin Sodium,Porcine 5,000 Unit/Ml Vial) 5,000 unit SUBCUT Q12H [facility] Last Admin: 05/15/24 12:47 Dose: 5,000 unit Documented By: GABRIEL Piperacillin Sod/Tazobactam (Sod 2.25 gm/ Sodium Chloride) 50 mls @ 100 mls/hr IV Q6H [facility] Last Infusion: 05/15/24 09:49 Dose: Infused Documented By: GABRIEL Linezolid (Zyvox/D5w) 600 mg in 300 mls @ 300 mls/hr IV Q12H [facility] Last Infusion: 05/15/24 10:37 Dose: Infused Documented By: GABRIEL Loperamide HCl (Loperamide Hcl 2 Mg Capsule) 2 mg PO Q4H PRN PRN Reason: diarrhea Magnesium Hydroxide (Milk Of Magnesia 30 Ml Oral.Susp) 30 ml PO DAILY PRN PRN Reason: Constipation Melatonin (Melatonin 3 Mg Tablet) 6 mg PO BEDTIME PRN PRN Reason: Insomnia Last Admin: 05/14/24 21:13 Dose: 6 mg Documented By: ROMAN Multivitamins/Vitamin C (Multivitamin Tablet) 1 tab PO DAILY [facility] Last Admin: 05/15/24 07:51 Dose: 1 tab Documented By: GABRIEL Ondansetron HCl (Ondansetron Hcl 4 Mg/2 Ml Vial) 4 mg IVPUSH Q8H PRN PRN Reason: Nausea and Vomiting Sodium Bicarbonate (Sodium Bicarbonate 650 Mg Tablet) 650 mg PO TID [facility] Last Admin: 05/15/24 07:51 Dose: 650 mg Documented By: GABRIEL Sodium Chloride (0.9 % Sodium Chloride Flush 3 Ml Syringe) 3 ml IVFLUSH QSHIFT [facility] Last Admin: 05/15/24 08:17 Dose: Not Given Documented By: GABRIEL Non-Admin Reason: See Note Tamsulosin HCl (Tamsulosin Hcl 0.4 Mg Capsule) 0.4 mg PO DAILY@0730 [facility] Last Admin: 05/15/24 07:51 Dose: 0.4 mg Documented By: GABRIEL Trazodone HCl (Trazodone Hcl 50 Mg Tablet) 50 mg PO BEDTIME [facility] Last Admin: 05/14/24 21:13 Dose: 50 mg Documented By: ROMAN Vancomycin HCl (Vancomycin Hcl 125 Mg Capsule) 125 mg PO Q6H [facility] Last Admin: 05/15/24 12:47 Dose: 125 mg Documented By: GABRIEL Vitamin D (Cholecalciferol (Vitamin D3) 25 Mcg Tablet) 50 mcg PO DAILY [facility] Last Admin: 05/15/24 07:51 Dose: 50 mcg Documented By: GABRIEL Labs 05/15/24 04:32 05/15/24 04:32 Labs: Laboratory Results - last 24 hr 05/15/24 05/15/24 04:32 09:01 MCV 90.9 MCH 30.1 MCHC 33.1 RDW 13.5 Plt Count 216 MPV 10.1 Absolute Nucleated RBC 0.000 Nucleated RBC % (auto) 0.0 Anion Gap 15 Estim Creat Clear Calc 14.7 Estimated GFR 18 Random Glucose 101 Calcium 9.0 Stl C. cayetanensis PCR Not Detected Stool Rotavirus A PCR Not Detected Stl Adenov F 40/41 PCR Not Detected Stool Astrovirus (PCR) Not Detected Stool Campylobacter PCR Not Detected Stool Cryptosporidium PCR Not Detected Stl Sh Tox Pr E STEC PCR Not Detected Stool E coli O157 PCR Not applicable Stl Enterotoxigenic E PCR Not Detected Stool EPEC (PCR) Not Detected Stool EAEC (PCR) Not Detected Stl E. histolytica PCR Not Detected Stool Giardia Lamblia PCR Not Detected Stl P. shigelloides PCR Not Detected Stool Salmonella PCR Not Detected Stool Sapovirus (PCR) Not Detected Stl Shigella/EIEC PCR Not Detected St Y.enterocolitica PCR Not Detected Stool Vibrio (PCR) Not Detected Stl Vibrio cholerae PCR Not Detected Stl Norovirus GI/GII PCR See Comment C. difficile Tox B Gene POSITIVE A* C. difficile Toxin A&B Negative C. difficile Interpret SEE NOTE Microbiology Microbiology Results: Microbiology 05/14/24 08:29 Blood Culture - Preliminary Blood - Venous No growth after 24 hours. 05/14/24 08:14 Blood Culture - Preliminary Blood - Venous No growth after 24 hours. Assessment and Plan (1) Pneumonia: Status: Acute Plan d2 for 83yo M with HTN, BPH, CKD5, and dementia presenting with acute dyspnea, found to be markedly hypoxic and septic from multifocal pneumonia; also norovirus positive acute hypoxic respiratory failure due to multifocal pneumonia - 05/14- pip-hazel, 05/15- linezolid [pending MRSA swab], trend PCT, follow BCx, urinary antigens for Legionella and pneumococcus pending, respiratory pathogen PCR panel, obtain CT chest; V/Q negative for PE - MANAGER OF DISASTER RECOVERY consulted: NDD1 solids, nectar liquids - supplemental O2, wean as tolerated norovirus infection - contact isolation, prn loperamide C. difficile colonization - PO vancomycin while on antibiotics CKD5 chronic metabolic acidosis - avoid nephrotoxins; SCr actually improved from prior; continue maintenance PO bicarbonate HTN - continue amlodipine BPH - continue tamsulosin + finasteride VTE ppx - UFH dispo - TBD In my clinical judgment, the patient requires continued inpatient hospitalization for the following reasons: IV ABX, hypoxia Total time managing care of this patient today: 50 minutes. Quality Stroke Does the patient have a stroke diagnosis?: No VTE Prior VTE?: No VTE Risk Level:: Medical - moderate - high VTE Device Contraindication: Treatment Not Indicated VTE Drug Contraindication: N/A - Med Ordered
[2024-05-15] MEDS: Morphine Sulfate 2 MG/ML CARTRIDGE 1 MG IVPUSH (20:29)
[2024-05-15] MEDS: traZODone HCL 50 MG TABLET PO (20:29)
[2024-05-16] VITALS (15 sets, daily range): BP systolic 108–129; BP diastolic 57–64; PULSE 65–78; RESP 18–36; TEMP 36.1–37.3; O2SAT 89–96
[2024-05-16] MEDS: vancomycin HCL 125 MG CAPSULE PO ×2 (00:48→06:25)
[2024-05-16] MEDS: Heparin Sodium,Porcine 5,000 UNIT/ML VIAL 5000 UNIT SUBCUT ×2 (00:48→13:41)
[2024-05-16] MEDS: Piperacillin Sodium/Tazobactam 2.25 GM in 0.9 % Sodium Chloride 50 ML IV ×4 (00:48→18:41)
[2024-05-16] MEDS: Morphine Sulfate 2 MG/ML CARTRIDGE 1 MG IVPUSH (00:49)
[2024-05-16 06:19] LABS: Venous Blood Gas Refer to POC result
[2024-05-16 06:22] LABS: Hematocrit 27.6 % (42.0-52.0); Hemoglobin 9.5 g/dl (14.0-18.0); Mean Corpuscular HGB Conc 34.4 g/dl (31.0-36.0); Mean Corpuscular Hemoglobin 31.6 pg (27.0-33.0); Mean Corpuscular Volume 91.7 fL (80.0-98.0); Mean Platelet Volume 9.8 fL (9.4-12.4); Platelet Count 207 X10*3/uL (160-400); Red Blood Count 3.01 X10*6/uL (4.60-5.80); Red Cell Distribution Width 13.7 % (11.0-16.0); White Blood Count 9.7 X10*3/uL (4.8-10.8)
[2024-05-16 06:26] LABS: VBG Base Excess -8.9 mmol/L; VBG HCO3 15 mmol/L (22-26); VBG pCO2 30 mmHg; VBG pH 7.32 (7.32-7.43); VBG pO2 93 mmHg
[2024-05-16 06:56] LABS: Vancomycin Random < 2.0 mcg/mL (15-20)
--- NOTE | 2024-05-16 07:00 | CA_ITS ---
Transthoracic Echocardiogram Patient (Last, First, Middle): Jamir Velasquez J Gender: Male Date of : 1940 Age: 83 Procedure Date: 05/16/2024 Procedure Type: Transthoracic [place]ogram [place] [facility] [place]: 165.1 cm Weight: 67.13 kg BSA: 1.74 m2 Heart Rate: 73 bpm BP: 108 / 59 mmHg Block Bolter Mule Operator: SB Referring MD: Shawna Barnett MD Symptoms: resp failure Study Quality: Adequate w contrast ECG Rhythm: Sinus Conclusions: - The left ventricular systolic function is normal. The calculated ejection fraction is 70% by biplane method. - There is moderate calcification of the aortic valve. There is mild aortic valve stenosis. Findings Procedure Information Contrast agent, definity, is being given per protocol without apparent complications. The quality of the study was technically difficult. The study quality is limited by lung artifact. Left Ventricle Normal left ventricular cavity size. The left ventricular systolic function is normal. The calculated ejection fraction is 70% by biplane method. There is no evidence of regional wall motion abnormalities. Diastolic function is normal for age. There is mild septal asymmetric hypertrophy. Right Ventricle Moderately increased right ventricular cavity size. There is normal right ventricular systolic function. Atria Both atria are normal in size. Aortic Valve There is moderate calcification of the aortic valve. There is mild aortic valve stenosis. There is no aortic valve regurgitation. Mitral Valve The mitral valve appears normal. There is no mitral valve regurgitation. There is no mitral valve stenosis. Pulmonic Valve The pulmonic valve is likely normal. Tricuspid Valve There is trace tricuspid valve regurgitation. Mild pulmonary hypertension is present. Great Vessels The asc aorta is normal in size. Venous The inferior vena cava is normal in size and collapses greater than 50% with inspiration. Pericardium/Pleural There is no evidence of pericardial effusion. Prior Study Comparison No prior study available for comparison. Measurements 2D Linear Measurements IVSd: 1.18 0.6-0.9/0.6-1.0 cm LVIDd: 4.54 3.9-5.3/4.2-5.9 cm LVIDd Index: 2.61 2.4-3.2/2.2-3.1 cm/m2 LVIDs: 2.53 2.0-3.6 cm LVPWd: 0.78 0.7-1.1 cm LA Diam: 3.40 2.7-3.8/3.0-4.0 cm LAIDs Index: 1.95 1.5-2.3 cm/m2 LV Mass: 188.29 67-162/88-224 g LV Mass Index: 108.21 43-95/49-115 g/m2 LVOT Diam: 2.40 3.0+(-)1.3 cm 2D Systolic Function EF 4C: 68.20 >55% EF 2C: 74.00 >55% EF BiP: 69.60 >55% Mitral Valve MV Pk E: 0.76 MV PK A: 0.89 MV Decel Time: 202.00 E/A: 0.90 E'Lateral: 6.64 E'Medial: 6.09 E/E' Med: 12.40 E/E' Lat: 11.40 PHT: 59.00 MVA PHT: 3.73 Decel Posey: 3.76 Aortic Valve AoV Pk Donovan: 2.91 AoV Mn Donovan: 2.15 AoV VTI: 0.56 AoV Pk Grad: 34.00 Aov Mn Grad: 20.00 SANDRA Cont.VTI: 1.96 LVOT LVOT Pk Donovan: 1.24 LVOT Mn Donovan: 0.83 LVOT VTI: 0.25 LVOT Pk Grad: 6.00 LVOT Mn Grad: 3.00 LVOT Diam: 2.40 LVOT Area: 4.52 Diastolic Function MV Pk E: 0.76 MV Pk A: 0.89 E/A: 0.90 E'Medial: 6.09 E/E' Med: 12.40 E' Laterial: 6.64 E/E' Lat: 11.40 Right Ventricle TAPSE (mm): 22.30 TVS' Donovan: 18.30 Tricuspid Valve TR Pk Donovan: 3.01 TR Pk Grad: 36.00 RA Press: 3.00 RVSP: 39.00 Great Vessels Aorta Sinus of Valsalva: 3.60 2.0-3.5 cm Ao Asc: 3.60 2.1-3.4 cm Pulmonary Valve PV Pk Donovan: 1.02 Peak PV Grad: 4.00 Updated in Other Vendor System with Status of Final Alec Gutierrez MD electronically signed on 05/16/2024 3:34:12 PM with status of Final
[2024-05-16 07:08] LABS: Anion Gap 17 (12-20); Blood Urea Nitrogen 71 mg/dL (9-16); Calcium 8.6 mg/dL (8.4-10.2); Carbon Dioxide 14 mmol/L (22-29); Chloride 115 mmol/L (96-108); Estimated Glomerular Filt Rate 15; Glucose Random 89 mg/dL (60-115); Potassium 5.8 mmol/L (3.3-5.1); Procalcitonin 0.68 ng/mL; Sodium 140 mmol/L (135-145)
[2024-05-16] MEDS: 0.9 % Sodium Chloride Flush 3 ML SYRINGE IVFLUSH ×2 (08:50→18:01)
[2024-05-16] MEDS: Furosemide 20 MG/2 ML VIAL IVPUSH (08:50)
[2024-05-16] MEDS: methylPREDNISolone Sod Succ 40 MG/ML VIAL IVPUSH (08:50)
[2024-05-16] MEDS: amLODIPine Besylate 5 MG TABLET PO (09:14)
[2024-05-16] MEDS: Cholecalciferol (Vitamin D3) 25 MCG TABLET 50 MCG PO (09:14)
[2024-05-16] MEDS: Sodium Bicarbonate 650 MG TABLET PO ×2 (09:14→20:34)
[2024-05-16] MEDS: Multivitamin TABLET 1 TAB PO (09:14)
[2024-05-16] MEDS: Sodium Zirconium Cyclosilicate 10 GM POWD.PACK PO (09:14)
--- NOTE | 2024-05-16 09:32 | P.CONPL_ITS ---
History of Present Illness History of Present Illness Consult date: 05/16/24 Chief complaint: Pneumonia w/sepsis hypoxia Narrative: 83-year-old gentleman with underlying history of hypertension, CKD, BPH, dementia, and recurrent pulmonary aspiration admitted on 05/14/2024 with abrupt on Septra dyspnea and hypoxia per family members. He requires high-flow nasal cannula to maintain normal oximetry. His CT chest demonstrated multifocal infiltrates, his pulmonary perfusion scan was normal. Patient also appears to have slowly worsening chronic renal disease, now with metabolic acidosis and rising uremia. Review of Systems 2 Review of Systems: No Unobtainable due to mental condition or Unobtainable due to mental status [facility] Past Medical History Medical History (Updated 05/16/24 @ 09:37 by Bert Colón MD) Dementia Hypertension Social History Social History Household Members: Unknown / Unable to assess Household Members Other:: sister Housing: Unknown / Unable to assess Do you presently have visiting nurse or other home services: No Alcohol intake: never Patient Tobacco Use Status: Tobacco use Unknown Advance Directives Date on File: 05/24/22 service: No Current occupational status: retired [employer] Allergies Allergy/AdvReac Type Severity Reaction Status Date / Time No Known Allergies Allergy Verified 05/14/24 08:00 Active Medications: Current Medications Acetaminophen (Acetaminophen 325 Mg Tablet) 650 mg PO Q6H PRN PRN Reason: Pain, Mild 1-3,fever,headache Amlodipine Besylate (Amlodipine Besylate 5 Mg Tablet) 5 mg PO DAILY [facility]; Protocol Last Admin: 05/16/24 09:14 Dose: 5 mg Calcium Carbonate (Calcium Carbonate 750 Mg Tab.Chew) 750 mg PO Q4H PRN PRN Reason: Heartburn Finasteride (Finasteride 5 Mg Tablet) 5 mg PO DAILY [facility] Last Admin: 05/16/24 09:26 Dose: Not Given Heparin Sodium (Porcine) (Heparin Sodium,Porcine 5,000 Unit/Ml Vial) 5,000 unit SUBCUT Q12H [facility] Last Admin: 05/16/24 00:48 Dose: 5,000 unit Piperacillin Sod/Tazobactam (Sod 2.25 gm/ Sodium Chloride) 50 mls @ 100 mls/hr IV Q6H [facility] Last Infusion: 05/16/24 06:55 Dose: Infused Linezolid (Zyvox/D5w) 600 mg in 300 mls @ 300 mls/hr IV Q12H [facility] Last Infusion: 05/15/24 21:47 Dose: Infused Loperamide HCl (Loperamide Hcl 2 Mg Capsule) 2 mg PO Q4H PRN PRN Reason: diarrhea Magnesium Hydroxide (Milk Of Magnesia 30 Ml Oral.Susp) 30 ml PO DAILY PRN PRN Reason: Constipation Melatonin (Melatonin 3 Mg Tablet) 6 mg PO BEDTIME PRN PRN Reason: Insomnia Last Admin: 05/14/24 21:13 Dose: 6 mg Methylprednisolone Sodium Succinate (Methylprednisolone Sod Succ 40 Mg/Ml Vial) 40 mg IVPUSH Q24H [facility] Last Admin: 05/16/24 08:50 Dose: 40 mg Morphine Sulfate (Morphine Sulfate 2 Mg/Ml Cartridge) 1 mg IVPUSH Q3H PRN; Protocol PRN Reason: work of breathing Last Admin: 05/16/24 00:49 Dose: 1 mg Multivitamins/Vitamin C (Multivitamin Tablet) 1 tab PO DAILY [facility] Last Admin: 05/16/24 09:14 Dose: 1 tab Ondansetron HCl (Ondansetron Hcl 4 Mg/2 Ml Vial) 4 mg IVPUSH Q8H PRN PRN Reason: Nausea and Vomiting Sodium Bicarbonate (Sodium Bicarbonate 650 Mg Tablet) 650 mg PO TID [facility] Last Admin: 05/16/24 09:14 Dose: 650 mg Sodium Chloride (0.9 % Sodium Chloride Flush 3 Ml Syringe) 3 ml IVFLUSH QSHIFT [facility] Last Admin: 05/16/24 08:50 Dose: 3 ml Tamsulosin HCl (Tamsulosin Hcl 0.4 Mg Capsule) 0.4 mg PO DAILY@0730 [facility] Last Admin: 05/16/24 09:25 Dose: Not Given Trazodone HCl (Trazodone Hcl 50 Mg Tablet) 50 mg PO BEDTIME [facility] Last Admin: 05/15/24 20:29 Dose: 50 mg Vancomycin HCl (Vancomycin Hcl 125 Mg Capsule) 125 mg PO Q6H [facility] Last Admin: 05/16/24 06:25 Dose: 125 mg Vitamin D (Cholecalciferol (Vitamin D3) 25 Mcg Tablet) 50 mcg PO DAILY [facility] Last Admin: 05/16/24 09:14 Dose: 50 mcg Home Medications ?Medication ?Instructions ?Recorded ?Confirmed ?Last Taken ?Type multivitamin 1 tab PO DAILY 02/15/24 05/14/24 05/13/24 History cholecalciferol (vitamin D3) 50 50 mcg PO DAILY 05/14/24 05/14/24 05/13/24 History mcg (2,000 unit) tablet (Vitamin D3) trazodone 50 mg tablet 50 mg PO BEDTIME 05/14/24 05/14/24 05/13/24 History Physical Exam 2 Vital Signs: Vital Signs: Last Vital Signs Temp 97.1 F 05/16/24 07:54 Pulse 72 05/16/24 07:54 Resp 20 05/16/24 07:54 BP 108/59 L 05/16/24 07:54 Pulse Ox 94 05/16/24 07:54 O2 Del Method High Flow Nasal C annula 05/16/24 07:54 O2 Flow Rate 45 05/16/24 07:54 FiO2 55 05/16/24 07:54 BMI result Body Mass Index 24.8 Const: General: no acute distress and patient obtunded O rientation/consciousness: patient obtunded Eyes: Sclerae: sclerae normal EOM: EOMs intact bilaterally Neck: Neck: Yes no lymphadenopathy, Yes trachea midline and Yes supple Resp: Effort & Inspection: normal respiratory effort and no respiratory distress Auscultation: clear to auscultation bilaterally Cardio: Rate: regular rate Rhythm: regular rhythm Heart sounds: no gallops, no murmurs and no rubs GI: Palpation (GI): Soft to palpation and Other GI palpation findings present ( Nontender) Auscultation: normal bowel sounds Neuro: General: patient obtunded Extrem: General: Yes no pedal edema, No clubbing and No cyanosis Results Laboratory Findings 05/16/24 06:14 05/16/24 06:14 ABG, PT/INR, D-dimer: PT/INR, D-dimer PT 12.5 SEC (10.9-12.4) H 05/14/24 08:07 INR 1.1 (0.9-1.1) 05/14/24 08:07 Abnormal lab findings: Abnormal Labs 05/14/24 05/14/24 05/14/24 07:56 08:07 08:09 WBC 15.4 H RBC 3.72 L D Hgb 11.5 L D Hct 33.8 L D Immature Gran % (Auto) 0.6 H Neut % (Auto) 77.9 H Lymph % (Auto) 8.6 L [place] # (Auto) 1.4 H Eos # (Auto) 0.5 H Abs Immat Gran (auto) 0.09 H Absolute Neuts (auto) 12.0 H PT 12.5 H VBG pH 7.29 L VBG HCO3 12 L Potassium Chloride Carbon Dioxide BUN Creatinine Random Glucose Lactic Acid Albumin Random Vancomycin C. difficile Tox B Gene 05/14/24 05/14/24 05/15/24 08:14 08:29 04:32 WBC 13.0 H RBC 3.29 L Hgb 9.9 L Hct 29.9 L Immature Gran % (Auto) Neut % (Auto) Lymph % (Auto) [place] # (Auto) Eos # (Auto) Abs Immat Gran (auto) Absolute Neuts (auto) PT VBG pH VBG HCO3 Potassium Chloride 113 H 116 H Carbon Dioxide 15 L 14 L BUN 74 H 63 H Creatinine 3.77 H 3.36 H Random Glucose 154 H Lactic Acid 2.4 H* Albumin 3.3 L Random Vancomycin C. difficile Tox B Gene 05/15/24 05/16/24 05/16/24 09:01 06:14 06:15 WBC RBC 3.01 L Hgb 9.5 L Hct 27.6 L Immature Gran % (Auto) Neut % (Auto) Lymph % (Auto) [place] # (Auto) Eos # (Auto) Abs Immat Gran (auto) Absolute Neuts (auto) PT VBG pH VBG HCO3 Potassium 5.8 H Chloride 115 H Carbon Dioxide 14 L BUN 71 H Creatinine 3.81 H Random Glucose Lactic Acid Albumin Random Vancomycin < 2.0 L C. difficile Tox B Gene POSITIVE A* 05/16/24 06:19 WBC RBC Hgb Hct Immature Gran % (Auto) Neut % (Auto) Lymph % (Auto) [place] # (Auto) Eos # (Auto) Abs Immat Gran (auto) Absolute Neuts (auto) PT VBG pH VBG HCO3 15 L Potassium Chloride Carbon Dioxide BUN Creatinine Random Glucose Lactic Acid Albumin Random Vancomycin C. difficile Tox B Gene Microbiology: Microbiology 05/14/24 08:29 Blood - Venous Blood Culture - Preliminary No growth after 24 hours. 05/14/24 08:14 Blood - Venous Blood Culture - Preliminary No growth after 24 hours. Assessment and Plan (1) Acute respiratory failure with hypoxia: Status: Acute (2) Pulmonary aspiration: Status: Acute Plan Impression: 83-year-old gentleman with underlying dementia and recurrent pulmonary aspiration admitted with acute hypoxic respiratory failure and DANYELLE and CKD. Now requiring high-flow nasal cannula to maintain normal oximetry, also with significant obtundation that may be related to underlying worsening uremia. Recommendation: Agree with broad-spectrum antibiotic coverage for likely pulmonary aspiration. May have a component of pulmonary edema secondary to worsening renal failure. However, also with significant encephalopathy. May require hemodialysis. Procedures Date of Service Date of Service: 05/16/24
[2024-05-16] MEDS: Linezolid/D5W 600 MG/300 ML PIGGYBACK 300 MG IV ×2 (10:39→20:34)
[2024-05-16 11:05] LABS: MRSA Nasal PCR NEGATIVE (Negative); SA Nasal PCR POSITIVE (Negative)
--- NOTE | 2024-05-16 13:28 | P.PNIM_ITS ---
Subjective Subjective Date of Service: 05/16/24 Interval History: initially somnolent but now awake/alert but disoriented; oriented only to self appears short of breath Review of Systems Review of Systems: Yes Unobtainable due to mental status Physical Exam 2 Vital Signs: Vital Signs: Last Vital Signs Temp 97.6 F 05/16/24 11:29 Pulse 78 05/16/24 11:29 Resp 28 H 05/16/24 11:50 BP 125/61 05/16/24 11:29 Pulse Ox 92 05/16/24 11:29 O2 Del Method High Flow Nasal C annula 05/16/24 11:29 O2 Flow Rate 45 05/16/24 11:29 FiO2 55 05/16/24 11:29 BMI result Body Mass Index 24.8 Gen: in moderate respiratory distress HEENT: sclera anicteric, moist mucus membranes Neck: supple Lungs: tachypneic, bilateral inspiratory crackles Heart: regular rate and rhythm, no murmurs Abd: soft, non-tender, non-distended Ext: no edema Skin: warm/well-perfused Neuro: alert and oriented to self only, moving all extremities Psych: impaired insight Objective Data Active Medications Acetaminophen (Acetaminophen 325 Mg Tablet) 650 mg PO Q6H PRN PRN Reason: Pain, Mild 1-3,fever,headache Amlodipine Besylate (Amlodipine Besylate 5 Mg Tablet) 5 mg PO DAILY [facility]; Protocol Last Admin: 05/16/24 09:14 Dose: 5 mg Documented By: SHERRON Calcium Carbonate (Calcium Carbonate 750 Mg Tab.Chew) 750 mg PO Q4H PRN PRN Reason: Heartburn Finasteride (Finasteride 5 Mg Tablet) 5 mg PO DAILY [facility] Last Admin: 05/16/24 09:26 Dose: Not Given Documented By: SHERRON Non-Admin Reason: unable to swallow Heparin Sodium (Porcine) (Heparin Sodium,Porcine 5,000 Unit/Ml Vial) 5,000 unit SUBCUT Q12H [facility] Last Admin: 05/16/24 00:48 Dose: 5,000 unit Documented By: JOSE Piperacillin Sod/Tazobactam (Sod 2.25 gm/ Sodium Chloride) 50 mls @ 100 mls/hr IV Q6H [facility] Last Infusion: 05/16/24 06:55 Dose: Infused Documented By: SHERRON Linezolid (Zyvox/D5w) 600 mg in 300 mls @ 300 mls/hr IV Q12H [facility] Last Infusion: 05/16/24 11:40 Dose: Infused Documented By: SHERRON Loperamide HCl (Loperamide Hcl 2 Mg Capsule) 2 mg PO Q4H PRN PRN Reason: diarrhea Magnesium Hydroxide (Milk Of Magnesia 30 Ml Oral.Susp) 30 ml PO DAILY PRN PRN Reason: Constipation Melatonin (Melatonin 3 Mg Tablet) 6 mg PO BEDTIME PRN PRN Reason: Insomnia Last Admin: 05/14/24 21:13 Dose: 6 mg Documented By: ROMAN Methylprednisolone Sodium Succinate (Methylprednisolone Sod Succ 40 Mg/Ml Vial) 40 mg IVPUSH Q24H [facility] Last Admin: 05/16/24 08:50 Dose: 40 mg Documented By: SHERRON Morphine Sulfate (Morphine Sulfate 2 Mg/Ml Cartridge) 1 mg IVPUSH Q3H PRN; Protocol PRN Reason: work of breathing Last Admin: 05/16/24 00:49 Dose: 1 mg Documented By: JOSE Multivitamins/Vitamin C (Multivitamin Tablet) 1 tab PO DAILY [facility] Last Admin: 05/16/24 09:14 Dose: 1 tab Documented By: SHERRON Ondansetron HCl (Ondansetron Hcl 4 Mg/2 Ml Vial) 4 mg IVPUSH Q8H PRN PRN Reason: Nausea and Vomiting Sodium Bicarbonate (Sodium Bicarbonate 650 Mg Tablet) 650 mg PO TID [facility] Last Admin: 05/16/24 09:14 Dose: 650 mg Documented By: SHERRON Sodium Chloride (0.9 % Sodium Chloride Flush 3 Ml Syringe) 3 ml IVFLUSH QSHIFT [facility] Last Admin: 05/16/24 08:50 Dose: 3 ml Documented By: SHERRON Tamsulosin HCl (Tamsulosin Hcl 0.4 Mg Capsule) 0.4 mg PO DAILY@0730 [facility] Last Admin: 05/16/24 09:25 Dose: Not Given Documented By: SHERRON Non-Admin Reason: unable to swallow Trazodone HCl (Trazodone Hcl 50 Mg Tablet) 50 mg PO BEDTIME [facility] Last Admin: 05/15/24 20:29 Dose: 50 mg Documented By: JOSE Vancomycin HCl (Vancomycin Hcl Oral Solution 125 Mg/5 Ml Soln.Recon) 125 mg PO Q6H [facility] Vitamin D (Cholecalciferol (Vitamin D3) 25 Mcg Tablet) 50 mcg PO DAILY [facility] Last Admin: 05/16/24 09:14 Dose: 50 mcg Documented By: SHERRON Labs 05/16/24 06:14 05/16/24 06:14 Labs: Laboratory Results - last 24 hr 05/15/24 05/16/24 05/16/24 18:42 06:14 06:15 MCV 91.7 MCH 31.6 MCHC 34.4 RDW 13.7 Plt Count 207 MPV 9.8 Absolute Nucleated RBC 0.000 Nucleated RBC % (auto) 0.0 VBG pH VBG pCO2 VBG pO2 VBG HCO3 VBG O2 Saturation VBG Base Excess Anion Gap 17 Estim Creat Clear Calc 13.0 Estimated GFR 15 Random Glucose 89 Calcium 8.6 Procalcitonin 0.68 Nasal Screen MRSA (PCR) NEGATIVE Nasal S. aureus Screen POSITIVE A Nasal MRSA/S.aureus Interp SEE NOTE Random Vancomycin < 2.0 L 05/16/24 06:19 MCV MCH MCHC RDW Plt Count MPV Absolute Nucleated RBC Nucleated RBC % (auto) VBG pH 7.32 VBG pCO2 30 VBG pO2 93 VBG HCO3 15 L VBG O2 Saturation 98.0 VBG Base Excess -8.9 Anion Gap Estim Creat Clear Calc Estimated GFR Random Glucose Calcium Procalcitonin Nasal Screen MRSA (PCR) Nasal S. aureus Screen Nasal MRSA/S.aureus Interp Random Vancomycin Microbiology Microbiology Results: Microbiology 05/14/24 08:29 Blood Culture - Preliminary Blood - Venous No growth after 48 hours. 05/14/24 08:14 Blood Culture - Preliminary Blood - Venous No growth after 48 hours. Assessment and Plan (1) Pneumonia: Status: Acute Plan d3 for 83yo M with HTN, BPH, CKD5, and dementia presenting with acute dyspnea, found to be markedly hypoxic and septic from multifocal pneumonia; also norovirus positive acute hypoxic respiratory failure due to multifocal pneumonia - 05/14- pip-hazel, 05/15- linezolid [MRSA swab POSITIVE], trend PCT, follow BCx, urinary antigens for Legionella and pneumococcus pending, respiratory pathogen PCR panel pending; will consult ID - V/Q negative for PE - trial of 40 mg of IV furosemide x1; recheck BNP and obtain TTE - given severity of pneumonia/hypoxia, will give methylprednisolone 40 mg IV daily 05/16- - [employer] consulted: NDD1 solids, nectar liquids - wean HFNC as tolerated- currently on 55% fiO2, 50 Lpm CKD5 chronic metabolic acidosis - avoid nephrotoxins; continue maintenance PO bicarbonate; consult Nephrology for concern of uremia causing encephalopathy and leading to aspiration hyperK - give Lokelma, repeat BMP in AM norovirus infection - contact isolation, prn loperamide C. difficile colonization - PO vancomycin while on antibiotics HTN - continue amlodipine BPH - continue tamsulosin + finasteride VTE ppx - UFH dispo - TBD In my clinical judgment, the patient requires continued inpatient hospitalization for the following reasons: IV ABX, hypoxia Updated pt's daughter at bedside about pt's tenuous clinical status. For now remains full code but will revisit over next few days depending on patient's clinical course. Total time managing care of this patient today: 55 minutes. Quality Stroke Does the patient have a stroke diagnosis?: No VTE Prior VTE?: No VTE Risk Level:: Medical - moderate - high VTE Device Contraindication: Treatment Not Indicated VTE Drug Contraindication: N/A - Med Ordered
[2024-05-16] MEDS: vancomycin HCL Oral Solution 125 MG/5 ML SOLN.RECON PO ×2 (13:42→18:02)
--- NOTE | 2024-05-16 13:43 | P.CONNP_ITS ---
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 and now Scr 3.8 which may be his new BSL, H/O chronic galindo--changed every 30 days, HTN, BPH, and unspecified dementia admitted with multifocal pna , hypoxia and danyelle / ckd PMFSH Past Medical History Medical History (Updated 05/16/24 @ 09:37 by Bert Colón MD) Dementia Hypertension Social History Social History Household Members: Unknown / Unable to assess Household Members Other:: sister Housing: Unknown / Unable to assess Do you presently have visiting nurse or other home services: No Alcohol intake: never Patient Tobacco Use Status: Tobacco use Unknown Advance Directives Date on File: 05/24/22 service: No Current occupational status: retired Meds Allergies Allergy/AdvReac Type Severity Reaction Status Date / Time No Known Allergies Allergy Verified 05/14/24 08:00 Active Medications: Current Medications Acetaminophen (Acetaminophen 325 Mg Tablet) 650 mg PO Q6H PRN PRN Reason: Pain, Mild 1-3,fever,headache Amlodipine Besylate (Amlodipine Besylate 5 Mg Tablet) 5 mg PO DAILY [facility]; Protocol Last Admin: 05/16/24 09:14 Dose: 5 mg Calcium Carbonate (Calcium Carbonate 750 Mg Tab.Chew) 750 mg PO Q4H PRN PRN Reason: Heartburn Finasteride (Finasteride 5 Mg Tablet) 5 mg PO DAILY [facility] Last Admin: 05/16/24 09:26 Dose: Not Given Heparin Sodium (Porcine) (Heparin Sodium,Porcine 5,000 Unit/Ml Vial) 5,000 unit SUBCUT Q12H [facility] Last Admin: 05/16/24 13:41 Dose: 5,000 unit Piperacillin Sod/Tazobactam (Sod 2.25 gm/ Sodium Chloride) 50 mls @ 100 mls/hr IV Q6H [facility] Last Infusion: 05/16/24 06:55 Dose: Infused Linezolid (Zyvox/D5w) 600 mg in 300 mls @ 300 mls/hr IV Q12H [facility] Last Infusion: 05/16/24 11:40 Dose: Infused Loperamide HCl (Loperamide Hcl 2 Mg Capsule) 2 mg PO Q4H PRN PRN Reason: diarrhea Magnesium Hydroxide (Milk Of Magnesia 30 Ml Oral.Susp) 30 ml PO DAILY PRN PRN Reason: Constipation Melatonin (Melatonin 3 Mg Tablet) 6 mg PO BEDTIME PRN PRN Reason: Insomnia Last Admin: 05/14/24 21:13 Dose: 6 mg Methylprednisolone Sodium Succinate (Methylprednisolone Sod Succ 40 Mg/Ml Vial) 40 mg IVPUSH Q24H [facility] Last Admin: 05/16/24 08:50 Dose: 40 mg Morphine Sulfate (Morphine Sulfate 2 Mg/Ml Cartridge) 1 mg IVPUSH Q3H PRN; Protocol PRN Reason: work of breathing Last Admin: 05/16/24 00:49 Dose: 1 mg Multivitamins/Vitamin C (Multivitamin Tablet) 1 tab PO DAILY [facility] Last Admin: 05/16/24 09:14 Dose: 1 tab Ondansetron HCl (Ondansetron Hcl 4 Mg/2 Ml Vial) 4 mg IVPUSH Q8H PRN PRN Reason: Nausea and Vomiting Sodium Bicarbonate (Sodium Bicarbonate 650 Mg Tablet) 650 mg PO TID [facility] Last Admin: 05/16/24 09:14 Dose: 650 mg Sodium Chloride (0.9 % Sodium Chloride Flush 3 Ml Syringe) 3 ml IVFLUSH QSHIFT [facility] Last Admin: 05/16/24 08:50 Dose: 3 ml Tamsulosin HCl (Tamsulosin Hcl 0.4 Mg Capsule) 0.4 mg PO DAILY@0730 [facility] Last Admin: 05/16/24 09:25 Dose: Not Given Trazodone HCl (Trazodone Hcl 50 Mg Tablet) 50 mg PO BEDTIME [facility] Last Admin: 05/15/24 20:29 Dose: 50 mg Vancomycin HCl (Vancomycin Hcl Oral Solution 125 Mg/5 Ml Soln.Recon) 125 mg PO Q6H [facility] Last Admin: 05/16/24 13:42 Dose: 125 mg Vitamin D (Cholecalciferol (Vitamin D3) 25 Mcg Tablet) 50 mcg PO DAILY [facility] Last Admin: 05/16/24 09:14 Dose: 50 mcg Home Medications ?Medication ?Instructions ?Recorded ?Confirmed ?Last Taken ?Type multivitamin 1 tab PO DAILY 02/15/24 05/14/24 05/13/24 History cholecalciferol (vitamin D3) 50 50 mcg PO DAILY 05/14/24 05/14/24 05/13/24 History mcg (2,000 unit) tablet (Vitamin D3) trazodone 50 mg tablet 50 mg PO BEDTIME 05/14/24 05/14/24 05/13/24 History Physical Exam Vital Signs: Last Vital Signs Temp 97.6 F 05/16/24 11:29 Pulse 78 05/16/24 11:29 Resp 28 H 05/16/24 11:50 BP 125/61 05/16/24 11:29 Pulse Ox 92 05/16/24 11:29 O2 Del Method High Flow Nasal Cannula 05/16/24 11:29 O2 Flow Rate 45 05/16/24 11:29 FiO2 55 05/16/24 11:29 BMI result Body Mass Index 24.8 pt is fatigued , on hiflo nasal canula cvs: s1s2 Rs; crackles abd; soft Results Lab Results 05/16/24 06:14 05/16/24 06:14 Lab results: Chemistry 05/14/24 05/15/24 05/16/24 08:29 04:32 06:14 Sodium 137 140 140 Potassium 4.9 5.1 5.8 H Carbon Dioxide 15 L 14 L 14 L BUN 74 H 63 H 71 H Creatinine 3.77 H 3.36 H 3.81 H Calcium 8.7 D 9.0 8.6 Hematology 05/14/24 05/15/24 05/16/24 07:56 04:32 06:14 WBC 15.4 H 13.0 H 9.7 Hgb 11.5 L D 9.9 L 9.5 L Plt Count 277 D 216 207 Assessment and Plan (1) Pulmonary aspiration: Status: Acute (2) Acute respiratory failure with hypoxia: Status: Acute (3) Pneumonia: Status: Acute (4) Acute on chronic kidney failure: Qualifiers: Acute renal failure type: unspecified Chronic kidney disease stage: u nspecified stage Qualified Code(s): N17.9 - Acute kidney failure, unspecified; N18.9 - Chronic kidney disease, unspecified Status: Acute Plan 83/m with pmh of adv CKD BSL SCr 2.5-3.0 and now Scr 3.8 which may be his new BSL, H/O chronic galindo--changed every 30 days, HTN, BPH, and unspecified dementia admitted with multifocal pna , hypoxia and danyelle / ckd 1. DANYELLE: multifact including UTI w assoc cytokine tubular injury and dehydration/renal hypoperfusion cr appears to have peaked at ~ 3.8 2. Adv CKD: BSL Scr 3.5 - 3.8 3. HyperK 4. NAGMA: d/t adv CKDl; goal is > 20 and this will help Tx hyperK as well 5. Anemia: REC: He is euvolemic, please hold further lasix , hypoxia is due to resp infection at this point no indication for HD presently monitor track renal function protect non-dominat arm for future AVF; po NaHCO3 650mg tid Procedures Date of Service Date of Service: 05/16/24
[2024-05-16 15:01] LABS: Adenovirus PCR Not Detected (Not Detect.); Bordetella parapertussis PCR Not Detected (Not Detect.); Bordetella pertussis PCR Not Detected (Not Detect.); Chlamydia pneumoniae PCR Not Detected (Not Detect.); Coronavirus 229E PCR Not Detected (Not Detect.); Coronavirus HKU1 PCR Not Detected (Not Detect.); Coronavirus NL63 PCR Not Detected (Not Detect.); Coronavirus OC43 PCR Not Detected (Not Detect.); Human metapneumovirus PCR Not Detected (Not Detect.); Influenza A PCR Not Detected (Not Detect.); Influenza B PCR Not Detected (Not Detect.); Mycoplasma pneumoniae PCR Not Detected (Not Detect.); Parainfluenza 1 PCR Not Detected (Not Detect.); Parainfluenza 2 PCR Not Detected (Not Detect.); Parainfluenza 3 PCR Not Detected (Not Detect.); Parainfluenza 4 PCR Not Detected (Not Detect.); RSV PCR Not Detected (Not Detect.); Rhino/Enterovirus PCR Not Detected (Not Detect.)
[2024-05-16 15:12] LABS: SARS-CoV-2 PCR Not Detected (Not Detect.)
[2024-05-16] MEDS: traZODone HCL 50 MG TABLET PO (20:34)
[2024-05-17] VITALS (14 sets, daily range): BP systolic 112–131; BP diastolic 59–62; PULSE 59–84; RESP 17–24; TEMP 36.3–37.6; O2SAT 84–98
[2024-05-17] MEDS: Heparin Sodium,Porcine 5,000 UNIT/ML VIAL 5000 UNIT SUBCUT ×2 (01:04→12:34)
[2024-05-17] MEDS: vancomycin HCL Oral Solution 125 MG/5 ML SOLN.RECON PO ×4 (01:04→18:10)
[2024-05-17] MEDS: Piperacillin Sodium/Tazobactam 2.25 GM in 0.9 % Sodium Chloride 50 ML IV ×4 (01:04→18:40)
[2024-05-17 06:50] LABS: Venous Blood Gas Refer to POC result
[2024-05-17 06:52] LABS: VBG Base Excess -7.4 mmol/L; VBG HCO3 17 mmol/L (22-26); VBG pCO2 33 mmHg; VBG pH 7.32 (7.32-7.43); VBG pO2 87 mmHg
[2024-05-17 06:54] LABS: Hematocrit 28.5 % (42.0-52.0); Hemoglobin 9.4 g/dl (14.0-18.0); Mean Corpuscular Hemoglobin 30.1 pg (27.0-33.0); Mean Corpuscular Volume 91.3 fL (80.0-98.0); Mean Platelet Volume 9.9 fL (9.4-12.4); Platelet Count 222 X10*3/uL (160-400); Red Blood Count 3.12 X10*6/uL (4.60-5.80); Red Cell Distribution Width 13.6 % (11.0-16.0); White Blood Count 12.2 X10*3/uL (4.8-10.8)
[2024-05-17 07:15] LABS: B Type Natriuretic Peptide 101 pg/mL (<100)
[2024-05-17 07:22] LABS: Alanine Aminotransferase 7 U/L (0-40); Albumin Level 2.9 g/dL (3.5-5.0); Alkaline Phosphatase 70 U/L (39-117); Anion Gap 17 (12-20); Aspartate Amino Transferase 22 U/L (5-37); Bilirubin Direct < 0.2 mg/dL (0.0-0.5); Bilirubin Total 0.2 mg/dL (0.0-1.0); Blood Urea Nitrogen 83 mg/dL (9-16); Calcium 9.1 mg/dL (8.4-10.2); Carbon Dioxide 16 mmol/L (22-29); Chloride 116 mmol/L (96-108); Glucose Random 106 mg/dL (60-115); Potassium 4.7 mmol/L (3.3-5.1); Sodium 144 mmol/L (135-145); Total Protein 6.2 g/dL (6.5-8.0)
[2024-05-17 07:23] LABS: Creatinine Clr Calc Pharmacy 11.7; Estimated Glomerular Filt Rate 14
[2024-05-17 07:43] LABS: Strep Pneumo Ag urine Not Detected (Not Detected)
[2024-05-17] MEDS: Sodium Bicarbonate 650 MG TABLET PO ×3 (09:27→20:19)
[2024-05-17] MEDS: Linezolid/D5W 600 MG/300 ML PIGGYBACK 300 MG IV ×2 (09:27→20:19)
[2024-05-17] MEDS: Tamsulosin HCL 0.4 MG CAPSULE PO (09:27)
[2024-05-17] MEDS: methylPREDNISolone Sod Succ 40 MG/ML VIAL IVPUSH (09:27)
[2024-05-17] MEDS: Cholecalciferol (Vitamin D3) 25 MCG TABLET 50 MCG PO (09:27)
[2024-05-17] MEDS: 0.9 % Sodium Chloride Flush 3 ML SYRINGE IVFLUSH ×3 (09:28→21:30)
[2024-05-17] MEDS: amLODIPine Besylate 5 MG TABLET PO (09:30)
[2024-05-17] MEDS: Multivitamin TABLET 1 TAB PO (09:31)
--- NOTE | 2024-05-17 11:36 | MHC.SL.SWA ---
Speech Pathologist Impression: Risk of Aspiration, Oropharyngeal Dysphagia Risk of Aspiration Due to: Neurological Condition History of Pneumonia Reduced Cognition Dysphasia Diet Status: No Change Liquid Consistency and Strategies for Safe Swallow: Liquid Intake Recommendation: [place] Thick Liquid Intake Strategies: Small Sips No Straws Solid Food Consistency: Dietary Recommendations: Pureed (NDD1) Additional Modifications to Solid Foods: Patient attempts to feed self, will need cues and guidance for safe feeding strategies: take one bite/sip at a time, allow time to swallow and clear oral cavity before taking next bite/sip, avoid the use of straws, ensure upright 90 degree position during and 30 min after PO intake, maintain frequent oral care routine (before first meal and after each subsequent meal). Oral Medication Intake: Crushed with Puree Please contact the pharmacy regarding appropriate crushable or liquid drug formulations that are available whenever modified delivery is recommended. Compensatory Strategies and Precautions to be Taken for Safe Swallow: Sitting Upright (90 deg) No Straw Small Bites and Sips Alternate Liquids/Solids Rate of Ingestion Change Oral Check Supervision While Eating and Drinking for Safe Swallow: Total Assistance (1:1) Swallowing Recommended Treatments: Compens. Strategy Educat. Recommendation for Speech: Inpatient Speech Therapy Modified Barium Swallow Study - Inpatient Modified Barium Swallow Study - Outpatient Auto Suspension And Steering Mechanic Clinican/Clinical Fellow: No Supervisory Statement: I have reviewed and agree with the student/clinical fellow's documentation: N/A Speech Language Pathologist: Rachell You M.A., [facility]-[employer]
--- NOTE | 2024-05-17 11:51 | MHC.CM.PN ---
EMR reviewed and per MD rounds, pt is not medically cleared for discharge due to management of pneumonia and hypoxia, pt on hi-flow.
--- NOTE | 2024-05-17 13:39 | P.PNIM_ITS ---
Subjective Subjective Date of Service: 05/17/24 Interval History: more awake + alert today, less tachypneic denies any pain SCr worse but did got 1 dose of diuretic yesterday diarrhea resolved Review of Systems Review of Systems: Yes all other systems are reviewed and are negative Physical Exam 2 Vital Signs: Vital Signs: Last Vital Signs Temp 98.1 F 05/17/24 12:00 Pulse 71 05/17/24 12:00 Resp 17 05/17/24 12:00 BP 112/59 L 05/17/24 12:00 Pulse Ox 90 L 05/17/24 12:05 O2 Del Method High Flow Nasal C annula 05/17/24 12:05 O2 Flow Rate 50 05/17/24 12:05 FiO2 50 05/17/24 12:05 BMI result Body Mass Index 24.8 Gen: breathing more comfortably than yesterday HEENT: sclera anicteric, moist mucus membranes Neck: supple Lungs: bilateral inspiratory crackles Heart: regular rate and rhythm, no murmurs Abd: soft, non-tender, non-distended Ext: no edema Skin: warm/well-perfused Neuro: alert and oriented to self only, moving all extremities Psych: impaired insight Objective Data Active Medications Acetaminophen (Acetaminophen 325 Mg Tablet) 650 mg PO Q6H PRN PRN Reason: Pain, Mild 1-3,fever,headache Amlodipine Besylate (Amlodipine Besylate 5 Mg Tablet) 5 mg PO DAILY [facility]; Protocol Last Admin: 05/17/24 09:30 Dose: 5 mg Documented By: SHERRON Calcium Carbonate (Calcium Carbonate 750 Mg Tab.Chew) 750 mg PO Q4H PRN PRN Reason: Heartburn Finasteride (Finasteride 5 Mg Tablet) 5 mg PO DAILY [facility] Last Admin: 05/17/24 09:31 Dose: Not Given Documented By: SHERRON Non-Admin Reason: Medication Discontinued Heparin Sodium (Porcine) (Heparin Sodium,Porcine 5,000 Unit/Ml Vial) 5,000 unit SUBCUT Q12H [facility] Last Admin: 05/17/24 12:34 Dose: 5,000 unit Documented By: SHERRON Piperacillin Sod/Tazobactam (Sod 2.25 gm/ Sodium Chloride) 50 mls @ 100 mls/hr IV Q6H [facility] Last Infusion: 05/17/24 13:30 Dose: Infused Documented By: SHERRON Linezolid (Zyvox/D5w) 600 mg in 300 mls @ 300 mls/hr IV Q12H [facility] Last Infusion: 05/17/24 10:30 Dose: Infused Documented By: SHERRON Loperamide HCl (Loperamide Hcl 2 Mg Capsule) 2 mg PO Q4H PRN PRN Reason: diarrhea Magnesium Hydroxide (Milk Of Magnesia 30 Ml Oral.Susp) 30 ml PO DAILY PRN PRN Reason: Constipation Melatonin (Melatonin 3 Mg Tablet) 6 mg PO BEDTIME PRN PRN Reason: Insomnia Last Admin: 05/14/24 21:13 Dose: 6 mg Documented By: ROMAN Methylprednisolone Sodium Succinate (Methylprednisolone Sod Succ 40 Mg/Ml Vial) 40 mg IVPUSH Q24H [facility] Last Admin: 05/17/24 09:27 Dose: 40 mg Documented By: SHERRON Morphine Sulfate (Morphine Sulfate 2 Mg/Ml Cartridge) 1 mg IVPUSH Q3H PRN; Protocol PRN Reason: work of breathing Last Admin: 05/16/24 00:49 Dose: 1 mg Documented By: JOSE Multivitamins/Vitamin C (Multivitamin Tablet) 1 tab PO DAILY [facility] Last Admin: 05/17/24 09:31 Dose: 1 tab Documented By: SHERRON Ondansetron HCl (Ondansetron Hcl 4 Mg/2 Ml Vial) 4 mg IVPUSH Q8H PRN PRN Reason: Nausea and Vomiting Sodium Bicarbonate (Sodium Bicarbonate 650 Mg Tablet) 650 mg PO TID [facility] Last Admin: 05/17/24 09:27 Dose: 650 mg Documented By: SHERRON Sodium Chloride (0.9 % Sodium Chloride Flush 3 Ml Syringe) 3 ml IVFLUSH QSHIFT [facility] Last Admin: 05/17/24 09:28 Dose: 3 ml Documented By: SHERRON Tamsulosin HCl (Tamsulosin Hcl 0.4 Mg Capsule) 0.4 mg PO DAILY@0730 [facility] Last Admin: 05/17/24 09:27 Dose: 0.4 mg Documented By: SHERRON Trazodone HCl (Trazodone Hcl 50 Mg Tablet) 50 mg PO BEDTIME [facility] Last Admin: 05/16/24 20:34 Dose: 50 mg Documented By: KEVIN Vancomycin HCl (Vancomycin Hcl Oral Solution 125 Mg/5 Ml Soln.Recon) 125 mg PO Q6H [facility] Last Admin: 05/17/24 12:34 Dose: 125 mg Documented By: SHERRON Vitamin D (Cholecalciferol (Vitamin D3) 25 Mcg Tablet) 50 mcg PO DAILY [facility] Last Admin: 05/17/24 09:27 Dose: 50 mcg Documented By: SHERRON Labs 05/17/24 06:43 05/17/24 06:43 Labs: Laboratory Results - last 24 hr 05/14/24 05/16/24 05/17/24 13:17 09:40 06:43 MCV 91.3 MCH 30.1 MCHC 33.0 RDW 13.6 Plt Count 222 MPV 9.9 Absolute Nucleated RBC 0.000 Nucleated RBC % (auto) 0.0 VBG pH VBG pCO2 VBG pO2 VBG HCO3 VBG O2 Saturation VBG Base Excess Anion Gap 17 Estim Creat Clear Calc 11.7 Estimated GFR 14 Random Glucose 106 Calcium 9.1 Total Bilirubin 0.2 Direct Bilirubin < 0.2 AST 22 ALT 7 Alkaline Phosphatase 70 B-Natriuretic Peptide 101 H Total Protein 6.2 L Albumin 2.9 L Respiratory Panel [place] See Note Adenovirus (Rapid PCR) Not Detected B.pert (TEM-PCR) Not Detected B.parapertussis DNA PCR Not Detected C. pneumoniae DNA (PCR) Not Detected Coronavirus OC43 (PCR) Not Detected Coronavirus HKU1 (PCR) Not Detected Coronavirus 229E (PCR) Not Detected Coronavirus NL63 (PCR) Not Detected Human Metapneumovir PCR Not Detected Influenza A (RT-PCR) Not Detected Influenza B (RT-PCR) Not Detected M. pneumoniae (PCR) Not Detected Parainfluenza 1 (PCR) Not Detected Parainfluenza 2 (PCR) Not Detected Parainfluenza 3 (PCR) Not Detected Parainfluenza 4 (PCR) Not Detected RSV (PCR) Not Detected Entero/Rhino (PCR) Not Detected SARS-CoV-2 RNA (RT-PCR) Not Detected Ur Strep pneumoniae Ag Not Detected 05/17/24 06:47 MCV MCH MCHC RDW Plt Count MPV Absolute Nucleated RBC Nucleated RBC % (auto) VBG pH 7.32 VBG pCO2 33 VBG pO2 87 VBG HCO3 17 L VBG O2 Saturation 97.0 VBG Base Excess -7.4 Anion Gap Estim Creat Clear Calc Estimated GFR Random Glucose Calcium Total Bilirubin Direct Bilirubin AST ALT Alkaline Phosphatase B-Natriuretic Peptide Total Protein Albumin Respiratory Panel [place] Adenovirus (Rapid PCR) B.pert (TEM-PCR) B.parapertussis DNA PCR C. pneumoniae DNA (PCR) Coronavirus OC43 (PCR) Coronavirus HKU1 (PCR) Coronavirus 229E (PCR) Coronavirus NL63 (PCR) Human Metapneumovir PCR Influenza A (RT-PCR) Influenza B (RT-PCR) M. pneumoniae (PCR) Parainfluenza 1 (PCR) Parainfluenza 2 (PCR) Parainfluenza 3 (PCR) Parainfluenza 4 (PCR) RSV (PCR) Entero/Rhino (PCR) SARS-CoV-2 RNA (RT-PCR) Ur Strep pneumoniae Ag Microbiology Microbiology Results: Microbiology 05/14/24 08:29 Blood Culture - Preliminary Blood - Venous No growth after 48 hours. 05/14/24 08:14 Blood Culture - Preliminary Blood - Venous No growth after 48 hours. Assessment and Plan (1) Pneumonia: Status: Acute Plan d4 for 83yo M with HTN, BPH, CKD5, and dementia presenting with acute dyspnea, found to be markedly hypoxic and septic from multifocal pneumonia; also norovirus positive acute hypoxic respiratory failure due to multifocal pneumonia - 05/14- pip-hazel, 05/15- linezolid [MRSA swab POSITIVE], trend PCT, follow BCx, urinary antigen for Legionella pending [pneumococcus negative], respiratory pathogen PCR panel negative, ID consulted - V/Q negative for PE - does not appear fluid overloaded [did get 1 dose furosemide 05/16], TTE 05/16: - The left ventricular systolic function is normal. The calculated ejection fraction is 70% by biplane method. - There is moderate calcification of the aortic valve. There is mild aortic valve stenosis. - given severity of pneumonia/hypoxia, started on methylprednisolone 40 mg IV daily 05/16- - [employer] consulted: NDD1 solids, nectar liquids - wean HFNC as tolerated- currently on 50% fiO2, 50 Lpm CKD5 chronic metabolic acidosis - avoid nephrotoxins; continue maintenance PO bicarbonate; Nephrology following hyperK - resolved after Lokelma norovirus infection - contact isolation, prn loperamide C. difficile colonization - PO vancomycin while on antibiotics HTN - continue amlodipine BPH - continue tamsulosin + finasteride VTE ppx - UFH dispo - will need STR but hold off on PT eval until off HFNC In my clinical judgment, the patient requires continued inpatient hospitalization for the following reasons: IV ABX, hypoxia Updated pt's daughter at bedside about pt's tenuous clinical status. Total time managing care of this patient today: 50 minutes. Quality Stroke Does the patient have a stroke diagnosis?: No VTE Prior VTE?: No VTE Risk Level:: Medical - moderate - high VTE Device Contraindication: Treatment Not Indicated VTE Drug Contraindication: N/A - Med Ordered
[2024-05-17] MEDS: traZODone HCL 50 MG TABLET PO (20:47)
--- NOTE | 2024-05-17 23:07 | W.PM.IDCN ---
History of Present Illness Data of Consult Service Date: 05/17/24 Requesting physician: Shawna Barnett Primary Care Provider: Debra Kirk MD HPI Reason for consult: multifocal infiltrates He presents with shortness of breath and hypoxia. He has sudden onset symptoms sithin day and low grade temperature. He has MRSA neg nares. Review of Systems Review of Systems: Yes all other systems are reviewed and are negative PMF Past Medical History Medical History Dementia Hypertension Family History Family history: reviewed and not pertinent Social History Social History Household Members: Unknown / Unable to assess Household Members Other:: sister Housing: Unknown / Unable to assess Do you presently have visiting nurse or other home services: No Alcohol intake: never Patient Tobacco Use Status: Tobacco use Unknown Advance Directives Date on File: 05/24/22 service: No Current occupational status: retired Meds Allergies Allergy/AdvReac Type Severity Reaction Status Date / Time No Known Allergies Allergy Verified 05/14/24 08:00 Active Medications: Current Medications Acetaminophen (Acetaminophen 325 Mg Tablet) 650 mg PO Q6H PRN PRN Reason: Pain, Mild 1-3,fever,headache Amlodipine Besylate (Amlodipine Besylate 5 Mg Tablet) 5 mg PO DAILY [facility]; Protocol Last Admin: 05/17/24 09:30 Dose: 5 mg Calcium Carbonate (Calcium Carbonate 750 Mg Tab.Chew) 750 mg PO Q4H PRN PRN Reason: Heartburn Finasteride (Finasteride 5 Mg Tablet) 5 mg PO DAILY [facility] Last Admin: 05/17/24 09:31 Dose: Not Given Heparin Sodium (Porcine) (Heparin Sodium,Porcine 5,000 Unit/Ml Vial) 5,000 unit SUBCUT Q12H [facility] Last Admin: 05/17/24 12:34 Dose: 5,000 unit Piperacillin Sod/Tazobactam (Sod 2.25 gm/ Sodium Chloride) 50 mls @ 100 mls/hr IV Q6H [facility] Last Infusion: 05/17/24 19:10 Dose: Infused Linezolid (Zyvox/D5w) 600 mg in 300 mls @ 300 mls/hr IV Q12H [facility] Last Infusion: 05/17/24 21:19 Dose: Infused Loperamide HCl (Loperamide Hcl 2 Mg Capsule) 2 mg PO Q4H PRN PRN Reason: diarrhea Magnesium Hydroxide (Milk Of Magnesia 30 Ml Oral.Susp) 30 ml PO DAILY PRN PRN Reason: Constipation Melatonin (Melatonin 3 Mg Tablet) 6 mg PO BEDTIME PRN PRN Reason: Insomnia Last Admin: 05/14/24 21:13 Dose: 6 mg Methylprednisolone Sodium Succinate (Methylprednisolone Sod Succ 40 Mg/Ml Vial) 40 mg IVPUSH Q24H [facility] Last Admin: 05/17/24 09:27 Dose: 40 mg Morphine Sulfate (Morphine Sulfate 2 Mg/Ml Cartridge) 1 mg IVPUSH Q3H PRN; Protocol PRN Reason: work of breathing Last Admin: 05/16/24 00:49 Dose: 1 mg Multivitamins/Vitamin C (Multivitamin Tablet) 1 tab PO DAILY [facility] Last Admin: 05/17/24 09:31 Dose: 1 tab Ondansetron HCl (Ondansetron Hcl 4 Mg/2 Ml Vial) 4 mg IVPUSH Q8H PRN PRN Reason: Nausea and Vomiting Sodium Bicarbonate (Sodium Bicarbonate 650 Mg Tablet) 650 mg PO TID [facility] Last Admin: 05/17/24 20:19 Dose: 650 mg Sodium Chloride (0.9 % Sodium Chloride Flush 3 Ml Syringe) 3 ml IVFLUSH QSHIFT [facility] Last Admin: 05/17/24 21:30 Dose: 3 ml Tamsulosin HCl (Tamsulosin Hcl 0.4 Mg Capsule) 0.4 mg PO DAILY@0730 [facility] Last Admin: 05/17/24 09:27 Dose: 0.4 mg Trazodone HCl (Trazodone Hcl 50 Mg Tablet) 50 mg PO BEDTIME [facility] Last Admin: 05/17/24 20:47 Dose: 50 mg Vancomycin HCl (Vancomycin Hcl Oral Solution 125 Mg/5 Ml Soln.Recon) 125 mg PO Q6H [facility] Last Admin: 05/17/24 18:10 Dose: 125 mg Vitamin D (Cholecalciferol (Vitamin D3) 25 Mcg Tablet) 50 mcg PO DAILY [facility] Last Admin: 05/17/24 09:27 Dose: 50 mcg Home Medications ?Medication ?Instructions ?Recorded ?Confirmed ?Last Taken ?Type multivitamin 1 tab PO DAILY 10/31/24 01/28/25 01/27/25 History cholecalciferol (vitamin D3) 50 50 mcg PO DAILY 05/14/24 05/14/24 05/13/24 History mcg (2,000 unit) tablet (Vitamin D3) trazodone 50 mg tablet 50 mg PO BEDTIME 05/14/24 05/14/24 05/13/24 History Physical Exam Vital Signs: Vital Signs: Last Vital Signs Temp 99.6 F 05/17/24 19:52 Pulse 80 05/17/24 19:52 Resp 20 05/17/24 22:59 BP 131/60 05/17/24 19:52 Pulse Ox 91 L 05/17/24 21:46 O2 Del Method High Flow Nasal C annula 05/17/24 21:46 O2 Flow Rate 50 05/17/24 21:46 FiO2 50 05/17/24 21:46 BMI result Body Mass Index 24.8 Const: General: cooperative HEENT: Head: Yes normal to inspection Face and sinus: Yes normal facial exam Mouth: Normal oral and palatal mucosa present Teeth and gingiva: dentition normal Eyes: General: appearance normal, both eyes and all related structures Pupils: Equal, round and reactive pupils present Resp: Effort & Inspection: normal respiratory effort Cardio: Rate: regular rate Rhythm: regular rhythm GI: Palpation (GI): Soft to palpation and nontender : General: Yes no CVA tenderness Back/Spine/Pelvis: Back: no CVA tenderness Skin: General skin exam: no rashes or lesions noted Neuro: General: moves all extremities Cranial nerves: Yes Equal, round and reactive pupils present Extrem: General: Yes normal to inspection Psych: Appearance: grossly normal Results Labs 05/17/24 06:43 05/17/24 06:43 Labs: Short CBC 05/17/24 Range/Units 06:43 WBC 12.2 H (4.8-10.8) X10*3/uL Hgb 9.4 L (14.0-18.0) g/dl Hct 28.5 L (42.0-52.0) % Plt Count 222 (160-400) X10*3/uL BMP 05/17/24 06:43 Sodium 144 Potassium 4.7 Chloride 116 H Carbon Dioxide 16 L BUN 83 H Creatinine 4.22 H* Calcium 9.1 Liver Function 05/17/24 Range/Units 06:43 Total Bilirubin 0.2 (0.0-1.0) mg/dL Direct Bilirubin < 0.2 (0.0-0.5) mg/dL AST 22 (5-37) U/L ALT 7 (0-40) U/L Alkaline Phosphatase 70 (39-117) U/L Albumin 2.9 L (3.5-5.0) g/dL Microbiology Microbiology Results: Microbiology 05/14/24 08:29 Blood - Venous Blood Culture - Preliminary No growth after 48 hours. 05/14/24 08:14 Blood - Venous Blood Culture - Preliminary No growth after 48 hours. Assessment and Plan (1) Pulmonary aspiration: Status: Acute (2) Acute respiratory failure with hypoxia: Status: Acute Plan Zosyn 3-5 days Can stop linezolid,no MRSA.
[2024-05-18] VITALS (12 sets, daily range): BP systolic 119–138; BP diastolic 60–72; PULSE 58–77; RESP 17–20; TEMP 36.2–37; O2SAT 90–98
[2024-05-18] MEDS: Heparin Sodium,Porcine 5,000 UNIT/ML VIAL 5000 UNIT SUBCUT ×3 (00:05→23:53)
[2024-05-18] MEDS: vancomycin HCL Oral Solution 125 MG/5 ML SOLN.RECON PO ×3 (00:05→12:38)
[2024-05-18] MEDS: Melatonin 3 MG TABLET 6 MG PO ×2 (00:10→23:53)
[2024-05-18] MEDS: Piperacillin Sodium/Tazobactam 2.25 GM in 0.9 % Sodium Chloride 50 ML IV ×4 (00:11→17:59)
[2024-05-18 07:23] LABS: Hematocrit 29.2 % (42.0-52.0); Hemoglobin 9.7 g/dl (14.0-18.0); Mean Corpuscular HGB Conc 33.2 g/dl (31.0-36.0); Mean Corpuscular Hemoglobin 30.2 pg (27.0-33.0); Mean Platelet Volume 10.2 fL (9.4-12.4); Platelet Count 256 X10*3/uL (160-400); Red Blood Count 3.21 X10*6/uL (4.60-5.80); Red Cell Distribution Width 13.5 % (11.0-16.0); White Blood Count 15.5 X10*3/uL (4.8-10.8)
[2024-05-18 07:27] LABS: Anion Gap 16 (12-20); Blood Urea Nitrogen 86 mg/dL (9-16); Calcium 8.9 mg/dL (8.4-10.2); Carbon Dioxide 16 mmol/L (22-29); Chloride 116 mmol/L (96-108); Creatinine Clr Calc Pharmacy 12.5; Estimated Glomerular Filt Rate 15; Glucose Random 99 mg/dL (60-115); Potassium 4.5 mmol/L (3.3-5.1); Sodium 143 mmol/L (135-145)
[2024-05-18 07:44] LABS: Procalcitonin 0.29 ng/mL
[2024-05-18] MEDS: Finasteride 5 MG TABLET PO (08:03)
[2024-05-18] MEDS: Multivitamin TABLET 1 TAB PO (08:03)
[2024-05-18] MEDS: Tamsulosin HCL 0.4 MG CAPSULE PO (08:03)
[2024-05-18] MEDS: amLODIPine Besylate 5 MG TABLET PO (08:03)
[2024-05-18] MEDS: Cholecalciferol (Vitamin D3) 25 MCG TABLET 50 MCG PO (08:03)
[2024-05-18] MEDS: 0.9 % Sodium Chloride Flush 3 ML SYRINGE IVFLUSH ×3 (08:03→23:58)
[2024-05-18] MEDS: Sodium Bicarbonate 650 MG TABLET PO ×3 (08:03→20:23)
[2024-05-18] MEDS: methylPREDNISolone Sod Succ 40 MG/ML VIAL IVPUSH (08:03)
[2024-05-18 12:52] LABS: Norovirus Stool PCR NOT DETECTED
--- NOTE | 2024-05-18 15:04 | HO.PM.IMPN ---
Subjective Subjective Date of Service: 05/18/24 Interval History: Continues to require high flow O2. MRSA swab positive Review of Systems Unable to obtain Physical Exam Vital Signs: Vital Signs: Last Vital Signs Temp 97.1 F 05/18/24 11:15 Pulse 64 05/18/24 11:15 Resp 18 05/18/24 12:17 BP 124/66 05/18/24 11:15 Pulse Ox 92 05/18/24 11:15 O2 Del Method High Flow Nasal C annula 05/18/24 11:15 O2 Flow Rate 35 05/18/24 11:15 FiO2 35 05/18/24 11:15 BMI result Body Mass Index 24.8 Const: Other: Awake confused no acute distress Resp: Other: Bilateral lower lobe crackles Cardio: Other: No S4; positive S1-S2; no S3 murmurs rubs or gallops GI: Other: Soft nontender nondistended normoactive bowel sounds Extrem: Other: No edema bilaterally Objective Data Active Medications Acetaminophen (Acetaminophen 325 Mg Tablet) 650 mg PO Q6H PRN PRN Reason: Pain, Mild 1-3,fever,headache Amlodipine Besylate (Amlodipine Besylate 5 Mg Tablet) 5 mg PO DAILY [facility]; Protocol Last Admin: 05/18/24 08:03 Dose: 5 mg Documented By: COLBY Calcium Carbonate (Calcium Carbonate 750 Mg Tab.Chew) 750 mg PO Q4H PRN PRN Reason: Heartburn Finasteride (Finasteride 5 Mg Tablet) 5 mg PO DAILY [facility] Last Admin: 05/18/24 08:03 Dose: 5 mg Documented By: COLBY Heparin Sodium (Porcine) (Heparin Sodium,Porcine 5,000 Unit/Ml Vial) 5,000 unit SUBCUT Q12H [facility] Last Admin: 05/18/24 12:38 Dose: 5,000 unit Documented By: COLBY Piperacillin Sod/Tazobactam (Sod 2.25 gm/ Sodium Chloride) 50 mls @ 100 mls/hr IV Q6H [facility] Last Infusion: 05/18/24 13:22 Dose: Infused Documented By: COLBY Loperamide HCl (Loperamide Hcl 2 Mg Capsule) 2 mg PO Q4H PRN PRN Reason: diarrhea Magnesium Hydroxide (Milk Of Magnesia 30 Ml Oral.Susp) 30 ml PO DAILY PRN PRN Reason: Constipation Melatonin (Melatonin 3 Mg Tablet) 6 mg PO BEDTIME PRN PRN Reason: Insomnia Last Admin: 05/18/24 00:10 Dose: 6 mg Documented By: GREER Methylprednisolone Sodium Succinate (Methylprednisolone Sod Succ 40 Mg/Ml Vial) 40 mg IVPUSH Q24H [facility] Last Admin: 05/18/24 08:03 Dose: 40 mg Documented By: COLBY Morphine Sulfate (Morphine Sulfate 2 Mg/Ml Cartridge) 1 mg IVPUSH Q3H PRN; Protocol PRN Reason: work of breathing Last Admin: 05/16/24 00:49 Dose: 1 mg Documented By: JOSE Multivitamins/Vitamin C (Multivitamin Tablet) 1 tab PO DAILY [facility] Last Admin: 05/18/24 08:03 Dose: 1 tab Documented By: COLBY Ondansetron HCl (Ondansetron Hcl 4 Mg/2 Ml Vial) 4 mg IVPUSH Q8H PRN PRN Reason: Nausea and Vomiting Sodium Bicarbonate (Sodium Bicarbonate 650 Mg Tablet) 650 mg PO TID [facility] Last Admin: 05/18/24 08:03 Dose: 650 mg Documented By: COLBY Sodium Chloride (0.9 % Sodium Chloride Flush 3 Ml Syringe) 3 ml IVFLUSH QSHIFT [facility] Last Admin: 05/18/24 08:03 Dose: 3 ml Documented By: COLBY Tamsulosin HCl (Tamsulosin Hcl 0.4 Mg Capsule) 0.4 mg PO DAILY@0730 [facility] Last Admin: 05/18/24 08:03 Dose: 0.4 mg Documented By: COLBY Trazodone HCl (Trazodone Hcl 50 Mg Tablet) 50 mg PO BEDTIME [facility] Last Admin: 05/17/24 20:47 Dose: 50 mg Documented By: GREER Vitamin D (Cholecalciferol (Vitamin D3) 25 Mcg Tablet) 50 mcg PO DAILY [facility] Last Admin: 05/18/24 08:03 Dose: 50 mcg Documented By: COLBY Labs 05/18/24 06:45 05/18/24 06:45 Labs: Laboratory Results - last 24 hr 05/15/24 05/18/24 09:01 06:45 MCV 91.0 MCH 30.2 MCHC 33.2 RDW 13.5 Plt Count 256 MPV 10.2 Absolute Nucleated RBC 0.000 Nucleated RBC % (auto) 0.0 Anion Gap 16 Estim Creat Clear Calc 12.5 Estimated GFR 15 Random Glucose 99 Calcium 8.9 Procalcitonin 0.29 Stool Norovirus (PCR) NOT DETECTED Assessment and Plan (1) Acute respiratory failure with hypoxia: Status: Acute (2) Pneumonia: Status: Acute Plan d4 for 83yo M with HTN, BPH, CKD5, and dementia presenting with acute dyspnea, found to be markedly hypoxic and septic from multifocal pneumonia; also norovirus positive 1.Acute hypoxic respiratory failure due to multifocal pneumonia - 05/14- pip-hazel, 05/15- linezolid [MRSA swab POSITIVE](5) - V/Q negative for PE - given severity of pneumonia/hypoxia, started on methylprednisolone 40 mg IV daily 05/16- - INTERACTIVE DESIGNER consulted: NDD1 solids, nectar liquids - wean HFNC as tolerated- currently on 50% fiO2, 50 Lpm 2.CKD5 -chronic metabolic acidosis;Bicarb po as ordered -follow renals/divalents 3.Norovirus infection - contact isolation, prn loperamide 4.C. difficile colonization - PO vancomycin while on antibiotics 5.HTN -acceptable control on current therapies -adjust as indicated Heparin Full code In my clinical judgment, the patient requires continued inpatient hospitalization for the following reasons: IV ABX, hypoxia Quality Stroke Does the patient have a stroke diagnosis?: No VTE Prior VTE?: No VTE Risk Level:: Medical - moderate - high VTE Device Contraindication: Treatment Not Indicated VTE Drug Contraindication: N/A - Med Ordered
[2024-05-18] MEDS: Linezolid/D5W 600 MG/300 ML PIGGYBACK 300 MG IV (15:49)
[2024-05-18] MEDS: vancomycin HCL 125 MG CAPSULE PO ×2 (17:59→23:53)
[2024-05-18] MEDS: traZODone HCL 50 MG TABLET PO (20:23)
[2024-05-18] MEDS: Loperamide HCl 2 MG CAPSULE PO (23:52)
[2024-05-19] VITALS (15 sets, daily range): BP systolic 121–150; BP diastolic 63–74; PULSE 57–82; RESP 14–24; TEMP 36.1–36.6; O2SAT 92–98
[2024-05-19] MEDS: Piperacillin Sodium/Tazobactam 2.25 GM in 0.9 % Sodium Chloride 50 ML IV ×4 (01:36→18:14)
[2024-05-19] MEDS: vancomycin HCL 125 MG CAPSULE PO ×3 (06:18→18:15)
[2024-05-19 06:36] LABS: MANUAL DIFF FLAG NO
[2024-05-19 06:39] LABS: Basophils Percent Auto 0.1 % (0-2); Eosinophils Percent Auto 0.2 % (0-4); Hematocrit 31.6 % (42.0-52.0); Hemoglobin 10.4 g/dl (14.0-18.0); Imm Gran Pct Auto 0.7 % (0.0-0.4); Lymphocytes Percent Auto 7.1 % (20-40); Mean Corpuscular HGB Conc 32.9 g/dl (31.0-36.0); Mean Corpuscular Hemoglobin 30.1 pg (27.0-33.0); Mean Corpuscular Volume 91.3 fL (80.0-98.0); Monocytes Absolute Auto 0.9 X10*3/uL (0.1-1.2); Monocytes Percent Auto 6.1 % (2-11); Neutrophils Absolute Auto 12.2 x10*3/uL (2.0-8.3); Neutrophils Percent Auto 85.8 % (45-73); Platelet Count 255 X10*3/uL (160-400); Red Blood Count 3.46 X10*6/uL (4.60-5.80); Red Cell Distribution Width 13.4 % (11.0-16.0); White Blood Count 14.2 X10*3/uL (4.8-10.8)
[2024-05-19 06:59] LABS: Alanine Aminotransferase 10 U/L (0-40); Albumin Level 3.2 g/dL (3.5-5.0); Alkaline Phosphatase 63 U/L (39-117); Anion Gap 15 (12-20); Aspartate Amino Transferase 19 U/L (5-37); Bilirubin Total 0.2 mg/dL (0.0-1.0); Blood Urea Nitrogen 84 mg/dL (9-16); Calcium 8.8 mg/dL (8.4-10.2); Carbon Dioxide 17 mmol/L (22-29); Chloride 115 mmol/L (96-108); Creatinine Clr Calc Pharmacy 14.1; Estimated Glomerular Filt Rate 17; Glucose Fasting 120 mg/dL (60-99); Potassium 4.3 mmol/L (3.3-5.1); Sodium 143 mmol/L (135-145); Total Protein 6.6 g/dL (6.5-8.0)
[2024-05-19] MEDS: methylPREDNISolone Sod Succ 40 MG/ML VIAL IVPUSH (09:21)
[2024-05-19] MEDS: amLODIPine Besylate 5 MG TABLET PO (09:21)
[2024-05-19] MEDS: Finasteride 5 MG TABLET PO (09:21)
[2024-05-19] MEDS: Cholecalciferol (Vitamin D3) 25 MCG TABLET 50 MCG PO (09:21)
[2024-05-19] MEDS: Sodium Bicarbonate 650 MG TABLET PO ×3 (09:21→20:01)
[2024-05-19] MEDS: Tamsulosin HCL 0.4 MG CAPSULE PO (09:22)
[2024-05-19] MEDS: Multivitamin TABLET 1 TAB PO (09:22)
[2024-05-19] MEDS: 0.9 % Sodium Chloride Flush 3 ML SYRINGE IVFLUSH ×3 (09:22→20:01)
--- NOTE | 2024-05-19 10:53 | PC.NURSE ---
pt having increased WOB and SOB, crackles in lower bases, on high flow 45% 45L. MD notified and came to bedside. see new orders, medicated per MAR
[2024-05-19] MEDS: Morphine Sulfate 2 MG/ML CARTRIDGE IVPUSH ×2 (11:09→19:34)
[2024-05-19] MEDS: Heparin Sodium,Porcine 5,000 UNIT/ML VIAL 5000 UNIT SUBCUT (11:12)
[2024-05-19] MEDS: Furosemide 40 MG/4 ML VIAL IVPUSH (11:18)
--- NOTE | 2024-05-19 13:02 | P.PNIM_ITS ---
Subjective Subjective Date of Service: 05/19/24 Interval History: Developed worsening shortness of breath with work of breathing this a.m.. Repeat chest x-ray demonstrates worsening of infiltrates Review of Systems Unable to obtain Physical Exam 2 Vital Signs: Vital Signs: Last Vital Signs Temp 96.9 F 05/19/24 08:00 Pulse 82 05/19/24 08:00 Resp 22 H 05/19/24 13:00 BP 127/71 05/19/24 08:00 Pulse Ox 92 05/19/24 08:00 O2 Del Method High Flow Nasal C annula 05/19/24 08:00 O2 Flow Rate 40 05/19/24 08:00 FiO2 45 05/19/24 08:00 BMI result Body Mass Index 24.8 Const: Other: Awake confused no acute distress Resp: Other: Bilateral lower lobe crackles Cardio: Other: No S4; positive S1-S2; no S3 murmurs rubs or gallops GI: Other: Soft nontender nondistended normoactive bowel sounds Extrem: Other: No edema bilaterally Objective Data Active Medications Acetaminophen (Acetaminophen 325 Mg Tablet) 650 mg PO Q6H PRN PRN Reason: Pain, Mild 1-3,fever,headache Amlodipine Besylate (Amlodipine Besylate 5 Mg Tablet) 5 mg PO DAILY [facility]; Protocol Last Admin: 05/19/24 09:21 Dose: 5 mg Documented By: COLBY Calcium Carbonate (Calcium Carbonate 750 Mg Tab.Chew) 750 mg PO Q4H PRN PRN Reason: Heartburn Finasteride (Finasteride 5 Mg Tablet) 5 mg PO DAILY [facility] Last Admin: 05/19/24 09:21 Dose: 5 mg Documented By: COLBY Heparin Sodium (Porcine) (Heparin Sodium,Porcine 5,000 Unit/Ml Vial) 5,000 unit SUBCUT Q12H [facility] Last Admin: 05/19/24 11:12 Dose: 5,000 unit Documented By: COLBY Piperacillin Sod/Tazobactam (Sod 2.25 gm/ Sodium Chloride) 50 mls @ 100 mls/hr IV Q6H [facility] Last Admin: 05/19/24 12:49 Dose: 100 mls/hr Documented By: COLBY Loperamide HCl (Loperamide Hcl 2 Mg Capsule) 2 mg PO Q4H PRN PRN Reason: diarrhea Last Admin: 05/18/24 23:52 Dose: 2 mg Documented By: GREER Magnesium Hydroxide (Milk Of Magnesia 30 Ml Oral.Susp) 30 ml PO DAILY PRN PRN Reason: Constipation Melatonin (Melatonin 3 Mg Tablet) 6 mg PO BEDTIME PRN PRN Reason: Insomnia Last Admin: 05/18/24 23:53 Dose: 6 mg Documented By: GREER Methylprednisolone Sodium Succinate (Methylprednisolone Sod Succ 40 Mg/Ml Vial) 40 mg IVPUSH Q24H [facility] Last Admin: 05/19/24 09:21 Dose: 40 mg Documented By: COLBY Morphine Sulfate (Morphine Sulfate 2 Mg/Ml Cartridge) 1 mg IVPUSH Q3H PRN; Protocol PRN Reason: work of breathing Last Admin: 05/16/24 00:49 Dose: 1 mg Documented By: JOSE Multivitamins/Vitamin C (Multivitamin Tablet) 1 tab PO DAILY [facility] Last Admin: 05/19/24 09:22 Dose: 1 tab Documented By: COLBY Ondansetron HCl (Ondansetron Hcl 4 Mg/2 Ml Vial) 4 mg IVPUSH Q8H PRN PRN Reason: Nausea and Vomiting Sodium Bicarbonate (Sodium Bicarbonate 650 Mg Tablet) 650 mg PO TID [facility] Last Admin: 05/19/24 09:21 Dose: 650 mg Documented By: COLBY Sodium Chloride (0.9 % Sodium Chloride Flush 3 Ml Syringe) 3 ml IVFLUSH QSHIFT [facility] Last Admin: 05/19/24 09:22 Dose: 3 ml Documented By: COLBY Tamsulosin HCl (Tamsulosin Hcl 0.4 Mg Capsule) 0.4 mg PO DAILY@0730 [facility] Last Admin: 05/19/24 09:22 Dose: 0.4 mg Documented By: COLBY Trazodone HCl (Trazodone Hcl 50 Mg Tablet) 50 mg PO BEDTIME [facility] Last Admin: 05/18/24 20:23 Dose: 50 mg Documented By: GREER Vancomycin HCl (Vancomycin Hcl 125 Mg Capsule) 125 mg PO Q6H [facility] Last Admin: 05/19/24 12:50 Dose: 125 mg Documented By: COLBY Vitamin D (Cholecalciferol (Vitamin D3) 25 Mcg Tablet) 50 mcg PO DAILY [facility] Last Admin: 05/19/24 09:21 Dose: 50 mcg Documented By: COLBY Labs 05/19/24 06:12 05/19/24 06:12 Labs: Laboratory Results - last 24 hr 05/19/24 06:12 MCV 91.3 MCH 30.1 MCHC 32.9 RDW 13.4 Plt Count 255 MPV 10.0 Immature Gran % (Auto) 0.7 H Neut % (Auto) 85.8 H Lymph % (Auto) 7.1 L Rowan % (Auto) 6.1 Eos % (Auto) 0.2 Baso % (Auto) 0.1 Lymph # (Auto) 1.0 L Rowan # (Auto) 0.9 Eos # (Auto) 0.0 Baso # (Auto) 0.0 Abs Immat Gran (auto) 0.10 H Absolute Neuts (auto) 12.2 H Absolute Nucleated RBC 0.000 Nucleated RBC % (auto) 0.0 Anion Gap 15 Estim Creat Clear Calc 14.1 Estimated GFR 17 Fasting Glucose 120 H Calcium 8.8 Total Bilirubin 0.2 AST 19 ALT 10 Alkaline Phosphatase 63 Total Protein 6.6 Albumin 3.2 L Microbiology Microbiology Results: Microbiology 05/14/24 08:29 Blood Culture - Final Blood - Venous No growth after 5 days. 05/14/24 08:14 Blood Culture - Final Blood - Venous No growth after 5 days. Assessment and Plan (1) Acute respiratory failure with hypoxia: Status: Acute (2) Multifocal pneumonia: Status: Acute Plan d4 for 83yo M with HTN, BPH, CKD5, and dementia presenting with acute dyspnea, found to be markedly hypoxic and septic from multifocal pneumonia; also norovirus positive 1.Acute hypoxic respiratory failure due to multifocal pneumonia - 05/14- pip-hazel, 05/15- linezolid [MRSA swab POSITIVE](5) -increased work breathing with worsening multifocal pneumonia by chest x-ray -discussed with family; wish patient to be DNR DNI and moving towards comfort measures if worsening 2.CKD5 -chronic metabolic acidosis;Bicarb po as ordered -follow renals/divalents 3.Norovirus infection - contact isolation, prn loperamide 4.C. difficile colonization - PO vancomycin while on antibiotics 5.HTN -acceptable control on current therapies -adjust as indicated Heparin Full code In my clinical judgment, the patient requires continued inpatient hospitalization for the following reasons: IV ABX, hypoxia Quality Stroke Does the patient have a stroke diagnosis?: No VTE Prior VTE?: No VTE Risk Level:: Medical - moderate - high VTE Device Contraindication: Treatment Not Indicated VTE Drug Contraindication: N/A - Med Ordered
[2024-05-19] MEDS: Morphine Sulfate 2 MG/ML CARTRIDGE 1 MG IVPUSH (18:14)
[2024-05-19] MEDS: traZODone HCL 50 MG TABLET PO (20:01)
[2024-05-20] VITALS (10 sets, daily range): BP systolic 112–118; BP diastolic 65–67; PULSE 65–78; RESP 20–26; TEMP 37; O2SAT 90–95
[2024-05-20] MEDS: Piperacillin Sodium/Tazobactam 2.25 GM in 0.9 % Sodium Chloride 50 ML IV ×3 (00:49→12:54)
[2024-05-20] MEDS: Heparin Sodium,Porcine 5,000 UNIT/ML VIAL 5000 UNIT SUBCUT ×2 (00:49→12:54)
[2024-05-20] MEDS: vancomycin HCL 125 MG CAPSULE PO ×2 (02:08→09:26)
[2024-05-20] MEDS: methylPREDNISolone Sod Succ 40 MG/ML VIAL IVPUSH (09:23)
[2024-05-20] MEDS: Multivitamin TABLET 1 TAB PO (09:25)
[2024-05-20] MEDS: amLODIPine Besylate 5 MG TABLET PO (09:25)
[2024-05-20] MEDS: Tamsulosin HCL 0.4 MG CAPSULE PO (09:25)
[2024-05-20] MEDS: Finasteride 5 MG TABLET PO (09:25)
[2024-05-20] MEDS: Sodium Bicarbonate 650 MG TABLET PO (09:25)
[2024-05-20] MEDS: Cholecalciferol (Vitamin D3) 25 MCG TABLET 50 MCG PO (09:25)
[2024-05-20] MEDS: 0.9 % Sodium Chloride Flush 3 ML SYRINGE IVFLUSH (09:26)
--- NOTE | 2024-05-20 12:47 | MHC.SLORD ---
Speech Language Pathology Order Status: MD consulted, pt remains on highflow oxygen, plan in progress to transition pt PHARMACY TECHNICIAN. RADIOLOGY PHYSICIAN available to consult as appropriate.
--- NOTE | 2024-05-20 13:08 | PC.NURSE ---
pt more lethargic and non-verbal compared to yesterday, Dr. Prieto notified. had several liquid stools this AM, rectal tube placed, tolerated well. daughter Kimberly and MD at bedside at this time.
--- NOTE | 2024-05-20 14:57 | MHC.CM.PN ---
EMR reviewed and per MD rounds, pt is not medically cleared for discharge due to management of hypoxia, pt remains on hi-flow.
--- NOTE | 2024-05-20 15:02 | P.PNIM_ITS ---
Subjective Subjective Date of Service: 05/20/24 Interval History: Continues to decline. Sats plummet rapidly when removed high flow Review of Systems Unable to obtain Physical Exam 2 Vital Signs: Vital Signs: Last Vital Signs Temp 98.6 F 05/20/24 07:20 Pulse 67 05/20/24 07:20 Resp 24 H 05/20/24 11:20 BP 112/67 05/20/24 07:20 Pulse Ox 95 05/20/24 07:20 O2 Del Method High Flow Nasal C annula 05/20/24 07:20 O2 Flow Rate 50 05/20/24 07:20 FiO2 44.8 05/20/24 07:20 BMI result Body Mass Index 24.8 Const: Other: Somnolent arousable at times. Resp: Other: Bilateral lower lobe crackles; intercostal retractions Cardio: Other: No S4; positive S1-S2; no S3 murmurs rubs or gallops GI: Other: Soft nontender nondistended normoactive bowel sounds Extrem: Other: No edema bilaterally Objective Data Active Medications Acetaminophen (Acetaminophen 325 Mg Tablet) 650 mg PO Q6H PRN PRN Reason: Pain, Mild 1-3,fever,headache Amlodipine Besylate (Amlodipine Besylate 5 Mg Tablet) 5 mg PO DAILY [facility]; Protocol Last Admin: 05/20/24 09:25 Dose: 5 mg Documented By: COLBY Calcium Carbonate (Calcium Carbonate 750 Mg Tab.Chew) 750 mg PO Q4H PRN PRN Reason: Heartburn Finasteride (Finasteride 5 Mg Tablet) 5 mg PO DAILY [facility] Last Admin: 05/20/24 09:25 Dose: 5 mg Documented By: COLBY Heparin Sodium (Porcine) (Heparin Sodium,Porcine 5,000 Unit/Ml Vial) 5,000 unit SUBCUT Q12H [facility] Last Admin: 05/20/24 12:54 Dose: 5,000 unit Documented By: COLBY Piperacillin Sod/Tazobactam (Sod 2.25 gm/ Sodium Chloride) 50 mls @ 100 mls/hr IV Q6H [facility] Last Infusion: 05/20/24 13:35 Dose: Infused Documented By: COLBY Loperamide HCl (Loperamide Hcl 2 Mg Capsule) 2 mg PO Q4H PRN PRN Reason: diarrhea Last Admin: 05/18/24 23:52 Dose: 2 mg Documented By: GREER Magnesium Hydroxide (Milk Of Magnesia 30 Ml Oral.Susp) 30 ml PO DAILY PRN PRN Reason: Constipation Melatonin (Melatonin 3 Mg Tablet) 6 mg PO BEDTIME PRN PRN Reason: Insomnia Last Admin: 05/18/24 23:53 Dose: 6 mg Documented By: GREER Methylprednisolone Sodium Succinate (Methylprednisolone Sod Succ 40 Mg/Ml Vial) 40 mg IVPUSH Q24H [facility] Last Admin: 05/20/24 09:23 Dose: 40 mg Documented By: COLBY Morphine Sulfate (Morphine Sulfate 2 Mg/Ml Cartridge) 1 mg IVPUSH Q3H PRN; Protocol PRN Reason: work of breathing Last Admin: 05/19/24 18:14 Dose: 1 mg Documented By: COLBY Morphine Sulfate (Morphine Sulfate 2 Mg/Ml Cartridge) 2 mg IVPUSH Q2H PRN; Protocol PRN Reason: anxiety/restlessness Last Admin: 05/19/24 19:34 Dose: 2 mg Documented By: KEVIN Multivitamins/Vitamin C (Multivitamin Tablet) 1 tab PO DAILY [facility] Last Admin: 05/20/24 09:25 Dose: 1 tab Documented By: COLBY Ondansetron HCl (Ondansetron Hcl 4 Mg/2 Ml Vial) 4 mg IVPUSH Q8H PRN PRN Reason: Nausea and Vomiting Sodium Bicarbonate (Sodium Bicarbonate 650 Mg Tablet) 650 mg PO TID [facility] Last Admin: 05/20/24 09:25 Dose: 650 mg Documented By: COLBY Sodium Chloride (0.9 % Sodium Chloride Flush 3 Ml Syringe) 3 ml IVFLUSH QSHIFT [facility] Last Admin: 05/20/24 09:26 Dose: 3 ml Documented By: COLBY Tamsulosin HCl (Tamsulosin Hcl 0.4 Mg Capsule) 0.4 mg PO DAILY@0730 [facility] Last Admin: 05/20/24 09:25 Dose: 0.4 mg Documented By: COLBY Trazodone HCl (Trazodone Hcl 50 Mg Tablet) 50 mg PO BEDTIME [facility] Last Admin: 05/19/24 20:01 Dose: 50 mg Documented By: KEVIN Vancomycin HCl (Vancomycin Hcl 125 Mg Capsule) 125 mg PO Q6H [facility] Last Admin: 05/20/24 13:08 Dose: Not Given Documented By: COLBY Non-Admin Reason: Physician Approved Vitamin D (Cholecalciferol (Vitamin D3) 25 Mcg Tablet) 50 mcg PO DAILY [facility] Last Admin: 05/20/24 09:25 Dose: 50 mcg Documented By: COLBY Labs 05/19/24 06:12 05/19/24 06:12 Microbiology Microbiology Results: Microbiology 05/14/24 08:29 Blood Culture - Final Blood - Venous No growth after 5 days. 05/14/24 08:14 Blood Culture - Final Blood - Venous No growth after 5 days. Assessment and Plan (1) Multifocal pneumonia: Status: Acute Plan d4 for 83yo M with HTN, BPH, CKD5, and dementia presenting with acute dyspnea, found to be markedly hypoxic and septic from multifocal pneumonia; also norovirus positive 1.Acute hypoxic respiratory failure due to multifocal pneumonia - 05/14- pip-hazel, 05/15- linezolid [MRSA swab POSITIVE](6) -increased work breathing with worsening multifocal pneumonia by chest x-ray -discussed with family; wish patient to be DNR DNI. At bedside likely will make comfort measures 2.CKD5 -chronic metabolic acidosis;Bicarb po as ordered -follow renals/divalents 3.Norovirus infection - contact isolation, prn loperamide 4.C. difficile colonization - PO vancomycin while on antibiotics 5.HTN -acceptable control on current therapies -adjust as indicated Heparin Full code In my clinical judgment, the patient requires continued inpatient hospitalization for the following reasons: IV ABX, hypoxia Quality Stroke Does the patient have a stroke diagnosis?: No VTE Prior VTE?: No VTE Risk Level:: Medical - moderate - high VTE Device Contraindication: Treatment Not Indicated VTE Drug Contraindication: N/A - Med Ordered
[2024-05-20] MEDS: Morphine Sulfate 2 MG/ML CARTRIDGE 1 MG IVPUSH (16:33)
--- NOTE | 2024-05-20 16:37 | P.PNNP_ITS ---
Subjective Subjective Date of Service: 05/20/24 Interval history: saeen and examined, events noted Physical Exam 2 Vital Signs: Vital Signs: Last Vital Signs Temp 98.6 F 05/20/24 15:47 Pulse 65 05/20/24 15:47 Resp 24 H 05/20/24 16:33 BP 118/65 05/20/24 15:47 Pulse Ox 93 05/20/24 15:47 O2 Del Method High Flow Nasal C annula 05/20/24 15:47 O2 Flow Rate 50 05/20/24 15:47 FiO2 45 05/20/24 15:47 BMI result Body Mass Index 24.8 Const: Other: Somnolent arousable at times. General: cooperative, no acute distress and patient obtunded O rientation/consciousness: patient obtunded HEENT: Head: Yes normal to inspection Face and sinus: Yes normal facial exam Mouth: Normal oral and palatal mucosa present Teeth and gingiva: d entition normal Eyes: General: appearance normal, both eyes and all related structures S clerae: sclerae normal Pupils: Equal, round and reactive pupils present E OM: EOMs intact bilaterally Neck: Neck: Yes no lymphadenopathy, Yes trachea midline and Yes supple Resp: Other: Bilateral lower lobe crackles; intercostal retractions Effort & Inspection: normal respiratory effort and no respiratory distress Auscultation: clear to auscultation bilaterally Cardio: Other: No S4; positive S1-S2; no S3 murmurs rubs or gallops Rate: regular rate Rhythm: regular rhythm Heart sounds: no gallops, no murmurs and no rubs GI: Other: Soft nontender nondistended normoactive bowel sounds Palpation (GI): Soft to palpation, nontender and Other GI palpation findings present ( Nontender) Auscultation: normal bowel sounds : General: Yes no CVA tenderness Back/Spine/Pelvis: Back: no CVA tenderness Skin: General skin exam: no rashes or lesions noted Neuro: General: moves all extremities and patient obtunded Cranial nerves: Yes Equal, round and reactive pupils present Extrem: Other: No edema bilaterally General: Yes normal to inspection, Yes no pedal edema, No clubbing and No cyanosis Psych: Appearance: grossly normal Objective Data Labs 05/19/24 06:12 05/19/24 06:12 Microbiology Microbiology Results: Microbiology 05/14/24 08:29 Blood - Venous Blood Culture - Final No growth after 5 days. 05/14/24 08:14 Blood - Venous Blood Culture - Final No growth after 5 days. 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 DANYELLE: multifact including UTI w assoc cytokine tubular injury and dehydration/renal hypoperfusion cr appears to have peaked at ~ 3.8 2. Adv CKD: BSL Scr 3.5 - 3.8 3. HyperK: resolved for now 4. NAGMA: d/t adv CKDl; goal is > 20 and this will help Tx hyperK as well 5. Anemia: REC: reepat renal labs in am He is euvolemic, please hold further lasix , hypoxia is due to resp infection at this point no indication for HD presently monitor track renal function protect non-dominat arm for future AVF; cont po NaHCO3 650mg tid but check rpeat labs in am Time Spent With Patient Time: Total time managing care of this patient today ____ minutes. Progress Note: Quality Stroke Does the patient have a stroke diagnosis?: No
[2024-05-20] MEDS: Morphine Sulfate/NS 100 MG/100 ML PLAST..BAG IVCONT (18:36)
[2024-05-20] MEDS: Morphine Sulfate 4 MG/ML CARTRIDGE IVPUSH (18:37)
--- NOTE | 2024-05-20 18:49 | PC.RT ---
Patient taken off HFNC per MD request. RN in room administering morphine. 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
--- NOTE | 2024-05-20 19:42 | PC.NURSE ---
pt made CHROME PLATER, morphine CUTTER OPERATOR TILE order, see MAR. instructed by computer education teacher to refer to recent email regarding new CUTTER OPERATOR TILE narcotic infusions policy / new lock box for CHROME PLATER pts. morphine was primed with britton tubing included in locked box. This RN was then informed by charge machine operator that computer education teacher stated to use original CUTTER OPERATOR TILE pump for narcotic infusions. morphine from britton tubing was wasted and morphine bag was then primed with CUTTER OPERATOR TILE tubing and connected to CUTTER OPERATOR TILE pump, all of which were whitnessed by Sofia Pino RN. verified CUTTER OPERATOR TILE pump orders at shift change with Dedra Godoy RN
[2024-05-21] MEDS: LORazepam 2 MG/ML VIAL IVPUSH ×2 (00:30→04:44)
[2024-05-21 03:15] VITALS: RESP 16
--- NOTE | 2024-05-21 05:48 | PM.EVENT ---
Event Note Date of Service: 05/21/24 Event Note: Note Called to pronounce patient who just . Found patient supine in bed. Unresponsive to both verbal and painful stimuli Pupils dilated and fixed to direct light No heart sounds auscultated No breath sounds auscultated Patient pronounced at 0530 AM Patients daughter was at bedside when he so call was not placed. Time Spent With Patient Time: Total time managing care of this patient today __30__ minutes.
--- NOTE | 2024-05-21 06:39 | PC.NURSE ---
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 Family at bedside with patient overnight. Around 0525 pts family came out to notify this RN of patients passing, this RN went to bedside and assessed patient. Family left shortly after taking patients belongings with them home. Provider notified to come to bedside, SYSTEMS ANALYST DEVELOPER discontinued. NEDs notified, declined patient as an organ donor. Post mortem care performed.
--- NOTE | 2024-05-21 07:35 | PM.DDS ---
Discharge Sum: Prov Provider Primary care physician: Debra Kirk MD Consults: 05/16/24 07:54 Consult to Pulmonology Routine Consulting Provider: [facility] Reason for consultation: hypoxia, pnuemonai 05/16/24 08:00 Consult to Infectious Diseases Routine Consulting Provider: [facility] Reason for consultation: severe pneumonia 05/16/24 08:30 Consult to Nephrology Routine Consulting Provider: [facility] Reason for consultation: CKD5 05/20/24 10:41 Consult to Wound Care Routine Reason for consultation: excoriation buttocks/ monica from incontinence Discharge Sum: Diag Contributing Factors (1) Pulmonary aspiration: (2) Acute respiratory failure with hypoxia: (3) Pneumonia: (4) Acute on chronic kidney failure: Discharge Sum: Summary Date and Time Date of admission: 05/14/24 11:59 Date of : 05/21/24 Time of : 05:30 Summary Details: 83-year-old male with a PMH significant for?HTN, BPH, and unspecified dementia who presents to the ED from home for evaluation of SOB and difficulty breathing since this morning. Pt is alert and oriented to self only, and on able to provide accurate HPI, which is instead supplemented by family at bedside. Pt lives with his stepdaughter who reports she found pt this morning with ?heavy breathing? and significant SOB. When she asked pt how he was feeling he only replied ?hospital?, which she notes is very unlike him. Reports pt was in his normal state of health last night without complains of SOB/difficulty breathing or cough. Pt without pulmonary diagnosis, lifelong nonsmoker, not on home O2 home inhalers. Family denies pt has had any recent sicknesses or illnesses. Pt has significantly declined recently and is no longer ambulatory. Family also note pt has hx of dysarthria and often struggles with eating. No known hx of aspiration, but family report they puree his food and give him thin liquids. ? In the ED pt was tachypneic up to 32, elevated HR of 91, and hypoxic as low as 57% on RA, which improved to 91% on high-flow. Labs were significant for leukocytosis 15.4, respiratory acidosis of VBG pH 7.29 with bicarb chronically low at 12, and initial lactic acid 2.4 repeat 1.1. Chronic normocytic anemia around baseline. No significant electrolyte abnormalities. Creatinine 3.77, improved from prior. CXR showed patchy parenchymal opacities throughout both lungs most confluent in left lower lobe suggestive of multifocal pneumonia. EKG demonstrated normal sinus rhythm with ST and T-wave abnormalities though similar to previous 07/12/2023. Pt was treated with DuoNebs, IVF, ceftriaxone, and azithromycin. Pt will be admitted to the hospital for treatment and further evaluation of acute hypoxic respiratory failure in the setting of multifocal pneumonia with sepsis. Hospital Course Patient initially admitted to telemetry as a full code. Started on Zosyn to cover possible aspiration pneumonia. Over the course of the next 24-48 hours O2 requirements began to escalate necessitating high flow O2. Over the last 48 hours, patient's respiratory status worsening; he was on max high flow and still struggling to breathe. Discussion with daughter at bedside. .. Initially DNR DNI. Patient continued to decline and on the afternoon of 05/20/[address] patient on comfort measures only. Patient was started on a morphine drip and high flow at discontinued. Family at bedside. Patient peacefully at 05:30 with family at bedside Additional Data Attending physician: Jaret Prieto,
[2024-05-22 05:34] LABS: Legionella Ag Urine Not Detected (Not Detected)
== END 2024-05-21 05:30 | disposition expired | DRG 871 ==
LOC: HO.ED 09:28 → HO.EDOVER 12:11 → HO.S3 23:34 → HO.EDOVER 23:58 → HO.IMC 05-15 13:51
PROVIDERS: Family Medicine; Admitting Provider Student in an Organized Health Care Education/Training Program; Emergency Provider Emergency Medicine Emergency Medical Services; PCP Family Medicine; Visit Provider Hospitalist
DX: A41.9 Sepsis, unspecified organism (principal); J69.0 Pneumonitis due to inhalation of food and vomit; J96.01 Acute respiratory failure with hypoxia; I12.0 Hypertensive chronic kidney disease with stage 5 chronic kidney disease or end stage renal disease; N18.5 Chronic kidney disease, stage 5; N17.9 Acute kidney failure, unspecified; A08.11 Acute gastroenteropathy due to Norwalk agent; G93.49 Other encephalopathy; Z66 Do not resuscitate; E86.0 Dehydration; D63.1 Anemia in chronic kidney disease; Z96.0 Presence of urogenital implants; N40.0 Benign prostatic hyperplasia without lower urinary tract symptoms; F03.90 Unspecified dementia, unspecified severity, without behavioral disturbance, psychotic disturbance, mood disturbance, and anxiety; Z22.1 Carrier of other intestinal infectious diseases; Z22.322 Carrier or suspected carrier of Methicillin resistant Staphylococcus aureus; Z79.899 Other long term (current) drug therapy
CPT/HCPCS: 0241U; 36415; 71045; 71250; 78580; 80048; 80053; 80076; 80202; 82803; 83605; 83690; 83880; 84145; 84484; 85025; 85027; 85379; 85610; 87040; 87324; 87449; 87493; 87507; 87633; 87640; 87641; 87899; 92526; 92610; 93005; 93306; 94640; 99285; A9540; C1758; J0456; J0696; J1644; J1940; J2020; J2060; J2270; J2543; J2919; Q9957

== ENCOUNTER → 2024-05-14 07:52 | Outpatient (BNV) | payer MEDICARE, SELFPAY | PROVIDERS: Admitting Provider Student in an Organized Health Care Education/Training Program; Emergency Provider Emergency Medicine Emergency Medical Services; PCP Family Medicine; Visit Provider Internal Medicine | DX: I45.10 Unspecified right bundle-branch block (principal) | CPT/HCPCS: 93010 ==

== ENCOUNTER → 2024-05-14 07:54 | Outpatient (BNV) | payer MEDICARE, SELFPAY | PROVIDERS: Emergency Provider Emergency Medicine Emergency Medical Services; PCP Family Medicine; Visit Provider Radiology Diagnostic Radiology | DX: R06.02 Shortness of breath (principal); R91.8 Other nonspecific abnormal finding of lung field | CPT/HCPCS: 71045; 78580 ==

== ENCOUNTER 2024-05-14 11:59 | Outpatient (BNV) | payer MEDICARE, SELFPAY | END 2024-05-19 11:50 | PROVIDERS: Admitting Provider Student in an Organized Health Care Education/Training Program; Emergency Provider Emergency Medicine Emergency Medical Services; PCP Family Medicine; Visit Provider Radiology Diagnostic Radiology | DX: R06.02 Shortness of breath (principal) | CPT/HCPCS: 71045 ==

== ENCOUNTER 2024-05-14 11:59 | Outpatient (BNV) | payer MEDICARE, SELFPAY | END 2024-05-15 15:06 | PROVIDERS: Admitting Provider Student in an Organized Health Care Education/Training Program; Emergency Provider Emergency Medicine Emergency Medical Services; PCP Family Medicine; Visit Provider Radiology Diagnostic Radiology | DX: J18.9 Pneumonia, unspecified organism (principal) | CPT/HCPCS: 71250 ==

== ENCOUNTER → 2024-05-14 11:59 | Outpatient (BNV) | payer MEDICARE, SELFPAY | PROVIDERS: Admitting Provider Student in an Organized Health Care Education/Training Program; Emergency Provider Emergency Medicine Emergency Medical Services; PCP Family Medicine; Visit Provider Student in an Organized Health Care Education/Training Program | DX: J18.9 Pneumonia, unspecified organism (principal); R09.02 Hypoxemia | CPT/HCPCS: 99223; 99233 ==

== ENCOUNTER → 2024-05-14 11:59 | Outpatient (BNV) | payer MEDICARE, SELFPAY | PROVIDERS: Admitting Provider Student in an Organized Health Care Education/Training Program; Emergency Provider Emergency Medicine Emergency Medical Services; PCP Family Medicine; Visit Provider Internal Medicine Pulmonary Disease | DX: J96.01 Acute respiratory failure with hypoxia (principal); T17.900A Unspecified foreign body in respiratory tract, part unspecified causing asphyxiation, initial encounter | CPT/HCPCS: 99222 ==